=== PATIENT | male | born 1965 | race Caucasian/White ===

== ENCOUNTER → 2017-02-12 | Outpatient (CLI) | payer OTHER ==
[~2017-02-12] MED LIST: ATOR20TA58 PO; GADOBUTROL 7.5 MMOL/7.5 ML VIAL IV ONE; GLIM1TAB2 PO; LIRA0.6P2 SQ; LOSA25TA4 PO; METF500T4 PO
--- NOTE | 2017-02-12 12:57 | KCIC ---
PROCEDURE MRI of the left brachial plexus without and with contrast 02/12/2017 HISTORY Left arm pain and limited range of motion for 7-8 months. TECHNIQUE Unenhanced T1 weighted coronal images of the lower neck/upper chest were obtained. Fat saturated T2 weighted sagittal, axial and coronal and fat saturated T1 weighted sagittal and axial images in the region of left brachial plexus were obtained. After the intravenous administration of 11 cc of Gadavist, enhanced fat saturated T1 coronal images of the lower neck/upper chest were obtained. Additionally fat saturated T2 weighted axial and sagittal images in the region left brachial plexus were obtained. FINDINGS The visualized portions of the roots, trunks, divisions, cords, and branches of the left brachial plexus are within normal limits. No abnormal soft tissue mass or area of abnormal contrast enhancement is seen. The visualized portions of the right brachial plexus are within normal limits. Mild to moderate S-shaped curvature of the thoracic spine is seen. There is a small to moderate-sized left shoulder joint effusion. Degenerative changes are seen involving the both AC joint and glenohumeral joints. IMPRESSION No abnormality of the left brachial plexus is seen. Electronically signed by: Cristian Kelley MD (Feb 12, 2017 12:55:25)
--- NOTE | 2017-02-12 14:55 | KCIC ---
CHEST, TWO VIEWS, 02/12/2017: History: Smoker, weight loss The heart size and pulmonary vascularity are normal. No pulmonary infiltrates are seen. There is no evidence of pleural fluid. Moderate spurring is present in the spine. IMPRESSION: No acute cardiopulmonary abnormality is detected. Electronically signed by: Mason Saldivar MD (Feb 12, 2017 14:53:39)
== END | disposition home or self-care (01) ==
LOC: KCIC MRI 09:55
PROVIDERS: ATTEND Psychiatry & Neurology Neurology with Special Qualifications in Child Neurology
DX: G54.0 Brachial plexus disorders (principal); F17.200 Nicotine dependence, unspecified, uncomplicated; R63.4 Abnormal weight loss
CPT/HCPCS: 71020; 73220; 82565; A9585

== ENCOUNTER → 2017-05-19 | Outpatient (CLI) | payer OTHER ==
[~2017-05-19] MED LIST changes: -GADOBUTROL 7.5 MMOL/7.5 ML VIAL IV ONE
--- NOTE | 2017-05-19 16:12 | EKG ---
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
[2017-05-19 16:39] LABS: CALCIUM 9.1 mg/dL (8.5-10.1); CREATININE 0.8 mg/dL (0.7-1.3); GFR 101.9; POTASSIUM 4.2 mmol/L (3.5-5.1)
== END | disposition home or self-care (01) ==
LOC: EKG 15:48
PROVIDERS: ATTEND Anesthesiology
DX: Z01.812 Encounter for preprocedural laboratory examination (principal); R94.31 Abnormal electrocardiogram [ECG] [EKG]
CPT/HCPCS: 36415; 80048; 93005

== ENCOUNTER → 2017-07-01 | Outpatient (CLI) | payer OTHER ==
--- NOTE | 2017-07-01 12:50 | KCIC ---
MR LUMBAR SPINE HISTORY: Low back pain with left leg radiculopathy. Technique: Sagittal T2, sagittal STIR, and sagittal T1-weighted images were obtained. Additional axial T1 and T2 weighted imaging was also performed. FINDINGS: There is grade 2 spondylolisthesis of L5 on S1 with L5 pars defects bilaterally. There is a broad-based disc protrusion and disc height loss as well. This results in severe bilateral foraminal stenosis. Correlate for L5 radiculopathy symptoms. The remaining disc spaces are well-maintained. There is no compression fracture. Overall bone marrow signal is within normal limits apart from some edema at the superior endplate of L5. Visualized intra-abdominal contents are within normal limits. IMPRESSION: Grade 2 spondylolisthesis of L5 on S1 with severe bilateral foraminal stenosis. Electronically signed by: Carl Johnson MD (07/01/2017 12:47 PM) [place] [id number]
== END | disposition home or self-care (01) ==
LOC: KCIC MRI 11:58
PROVIDERS: ATTEND Family Medicine
DX: M54.16 Radiculopathy, lumbar region (principal); M48.06 Spinal stenosis, lumbar region; M43.16 Spondylolisthesis, lumbar region
CPT/HCPCS: 72148

== ENCOUNTER → 2017-08-11 | Outpatient (CLI) | payer OTHER ==
[~2017-08-11] MED LIST changes: +ATOR40TA59 PO; +CITA40TA5 PO; +GABA-586 PO; +GLIP10TA13 PO; +IOHEXOL 180 MG/ML 10 ML VIAL. ONE; +LOSA100T6 PO; +MELO15TA23 PO; +methylPREDNISolone ACETATE 40 MG/ML VIAL. ONE; +methylPREDNISolone ACETATE 80 MG/ML VIAL. ONE
--- NOTE | 2017-08-11 13:56 | PAIN ---
DATE OF SERVICE: 08/11/2017 INITIAL CONSULTATION FOR PAIN CLINIC CHIEF COMPLAINT: Low back and left lower extremity pain. HISTORY OF PRESENT ILLNESS: This is a 52-year-old male who presents with history of pain in low back, left lower extremity, mostly radiating to the posterior gluteus, posterior thigh, posterior calf, into the foot and toes; sharp, stabbing, cramping, aching, radiating. Worse during the day with activity, standing and walking; better with sitting or lying down. The patient reports not the result of any specific injury or action he is aware of, but he has it for many years. Is doing fairly well, as he had some treatment for it about 8 years ago, but the pain returned over the past over 4 to 5 months. The patient reports no new injury or accidents that is noted. Did have a new MRI scan of lumbar spine though, showing a grade 2 spondylolisthesis at L5 and S1 with severe bilateral foraminal stenosis at the L5 level, with a broad-based disk protrusion and disk height loss as well. The patient reports worse with standing, walking, changing positions; better with lying down. Awakens him from sleep 2-3 times at night, but not every night. It does not affect his bowel and bladder control, but does affect his ability to walk. He states his left leg fatigues significantly when ambulating. The patient reports he has tried oxycodone which does help, but he has not had any for about a week. He has had some chiropractic treatment years ago. Also had some epidural injections about 8 years ago, which did well, also by his report. The patient reports his disability rating from 0 to 10, 10 being the worst. It is 7 with family and home responsibilities, recreation, social activity; 6 with occupation; 10 with sexual behavior; 5 with self care; and 5 with life support activities. PAST MEDICAL HISTORY: Significant for type 2 diabetes, cigarette smoking, arthritis, dizziness. PREVIOUS SURGERY: Include left shoulder manipulation under anesthetic and LASIK procedure in 2016. CURRENT MEDICATIONS: Include citalopram, gabapentin, losartan, glipizide, metformin, atorvastatin and Meloxicam. ALLERGIES: THE PATIENT IS ALLERGIC TO PENICILLIN. FAMILY HISTORY: Significant for heart disease and diabetes. SOCIAL HISTORY: The patient drinks a few alcoholic drinks a week on average. Smokes less than a pack a day and has for over 10 years. The patient is . Lives on his own locally in [place], [place], and is currently employed. REVIEW OF SYSTEMS: The patient's review of systems is positive for those items mentioned in history of present illness. All systems reviewed and otherwise negative. It is complete, full and well-documented on the patient's chart. PHYSICAL EXAMINATION: VITAL SIGNS: Today the patient's blood pressure is 136/78, pulse 77, respirations 18, temperature 98.2 degrees Fahrenheit, height 6 feet 5 inches, weight is 243 pounds. GENERAL: The patient is awake, alert, oriented, appropriate, has very pleasant demeanor. HEENT: Shows normocephalic, atraumatic. Extraocular movements are intact and symmetrical. Oral cavity shows mucous membranes moist and pink. Dentition is intact. NECK: Shows anterior throat supple without palpable lymphadenopathy noted. Swallow reflex is symmetrical. CHEST: Shows normal on inspection. Breath sounds are clear to auscultation bilaterally. HEART: Shows S1 and S2 clear. ABDOMEN: Soft, nontender, nondistended. No palpable organomegaly. There is no rebound or guarding demonstrated. BACK: Shows spine grossly in the midline. Normal appearing thoracic kyphosis and lumbar lordotic curvature. Lumbar paraspinous musculature shows symmetrical. No previous bruises, lesions, rashes or scars are noted. The musculature with palpation shows some [id number]-[id number] tenderness in the low lumbar distribution diffusely bilaterally, without radiation, without asymmetry. The patient shows good rotation and motion of the lumbar spine, both laterally as well as extension and flexion, without significant pain reported. No tenderness over the sacrum or sacroiliac regions of the spinous processes. EXTREMITIES: Lower extremities show deep tendon reflexes 2+ in the patellar, 1+ tendo calcaneus tendons. Motor exam is strong with 5/5 dorsiflexion, extension, quadriceps and hamstring flexion, and is symmetrical as well. Peripheral pulses are 2+ posterior tibial and dorsalis pedis pulses. No peripheral edema is noted. No clubbing, no cyanosis. Lower extremities are warm and dry to touch, equal in color and appearance. Straight leg raising noted to be positive on the left at about 40 degrees. Right side is negative. Gaenslen and Sarkis maneuvers are negative bilaterally as well. The patient is able to stand, stand on the toes without difficulty or loss of balance, ambulating with a normal appearing gait, but does not appear to favor the right or left lower extremity significantly with ambulation. Not using any assistive devices to ambulate as well. IMPRESSION: This is a 52-year-old male with: 1. Long history of low back, left lower extremity pain, worse over the past few months. 2. MRI scan of lumbar spine as noted. 3. Type 2 diabetes. 4. Cigarette smoking. PLAN: Options were discussed with the patient, including conservative medical management, physical therapy, interventional technique. He likes to proceed with interventional technique, as he has done well with these in the past by his report. We discussed a lumbar epidural steroid injection using description as well as anatomical models to describe the procedure. Risks were then discussed including, but not limited to bleeding, infection, possibility of epidural hematoma and subsequent neurologic compromise, dural puncture, headaches, spinal cord and/or nerve damage, side effects of steroid medication and poor results regarding pain control. The patient understands and wishes to proceed. The patient will return to clinic in approximately 2 weeks for followup. She was counseled as to return appointment, activity level and side effects to be aware of. DIAGNOSIS: Lumbar radiculopathy with lumbar spondylolisthesis. PROCEDURE: Lumbar epidural steroid injection in translaminar approach at the L5-S1 level using C-arm fluoroscopic guidance, under sterile prep and drape using local anesthetic. MEDICATIONS INJECTED: A total of 120 mg of Depo-Medrol plus 10 mL of preservative-free normal saline, 2 mL Isovue for contrast. CONDITION AT DISCHARGE: Stable. The patient tolerated the procedure well. Had no complications. MARAL FELDER MD DR: CASH/carlos JOB#: [id number] / [id number] ZOHAIB Zhou DO
== END | disposition home or self-care (01) ==
LOC: PNCL 10:19
PROVIDERS: ATTEND Anesthesiology
DX: M43.16 Spondylolisthesis, lumbar region (principal); M54.16 Radiculopathy, lumbar region; F17.200 Nicotine dependence, unspecified, uncomplicated; E11.9 Type 2 diabetes mellitus without complications; M19.91 Primary osteoarthritis, unspecified site; Z83.3 Family history of diabetes mellitus; Z72.89 Other problems related to lifestyle; Z88.0 Allergy status to penicillin
CPT/HCPCS: 62323; J1030; J1040

== ENCOUNTER → 2017-08-25 | Outpatient (CLI) | payer OTHER ==
[~2017-08-25] MED LIST changes: -IOHEXOL 180 MG/ML 10 ML VIAL. ONE; -methylPREDNISolone ACETATE 40 MG/ML VIAL. ONE; -methylPREDNISolone ACETATE 80 MG/ML VIAL. ONE
--- NOTE | 2017-08-25 12:10 | PAIN ---
DATE OF SERVICE: 08/25/2017 DIAGNOSES: Lumbar radiculopathy with lumbar spondylolisthesis. HISTORY OF PRESENT ILLNESS: The patient is a 52-year-old male who returns for followup status post lumbar epidural steroid injection x 1. The patient reports about 90% improvement after the injection, still in pain in the left lower extremity and low back, but only very minimal. The patient reports it is a 2 on a scale of 10 at its absolute worst. The patient reports he has been increasing activity with greater ease and comfort, has been exercising and actually played 18 holes of golf 2 days ago without significant pain reported. The patient reports the pain is there, but it is only an intermittent entity, sharp, tight, only noticeable when he is on his feet for more than about 1 hour. The patient reports otherwise doing well, sleeping well at night. No new motor or sensory deficits. No new bowel or bladder incontinence or other complaints. The patient is very pleased with his progress thus far. PHYSICAL EXAMINATION: VITAL SIGNS: The patient's blood pressure 121/76, pulse 77, respirations 16, temperature is 97.9 degrees Fahrenheit. Height is 6 feet 5 inches, weight is 248 pounds. GENERAL: The patient is awake, alert, oriented, appropriate, very pleasant demeanor. HEENT: Head shows normocephalic, atraumatic. Extraocular movements intact, symmetrical. Oral cavity, mucous membranes are moist and pink. Dentition is intact. NECK: Shows anterior throat supple without palpable lymphadenopathy noted. Swallow reflex is symmetrical. CHEST: Shows normal on inspection. Breath sounds clear to auscultation bilaterally. HEART: Shows S1 and S2 clear. No murmurs auscultated. ABDOMEN: Soft, nontender, nondistended. BACK: Shows spine grossly midline. Lumbar lordotic curvature is maintained. Lumbar paraspinous muscle shows symmetrical on inspection with palpation, shows only very mild tenderness with deep palpation and only diffusely in the low lumbar paraspinous musculature without radiation. Good rotational motion both laterally as well as extension and flexion of the lumbar spine without difficulty. EXTREMITIES: Lower extremities show deep tendon reflexes 2+ in the patella, 1+ tendo-calcaneus tendons are symmetrical. Motor exam is strong with 5/5 dorsiflexion, extension. Quadriceps and hamstring flexion are equal as well. Options were discussed with the patient. The patient's old chart was reviewed and his current medication regimen updated. Current review of systems updated today as well and we will hold on any further injections as he is doing much better and would like to wait on any further interventions. We will have him increase his activity as tolerated, maintain his stretching and strengthening exercises at home as well as walking daily, and will follow up on an as needed basis at this time. MARAL FELDER MD DR: CASH/carlos JOB#: [id number] / [id number]
== END | disposition home or self-care (01) ==
LOC: PNCL 09:32
PROVIDERS: ATTEND Anesthesiology
DX: M54.16 Radiculopathy, lumbar region (principal); M43.16 Spondylolisthesis, lumbar region; M79.605 Pain in left leg
CPT/HCPCS: 99212

== ENCOUNTER → 2019-12-22 | Outpatient (CLI) | payer OTHER ==
[~2019-12-22] MED LIST changes: -GABA-586 PO; +GABA300C18 PO; -GLIM1TAB2 PO; +GLIM1TAB7 PO; +LOSA100T14 PO; -LOSA100T6 PO; -LOSA25TA4 PO; +LOSA25TA54 PO; +METF500T16 PO; -METF500T4 PO
[2019-12-22 13:09] LABS: BASO # 0.1 x10^3/uL (0.0-0.2); BASO % 1 % (0-3); EOS # 0.2 x10^3/uL (0.0-0.7); EOS % 2 % (0-3); HEMOGLOBIN 14.8 g/dL (13.0-17.5); LYMPH # 1.9 x10^3/uL (1.0-4.8); LYMPH % 23 % (24-48); MEAN CORPUSCULAR HEMOGLOBIN 29 pg (25-35); MEAN CORPUSCULAR HGB CONC 34 g/dL (31-37); MEAN CORPUSCULAR VOLUME 87 fL (79-100); MONO # 0.6 x10^3/uL (0.0-1.1); MONO % 7 % (0-9); NEUT # 5.3 x10^3/uL (1.8-7.7); NEUT % 66 % (31-73); PLATELET COUNT 180 x10^3/uL (140-400); RED BLOOD COUNT 5.08 x10^6/uL (4.30-5.70)
[2019-12-22 13:24] LABS: ALBUMIN 3.6 g/dL (3.4-5.0); CALCIUM 8.7 mg/dL (8.5-10.1); CREATININE 0.8 mg/dL (0.7-1.3); GFR 100.7; POTASSIUM 5.1 mmol/L (3.5-5.1); TOTAL BILIRUBIN 0.5 mg/dL (0.2-1.0); TOTAL PROTEIN 7.1 g/dL (6.4-8.2)
[2019-12-22 13:35] LABS: C-REACTIVE PROTEIN 3.9 mg/L (0-3.3)
== END | disposition home or self-care (01) ==
LOC: LAB 12:41
PROVIDERS: ATTEND Podiatrist Foot & Ankle Surgery
DX: E11.621 Type 2 diabetes mellitus with foot ulcer (principal)
CPT/HCPCS: 36415; 80053; 85025; 85651; 86140

== ENCOUNTER → 2020-01-02 | Outpatient (CLI) | payer OTHER ==
[~2020-01-02] MED LIST changes: +GADOTERATE 7.5 MMOL/15ML VIAL. IVP ONE
--- NOTE | 2020-01-02 10:48 | KCIC ---
Bilateral lower extremity arterial Doppler dated 01/02/2020. COMPARISON: None. CLINICAL INDICATION: Foot wound for 2 months. Hypertension and diabetes and tobacco use. FINDINGS: Grayscale, color-flow and spectral waveform analysis performed to include the arterial tree of both lower extremity. There is diffuse luminal irregularity consistent with atherosclerotic plaquing. Mild velocity elevation of the right common femoral artery, estimated at 256 cm/S. Triphasic flow within the common femoral artery and proximal/mid right superficial femoral artery. There is focal plaque at the distal superficial femoral artery on the right with monophasic flow and velocity measurements and 26 cm/S. There is parvus tardus low velocity flow involving the popliteal artery and arteries of right calf. On the left, there is triphasic flow within the common femoral artery and profundus femoris. Monophasic flow of the superficial femoral artery proximally and distally with mild velocity elevation ranging from 126 cm/S2 137 cm/S. There is triphasic flow of the popliteal artery and posterior tibial artery with monophasic flow of the peroneal artery and anterior tibial artery of left calf. IMPRESSION: 1. Diffuse atherosclerotic plaquing. Monophasic parvus tardus flow from the right distal superficial femoral artery to the arteries of the right calf, suggesting a high-grade stenosis. 2. There is also monophasic flow within the left superficial femoral artery, left anterior tibial artery and left peroneal artery suggesting moderate to high-grade narrowing. Electronically signed by: Tim Viramontes MD (01/02/2020 10:45 AM) [facility]-KCIC2
--- NOTE | 2020-01-02 10:57 | KCIC ---
LOWER EXT NON JOINT WO/W RT dated 01/02/2020 9:30 AM Indication: Plantar foot wound evaluate for osteomyelitis nonhealing for 2 months. Comparison: No comparison is available. Technique: Routine multiplanar multisequence imaging performed. Fat-saturated postcontrast T1-weighted sequences acquired after the intravenous administration of 22 cc Dotarem Findings: Study is somewhat limited due to incomplete fat saturation on the T2-weighted images. There is a focal area of skin ulceration at the plantar aspect of the lateral forefoot near the level of the fifth MTP joint. Edema extends to the level of the flexor tendon without associated cortical destruction or significant bone marrow edema. There is minimal increased T2 signal within the head of the fifth metatarsal and base of fifth proximal phalanx which could be related to reactive edema. There is no significant T1 signal loss or bone destruction. No fluid collection to suggest abscess. There is diffuse edema throughout the dorsal subcutaneous tissues and plantar foot musculature. No marrow edema or bone destruction. No periostitis. Alignment anatomic. Visualized bony and soft tissue structures are otherwise unremarkable. IMPRESSION: 1. Soft tissue edema and skin ulcer at the plantar aspect of the fifth MTP joint with no convincing evidence of underlying osteomyelitis. There is minimal increased T2 signal within the marrow of the fifth metatarsal head and base of proximal phalanx that is likely related to reactive edema or artifact from incomplete fat saturation. Early osteomyelitis would be considered less likely. If symptoms persist, follow-up imaging may be warranted. 2. Diffuse edema throughout the subcutaneous tissues and plantar foot musculature, nonspecific. This could be related to generalized cellulitis/myositis. Diabetic neurovascular edema is another consideration. Electronically signed by: Tim Viramontes MD (01/02/2020 10:54 AM) [facility]-KCIC2
== END | disposition home or self-care (01) ==
LOC: KCIC US 07:58
PROVIDERS: ATTEND Podiatrist Foot & Ankle Surgery
DX: I70.8 Atherosclerosis of other arteries (principal); E11.51 Type 2 diabetes mellitus with diabetic peripheral angiopathy without gangrene; I10 Essential (primary) hypertension; R60.0 Localized edema; Z72.0 Tobacco use
CPT/HCPCS: 73720; 93925; A9575

== ENCOUNTER 2020-01-16 11:25 | Inpatient (IN) | payer OTHER ==
[~2020-01-16] VITALS: Ht 195.6 cm; Wt 104.5 kg
[2020-01-16] VITALS (11 sets, daily range): BP systolic 138–163; BP diastolic 66–79
[~2020-01-16 11:25] MED LIST changes: -GADOTERATE 7.5 MMOL/15ML VIAL. IVP ONE
[2020-01-16 12:06] LABS: CALCIUM 9.5 mg/dL (8.5-10.1); CREATININE 0.8 mg/dL (0.7-1.3); GFR 100.7; POTASSIUM 4.2 mmol/L (3.5-5.1)
[2020-01-16 12:08] LABS: PROTHROMBIN TIME PATIENT 12.7 SEC (11.7-14.0)
[2020-01-16 12:12] LABS: HEMATOCRIT 46.5 % (39.0-53.0); HEMOGLOBIN 15.6 g/dL (13.0-17.5); RED BLOOD COUNT 5.31 x10^6/uL (4.30-5.70); RED CELL DISTRIBUTION WIDTH 13.7 % (11.5-14.5); WHITE BLOOD COUNT 9.3 x10^3/uL (4.0-11.0)
[2020-01-16] MEDS ORDERED: MIDAZOLAM HCL/PF 2 MG/2 ML VIAL. ONE ×2 (12:38→13:21)
[2020-01-16] MEDS ORDERED: fentaNYL PF VIAL 100 MCG/2 ML VIAL ONE ×2 (12:38→13:42)
[2020-01-16] MEDS ORDERED: LIDOCAINE 1% Multi-Dose 20 ML VIAL. ONE (12:39)
[2020-01-16] MEDS ORDERED: IODIXANOL 320 MG/ML 100 ML VIAL. ONE (12:39)
[2020-01-16] MEDS ORDERED: IODIXANOL 320 MG/ML 100 ML VIAL. IART ONE (12:45)
[2020-01-16] MEDS ORDERED: fentaNYL PF VIAL 100 MCG/2 ML VIAL IV ONE (12:45)
[2020-01-16] MEDS ORDERED: LIDOCAINE 1% Multi-Dose 20 ML VIAL. INJ ONE (12:45)
[2020-01-16] MEDS ORDERED: MIDAZOLAM HCL/PF 2 MG/2 ML VIAL. IV ONE (12:45)
[2020-01-16] MEDS ORDERED: VERAPAMIL 5 MG/2 ML VIAL. ONE (12:48)
[2020-01-16] MEDS ORDERED: HEPARIN for IV BOLUS 10,000 UNIT/10 ML VIAL. ONE (12:48)
[2020-01-16] MEDS ORDERED: NITROGLYCERIN 200 MCG/2 ML SYRINGE FOR CATH/VASC LAB. ONE (12:48)
[2020-01-16] MEDS ORDERED: HEPARIN for IV BOLUS 10,000 UNIT/10 ML VIAL. IV ONE (13:30)
[2020-01-16] MEDS ORDERED: NITROGLYCERIN 200 MCG/2 ML SYRINGE FOR CATH/VASC LAB. IART ONE (14:30)
[2020-01-16] MEDS ORDERED: hydrALAZINE 20 MG/ML VIAL. ONE (14:32)
[2020-01-16] MEDS ORDERED: hydrALAZINE 20 MG/ML VIAL. IVP ONE (15:00)
[2020-01-16] MEDS ORDERED: IV NORMAL SALINE 1000ML BAG 1,000 ML IV ONE (16:45)
[2020-01-16] MEDS ORDERED: ACETAMINOPHEN 325 MG TABLET. PO PRN (16:45)
--- NOTE | 2020-01-16 18:26 | PDOC ---
Provider Note Provider Note Full note to follow. Patient underwent aortogram with attempted antegrade PVI of the RSFA AUTOMOTIVE ARTIST due to non-healing plantar wound requiring full cast. Unsuccessful recanalization via antegrade approach. Discussed case with vascular surgery regarding possible pedal approach versus bypass. Vascular surgery will evaluate patient for possible bypass in a.m. At case completion patient had dopplerable PT flow and angiographically had three vessel run-off. Will keep L groin sheath intact in the event it is needed for any emergent intervention overnight. If stable overnight, sheath removal in a.m. and determine further plans. Thanks. NICOLE EDEN MD Jan 16, 2020 18:25
--- NOTE | 2020-01-16 18:49 | CARD ---
MR#: [id number] Date of Study: 01/16/2020 Ordering Physician: NICOLE ORTIZ, Referring Physician: NICOLE ORTIZ, Tech: Tata Najera RT (R) APPROVED REPORT Patient StatusIN-PATIENT Cupola Tapper Helper: Tata Najera RT (R) Procedure(s) performed: FLOURO TIME 29.8 MINUTES DOSE 49.10 Gycm2 CONTRAST 146 CC'S VISIPAQUE MODERATE SEDATION 103 MINUTES Abdominal aortogram with RLE run-off. HISTORY : The patient is a 54 year-old male with a history of . INDICATION FOR PROCEDURE The indication(s) include : Rest pain: Right lower extremity, Positive angiogram for stenosis: Superf icial femoral. PROCEDURE NARRATIVE Clinical indication: 54-year-old man who was referred by the podiatry service for evaluation of abnormal right lower extre mity Doppler ultrasound in the setting of a nonhealing right fifth plantar surface wound. He has been treated with conservative management as he has previously not been inclined for interventional treat ment. Ultimately he was seen by the cardiology service and referred for aortography with runoff for f urther treatment and evaluation. Procedure details: After informed consent was obtained the patient was prepped and draped in usual sterile fashion. The left groin was infiltrated with 2% lidocaine local anesthesia. A 5 [place] sheath was placed without d ifficulty. A 5 [place] Omni Flush catheter was advanced to the abdominal aorta and aortography was per formed. Next, the Omni Flush catheter was used to cross over to the right external iliac artery with a J-tipped guidewire and this was placed in the distal external iliac artery. Right lower extremity r unoff angiogram was obtained. Findings: Abdominal aorta: No significant disease Right renal artery likely has a 50% stenosis Left renal artery is not well-visualized Right and left common iliac arteries are grossly unremarkable Right external iliac artery is notable for mild to moderate disease of a proximally 40-50% Right common femoral artery is without significant disease Right profunda is without any significant disease Right superficial femoral artery has mild to moderate proximal and mid disease of approximately 40-50 %. There is a focal 100% obstruction at the level of the abductor canal prior to the P1 segment of th e popliteal artery. Right popliteal artery is widely patent The right tibioperoneal trunk is widely patent The right anterior tibial, posterior tibial and peroneal arteries are patent but was diminished flow to the foot. Interventional technique: Heparin was used for anticoagulation. The 5 [place] sheath was exchanged to a 6 [place] destination she ath. Next, with the aid of a Navicross catheter a 0.[address]/LT wires were used to try to cross the occlusion. Although the occlusion was traversed reentry into the true lumen distally was unsucce ssful despite attempts with the above-stated wires, Glidewire and a V 18 wire. There was a small to m oderate likely hematoma in the medial and adventitial aspect of the distal SFA and popliteal segment which upon repeat angiography revealed approximately a 50% stenosis of the distal SFA and P1 segment of the popliteal artery. Intravenous nitroglycerin was administered and anticoagulation was discontin ued. Ultimately, there was persistent three-vessel runoff with a dopplerable signal in the left poste rior tibial artery. In light of unsuccessful attempts via antegrade approach the case was terminated. The left groin mendez th was sutured to the skin and the patient was transferred to the room in stable condition. Conclusion 1. [place] category 5 right lower extremity plantar wound 2. 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 Unsuccessful antegrade recanalization of the right SFA Recommendations 1. Case discussed with vascular surgery and podiatry (Dr. Plaza). Given that the patient is a goo d candidate for surgery the vascular surgery service (Dr. Cherry or Aubrie) will evaluate him for pos sibility of femoropopliteal bypass. If he is felt to be a poor candidate then we will plan for retrog rade treatment via a pedal approach in the next 24-48 hours. Patient and family (sisters) were also n otified of the plan. 2. Left groin sheath to remain in place in the event there is any acute occlusive disease of the righ t SFA/pop. On-call interventional radiology also notified. 3. Bilateral LE vein mapping and carotid doppler evaluation ordered. Signed by : Nicole Ortiz, Electronically Approved : 01/16/2020 18:48:50
[2020-01-16] MEDS ORDERED: DEXTROSE 50% 25 GM / 50ML DISP.SYRIN. IV PRN (19:15)
[2020-01-16] MEDS: ATORVASTATIN CALCIUM 40 MG TABLET. PO SCH (21:08)
[2020-01-16] MEDS: NICOTINE 14MG PATCH. TD PRN (21:14)
[2020-01-16] MEDS: INSULIN LISPRO 300 UNITS/3 ML VIAL. SQ SCH (21:19)
[2020-01-16] MEDS: CYCLOBENZAPRINE 10 MG TABLET. PO PRN (22:44)
[2020-01-17] VITALS (8 sets, daily range): BP systolic 102–178; BP diastolic 42–79
[2020-01-17] MEDS: hydrALAZINE 20 MG/ML VIAL. IVP PRN ×2 (02:05→07:18)
[2020-01-17] MEDS: fentaNYL PF VIAL 100 MCG/2 ML VIAL IVP PRN ×2 (03:38→05:46)
--- NOTE | 2020-01-17 06:40 | RAD ---
Bilateral vein mapping study dated 01/17/2020. No comparison available. Clinical data indication: Preop for CABG procedure. FINDINGS: Grayscale, color-flow and spectral waveform analysis was performed. The right greater saphenous vein measures 5.1 mm proximally, 4.3 mm at its mid aspect and 3.7 mm distally and is patent. The right small saphenous vein measures 3.6 mm approximate, 2.7 mm at its mid aspect and 2.4mm distally and is patent. The left greater saphenous vein measures 4.6 mm proximally, 4. 63.9 mm at its mid aspect and 4.3 mm distally and is patent. The left small saphenous vein is not visualized. IMPRESSION: Vein mapping study as described Electronically signed by: Tim Viramontes MD (01/17/2020 6:37 AM) [id number]
--- NOTE | 2020-01-17 06:43 | RAD ---
Carotid Doppler dated 01/17/2020. Comparison none. Clinical Indication: Preop for CABG procedure.. Findings: Grayscale, color flow and spectral waveform analysis was performed. Minimal plaque at both carotid bifurcations. No focal stenosis. The waveforms are within normal limits. Flow within the bilateral vertebral arteries is antegrade. Velocity measurements are as follows (centimeters per second ) Peak systolic velocity right left ICA 109 139 CCA 123 114 ECA 260 154 ICA/CCA ratio 0.88 1.21 Impression: No evidence of hemodynamically significant carotid stenosis. Stenosis calculations for carotid ultrasound studies are derived from validated velocity criteria which are known to correlate with the NASCET methodology. Electronically signed by: Tim Viramontes MD (01/17/2020 6:40 AM) [id number]
[2020-01-17] MEDS: CYCLOBENZAPRINE 10 MG TABLET. PO PRN (07:18)
--- NOTE | 2020-01-17 09:53 | PDOC2 ---
CONSULT Date of Consult Date of Consult DATE: 01/17/20 TIME: 09:33 Reason for Consult Reason for Consult: PVD, right plantar foot ulcer Referring Physician Referring Physician: Dr. Ortiz Identification/Chief Complaint Chief Complaint Right foot pain, non-healing ulcer Source Source: Chart review, Patient History of Present Illness Reason for Visit: This is a 54-year-old male who is referred to us by cardiology services for evaluation following angiogram which reveal long segment superfical femoral artery disease, patient has a nonhealing right fifth metatarsal plantar ulcer. Patient has been followed by podiatry for the last few weeks with contact casting along with local wound care and antibiotics. The patient had an abdnormal arterial doppler, thus angiogram performed. The patient complains of pain and tenderness to right foot. He denies any lower extremity claudication. He has multiple varicose veins in right lower extremity. Preoperative carotid ultrasound was performed that showed mild to moderate disease bilaterally. In addition patient had bilateral lower extremity vein mapping and was noted to have adequate greater saphenous vein in his right leg should bypass be w arranted. Patient denies any fever, chills or weakness. She denies any nausea or vomiting, he does report a mild diarrhea during his course of antibiotics. Past Medical History Cardiovascular: HTN, Hyperlipidemia Endocrine: Diabetes Family History Family History non-contributory to current problem Social History No Lives: with Family Current Medications Current Medications Current Medications Midazolam HCl (Versed) 2 mg STK-MED ONCE .ROUTE ; Start 01/16/20 at 12:38; Stop 01/16/20 at 12:38; Status DC Fentanyl Citrate (Fentanyl 2ml Vial) 100 mcg STK-MED ONCE .ROUTE ; Start 01/16/20 at 12:38; Stop 01/16/20 at 12:38; Status DC Iodixanol (Visipaque 320) 100 ml STK-MED ONCE .ROUTE ; Start 01/16/20 at 12:39; Stop 01/16/20 at 12:39; Status DC Lidocaine HCl (Lidocaine 1% 20ml Vial) 20 ml STK-MED ONCE .ROUTE ; Start 01/16/20 at 12:39; Stop 01/16/20 at 12:39; Status DC Heparin Sodium/ Sodium Chloride 1,000 ml @ As Directed STK-MED ONCE .ROUTE ; Start 01/16/20 at 12:39; Stop 01/16/20 at 12:39; Status DC Heparin Sodium/ Sodium Chloride 1,000 ml @ As Directed STK-MED ONCE .ROUTE ; Start 01/16/20 at 12:40; Stop 01/16/20 at 12:40; Status DC Heparin Sodium/ Sodium Chloride (HEPARIN for ARTERIAL LINE FLUSH) 1,000 unit 1X ONCE IART Last administered on 01/16/20at 12:45; Start 01/16/20 at 12:45; Stop 01/16/20 at 12:52; Status DC Heparin Sodium/ Sodium Chloride (HEPARIN for ARTERIAL LINE FLUSH) 1,000 unit 1X ONCE IART Last administered on 01/16/20at 12:45; Start 01/16/20 at 12:45; Stop 01/16/20 at 12:52; Status DC Midazolam HCl (Versed) 2 mg 1X ONCE IV Last administered on 01/16/20at 13:17; Start 01/16/20 at 12:45; Stop 01/16/20 at 12:52; Status DC Fentanyl Citrate (Fentanyl 2ml Vial) 100 mcg 1X ONCE IV Last administered on 01/16/20at 13:17; Start 01/16/20 at 12:45; Stop 01/16/20 at 12:52; Status DC Iodixanol (Visipaque 320) 100 ml 1X ONCE IART Last administered on 01/16/20at 12:45; Start 01/16/20 at 12:45; Stop 01/16/20 at 12:52; Status DC Lidocaine HCl (Lidocaine 1% 20ml Vial) 20 ml 1X ONCE INJ Last administered on 01/16/20at 13:20; Start 01/16/20 at 12:45; Stop 01/16/20 at 12:52; Status DC Verapamil HCl (Verapamil) 5 mg STK-MED ONCE .ROUTE ; Start 01/16/20 at 12:48; Stop 01/16/20 at 12:48; Status DC Heparin Sodium (Porcine) (Heparin Sodium) 10,000 unit STK-MED ONCE .ROUTE ; Start 01/16/20 at 12:48; Stop 01/16/20 at 12:48; Status DC Nitroglycerin (Nitroglycerin) 200 mcg STK-MED ONCE .ROUTE ; Start 01/16/20 at 12:48; Stop 01/16/20 at 12:48; Status DC Midazolam HCl (Versed) 2 mg STK-MED ONCE .ROUTE ; Start 01/16/20 at 13:21; Stop 01/16/20 at 13:21; Status DC Heparin Sodium (Porcine) (Heparin Sodium) 4,000 unit 1X ONCE IV Last administered on 01/16/20at 13:30; Start 01/16/20 at 13:30; Stop 01/16/20 at 13 :32; Status DC Fentanyl Citrate (Fentanyl 2ml Vial) 100 mcg STK-MED ONCE .ROUTE ; Start 01/16/20 at 13:42; Stop 01/16/20 at 13:42; Status DC Nitroglycerin (Nitroglycerin) 200 mcg 1X ONCE IART Last administered on 01/16/20at 14:30; Start 01/16/20 at 14:30; Stop 01/16/20 at 14:31; Status DC Hydralazine HCl (Apresoline Inj) 20 mg STK-MED ONCE .ROUTE ; Start 01/16/20 at 14:32; Stop 01/16/20 at 14:33; Status DC Hydralazine HCl (Apresoline Inj) 20 mg 1X ONCE IVP Last administered on 01/16/20at 14:56; Start 01/16/20 at 15:00; Stop 01/16/20 at 15:01; Status DC Heparin Sodium/ Sodium Chloride 500 ml @ As Directed STK-MED ONCE .ROUTE ; Start 01/16/20 at 14:51; Stop 01/16/20 at 14:51; Status DC Atorvastatin Calcium (Lipitor) 40 mg QHS PO Last administered on 01/16/20at 21:08; Start 01/16/20 at 21:00 Acetaminophen (Tylenol) 650 mg PRN Q6HRS PRN PO PAIN; Start 01/16/20 at 16:45 Hydralazine HCl (Apresoline Inj) 10 mg PRN Q4HRS PRN IVP SBP>180 or DBP>110 Last administered on 01/17/20at 07:18; Start 01/16/20 at 16:45 Sodium Chloride 1,000 ml @ 75 mls/hr 1X ONCE IV Last administered on 01/16/20at 16:59; Start 01/16/20 at 16:45; Stop 01/17/20 at 06:04; Status DC Fentanyl Citrate (Fentanyl 2ml Vial) 50 mcg PRN Q2HR PRN IVP PAIN Last administered on 01/17/20at 05:46; Start 01/16/20 at 18:30 Cyclobenzaprine HCl (Flexeril) 10 mg PRN TID PRN PO MUSCLE SPASMS Last administered on 01/17/20at 07:18; Start 01/16/20 at 18:30 Insulin Human Lispro (HumaLOG) 0-7 UNITS TIDACHC SQ Last administered on 01/16/20at 21:19; Start 01/16/20 at 21:00 Dextrose (Dextrose 50%-Water Syringe) 12.5 gm PRN Q15MIN PRN IV SEE COMMENTS; Start 01/16/20 at 19:15 Nicotine (Nicoderm Cq 14mg) 1 patch PRN DAILY PRN TD SMOKING CESSATION Last administered on 01/16/20at 21:14; Start 01/16/20 at 19:30 Active Scripts Active Reported Atorvastatin Calcium 40 Mg Tablet 1 Tab PO QHS Losartan Potassium 100 Mg Tablet 100 Mg PO DAILY Glipizide 10 Mg Tablet 10 Mg PO DAILY Metformin Hcl 500 Mg Tablet 500 Mg PO BIDWMEALS Allergies Allergies: Coded Allergies: Penicillins (Unverified Allergy, Severe, Anaphylaxis, 01/16/20) ROS Review of System Constitutional: Denies fever or chills Eyes: Denies any visual disturbances HENT: Denies nasal congestion or sore throat Respiratory: Denies cough or shortness of breath Cardiovascular: Denies any palpitations or chest pain GI: Denies abdominal pain, nausea, vomiting, + diarrhea during abx, none currently : Denies dysuria or hematuria Musculoskeletal: As per HPI Integument: As per HPI Neurologic: No gross deficits Endocrine: Diabetes Physical Exam Physical Exam Gen.: Alert and oriented 3. Cardiac: Heart rate regular. Normal carotid pulses. Lungs: CTA, nonlabored respirations. Abdomen: Soft, nontender, nondistended, no palpable masses. Extremities: 2+ bilateral femoral pulses, arterial access sheath in place left groin with no swelling or hematoma. Monophasic Doppler signal bilateral dorsalis pedis and posterior tibial pulses. 2+ bilateral radial pulses. Skin: Right fifth metatarsal plantar ulcer, clean, no surrounding erythema or swelling. Foot is warm. Right thigh and calf varicose veins, no venous stasis skin changes. Neurological: Motor and sensation intact Vitals VITALS Vital Signs Date Time Temp Pulse Resp B/P (MAP) Pulse Ox O2 Delivery O2 Flow Rate FiO2 01/17/20 08:00 Room Air 01/17/20 07:18 81 195/74 01/17/20 06:52 98.0 18 94 98.0 01/16/20 22:42 1.0 Labs Labs Laboratory Tests Test 01/16/20 11:45 01/16/20 14:28 01/16/20 16:24 01/16/20 21:07 White Blood Count 9.3 x10^3/uL (4.0-11.0) Red Blood Count 5.31 x10^6/uL (4.30-5.70) Hemoglobin 15.6 g/dL (13.0-17.5) Hematocrit 46.5 % (39.0-53.0) Mean Corpuscular Volume 88 fL (79-100) Mean Corpuscular Hemoglobin 30 pg (25-35) Mean Corpuscular Hemoglobin Concent 34 g/dL (31-37) Red Cell Distribution Width 13.7 % (11.5-14.5) Platelet Count 198 x10^3/uL (140-400) Prothrombin Time 12.7 SEC (11.7-14.0) Prothromb Time International Ratio 1.0 (0.8-1.1) Sodium Level 139 mmol/L (136-145) Potassium Level 4.2 mmol/L (3.5-5.1) Chloride Level 101 mmol/L (98-107) Carbon Dioxide Level 30 mmol/L (21-32) Anion Gap 8 (6-14) Blood Urea Nitrogen 16 mg/dL (8-26) Creatinine 0.8 mg/dL (0.7-1.3) Estimated GFR (Cockcroft-Gault) 100.7 Glucose Level 176 mg/dL (70-99) Calcium Level 9.5 mg/dL (8.5-10.1) Activated Clotting Time 199 sec (92-181) Glucose (Fingerstick) 146 mg/dL (70-99) 246 mg/dL (70-99) Test 01/17/20 07:31 Glucose (Fingerstick) 259 mg/dL (70-99) Laboratory Tests Test 01/16/20 11:45 01/16/20 14:28 01/16/20 16:24 01/16/20 21:07 White Blood Count 9.3 x10^3/uL (4.0-11.0) Red Blood Count 5.31 x10^6/uL (4.30-5.70) Hemoglobin 15.6 g/dL (13.0-17.5) Hematocrit 46.5 % (39.0-53.0) Mean Corpuscular Volume 88 fL (79-100) Mean Corpuscular Hemoglobin 30 pg (25-35) Mean Corpuscular Hemoglobin Concent 34 g/dL (31-37) Red Cell Distribution Width 13.7 % (11.5-14.5) Platelet Count 198 x10^3/uL (140-400) Prothrombin Time 12.7 SEC (11.7-14.0) Prothromb Time International Ratio 1.0 (0.8-1.1) Sodium Level 139 mmol/L (136-145) Potassium Level 4.2 mmol/L (3.5-5.1) Chloride Level 101 mmol/L (98-107) Carbon Dioxide Level 30 mmol/L (21-32) Anion Gap 8 (6-14) Blood Urea Nitrogen 16 mg/dL (8-26) Creatinine 0.8 mg/dL (0.7-1.3) Estimated GFR (Cockcroft-Gault) 100.7 Glucose Level 176 mg/dL (70-99) Calcium Level 9.5 mg/dL (8.5-10.1) Activated Clotting Time 199 sec (92-181) Glucose (Fingerstick) 146 mg/dL (70-99) 246 mg/dL (70-99) Test 01/17/20 07:31 Glucose (Fingerstick) 259 mg/dL (70-99) Images Images Carotid stenosis ICA/CCA ratio 0.88 1.21 Impression: No evidence of hemodynamically significant carotid stenosis. Vein mapping: Grayscale, color-flow and spectral waveform analysis was performed. The right greater saphenous vein measures 5.1 mm proximally, 4.3 mm at its mid aspect and 3.7 mm distally and is patent. The right small saphenous vein measures 3.6 mm approximate, 2.7 mm at its mid aspect and 2.4mm distally and is patent. The left greater saphenous vein measures 4.6 mm proximally, 4. 63.9 mm at its mid aspect and 4.3 mm distally and is patent. The left small saphenous vein is not visualized. Angiogram: Abdominal aorta: No significant disease Right renal artery likely has a 50% stenosis Left renal artery is not well-visualized Right and left common iliac arteries are grossly unremarkable Right external iliac artery is notable for mild to moderate disease of a proximally 40-50% Right common femoral artery is without significant disease Right profunda is without any significant disease Right superficial femoral artery has mild to moderate proximal and mid disease of approximately 40-50%. There is a focal 100% obstruction at the level of the abductor canal prior to the P1 segment of the popliteal artery. Right popliteal artery is widely patent The right tibioperoneal trunk is widely patent The right anterior tibial, posterior tibial and peroneal arteries are patent but was diminished flow to the foot. Assessment/Plan Assessment/Plan 54-year-old male with right lower extremity atherosclerosis with plantar surface fifth metatarsal ulcer. Patient has long segment superficial femoral artery stenosis and occlusion at the abductor canal. The patient has tentatively been scheduled for 01/19/2020 for a right femoral- popliteal bypass. Patient appears to have adequate greater saphenous vein for the bypass. Carotid-no hemodynamically signigicant stenosis, repeat US in one year. Recommend Infectious Disease Consult Recommend WCN consult Daily Aspirin Discussed history and examination with Dr. Cherry, Dr. Beckett will we'll review the angiogram and make additional recommendations regarding surgical versus percutaneous intervention later today. MAN NESBITT APRN Jan 17, 2020 09:53
[2020-01-17] MEDS ORDERED: ASPIRIN 325 MG TABLET PO SCH (10:00)
--- NOTE | 2020-01-17 10:12 | PDOC ---
Infectious Disease Note Vital Signs: Vital Signs Vital Signs Date Time Temp Pulse Resp B/P (MAP) Pulse Ox O2 Delivery O2 Flow Rate FiO2 01/17/20 08:00 Room Air 01/17/20 07:18 81 195/74 01/17/20 06:52 98.0 18 94 98.0 01/16/20 22:42 1.0 Medications: Inpatient Meds: Current Medications Medications (Trade) Dose Ordered Sig/Taisha Start Time Stop Time Status Last Admin Dose Admin Acetaminophen (Tylenol) 650 mg PRN Q6HRS PRN 01/16/20 16:45 Amlodipine Besylate (Norvasc) 10 mg DAILY 01/17/20 11:00 Aspirin (Jihan Aspirin) 81 mg DAILYWBKFT 01/17/20 10:00 Atorvastatin Calcium (Lipitor) 40 mg QHS 01/16/20 21:00 01/16/20 21:08 40 MG Cefazolin Sodium/ Dextrose 50 ml @ 100 mls/hr 1X PREOP PRN 01/19/20 06:00 01/19/20 18:00 UNV Ceftriaxone Sodium (Rocephin) 1.8 gm 1X ONCE 01/17/20 12:00 01/17/20 12:01 Cancel Cyclobenzaprine HCl (Flexeril) 10 mg PRN TID PRN 01/16/20 18:30 01/17/20 07:18 10 MG Dextrose (Dextrose 50%-Water Syringe) 12.5 gm PRN Q15MIN PRN 01/16/20 19:15 Diphenhydramine HCl (Benadryl) 25 mg PRN Q6HRS PRN 01/17/20 10:15 Fentanyl Citrate (Fentanyl 2ml Vial) 50 mcg PRN Q2HR PRN 01/16/20 18:30 01/17/20 05:46 50 MCG Heparin Sodium (Porcine) (Heparin Sodium) 4,000 unit 1X ONCE 01/16/20 13:30 01/16/20 13:32 DC 01/16/20 13:30 8,000 UNIT Heparin Sodium/ Sodium Chloride 500 ml @ As Directed STK-MED ONCE 01/16/20 14:51 01/16/20 14:51 DC Heparin Sodium/ Sodium Chloride (HEPARIN for ARTERIAL LINE FLUSH) 1,000 unit 1X ONCE 01/16/20 12:45 2/25/20 12:52 DC 01/16/20 12:45 1,000 UNIT Hydralazine HCl (Apresoline Inj) 10 mg PRN Q4HRS PRN 01/16/20 16:45 01/17/20 07:18 10 MG Insulin Human Lispro (HumaLOG) 0-7 UNITS TIDACHC 01/16/20 21:00 01/16/20 21:19 2 UNITS Iodixanol (Visipaque 320) 100 ml 1X ONCE 01/16/20 12:45 01/16/20 12:52 DC 01/16/20 12:45 145 ML Lidocaine HCl (Lidocaine 1% 20ml Vial) 20 ml 1X ONCE 01/16/20 12:45 01/16/20 12:52 DC 01/16/20 13:20 15 ML Linezolid (Zyvox) 600 mg BID 01/17/20 11:00 Meropenem 100 mg/ Sodium Chloride 50 ml @ 100 mls/hr 1X ONCE 01/17/20 11:00 01/17/20 11:29 Meropenem 400 mg/ Sodium Chloride 50 ml @ 100 mls/hr 1X ONCE 01/17/20 11:00 01/17/20 11:29 Midazolam HCl (Versed) 2 mg STK-MED ONCE 01/16/20 13:21 01/16/20 13:21 DC Nicotine (Nicoderm Cq 14mg) 1 patch PRN DAILY PRN 01/16/20 19:30 01/16/20 21:14 1 PATCH Nitroglycerin (Nitroglycerin) 200 mcg 1X ONCE 01/16/20 14:30 01/16/20 14:31 DC 01/16/20 14:30 600 MCG Sodium Chloride 1,000 ml @ 75 mls/hr 1X ONCE 01/16/20 16:45 01/17/20 06:04 DC 01/16/20 16:59 75 MLS/HR Vancomycin HCl 250 ml @ 250 mls/hr 1X PREOP PRN 01/19/20 06:00 01/20/20 06:00 Verapamil HCl (Verapamil) 5 mg STK-MED ONCE 01/16/20 12:48 01/16/20 12:48 DC Labs: Lab Laboratory Tests Test 01/16/20 11:45 01/16/20 14:28 01/16/20 16:24 01/16/20 21:07 White Blood Count 9.3 x10^3/uL (4.0-11.0) Red Blood Count 5.31 x10^6/uL (4.30-5.70) Hemoglobin 15.6 g/dL (13.0-17.5) Hematocrit 46.5 % (39.0-53.0) Mean Corpuscular Volume 88 fL (79-100) Mean Corpuscular Hemoglobin 30 pg (25-35) Mean Corpuscular Hemoglobin Concent 34 g/dL (31-37) Red Cell Distribution Width 13.7 % (11.5-14.5) Platelet Count 198 x10^3/uL (140-400) Prothrombin Time 12.7 SEC (11.7-14.0) Prothromb Time International Ratio 1.0 (0.8-1.1) Sodium Level 139 mmol/L (136-145) Potassium Level 4.2 mmol/L (3.5-5.1) Chloride Level 101 mmol/L (98-107) Carbon Dioxide Level 30 mmol/L (21-32) Anion Gap 8 (6-14) Blood Urea Nitrogen 16 mg/dL (8-26) Creatinine 0.8 mg/dL (0.7-1.3) Estimated GFR (Cockcroft-Gault) 100.7 Glucose Level 176 mg/dL (70-99) Calcium Level 9.5 mg/dL (8.5-10.1) Activated Clotting Time 199 sec (92-181) Glucose (Fingerstick) 146 mg/dL (70-99) 246 mg/dL (70-99) Test 01/17/20 07:31 Glucose (Fingerstick) 259 mg/dL (70-99) Objective: Assessment: Pt seen and examined ID consult dictated Plan: Plan of Care zyvox merrem low dose transition to full dose if he tolerates local wound care d.w sister d/w rn and pharmacy thank you SVEN HUGHES MD Jan 17, 2020 10:12
[2020-01-17] MEDS ORDERED: diphenhydrAMINE 50 MG/ML VIAL IV PRN (10:15)
[2020-01-17] MEDS: amLODIPine BESYLATE 10 MG TABLET PO SCH (10:29)
[2020-01-17] MEDS: LINEZOLID 600 MG TABLET PO SCH ×2 (10:29→21:30)
[2020-01-17] MEDS: INSULIN LISPRO 300 UNITS/3 ML VIAL. SQ SCH ×4 (10:44→21:00)
[2020-01-17] MEDS: ASPIRIN ENTERIC COATED 81 MG TABLET.DR. PO SCH (10:48)
[2020-01-17] MEDS ORDERED: NORMAL SALINE IV ONE ×2 (11:00)
[2020-01-17] MEDS ORDERED: cefTRIAXone IV Push 1 GM VIAL. IVP ONE (11:00)
[2020-01-17] MEDS ORDERED: MEROPENEM IV ONE ×2 (11:00)
--- NOTE | 2020-01-17 11:46 | PDOC ---
FRANSISCO SHEIKH [employer]ESPERSON [employer]IES 01/17/20 1146: CARDIO Progress Notes Date and Time Date of Service 01/17/20 Time of Evaluation 1140 Subjective Subjective: No Chest Pain, No shortness of breath, No Palpitations, Other (c/o RLE pain ) Vitals Vitals Vital Signs Date Time Temp Pulse Resp B/P (MAP) Pulse Ox O2 Delivery O2 Flow Rate FiO2 01/17/20 11:09 98.1 91 18 156/72 (100) 97 Room Air 98.1 01/16/20 22:42 1.0 Weight Weight [ ] Input and Output Intake and Output Intake and Output 01/17/20 07:00 Intake Total 760 ml Output Total 2000 ml Balance -1240 ml Intake Oral 760 ml Output Urine Total 2000 ml Laboratory Labs Laboratory Tests Test 01/16/20 11:45 01/16/20 14:28 01/16/20 16:24 01/16/20 21:07 White Blood Count 9.3 x10^3/uL (4.0-11.0) Red Blood Count 5.31 x10^6/uL (4.30-5.70) Hemoglobin 15.6 g/dL (13.0-17.5) Hematocrit 46.5 % (39.0-53.0) Mean Corpuscular Volume 88 fL (79-100) Mean Corpuscular Hemoglobin 30 pg (25-35) Mean Corpuscular Hemoglobin Concent 34 g/dL (31-37) Red Cell Distribution Width 13.7 % (11.5-14.5) Platelet Count 198 x10^3/uL (140-400) Prothrombin Time 12.7 SEC (11.7-14.0) Prothromb Time International Ratio 1.0 (0.8-1.1) Sodium Level 139 mmol/L (136-145) Potassium Level 4.2 mmol/L (3.5-5.1) Chloride Level 101 mmol/L (98-107) Carbon Dioxide Level 30 mmol/L (21-32) Anion Gap 8 (6-14) Blood Urea Nitrogen 16 mg/dL (8-26) Creatinine 0.8 mg/dL (0.7-1.3) Estimated GFR (Cockcroft-Gault) 100.7 Glucose Level 176 mg/dL (70-99) Calcium Level 9.5 mg/dL (8.5-10.1) Activated Clotting Time 199 sec (92-181) Glucose (Fingerstick) 146 mg/dL (70-99) 246 mg/dL (70-99) Test 01/17/20 07:31 01/17/20 11:29 Glucose (Fingerstick) 259 mg/dL (70-99) 256 mg/dL (70-99) Physical Exam HEENT: Neck Supple W Full Motion Chest: Symmetric LUNGS: Clear to Auscultation Heart: S1S2, RRR Abdomen: Soft N/T Extremities: No Edema, Other (RLE warm. sensation intact. RLE wound ) Neurology: alert, oriented, follow commands Assessment Assessment 1. PAD with non-healing right foot ulcer; aortogram with 100% POWER TONG OPERATOR of the distal SFA. recanalization unsuccessful. Vascular surgery consulted; tentative femoral- popliteal bypass 01/19/20 2. Hypertension; labile 3. Hyperlipidemia 4. Diabetes,II Recommendations Continue ASA, statin therapy Lipids SSI Percocet for pain Follow vascular surgery recs NICOLE EDEN MD 01/17/20 1716: CARDIO Progress Notes Plan Plan Patient seen and examined. Agree with above nurse practitioner note. Vascular surgery recommendations appreciated Podiatry consult has been placed. Supportive care. Plan discussed with the patient and his next of kin (sister) FRANSISCO SHEIKH APRN Jan 17, 2020 11:46 NICOLE EDEN MD Jan 17, 2020 17:16
[2020-01-17] MEDS ORDERED: cefTRIAXone IV Push 2 GM VIAL. IVP ONE (12:00)
--- NOTE | 2020-01-17 16:32 | CONS ---
DATE OF CONSULTATION: 01/17/2020 REFERRING PHYSICIAN: Stefania Larkin APRN. REASON FOR CONSULTATION: Antibiotic management for right nonhealing ulcer. HISTORY OF PRESENT ILLNESS: A 54-year-old male with history of diabetes with peripheral neuropathy, peripheral vascular disease, chronic nonhealing right plantar wound for a couple of months, treated with outpatient antibiotics, was admitted by Cardiology service, following angiogram, which revealed a long segment superficial femoral artery disease. The patient had been following with Podiatry for the last month with contact casting along with local wound care. The patient had abnormal arterial Doppler, thus angiogram was performed. The patient denies any fevers, chills, nausea, vomiting, diarrhea, abdominal pain. The patient could not recall what antibiotic he was taking. He had an MRI done on 01/02/2020 as outpatient, which showed soft tissue edema and skin ulcer at the plantar aspect of the fifth metatarsal joint with no convincing evidence of underlying osteomyelitis. There is mild increased T2 signal within the marrow of the left metatarsal head and base of the proximal phalanx. There is likely to be reactive edema or artifact from incomplete fat saturation or osteomyelitis could be considered less likely. If symptoms persist, followup imaging may be warranted diffuse edema throughout the subcutaneous tissue and plantar foot musculature, nonspecific. This could be related to generalized cellulitis/myositis. Diabetic neurovascular edema is another consideration. The patient underwent arteriogram yesterday, head sheet taken out earlier today. He has some low back discomfort as he has been lying in bed for the last 16 hours since the last procedure. The patient is awaiting further evaluation by vascular this Wednesday. PAST MEDICAL HISTORY: Diabetes with neuropathy, hypertension, hyperlipidemia, peripheral vascular disease. SOCIAL HISTORY: Positive for smoking, no ETOH. Lives with family. 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 FAMILY HISTORY: As per HPI. CURRENT MEDICATIONS: Midazolam, fentanyl, heparin, nitroglycerin, hydralazine, atorvastatin, cyclobenzaprine, insulin. ALLERGIES: PENICILLIN WITH ANAPHYLAXIS. REVIEW OF SYSTEMS: Negative except for above in HPI. PHYSICAL EXAMINATION: VITAL SIGNS: Temperature 98, pulse 81, respiratory rate 18, blood pressure 195/74, oxygen saturation 94% on room air. GENERAL: Alert and oriented x 3 male, in no acute distress, lying comfortably in bed, pleasant, cooperative. HEENT: Normocephalic, atraumatic, anicteric. No thrush. NECK: Supple, no JVD. LUNGS: Clear bilaterally. No wheezing. HEART: S1, S2. ABDOMEN: Soft, nontender, nondistended, no rebound, no guarding. EXTREMITIES: No edema, no cyanosis. The right fifth plantar ulcer clean, no surrounding erythema, no swelling. There is a vertical slit on the right foot. No deep wound, no drainage, no redness. NEUROLOGIC: Alert and oriented x 3, grossly nonfocal. PSYCHIATRIC: Cooperative, appropriate mood and affect. LABORATORY DATA: WBC 9.3, hemoglobin 15.6, hematocrit 46.5, platelets 198. ESR 15 on 12/22/2019. Sodium 139, potassium 4.2, chloride 101, bicarbonate 30, BUN 16, creatinine 0.8, glucose 176, calcium 95. LFTs within normal limits. C-reactive protein 3.9. IMAGIN. MRI on 01/02/2020 as above. 2. Abdominal aortogram, right renal artery, likely with a 50% stenosis, proximal right external iliac 40-50% stenosis, right superficial femoral 40-50% stenosis, there is focal 100% obstruction at the level of the abductor canal, diminish floor on the right anterior tibial, posterior tibial and peroneal arteries. 3. Lower extremity ultrasound, vein mapping study noted. Carotid study shows no evidence of carotid stenosis. IMPRESSION: 1. Nonhealing right plantar fifth metatarsal ulcer. ESR normal, CRP 3.4. MRI did not show osteomyelitis. Mild edema in the fifth metatarsal area, ulcer does not appear infected. No evidence of cellulitis or abscess in the surrounding area. 2. Peripheral arterial disease. 3. Diabetes mellitus with neuropathy. 4. Hyperlipidemia. 5. Hypertension. 6. History of ALLERGIES TO PENICILLIN WITH QUESTIONABLE ANAPHYLAXIS. The patient has not taken any Augmentin or cephalexin. 7. Left frozen shoulder, status post arthroscopic surgery. 8. Lumbar radiculopathy, status post epidural injection. RECOMMENDATIONS: 1. Start empiric Zyvox, pending vascular procedure. 2. We will give a trial with low dose Merrem. If tolerated, we will start regular dose of meropenem. Discussed with pharmacy. Do not anticipate the patient being on antibiotics for a prolonged period of time. Monitor closely 3. Continue local wound care. 4. Continue supportive care. D/W Nursing staff D/W sister at bedside Thank you for consulting Infectious Disease to participate in this patient's care. If you have any questions, do not hesitate to contact me. SVEN HUGHES MD DR: RASHID/carlos JOB#: [id number] / [id number] ANDA
[2020-01-17] MEDS: LISINOPRIL 10 MG TABLET PO SCH (17:11)
[2020-01-17] MEDS: ATORVASTATIN CALCIUM 40 MG TABLET. PO SCH (21:30)
[2020-01-17] MEDS: MEROPENEM 500 MG in IV NORMAL SALINE 50ML 50 ML IV SCH (21:31)
[2020-01-18] VITALS (8 sets, daily range): BP systolic 80–127; BP diastolic 42–74
[2020-01-18] MEDS: MEROPENEM 500 MG in IV NORMAL SALINE 50ML 50 ML IV SCH ×3 (05:07→21:37)
[2020-01-18 06:18] LABS: CHOLESTEROL/HDL RATIO 3.4
--- NOTE | 2020-01-18 08:32 | PDOC ---
Infectious Disease Note Subjective: Subjective pt says doing ok still feels tired tolerated merrem well no f/c/n/v/d/abdo pain or rash Vital Signs: Vital Signs Vital Signs Date Time Temp Pulse Resp B/P (MAP) Pulse Ox O2 Delivery O2 Flow Rate FiO2 01/18/20 07:28 98.2 69 18 99/52 (68) 97 Room Air 98.2 Physical Exam: PHYSICAL EXAM GENERAL: Alert and oriented x 3 male, in no acute distress, lying comfortably in bed, pleasant, cooperative. HEENT: Normocephalic, atraumatic, anicteric. No thrush. NECK: Supple, no JVD. LUNGS: Clear bilaterally. No wheezing. HEART: S1, S2. ABDOMEN: Soft, nontender, nondistended, no rebound, no guarding. EXTREMITIES: No edema, no cyanosis. The right fifth plantar ulcer clean, no surrounding erythema, no swelling. There is a vertical slit on the right foot. No deep wound, no drainage, no redness. NEUROLOGIC: Alert and oriented x 3, grossly nonfocal. PSYCHIATRIC: Cooperative, appropriate mood and affect. Medications: Inpatient Meds: Current Medications Medications (Trade) Dose Ordered Sig/Taisha Start Time Stop Time Status Last Admin Dose Admin Acetaminophen (Tylenol) 650 mg PRN Q6HRS PRN 01/16/20 16:45 Amlodipine Besylate (Norvasc) 10 mg DAILY 01/17/20 11:00 01/17/20 10:29 Aspirin (Jihan Aspirin) 81 mg DAILYWBKFT 01/17/20 10:00 01/17/20 10:43 DC Aspirin (Ecotrin) 81 mg DAILYWBKFT 01/17/20 10:42 01/17/20 10:48 Atorvastatin Calcium (Lipitor) 40 mg QHS 01/16/20 21:00 01/17/20 21:30 Cefazolin Sodium/ Dextrose 50 ml @ 100 mls/hr 1X PREOP PRN 01/19/20 06:00 01/19/20 18:00 UNV Ceftriaxone Sodium (Rocephin) 1.8 gm 1X ONCE 01/17/20 12:00 01/17/20 12:01 Cancel Cyclobenzaprine HCl (Flexeril) 10 mg PRN TID PRN 01/16/20 18:30 01/17/20 07:18 Dextrose (Dextrose 50%-Water Syringe) 12.5 gm PRN Q15MIN PRN 01/16/20 19:15 Diphenhydramine HCl (Benadryl) 25 mg PRN Q6HRS PRN 01/17/20 10:15 Fentanyl Citrate (Fentanyl 2ml Vial) 50 mcg PRN Q2HR PRN 01/16/20 18:30 01/17/20 05:46 Heparin Sodium (Porcine) (Heparin Sodium) 4,000 unit 1X ONCE 01/16/20 13:30 01/16/20 13:32 DC 01/16/20 13:30 Heparin Sodium/ Sodium Chloride 500 ml @ As Directed STK-MED ONCE 01/16/20 14:51 01/16/20 14:51 DC Heparin Sodium/ Sodium Chloride (HEPARIN for ARTERIAL LINE FLUSH) 1,000 unit 1X ONCE 01/16/20 12:45 01/16/20 12:52 DC 01/16/20 12:45 Hydralazine HCl (Apresoline Inj) 10 mg PRN Q4HRS PRN 01/16/20 16:45 01/17/20 07:18 Insulin Human Lispro (HumaLOG) 0-7 UNITS TIDACHC 01/16/20 21:00 01/17/20 17:13 Iodixanol (Visipaque 320) 100 ml 1X ONCE 01/16/20 12:45 01/16/20 12:52 DC 01/16/20 12:45 Lidocaine HCl (Lidocaine 1% 20ml Vial) 20 ml 1X ONCE 01/16/20 12:45 01/16/20 12:52 DC 01/16/20 13:20 Linezolid (Zyvox) 600 mg BID 01/17/20 11:00 01/17/20 21:30 Lisinopril (Prinivil) 10 mg DAILY 01/17/20 16:30 01/17/20 17:11 Meropenem 100 mg/ Sodium Chloride 50 ml @ 100 mls/hr 1X ONCE 01/17/20 11:00 01/17/20 11:29 DC 01/17/20 10:30 Meropenem 400 mg/ Sodium Chloride 50 ml @ 100 mls/hr 1X ONCE 01/17/20 11:00 01/17/20 11:29 DC 01/17/20 11:08 Meropenem 500 mg/ Sodium Chloride 50 ml @ 100 mls/hr Q8HRS 01/17/20 21:00 01/18/20 05:07 Midazolam HCl (Versed) 2 mg STK-MED ONCE 01/16/20 13:21 01/16/20 13:21 DC Nicotine (Nicoderm Cq 14mg) 1 patch PRN DAILY PRN 01/16/20 19:30 01/16/20 21:14 Nitroglycerin (Nitroglycerin) 200 mcg 1X ONCE 01/16/20 14:30 01/16/20 14:31 DC 01/16/20 14:30 Oxycodone/ Acetaminophen (Percocet 5/325) 1 tab PRN Q6HRS PRN 01/17/20 12:45 Sodium Chloride 1,000 ml @ 75 mls/hr 1X ONCE 01/16/20 16:45 01/17/20 06:04 DC 01/16/20 16:59 Vancomycin HCl 250 ml @ 250 mls/hr 1X PREOP PRN 01/19/20 06:00 01/20/20 06:00 Verapamil HCl (Verapamil) 5 mg STK-MED ONCE 01/16/20 12:48 01/16/20 12:48 DC Labs: Lab Laboratory Tests Test 01/17/20 11:29 01/17/20 16:45 01/17/20 20:56 01/18/20 04:36 Glucose (Fingerstick) 256 mg/dL (70-99) 176 mg/dL (70-99) 180 mg/dL (70-99) Triglycerides Level 63 mg/dL (0-150) Cholesterol Level 110 mg/dL (0-200) LDL Cholesterol, Calculated 65 mg/dL (0-100) VLDL Cholesterol, Calculated 13 mg/dL (0-40) Non-HDL Cholesterol Calculated 78 mg/dL (0-129) HDL Cholesterol 32 mg/dL (40-60) Cholesterol/HDL Ratio 3.4 Test 01/18/20 08:00 Glucose (Fingerstick) 192 mg/dL (70-99) Objective: Assessment: 1. Nonhealing right plantar fifth metatarsal ulcer. ESR normal, CRP 3.4. MRI did not show osteomyelitis. Mild edema in the fifth metatarsal area, ulcer does not appear infected. No evidence of cellulitis or abscess in the surrounding area.Pt has been treated with antibiotic samples from podiatry office prior to admission, he does not recall the name 2. Peripheral arterial disease. 3. Diabetes mellitus with neuropathy. 4. Hyperlipidemia. 5. Hypertension. 6. History of ALLERGIES TO PENICILLIN WITH QUESTIONABLE ANAPHYLAXIS. The patient has not taken any Augmentin or cephalexin. 7. Left frozen shoulder, status post arthroscopic surgery. 8. Lumbar radiculopathy, status post epidural injection. Plan: Plan of Care chyna romo will deescalate soon local wound care awaiting vasc procedure tomorrow am d/w sister SVEN HUGHES MD Jan 18, 2020 08:32
[2020-01-18] MEDS: LISINOPRIL 10 MG TABLET PO SCH (09:00)
[2020-01-18] MEDS: amLODIPine BESYLATE 10 MG TABLET PO SCH (09:00)
[2020-01-18] MEDS: ASPIRIN ENTERIC COATED 81 MG TABLET.DR. PO SCH (09:25)
[2020-01-18] MEDS: oxyCODONE/APAP 5/325 1 TAB TABLET PO PRN ×2 (09:25→21:44)
[2020-01-18] MEDS ORDERED: IV NORMAL SALINE 500ML BAG 500 ML IV ONE (09:30)
--- NOTE | 2020-01-18 09:31 | PDOC ---
Provider Note Provider Note Vascular surgery S: This is a 54-year-old male who is referred to us by cardiology services for evaluation following angiogram which reveal long segment superfical femoral artery disease, patient has a nonhealing right fifth metatarsal plantar ulcer. Patient has been followed by podiatry for the last few weeks with contact casting along with local wound care and antibiotics. The patient had an abdnormal arterial doppler, thus angiogram performed. The patient complains of pain and tenderness to right foot. He denies any lower extremity claudication. He has multiple varicose veins in right lower extremity. Preoperative carotid ultrasound was performed that showed mild to moderate disease bilaterally. In addition patient had bilateral lower extremity vein mapping and was noted to have adequate greater saphenous vein in his right leg should bypass be warranted. Patient denies any fever, chills or weakness. She denies any nausea or vomiting, he does report a mild diarrhea during his course of antibiotics. Today pt has no complaints, but has some questions regarding surgery. He reports he is down to smoking 0.5 ppd from 1.5 months ago. But ready to quit. O: VSS, mild hypotension, afebrile Gen.: Awake, alert, in no apparent distress Cardiac: Heart rhythm rate regular. Rate 69 Lungs: nonlabored respirations. Abdomen: Soft, nontender, nondistended, no palpable masses. Extremities: 2+ bilateral femoral pulses, left groin with no swelling or hematoma. 2+ bilateral radial pulses. Skin: Right fifth metatarsal plantar ulcer, dry and clean, no surrounding erythema or swelling. Foot is warm. Right thigh and calf varicose veins, no venous stasis skin changes. Neurological: Motor and sensation intact, no gross deficits A/P: PAD with right foot ulcer DM Plan for right fem-pop bypass and foot debridement tomorrow with Dr. Cherry. NPO after midnight. I discussed details of procedure, risks/benefits, potential outcomes, expected post op course at length. We discussed good BS control and offloading to optimize wound healing. We also discussed tobacco cessation (3min) for which he is willing and working on quitting. All his questions were answered to satisfaction and he agreed to proceed. MAHSA ALMANZAR Jan 18, 2020 09:31
[2020-01-18] MEDS: LINEZOLID 600 MG TABLET PO SCH ×2 (09:42→21:35)
[2020-01-18] MEDS: INSULIN LISPRO 300 UNITS/3 ML VIAL. SQ SCH ×4 (09:50→21:00)
--- NOTE | 2020-01-18 13:08 | PDOC2 ---
CONSULT Date of Consult Date of Consult DATE: 01/18/20 TIME: 12:57 Reason for Consult Reason for Consult: right foot wound Referring Physician Referring Physician: Diana Identification/Chief Complaint Chief Complaint right foot ulceration Source Source: Patient History of Present Illness Reason for Visit: 54 year old male with DM, peripheral neuropathy, DM foot ulceration, peripheral arterial disease admitted after angiogram with Diana Marinelli. Patient was first seen in my office 12/22/19 and treated with wound debridement and RX Baxdela po x 14 days. 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 He denies nausea, vomitting, fever, chills, shortness of breath or chest pain. He is awaiting fem-pop bypass scheduled tomorrow. Past Medical History Cardiovascular: HTN, Hyperlipidemia Endocrine: Diabetes Family History Family History: Other (non contributory) Social History 1 pack per day Lives: Alone Current Medications Current Medications Current Medications Midazolam HCl (Versed) 2 mg STK-MED ONCE .ROUTE ; Start 01/16/20 at 12:38; Stop 01/16/20 at 12:38; Status DC Fentanyl Citrate (Fentanyl 2ml Vial) 100 mcg STK-MED ONCE .ROUTE ; Start 01/16/20 at 12:38; Stop 01/16/20 at 12:38; Status DC Iodixanol (Visipaque 320) 100 ml STK-MED ONCE .ROUTE ; Start 01/16/20 at 12:39; Stop 01/16/20 at 12:39; Status DC Lidocaine HCl (Lidocaine 1% 20ml Vial) 20 ml STK-MED ONCE .ROUTE ; Start 01/16/20 at 12:39; Stop 01/16/20 at 12:39; Status DC Heparin Sodium/ Sodium Chloride 1,000 ml @ As Directed STK-MED ONCE .ROUTE ; Start 01/16/20 at 12:39; Stop 01/16/20 at 12:39; Status DC Heparin Sodium/ Sodium Chloride 1,000 ml @ As Directed STK-MED ONCE .ROUTE ; Start 01/16/20 at 12:40; Stop 01/16/20 at 12:40; Status DC Heparin Sodium/ Sodium Chloride (HEPARIN for ARTERIAL LINE FLUSH) 1,000 unit 1X ONCE IART Last administered on 01/16/20at 12:45; Start 01/16/20 at 12:45; Stop 01/16/20 at 12:52; Status DC Heparin Sodium/ Sodium Chloride (HEPARIN for ARTERIAL LINE FLUSH) 1,000 unit 1X ONCE IART Last administered on 01/16/20at 12:45; Start 01/16/20 at 12:45; Stop 01/16/20 at 12:52; Status DC Midazolam HCl (Versed) 2 mg 1X ONCE IV Last administered on 01/16/20at 13:17; Start 01/16/20 at 12:45; Stop 01/16/20 at 12:52; Status DC Fentanyl Citrate (Fentanyl 2ml Vial) 100 mcg 1X ONCE IV Last administered on 01/16/20 13:17; Start 01/16/20 at 12:45; Stop 01/16/20 at 12:52; Status DC Iodixanol (Visipaque 320) 100 ml 1X ONCE IART Last administered on 01/16/20at 12:45; Start 01/16/20 at 12:45; Stop 01/16/20 at 12:52; Status DC Lidocaine HCl (Lidocaine 1% 20ml Vial) 20 ml 1X ONCE INJ Last administered on 01/16/20 13:20; Start 01/16/20 at 12:45; Stop 01/16/20 at 12:52; Status DC Verapamil HCl (Verapamil) 5 mg STK-MED ONCE .ROUTE ; Start 01/16/20 at 12:48; Stop 01/16/20 at 12:48; Status DC Heparin Sodium (Porcine) (Heparin Sodium) 10,000 unit STK-MED ONCE .ROUTE ; Start 01/16/20 at 12:48; Stop 01/16/20 at 12:48; Status DC Nitroglycerin (Nitroglycerin) 200 mcg STK-MED ONCE .ROUTE ; Start 01/16/20 at 12:48; Stop 01/16/20 at 12:48; Status DC Midazolam HCl (Versed) 2 mg STK-MED ONCE .ROUTE ; Start 01/16/20 at 13:21; Stop 01/16/20 at 13:21; Status DC Heparin Sodium (Porcine) (Heparin Sodium) 4,000 unit 1X ONCE IV Last administered on 01/16/20at 13:30; Start 01/16/20 at 13:30; Stop 01/16/20 at 13 :32; Status DC Fentanyl Citrate (Fentanyl 2ml Vial) 100 mcg STK-MED ONCE .ROUTE ; Start 01/16/20 at 13:42; Stop 01/16/20 at 13:42; Status DC Nitroglycerin (Nitroglycerin) 200 mcg 1X ONCE IART Last administered on 01/16/20at 14:30; Start 01/16/20 at 14:30; Stop 01/16/20 at 14:31; Status DC Hydralazine HCl (Apresoline Inj) 20 mg STK-MED ONCE .ROUTE ; Start 01/16/20 at 14:32; Stop 01/16/20 at 14:33; Status DC Hydralazine HCl (Apresoline Inj) 20 mg 1X ONCE IVP Last administered on 01/16/20at 14:56; Start 01/16/20 at 15:00; Stop 01/16/20 at 15:01; Status DC Heparin Sodium/ Sodium Chloride 500 ml @ As Directed STK-MED ONCE .ROUTE ; Start 01/16/20 at 14:51; Stop 01/16/20 at 14:51; Status DC Atorvastatin Calcium (Lipitor) 40 mg QHS PO Last administered on 01/17/20at 21:30; Start 01/16/20 at 21:00 Acetaminophen (Tylenol) 650 mg PRN Q6HRS PRN PO MILD PAIN 1-3; Start 01/16/20 at 16:45 Hydralazine HCl (Apresoline Inj) 10 mg PRN Q4HRS PRN IVP SBP>180 or DBP>110 Last administered on 01/17/20at 07:18; Start 01/16/20 at 16:45 Sodium Chloride 1,000 ml @ 75 mls/hr 1X ONCE IV Last administered on 01/16/20at 16:59; Start 01/16/20 at 16:45; Stop 01/17/20 at 06:04; Status DC Fentanyl Citrate (Fentanyl 2ml Vial) 50 mcg PRN Q2HR PRN IVP PAIN Last administered on 01/17/20at 05:46; Start 01/16/20 at 18:30 Cyclobenzaprine HCl (Flexeril) 10 mg PRN TID PRN PO MUSCLE SPASMS Last administered on 01/17/20at 07:18; Start 01/16/20 at 18:30 Insulin Human Lispro (HumaLOG) 0-7 UNITS TIDACHC SQ Last administered on 01/18/20at 09:50; Start 01/16/20 at 21:00 Dextrose (Dextrose 50%-Water Syringe) 12.5 gm PRN Q15MIN PRN IV SEE COMMENTS; Start 01/16/20 at 19:15 Nicotine (Nicoderm Cq 14mg) 1 patch PRN DAILY PRN TD SMOKING CESSATION Last administered on 01/16/20at 21:14; Start 01/16/20 at 19:30 Aspirin (Jihan Aspirin) 81 mg DAILYWBKFT PO ; Start 01/17/20 at 10:00; Stop 01/17/20 at 10:43; Status DC Cefazolin Sodium/ Dextrose 50 ml @ 100 mls/hr 1X PREOP PRN IV PRIOR TO PROCEDURE; Start 01/19/20 at 06:00; Stop 01/19/20 at 18:00; Status UNV Vancomycin HCl 250 ml @ 250 mls/hr 1X PREOP PRN IV PRIOR TO PROCEDURE; Start 01/19/20 at 06:00; Stop 01/20/20 at 06:00 Linezolid (Zyvox) 600 mg BID PO Last administered on 01/18/20at 09:42; Start 01/17/20 at 11:00 Ceftriaxone Sodium (Rocephin) 0.2 gm 1X ONCE IVP ; Start 01/17/20 at 11:00; Stop 01/17/20 at 11:01; Status Cancel Ceftriaxone Sodium (Rocephin) 1.8 gm 1X ONCE IVP ; Start 01/17/20 at 12:00; Stop 01/17/20 at 12:01; Status Cancel Diphenhydramine HCl (Benadryl) 25 mg PRN Q6HRS PRN IV ITCHING/ ALLERGIC REACTION; Start 01/17/20 at 10:15 Amlodipine Besylate (Norvasc) 10 mg DAILY PO Last administered on 01/17/20at 10:29; Start 01/17/20 at 11:00 Meropenem 100 mg/ Sodium Chloride 50 ml @ 100 mls/hr 1X ONCE IV Last administered on 01/17/20at 10:30; Start 01/17/20 at 11:00; Stop 01/17/20 at 11:29; Status DC Meropenem 400 mg/ Sodium Chloride 50 ml @ 100 mls/hr 1X ONCE IV Last administered on 01/17/20at 11:08; Start 01/17/20 at 11:00; Stop 01/17/20 at 11:29; Status DC Aspirin (Ecotrin) 81 mg DAILYWBKFT PO Last administered on 01/18/20at 09:25; Start 01/17/20 at 10:42 Meropenem 500 mg/ Sodium Chloride 50 ml @ 100 mls/hr Q8HRS IV Last administered on 01/18/20at 05:07; Start 01/17/20 at 21:00 Oxycodone/ Acetaminophen (Percocet 5/325) 1 tab PRN Q6HRS PRN PO MODERATE - SEVERE PAIN Last administered on 01/18/20at 09:25; Start 01/17/20 at 12:45 Lisinopril (Prinivil) 10 mg DAILY PO Last administered on 01/17/20at 17:11; Start 01/17/20 at 16:30 Sodium Chloride 500 ml @ 500 mls/hr 1X ONCE IV Last administered on 01/18/20at 09:24; Start 01/18/20 at 09:30; Stop 01/18/20 at 10:29; Status DC Active Scripts Active Reported Atorvastatin Calcium 40 Mg Tablet 1 Tab PO QHS Losartan Potassium 100 Mg Tablet 100 Mg PO DAILY Glipizide 10 Mg Tablet 10 Mg PO DAILY Metformin Hcl 500 Mg Tablet 500 Mg PO BIDWMEALS Allergies Allergies: Coded Allergies: Penicillins (Unverified Allergy, Severe, Anaphylaxis, 01/16/20) ROS General: No: Chills, Night Sweats, Fatigue, Malaise, Appetite, Other PSYCHOLOGICAL ROS: No: Anxiety, Behavioral Disorder, Concentration difficultie, Decreased libido, Depression, Disorientation, Hallucinations, Hostility, Irritablity, Memory difficulties, Mood Swings, Obsessive thoughts, Physical abuse, Sexual abuse, Sleep disturbances, Suicidal ideation, Other HEENT: No: Heacaches, Visual Changes, Hearing change, Nasal congestion, Nasal discharge, Oral lesions, Sinus pain, Sore Throat, Epistaxis, Sneezing, Snoring, Tinnitus, Vertigo, Vocal changes, Other ALLERGY AND IMMUNOLOGY: No: Hives, Insect Bite Sensitivity, Itchy/Watery Eyes, Nasal Congestion, Post Nasal Drip, Seasonal Allergies, Other Hematological and Lymphatic: No: Bleeding Problems, Blood Clots, Blood Transfusions, Brusing, Night Sweats, Pallor, Swollen Lymph Nodes, Other ENDOCRINE: No: Breast Changes, Galactorrhea, Hair Pattern Changes, Hot Flashes, Malaise/lethargy, Mood Swings, Palpitations, Polydipsia/polyuria, Skin Changes, Temperature Intolerance, Unexpected Weight Changes, Other Breast: No New/Changing Breast Lumps, No Nipple changes, No Nipple discharge, No Other Respiratory: No: Cough, Hemoptysis, Orthopnea, Pleuritic Pain, Shortness of breath, SOB with excertion, Sputum Changes, Stridor, Tachypnea, Wheezing, Other Cardiovascular: No Chest Pain, No Palpitations, No Orthopnea, No Paroxysmal Noc. Dyspnea, No Edema, No Lt Headedness, No Other Genitourinary: No Dysuria, No Frequency, No Incontinence, No Hematuria, No Retention, No Discharge, No Urgency, No Pain, No Flank Pain, No Other, No , No , No , No , No , No , No Musculoskeletal: No Gait Disturbance, No Joint Pain, No Joint Stiffness, No Joint Swelling, No Muscle Pain, No Muscular Weakness, No Pain In:, No Swelling In:, No Other Neurological: No Behavorial Changes, No Bowel/Bladder ControlChng, No Confusion, No Dizziness, No Gait Disturbance, No Headaches, No Impaired Coord/balance, No Memory Loss, No Numbness/Tingling, No Seizures, No Speech Problems, No Tremors, No Visual Changes, No Weakness, No Other Skin: Yes Other (dm foot ulcer right foot) Physical Exam Physical Exam Lower extremity: note full thickness ulceration plantar 5th metatarsal head right foot with fibrogranular base. no cellulitis. no pustular drainage. no calor. skin is warm, xerotic, atrophic. hair present to foot. DP and PT faintly palpable. No edema. Sensation diminished to light touch and to sharp dull. Muscle strength is 5/5. note forefoot supinatus with positive pain on palpation to 5th metatarsal head right foot. General: Alert, Oriented X3, No acute distress Vitals VITALS Vital Signs Date Time Temp Pulse Resp B/P (MAP) Pulse Ox O2 Delivery O2 Flow Rate FiO2 01/18/20 11:22 97.4 60 18 101/52 (68) 98 Room Air 97.4 Labs Labs Laboratory Tests Test 01/16/20 14:28 01/16/20 16:24 01/16/20 21:07 01/17/20 07:31 Activated Clotting Time 199 sec (92-181) Glucose (Fingerstick) 146 mg/dL (70-99) 246 mg/dL (70-99) 259 mg/dL (70-99) Test 01/17/20 11:29 01/17/20 16:45 01/17/20 20:56 01/18/20 04:36 Glucose (Fingerstick) 256 mg/dL (70-99) 176 mg/dL (70-99) 180 mg/dL (70-99) Triglycerides Level 63 mg/dL (0-150) Cholesterol Level 110 mg/dL (0-200) LDL Cholesterol, Calculated 65 mg/dL (0-100) VLDL Cholesterol, Calculated 13 mg/dL (0-40) Non-HDL Cholesterol Calculated 78 mg/dL (0-129) HDL Cholesterol 32 mg/dL (40-60) Cholesterol/HDL Ratio 3.4 Test 01/18/20 08:00 01/18/20 11:44 Glucose (Fingerstick) 192 mg/dL (70-99) 230 mg/dL (70-99) Laboratory Tests Test 01/17/20 16:45 01/17/20 20:56 01/18/20 04:36 01/18/20 08:00 Glucose (Fingerstick) 176 mg/dL (70-99) 180 mg/dL (70-99) 192 mg/dL (70-99) Triglycerides Level 63 mg/dL (0-150) Cholesterol Level 110 mg/dL (0-200) LDL Cholesterol, Calculated 65 mg/dL (0-100) VLDL Cholesterol, Calculated 13 mg/dL (0-40) Non-HDL Cholesterol Calculated 78 mg/dL (0-129) HDL Cholesterol 32 mg/dL (40-60) Cholesterol/HDL Ratio 3.4 Test 01/18/20 11:44 Glucose (Fingerstick) 230 mg/dL (70-99) Assessment/Plan Assessment/Plan 54 year old male with DM, DM foot ulceration, peripheral neuropathy, peripheral arterial disease, forefoot supinatus -Total contact cast removed during angiogram. will reconsider in the future pending healing of fem-pop bypass incisions. He is to resume his offloading surgical shoe in the interim and be bathroom priveleges only -Resume daily local wound care with RX Santyl, adaptic gauze, foam with boarder bandage -Discussed possible 5th metatarsal head resection with closure of wound as current wound biomechanically created due to his forefoot supinatus. Discussed prevention of future reulcerations. Will continue conservative wound care treatment at this time and reconsider if no healing noted after fem-pop bypass -Ordered CRP, ESR at this time. Note Infectious disease recommendations. -Will continue to follow inpatient and plan for follow up in 1 week upon discharge in the office. FAUSTO VILLAGOMEZ DPM Jan 18, 2020 13:08
--- NOTE | 2020-01-18 14:34 | PDOC ---
FRANSISCO SHEIKH WATER RESOURCES ENGINEER 01/18/20 1434: CARDIO Progress Notes Date and Time Date of Service 01/18/20 Time of Evaluation 1420 Subjective Subjective: No Chest Pain, No shortness of breath, No Palpitations Vitals Vitals Vital Signs Date Time Temp Pulse Resp B/P (MAP) Pulse Ox O2 Delivery O2 Flow Rate FiO2 01/18/20 11:22 97.4 60 18 101/52 (68) 98 Room Air 97.4 Weight Weight [ ] Input and Output Intake and Output Intake and Output 01/18/20 07:00 Intake Total 1260 ml Output Total 2800 ml Balance -1540 ml Intake Oral 1160 ml IV Total 100 ml Output Urine Total 2800 ml Laboratory Labs Laboratory Tests Test 01/17/20 16:45 01/17/20 20:56 01/18/20 04:36 01/18/20 08:00 Glucose (Fingerstick) 176 mg/dL (70-99) 180 mg/dL (70-99) 192 mg/dL (70-99) Triglycerides Level 63 mg/dL (0-150) Cholesterol Level 110 mg/dL (0-200) LDL Cholesterol, Calculated 65 mg/dL (0-100) VLDL Cholesterol, Calculated 13 mg/dL (0-40) Non-HDL Cholesterol Calculated 78 mg/dL (0-129) HDL Cholesterol 32 mg/dL (40-60) Cholesterol/HDL Ratio 3.4 Test 01/18/20 11:44 01/18/20 13:20 Glucose (Fingerstick) 230 mg/dL (70-99) C-Reactive Protein, Quantitative 23.3 mg/L (0-3.3) Physical Exam HEENT: Neck Supple W Full Motion Chest: Symmetric LUNGS: Clear to Auscultation Heart: S1S2, RRR Abdomen: Soft N/T Extremities: No Edema, Other (RLE warm. sensation intact. Right foot wound ) Neurology: alert, oriented, follow commands Assessment Assessment 1. 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 recanalization unsuccessful. Vascular surgery consulted; femoral-popliteal bypass and wounds debridement tomorrow. 2. Hypertension; with present hypotension; s/p IVF bolus 3. Hyperlipidemia 4. Diabetes,II 5. Tobaccoism; discussed/encouraged cessation Recommendations Continue ASA, statin therapy Hold antiHTN therapy as warranted with hypotension Discussed importance of blood sugar monitoring/control for post-operative healing NPO p MN Will f/u post-bypass NICOLE EDEN MD 01/18/20 1721: CARDIO Progress Notes Plan Plan Patient seen and examined. Agree with above nurse practitioner note. Await surgical plans for tomorrow. FRANSISCO SHEIKH APRN Jan 18, 2020 14:34 NICOLE EDEN MD Jan 18, 2020 17:21
[2020-01-18 15:18] LABS: CALCIUM 8.1 mg/dL (8.5-10.1); CREATININE 1.3 mg/dL (0.7-1.3); GFR 57.5; MAGNESIUM 1.9 mg/dL (1.8-2.4); POTASSIUM 4.3 mmol/L (3.5-5.1)
[2020-01-18] MEDS: ATORVASTATIN CALCIUM 40 MG TABLET. PO SCH (21:35)
[2020-01-19] VITALS (14 sets, daily range): BP systolic 115–174; BP diastolic 53–82
[2020-01-19] MEDS: MEROPENEM 500 MG in IV NORMAL SALINE 50ML 50 ML IV SCH ×3 (05:06→21:29)
[2020-01-19 05:57] LABS: CALCIUM 8.2 mg/dL (8.5-10.1); CREATININE 0.9 mg/dL (0.7-1.3); GFR 87.9; POTASSIUM 4.2 mmol/L (3.5-5.1)
[2020-01-19] MEDS ORDERED: HEPARIN SODIUM 5,000 UNIT in IV NORMAL SALINE 500ML BAG 500 ML IRR ONE (06:00)
[2020-01-19] MEDS ORDERED: VANCOMYCIN 1GM IVPB FOR OMNI 250 ML IV PRN (06:00)
[2020-01-19 06:05] LABS: HEMATOCRIT 37.1 % (39.0-53.0); HEMOGLOBIN 12.7 g/dL (13.0-17.5); RED BLOOD COUNT 4.29 x10^6/uL (4.30-5.70); RED CELL DISTRIBUTION WIDTH 13.4 % (11.5-14.5); WHITE BLOOD COUNT 7.9 x10^3/uL (4.0-11.0)
[2020-01-19] MEDS ORDERED: fentaNYL PF VIAL 100 MCG/2 ML VIAL IV PRN ×2 (07:00)
[2020-01-19] MEDS ORDERED: PROCHLORPERAZINE 10 MG/2 ML VIAL. IV PRN ×2 (07:00→12:45)
[2020-01-19] MEDS ORDERED: ONDANSETRON PF 4 MG/2 ML VIAL. IV PRN (07:00)
[2020-01-19] MEDS ORDERED: IV RINGERS,LACTATED 1000ML 1,000 ML IV SCH (07:00)
[2020-01-19] MEDS: INSULIN LISPRO 300 UNITS/3 ML VIAL. SQ SCH ×4 (07:30→21:00)
--- NOTE | 2020-01-19 07:51 | PDOC ---
Infectious Disease Note Subjective: Subjective pt says doing ok awaiting surgery today no f/c/n/v/d/abdo pain or rash has pain in the rt leg Vital Signs: Vital Signs Vital Signs Date Time Temp Pulse Resp B/P (MAP) Pulse Ox O2 Delivery O2 Flow Rate FiO2 01/19/20 03:38 98.2 70 20 115/63 (80) 98 Room Air 98.2 Physical Exam: PHYSICAL EXAM GENERAL: Alert and oriented x 3 male, in no acute distress, lying comfortably in bed, pleasant, cooperative. HEENT: Normocephalic, atraumatic, anicteric. No thrush. NECK: Supple, no JVD. LUNGS: Clear bilaterally. No wheezing. HEART: S1, S2. ABDOMEN: Soft, nontender, nondistended, no rebound, no guarding. EXTREMITIES: No edema, no cyanosis. The right fifth plantar ulcer clean, no surrounding erythema, no swelling. There is a vertical slit on the right foot. No deep wound, no drainage, no redness. NEUROLOGIC: Alert and oriented x 3, grossly nonfocal. PSYCHIATRIC: Cooperative, appropriate mood and affect. Medications: Inpatient Meds: Current Medications Medications (Trade) Dose Ordered Sig/Taisha Start Time Stop Time Status Last Admin Dose Admin Acetaminophen (Tylenol) 650 mg PRN Q6HRS PRN 01/16/20 16:45 Amlodipine Besylate (Norvasc) 10 mg DAILY 01/17/20 11:00 01/17/20 10:29 10 MG Aspirin (Jihan Aspirin) 81 mg DAILYWBKFT 01/17/20 10:00 01/17/20 10:43 DC Aspirin (Ecotrin) 81 mg DAILYWBKFT 01/17/20 10:42 01/18/20 09:25 81 MG Atorvastatin Calcium (Lipitor) 40 mg QHS 01/16/20 21:00 01/18/20 21:35 40 MG Cefazolin Sodium 1 gm/Sodium Chloride 500 ml @ 500 mls/hr 1X ONCE 01/19/20 06:00 01/19/20 06:59 DC Cefazolin Sodium/ Dextrose 50 ml @ 100 mls/hr 1X PREOP PRN 01/19/20 06:00 01/19/20 18:00 UNV Ceftriaxone Sodium (Rocephin) 1.8 gm 1X ONCE 01/17/20 12:00 01/17/20 12:01 Cancel Cyclobenzaprine HCl (Flexeril) 10 mg PRN TID PRN 01/16/20 18:30 01/17/20 07:18 10 MG Dextrose (Dextrose 50%-Water Syringe) 12.5 gm PRN Q15MIN PRN 01/16/20 19:15 Diphenhydramine HCl (Benadryl) 25 mg PRN Q6HRS PRN 01/17/20 10:15 Fentanyl Citrate (Fentanyl 2ml Vial) 50 mcg PRN Q5MIN PRN 01/19/20 07:00 01/20/20 06:59 Heparin Sodium (Porcine) (Heparin Sodium) 4,000 unit 1X ONCE 01/16/20 13:30 01/16/20 13:32 DC 01/16/20 13:30 8,000 UNIT Heparin Sodium (Porcine) 5000 unit/Sodium Chloride 505 ml @ 505 mls/hr 1X ONCE 01/19/20 06:00 01/19/20 06:59 DC Heparin Sodium/ Sodium Chloride 500 ml @ As Directed STK-MED ONCE 01/16/20 14:51 01/16/20 14:51 DC Heparin Sodium/ Sodium Chloride (HEPARIN for ARTERIAL LINE FLUSH) 1,000 unit 1X ONCE 01/16/20 12:45 01/16/20 12:52 DC 01/16/20 12:45 1,000 UNIT Hydralazine HCl (Apresoline Inj) 10 mg PRN Q4HRS PRN 01/16/20 16:45 01/17/20 07:18 10 MG Hydromorphone HCl (Dilaudid) 0.5 mg PRN Q10MIN PRN 01/19/20 07:00 01/20/20 06:59 Insulin Human Lispro (HumaLOG) 0-7 UNITS TIDACHC 01/16/20 21:00 01/18/20 18:04 3 UNITS Iodixanol (Visipaque 320) 100 ml 1X ONCE 01/16/20 12:45 01/16/20 12:52 DC 01/16/20 12:45 145 ML Lidocaine HCl (Lidocaine 1% 20ml Vial) 20 ml 1X ONCE 01/16/20 12:45 01/16/20 12:52 DC 01/16/20 13:20 15 ML Linezolid (Zyvox) 600 mg BID 01/17/20 11:00 01/18/20 21:35 600 MG Lisinopril (Prinivil) 10 mg DAILY 01/17/20 16:30 01/17/20 17:11 10 MG Meropenem 100 mg/ Sodium Chloride 50 ml @ 100 mls/hr 1X ONCE 01/17/20 11:00 01/17/20 11:29 DC 01/17/20 10:30 100 MLS/HR Meropenem 400 mg/ Sodium Chloride 50 ml @ 100 mls/hr 1X ONCE 01/17/20 11:00 01/17/20 11:29 DC 01/17/20 11:08 100 MLS/HR Meropenem 500 mg/ Sodium Chloride 50 ml @ 100 mls/hr Q8HRS 01/17/20 21:00 01/19/20 05:06 100 MLS/HR Midazolam HCl (Versed) 2 mg STK-MED ONCE 01/16/20 13:21 01/16/20 13:21 DC Morphine Sulfate (Morphine Sulfate) 1 mg PRN Q10MIN PRN 01/19/20 07:00 01/20/20 06:59 Nicotine (Nicoderm Cq 14mg) 1 patch PRN DAILY PRN 01/16/20 19:30 01/16/20 21:14 1 PATCH Nitroglycerin (Nitroglycerin) 200 mcg 1X ONCE 01/16/20 14:30 01/16/20 14:31 DC 01/16/20 14:30 600 MCG Ondansetron HCl (Zofran) 4 mg PRN Q6HRS PRN 01/19/20 07:00 01/20/20 06:59 Oxycodone/ Acetaminophen (Percocet 5/325) 1 tab PRN Q6HRS PRN 01/17/20 12:45 01/18/20 21:44 1 TAB Prochlorperazine Edisylate (Compazine) 5 mg PACU PRN PRN 01/19/20 07:00 01/20/20 06:59 Ringer's Solution 1,000 ml @ 30 mls/hr Q24H 01/19/20 07:00 01/19/20 18:59 Sodium Chloride 500 ml @ 500 mls/hr 1X ONCE 01/18/20 09:30 01/18/20 10:29 DC 01/18/20 09:24 500 MLS/HR Vancomycin HCl 250 ml @ 250 mls/hr 1X PREOP PRN 01/19/20 06:00 01/20/20 06:00 Verapamil HCl (Verapamil) 5 mg STK-MED ONCE 01/16/20 12:48 01/16/20 12:48 DC Labs: Lab Laboratory Tests Test 01/18/20 08:00 01/18/20 11:44 01/18/20 13:20 01/18/20 16:44 Glucose (Fingerstick) 192 mg/dL (70-99) 230 mg/dL (70-99) 180 mg/dL (70-99) Erythrocyte Sedimentation Rate 17 (0-15) Sodium Level 134 mmol/L (136-145) Potassium Level 4.3 mmol/L (3.5-5.1) Chloride Level 99 mmol/L (98-107) Carbon Dioxide Level 25 mmol/L (21-32) Anion Gap 10 (6-14) Blood Urea Nitrogen 23 mg/dL (8-26) Creatinine 1.3 mg/dL (0.7-1.3) Estimated GFR (Cockcroft-Gault) 57.5 Glucose Level 233 mg/dL (70-99) Calcium Level 8.1 mg/dL (8.5-10.1) Magnesium Level 1.9 mg/dL (1.8-2.4) C-Reactive Protein, Quantitative 23.3 mg/L (0-3.3) Test 01/18/20 21:34 01/19/20 05:00 01/19/20 07:35 Glucose (Fingerstick) 139 mg/dL (70-99) 179 mg/dL (70-99) White Blood Count 7.9 x10^3/uL (4.0-11.0) Red Blood Count 4.29 x10^6/uL (4.30-5.70) Hemoglobin 12.7 g/dL (13.0-17.5) Hematocrit 37.1 % (39.0-53.0) Mean Corpuscular Volume 87 fL (79-100) Mean Corpuscular Hemoglobin 30 pg (25-35) Mean Corpuscular Hemoglobin Concent 34 g/dL (31-37) Red Cell Distribution Width 13.4 % (11.5-14.5) Platelet Count 147 x10^3/uL (140-400) Sodium Level 137 mmol/L (136-145) Potassium Level 4.2 mmol/L (3.5-5.1) Chloride Level 103 mmol/L (98-107) Carbon Dioxide Level 26 mmol/L (21-32) Anion Gap 8 (6-14) Blood Urea Nitrogen 23 mg/dL (8-26) Creatinine 0.9 mg/dL (0.7-1.3) Estimated GFR (Cockcroft-Gault) 87.9 Glucose Level 178 mg/dL (70-99) Calcium Level 8.2 mg/dL (8.5-10.1) Objective: Assessment: 1. Nonhealing right plantar fifth metatarsal ulcer. ESR normal, CRP 3.4. MRI did not show osteomyelitis. Mild edema in the fifth metatarsal area, ulcer does not appear infected. No evidence of cellulitis or abscess in the surrounding area.Pt has been treated with antibiotic samples from podiatry office prior to admission, he does not recall the name 2. Peripheral arterial disease. 3. Diabetes mellitus with neuropathy. 4. Hyperlipidemia. 5. Hypertension. 6. History of ALLERGIES TO PENICILLIN WITH QUESTIONABLE ANAPHYLAXIS. The patient has not taken any Augmentin or cephalexin. 7. Left frozen shoulder, status post arthroscopic surgery. 8. Lumbar radiculopathy, status post epidural injection. Plan: Plan of Care clarissa clemente will deescalate soon local wound care awaiting vasc procedure with I and D today d/w sister SVEN HUGHES MD Jan 19, 2020 07:51
[2020-01-19] MEDS ORDERED: PAPAVERINE 60 MG/2 ML VIAL FOR OR ONLY. ONE (08:01)
[2020-01-19] MEDS ORDERED: IOHEXOL 300 MG/ML 50 ML VIAL. ONE (08:01)
[2020-01-19] MEDS ORDERED: GELATIN SPONGE SIZE 100. ONE (08:01)
[2020-01-19] MEDS ORDERED: THROMBIN TOPICAL 5,000 UNIT VIAL. ONE (08:01)
[2020-01-19] MEDS ORDERED: SURGICEL FIBRILLAR 1X2 EACH. ONE (08:01)
[2020-01-19] MEDS: ASPIRIN ENTERIC COATED 81 MG TABLET.DR. PO SCH (08:06)
[2020-01-19] MEDS: LINEZOLID 600 MG TABLET PO SCH ×2 (08:08→21:28)
[2020-01-19] MEDS ORDERED: SEVOFLURANE > 120 MINUTES. IH ONE (09:36)
[2020-01-19] MEDS ORDERED: HEPARIN for IV BOLUS 10,000 UNIT/10 ML VIAL. ONE (09:37)
[2020-01-19] MEDS ORDERED: ROCURONIUM 50 MG/5 ML VIAL. ONE ×2 (09:37→10:40)
[2020-01-19] MEDS ORDERED: NEOSTIGMINE METHYLSULFATE 5 MG/5 ML SYRINGE. ONE (09:37)
[2020-01-19] MEDS ORDERED: MIDAZOLAM HCL/PF 2 MG/2 ML VIAL. ONE (09:37)
[2020-01-19] MEDS ORDERED: GLYCOPYRROLATE 1 MG/5 ML VIAL. ONE (09:37)
[2020-01-19] MEDS ORDERED: fentaNYL PF VIAL 100 MCG/2 ML VIAL ONE ×2 (09:37→12:14)
[2020-01-19] MEDS ORDERED: ONDANSETRON PF 4 MG/2 ML VIAL. ONE (09:38)
[2020-01-19] MEDS ORDERED: DEXAMETHASONE SOD PHOS 4 MG/ML VIAL ONE (09:38)
[2020-01-19] MEDS: INSULIN LISPRO 100 UNIT/ML 3ML VIAL for OP,RR ONLY. SQ PRN ×2 (09:46→13:18)
[2020-01-19] MEDS: IV NORMAL SALINE 1000ML BAG 1,000 ML IV SCH ×3 (12:43→22:43)
[2020-01-19] MEDS ORDERED: LABETALOL 20 MG/4 ML DISP.SYRIN. IVP PRN (12:45)
[2020-01-19] MEDS ORDERED: hydrALAZINE 20 MG/ML VIAL. IVP PRN (12:45)
[2020-01-19] MEDS ORDERED: MORPHINE SULFATE 2 MG/ML VIAL. IV PRN (12:45)
[2020-01-19] MEDS ORDERED: ONDANSETRON PF 4 MG/2 ML VIAL. IVP PRN (12:45)
[2020-01-19] MEDS ORDERED: oxyCODONE IR 5 MG TABLET PO PRN (12:45)
[2020-01-19] MEDS ORDERED: NALOXONE 0.4 MG/ML VIAL. IV PRN (12:45)
[2020-01-19] MEDS ORDERED: 0.9 % SODIUM CHLORIDE 10 ML DISP.SYRIN. IV PRN (12:45)
--- NOTE | 2020-01-19 12:52 | PDOC ---
BRIEF OPERATIVE NOTE Date: Jan 19, 2020 Pre-Op Diagnosis PAD with non-healing right plantar ulcer Post-Op Diagnosis same Procedure Performed Right femoral to popliteal bypass with greater saphenous vein Right plantar ulcer excisional debridement of skin and subcutaneous tissue Surgeon Dr. Cherry Vibrating Screen Operator Man Nesbitt,TIESHA Anesthesia Type: General Blood Loss 150cc Specimens Obtained none Findings Doppler PT pulse post procedure, excellent bleeding with wound debridement Complications none Operative Note see dictated note MAN NESBITT B2B SALES EXECUTIVE Jan 19, 2020 12:52
[2020-01-19] MEDS ORDERED: MORPHINE SULFATE 2 MG/ML VIAL. ONE (13:09)
[2020-01-19] MEDS ORDERED: hydrALAZINE 20 MG/ML VIAL. ONE (13:09)
[2020-01-19] MEDS: MORPHINE SULFATE 2 MG/ML VIAL. IV PRN ×2 (13:12→13:21)
[2020-01-19] MEDS: HYDROmorphone 2 MG/ML VIAL IV PRN ×4 (13:31→14:02)
--- NOTE | 2020-01-19 14:29 | OP ---
DATE OF SURGERY: 01/19/2020 SURGEON: Chantale Cherry MD. SMALL KICK PRESS OPERATOR: Stefania Larkin, nurse practitioner. PREOPERATIVE DIAGNOSES: Right lower extremity severe peripheral arterial disease with nonhealing right lateral foot wound. POSTOPERATIVE DIAGNOSES: Right lower extremity severe peripheral arterial disease with nonhealing right lateral foot wound. OPERATION PERFORMED: 1. Right proximal superficial femoral artery to below knee popliteal artery bypass using right leg great saphenous vein, the vein was used in the nonreversed fashion. 2. Right great saphenous vein harvest with lysis of the valves, the vein was used in the nonreversed fashion. 3. Right lateral foot wound sharp excisional debridement removing necrotic skin and subcutaneous tissue, measurements after debridement were approximately 1.5 cm in length x 1.5 cm in width x superficial in depth. BLOOD LOSS: 150 mL. ANESTHESIA USED: General anesthesia. INDICATIONS: The patient is a 54-year-old male who has been found to have severe peripheral arterial disease of the right leg with a nonhealing right lateral foot wound. The wound has a small amount of necrotic tissue within the wound bed. He underwent an angiogram with Dr. Ortiz with Cardiology, which showed the right common femoral artery, profunda artery and proximal superficial femoral artery were widely patent; however, he occluded the superficial femoral artery at the mid thigh with reconstitution at the popliteal artery at the knee. The below knee popliteal on tibial runoff was patent without significant disease. Vein mapping shows sufficient right leg great saphenous vein for bypass conduit. I recommended a right proximal to mid superficial femoral artery to below knee popliteal artery bypass with great saphenous vein and debridement of his right foot wound. Informed consent was obtained including the risks of bleeding, infection, bypass graft failure, need for revision in the future and possible need for further foot debridements or toe amputation in the future. DETAILS OF THE OPERATION: The patient was brought to the operating room and placed on table in supine position. He received general anesthesia monitored throughout the case by the anesthesiologist. We used the ultrasound marked great saphenous vein prior to starting the case. The great saphenous vein from the groin down to the distal thigh was of very good size and easily compressible. At the knee level, it became very small in diameter. We prepped and draped the right groin, right leg circumferentially by normal sterile fashion. We began by making a longitudinal incision in the right medial thigh over the area of the marked great saphenous vein. We dissected down through subcutaneous tissue to the great saphenous vein. It was of good size. We dissected out from the proximal thigh location at the saphenofemoral junction region all the way down to the distal thigh. At the distal thigh location, the great saphenous vein branch became very small. All side branches were ligated with silk sutures, clips and divided to fully mobilize the great saphenous vein. In the proximal to mid medial thigh, we dissected deeper down to the vessels. The superficial femoral artery and the vein were identified. The superficial femoral artery at this location had a strong palpable pulse within it and it was soft more distally and this wound was very calcified. The proximal superficial femoral artery and the wound were encircled with vessel loops. We then made a longitudinal incision in the right medial calf. I dissected down through subcutaneous tissue and through the fascia and entered the popliteal space. There was some blood and hematoma within the calf, likely bleeding from his recent catheterization and attempt at angioplasty. The blood was irrigated. We dissected down to the popliteal vessels. The popliteal artery was dissected out proximally and distally and it was soft and noncalcified and non-damaged. We placed vessel loops around it at this location. We then heparinized with 8000 units of heparin. We clamped the proximal great saphenous vein just distal to the saphenofemoral junction and divided it. We oversew the stump with two layers of 5-0 Prolene suture. We tied off the distal great saphenous vein in the lower thigh with 2-0 silk suture, clipped and divided it. We irrigated the great saphenous vein with heparinized saline, it dilated nicely throughout the vein; however, the distal segment was much smaller and seemed fibrotic. We cut the valves with the valvulotome throughout the length of the vein, so we could use it in the nonreversed fashion. The proximal great saphenous vein was used for the superficial femoral artery anastomosis. We made a longitudinal arteriotomy in the superficial femoral artery after clamping it. There was small amount of plaque within the artery, which I removed with an endarterectomy of the superficial femoral artery. There was pulsatile inflow through this artery. We performed an end-to-side anastomosis with the end of the spatulated great saphenous vein and the open superficial femoral artery with running 6-0 Prolene suture. After finishing this anastomosis, we removed the clamps. There was pulsatile blood flow through the end of the graft and we clamped it. We used the Tegan tunneler, we tunneled through the deep tissues from the popliteal space up to the superficial femoral artery. We tunneled just above the artery. We pulled the vein through the tunnel down to the popliteal space. We were able to have good length and we were able to remove the fibrotic distal segment of the vein, so we just had a nice sized vein throughout the entire length. We clamped the proximal and distal popliteal artery. I made a longitudinal arteriotomy. The vessel was widely patent. There was good backbleeding. I did run a #3 Anastasia catheter distally in the vessel to ensure there was no thrombus distally, which there was not. We spatulated the great saphenous vein and then performed an end-to-side anastomosis with running 6-0 Prolene suture. Prior to finishing this, we backbled the vessels and there was pulsatile inflow through the vein conduit. We finished the anastomosis and we restored blood flow. There was strong dopplerable flow in the distal popliteal artery and at the foot, which was graft dependent. I irrigated all wounds with antibiotic irrigation. We ensured good hemostasis with electrocautery and clips. Fibrillar was left around each anastomosis. We then closed all incision layers with two layers of 2-0 Vicryl suture in the subcutaneous tissue level and tamra on the skin level. A long Prevena VAC dressing was placed on the leg to cover all of the incisions and placed to suction. The right foot lateral wound was lateral to the fifth metatarsal region. I excised necrotic skin and subcutaneous tissue. There was very good bleeding throughout this wound bed, which was controlled with electrocautery. There was no exposure of bone. Aquacel dressing was left in the wound and wrapped with a Kerlix wrap. He tolerated the surgery well with no immediate complications. Stefania Larkin was scrubbed throughout the entire length of the case for dissection and exposure of the vessels, vein harvest, bypass operation and closure. CHANTALE CHERRY MD DR: MENG/carlos JOB#: [id number] / [id number]
[2020-01-19] MEDS: amLODIPine BESYLATE 10 MG TABLET PO SCH (14:46)
[2020-01-19] MEDS: LISINOPRIL 10 MG TABLET PO SCH (14:46)
[2020-01-19] MEDS: oxyCODONE/APAP 5/325 1 TAB TABLET PO PRN ×2 (14:47→19:45)
--- NOTE | 2020-01-19 15:44 | PDOC ---
ROLANDO ASTUDILLO LABOR RELATIONS TEACHER 01/19/20 1544: CARDIO Progress Notes Date and Time Date of Service 01/19/2020 Time of Evaluation 1530 Subjective Subjective: No Chest Pain, No shortness of breath, No Palpitations Vitals Vitals Vital Signs Date Time Temp Pulse Resp B/P (MAP) Pulse Ox O2 Delivery O2 Flow Rate FiO2 01/19/20 14:47 Room Air 01/19/20 14:46 80 174/82 01/19/20 14:02 18 97 01/19/20 14:00 98.6 98.6 01/19/20 13:21 10.0 Weight Weight [ ] Input and Output Intake and Output Intake and Output 01/19/20 06:59 Intake Total 2180 ml Output Total 1650 ml Balance 530 ml Intake Oral 2080 ml IV Total 100 ml Output Urine Total 1650 ml # Voids 2 Laboratory Labs Laboratory Tests Test 01/18/20 16:44 01/18/20 21:34 01/19/20 05:00 01/19/20 07:35 Glucose (Fingerstick) 180 mg/dL (70-99) 139 mg/dL (70-99) 179 mg/dL (70-99) White Blood Count 7.9 x10^3/uL (4.0-11.0) Red Blood Count 4.29 x10^6/uL (4.30-5.70) Hemoglobin 12.7 g/dL (13.0-17.5) Hematocrit 37.1 % (39.0-53.0) Mean Corpuscular Volume 87 fL (79-100) Mean Corpuscular Hemoglobin 30 pg (25-35) Mean Corpuscular Hemoglobin Concent 34 g/dL (31-37) Red Cell Distribution Width 13.4 % (11.5-14.5) Platelet Count 147 x10^3/uL (140-400) Sodium Level 137 mmol/L (136-145) Potassium Level 4.2 mmol/L (3.5-5.1) Chloride Level 103 mmol/L (98-107) Carbon Dioxide Level 26 mmol/L (21-32) Anion Gap 8 (6-14) Blood Urea Nitrogen 23 mg/dL (8-26) Creatinine 0.9 mg/dL (0.7-1.3) Estimated GFR (Cockcroft-Gault) 87.9 Glucose Level 178 mg/dL (70-99) Calcium Level 8.2 mg/dL (8.5-10.1) Test 01/19/20 09:45 01/19/20 11:20 01/19/20 13:09 Glucose (Fingerstick) 196 mg/dL (70-99) 174 mg/dL (70-99) 194 mg/dL (70-99) Physical Exam HEENT: Neck Supple W Full Motion Chest: Symmetric LUNGS: Clear to Auscultation Heart: S1S2, RRR (SR) Abdomen: Soft N/T Extremities: No Edema, Other (S/P RLE bypass, wound vac in place) Neurology: alert, oriented, follow commands Assessment Assessment 1. PAD with non-healing right foot ulcer: S/P RLE fempop bypass with wound excisional debridement to right lateral foot wound. tolerated procedure well per vascular 2. Hypertension: labile 3. Hyperlipidemia 4. Diabetes,II 5. Tobaccoism Recommendations 1. Continue post op vascular treatment 2. Tolerating po resume PO BP meds. 3. Secondary prevention measures. 4. Smoking cessation 5. Aggressive IS NICOLE EDEN MD 01/19/20 1842: CARDIO Progress Notes Plan Plan Pt. seen and examined. Agree with above COVER MACHINE OPERATOR note. Doing well post op Continue asa, atorvastatin, lisinopril and amlodipine. Supportive care. Will DC when ok per vascular. Thanks ROLANDO ASTUDILLO APRN Jan 19, 2020 15:44 NICOLE EDEN MD Jan 19, 2020 18:42
--- NOTE | 2020-01-19 17:05 | PDOC ---
GENERAL General: Patient seen and evaluated bedside status post fem-pop bypass and wound debridement right foot. He denies pain, nausea, vomitting, fever, chills, shor tness of breath or chest pain VITAL SIGNS Vital Signs/I&O: Vital Signs Date Time Temp Pulse Resp B/P (MAP) Pulse Ox O2 Delivery O2 Flow Rate FiO2 01/19/20 14:47 Room Air 01/19/20 14:46 80 174/82 01/19/20 14:02 18 97 01/19/20 14:00 98.6 98.6 01/19/20 13:21 10.0 I & O 01/18/20 01/18/20 01/19/20 15:00 23:00 07:00 Intake Total 720 ml 1410 ml 50 ml Output Total 1650 ml Balance 720 ml -240 ml 50 ml ALLERGIES Allergies: Allergies Coded Allergies Type Severity Reaction Last Updated Verified Penicillins Allergy Severe Anaphylaxis 01/16/20 No MEDS Medications: Current Medications Medications (Trade) Dose Ordered Sig/Taisha Route PRN Reason Start Time Stop Time Status Last Admin Dose Admin Vancomycin HCl 250 ml @ 250 mls/hr 1X PREOP PRN IV PRIOR TO PROCEDURE 01/19/20 06:00 01/20/20 06:00 01/19/20 10:00 Morphine Sulfate (Morphine Sulfate) 1 mg PRN Q10MIN PRN IV SEVERE PAIN 7-10 01/19/20 07:00 01/20/20 06:59 01/19/20 13:21 Hydromorphone HCl (Dilaudid) 0.5 mg PRN Q10MIN PRN IV SEV PAIN, Second choice 01/19/20 07:00 01/20/20 06:59 01/19/20 14:02 Heparin Sodium (Porcine) 5000 unit/Sodium Chloride 505 ml @ 505 mls/hr 1X ONCE IRR 01/19/20 06:00 01/19/20 06:59 DC 01/19/20 10:44 Cefazolin Sodium 1 gm/Sodium Chloride 500 ml @ 500 mls/hr 1X ONCE IRR 01/19/20 06:00 01/19/20 06:59 DC 01/19/20 10:42 Cellulose (Surgicel Fibrillar 1x2) 1 each STK-MED ONCE .ROUTE 01/19/20 08:01 01/19/20 08:01 DC 01/19/20 12:10 Insulin Human Lispro (HumaLOG VIAL for OP,RR ONLY) 0-10 units PRN Q1HR PRN SQ PER PROTOCOL 01/19/20 09:45 01/20/20 09:44 01/19/20 13:18 Oxycodone/ Acetaminophen (Percocet 5/325) 2 tab PRN Q4HRS PRN PO SEVERE PAIN 01/19/20 12:45 01/19/20 14:47 Labetalol HCl (Normodyne Iv Push) 10 mg PRN Q2HR PRN IVP HYPERTENSION, 2ND CHOICE IV 01/19/20 12:45 01/19/20 14:03 LAB Lab: Laboratory Tests Test 01/18/20 21:34 01/19/20 05:00 01/19/20 07:35 01/19/20 09:45 Glucose (Fingerstick) 139 mg/dL 179 mg/dL 196 mg/dL White Blood Count 7.9 x10^3/uL Red Blood Count 4.29 x10^6/uL Hemoglobin 12.7 g/dL Hematocrit 37.1 % Mean Corpuscular Volume 87 fL Mean Corpuscular Hemoglobin 30 pg Mean Corpuscular Hemoglobin Concent 34 g/dL Red Cell Distribution Width 13.4 % Platelet Count 147 x10^3/uL Sodium Level 137 mmol/L Potassium Level 4.2 mmol/L Chloride Level 103 mmol/L Carbon Dioxide Level 26 mmol/L Anion Gap 8 Blood Urea Nitrogen 23 mg/dL Creatinine 0.9 mg/dL Estimated GFR (Cockcroft-Gault) 87.9 Glucose Level 178 mg/dL Calcium Level 8.2 mg/dL Test 01/19/20 11:20 01/19/20 13:09 01/19/20 16:42 Glucose (Fingerstick) 174 mg/dL 194 mg/dL 264 mg/dL Current Medications Medications (Trade) Dose Ordered Sig/Taisha Route PRN Reason Start Time Stop Time Status Last Admin Dose Admin Midazolam HCl (Versed) 2 mg STK-MED ONCE .ROUTE 01/16/20 12:38 01/16/20 12:38 DC Fentanyl Citrate (Fentanyl 2ml Vial) 100 mcg STK-MED ONCE .ROUTE 01/16/20 12:38 01/16/20 12:38 DC Iodixanol (Visipaque 320) 100 ml STK-MED ONCE .ROUTE 01/16/20 12:39 01/16/20 12:39 DC Lidocaine HCl (Lidocaine 1% 20ml Vial) 20 ml STK-MED ONCE .ROUTE 01/16/20 12:39 01/16/20 12:39 DC Heparin Sodium/ Sodium Chloride 1,000 ml @ As Directed STK-MED ONCE .ROUTE 01/16/20 12:39 01/16/20 12:39 DC Heparin Sodium/ Sodium Chloride 1,000 ml @ As Directed STK-MED ONCE .ROUTE 01/16/20 12:40 01/16/20 12:40 DC Heparin Sodium/ Sodium Chloride (HEPARIN for ARTERIAL LINE FLUSH) 1,000 unit 1X ONCE IART 01/16/20 12:45 01/16/20 12:52 DC 01/16/20 12:45 Heparin Sodium/ Sodium Chloride (HEPARIN for ARTERIAL LINE FLUSH) 1,000 unit 1X ONCE IART 01/16/20 12:45 01/16/20 12:52 DC 01/16/20 12:45 Midazolam HCl (Versed) 2 mg 1X ONCE IV 01/16/20 12:45 01/16/20 12:52 DC 01/16/20 13:17 Fentanyl Citrate (Fentanyl 2ml Vial) 100 mcg 1X ONCE IV 01/16/20 12:45 01/16/20 12:52 DC 01/16/20 13:17 Iodixanol (Visipaque 320) 100 ml 1X ONCE IART 01/16/20 12:45 01/16/20 12:52 DC 01/16/20 12:45 Lidocaine HCl (Lidocaine 1% 20ml Vial) 20 ml 1X ONCE INJ 01/16/20 12:45 01/16/20 12:52 DC 01/16/20 13:20 Verapamil HCl (Verapamil) 5 mg STK-MED ONCE .ROUTE 01/16/20 12:48 01/16/20 12:48 DC Heparin Sodium (Porcine) (Heparin Sodium) 10,000 unit STK-MED ONCE .ROUTE 01/16/20 12:48 01/16/20 12:48 DC Nitroglycerin (Nitroglycerin) 200 mcg STK-MED ONCE .ROUTE 01/16/20 12:48 01/16/20 12:48 DC Midazolam HCl (Versed) 2 mg STK-MED ONCE .ROUTE 01/16/20 13:21 01/16/20 13:21 DC Heparin Sodium (Porcine) (Heparin Sodium) 4,000 unit 1X ONCE IV 01/16/20 13:30 01/16/20 13:32 DC 01/16/20 13:30 Fentanyl Citrate (Fentanyl 2ml Vial) 100 mcg STK-MED ONCE .ROUTE 01/16/20 13:42 01/16/20 13:42 DC Nitroglycerin (Nitroglycerin) 200 mcg 1X ONCE IART 01/16/20 14:30 01/16/20 14:31 DC 01/16/20 14:30 Hydralazine HCl (Apresoline Inj) 20 mg STK-MED ONCE .ROUTE 01/16/20 14:32 01/16/20 14:33 DC Hydralazine HCl (Apresoline Inj) 20 mg 1X ONCE IVP 01/16/20 15:00 01/16/20 15:01 DC 01/16/20 14:56 Heparin Sodium/ Sodium Chloride 500 ml @ As Directed STK-MED ONCE .ROUTE 01/16/20 14:51 01/16/20 14:51 DC Atorvastatin Calcium (Lipitor) 40 mg QHS PO 01/16/20 21:00 01/18/20 21:35 Acetaminophen (Tylenol) 650 mg PRN Q6HRS PRN PO MILD PAIN 1-3 01/16/20 16:45 Hydralazine HCl (Apresoline Inj) 10 mg PRN Q4HRS PRN IVP SBP>180 or DBP>110 01/16/20 16:45 01/19/20 13:12 DC 01/17/20 07:18 Sodium Chloride 1,000 ml @ 75 mls/hr 1X ONCE IV 01/16/20 16:45 01/17/20 06:04 DC 01/16/20 16:59 Fentanyl Citrate (Fentanyl 2ml Vial) 50 mcg PRN Q2HR PRN IVP SEVERE PAIN 01/16/20 18:30 01/17/20 05:46 Cyclobenzaprine HCl (Flexeril) 10 mg PRN TID PRN PO MUSCLE SPASMS 01/16/20 18:30 01/17/20 07:18 Insulin Human Lispro (HumaLOG) 0-7 UNITS TIDACHC SQ 01/16/20 21:00 01/18/20 18:04 Dextrose (Dextrose 50%-Water Syringe) 12.5 gm PRN Q15MIN PRN IV SEE COMMENTS 01/16/20 19:15 Nicotine (Nicoderm Cq 14mg) 1 patch PRN DAILY PRN TD SMOKING CESSATION 01/16/20 19:30 01/16/20 21:14 Aspirin (Jihan Aspirin) 81 mg DAILYWBKFT PO 01/17/20 10:00 01/17/20 10:43 DC Cefazolin Sodium/ Dextrose 50 ml @ 100 mls/hr 1X PREOP PRN IV PRIOR TO PROCEDURE 01/19/20 06:00 01/19/20 18:00 UNV Vancomycin HCl 250 ml @ 250 mls/hr 1X PREOP PRN IV PRIOR TO PROCEDURE 01/19/20 06:00 01/20/20 06:00 01/19/20 10:00 Linezolid (Zyvox) 600 mg BID PO 01/17/20 11:00 01/19/20 08:08 Ceftriaxone Sodium (Rocephin) 0.2 gm 1X ONCE IVP 01/17/20 11:00 01/17/20 11:01 Cancel Ceftriaxone Sodium (Rocephin) 1.8 gm 1X ONCE IVP 01/17/20 12:00 01/17/20 12:01 Cancel Diphenhydramine HCl (Benadryl) 25 mg PRN Q6HRS PRN IV ITCHING/ ALLERGIC REACTION 01/17/20 10:15 Amlodipine Besylate (Norvasc) 10 mg DAILY PO 01/17/20 11:00 01/19/20 14:46 Meropenem 100 mg/ Sodium Chloride 50 ml @ 100 mls/hr 1X ONCE IV 01/17/20 11:00 01/17/20 11:29 DC 01/17/20 10:30 Meropenem 400 mg/ Sodium Chloride 50 ml @ 100 mls/hr 1X ONCE IV 01/17/20 11:00 01/17/20 11:29 DC 01/17/20 11:08 Aspirin (Ecotrin) 81 mg DAILYWBKFT PO 01/17/20 10:42 01/19/20 13:05 DC 01/19/20 08:06 Meropenem 500 mg/ Sodium Chloride 50 ml @ 100 mls/hr Q8HRS IV 01/17/20 21:00 01/19/20 14:57 Oxycodone/ Acetaminophen (Percocet 5/325) 1 tab PRN Q6HRS PRN PO MODERATE - SEVERE PAIN 01/17/20 12:45 01/19/20 13:13 DC 01/18/20 21:44 Lisinopril (Prinivil) 10 mg DAILY PO 01/17/20 16:30 01/19/20 14:46 Sodium Chloride 500 ml @ 500 mls/hr 1X ONCE IV 01/18/20 09:30 01/18/20 10:29 DC 01/18/20 09:24 Ondansetron HCl (Zofran) 4 mg PRN Q6HRS PRN IV NAUSEA/VOMITING 01/19/20 07:00 01/20/20 06:59 Fentanyl Citrate (Fentanyl 2ml Vial) 25 mcg PRN Q5MIN PRN IV MILD PAIN 1-3 01/19/20 07:00 01/20/20 06:59 Fentanyl Citrate (Fentanyl 2ml Vial) 50 mcg PRN Q5MIN PRN IV MODERATE TO SEVERE PAIN 01/19/20 07:00 01/20/20 06:59 Morphine Sulfate (Morphine Sulfate) 1 mg PRN Q10MIN PRN IV SEVERE PAIN 7-10 01/19/20 07:00 01/20/20 06:59 01/19/20 13:21 Ringer's Solution 1,000 ml @ 30 mls/hr Q24H IV 01/19/20 07:00 01/19/20 18:59 Hydromorphone HCl (Dilaudid) 0.5 mg PRN Q10MIN PRN IV SEV PAIN, Second choice 01/19/20 07:00 01/20/20 06:59 01/19/20 14:02 Prochlorperazine Edisylate (Compazine) 5 mg PACU PRN PRN IV NAUSEA, MRX1 01/19/20 07:00 01/20/20 06:59 Heparin Sodium (Porcine) 5000 unit/Sodium Chloride 505 ml @ 505 mls/hr 1X ONCE IRR 01/19/20 06:00 01/19/20 06:59 DC 01/19/20 10:44 Cefazolin Sodium 1 gm/Sodium Chloride 500 ml @ 500 mls/hr 1X ONCE IRR 01/19/20 06:00 01/19/20 06:59 DC 01/19/20 10:42 Gelatin (Gelfoam Size 100) 1 each STK-MED ONCE .ROUTE 01/19/20 08:01 01/19/20 08:01 DC Iohexol (Omnipaque 300 Mg/ml) 50 ml STK-MED ONCE .ROUTE 01/19/20 08:01 01/19/20 08:01 DC Cellulose (Surgicel Fibrillar 1x2) 1 each STK-MED ONCE .ROUTE 01/19/20 08:01 01/19/20 08:01 DC 01/19/20 12:10 Thrombin (Thrombin Topical) 5,000 unit STK-MED ONCE .ROUTE 01/19/20 08:01 01/19/20 08:01 DC Papaverine HCl 60 mg STK-MED ONCE .ROUTE 01/19/20 08:01 01/19/20 08:02 DC Sevoflurane (Ultane) 90 ml STK-MED ONCE IH 01/19/20 09:36 01/19/20 09:37 DC Rocuronium [place] (Zemuron) 50 mg STK-MED ONCE .ROUTE 01/19/20 09:37 01/19/20 09:37 DC Fentanyl Citrate (Fentanyl 2ml Vial) 100 mcg STK-MED ONCE .ROUTE 01/19/20 09:37 01/19/20 09:37 DC Neostigmine [place] (Neostigmine Methylsulfate) 5 mg STK-MED ONCE .ROUTE 01/19/20 09:37 01/19/20 09:37 DC Midazolam HCl (Versed) 2 mg STK-MED ONCE .ROUTE 01/19/20 09:37 01/19/20 09:38 DC Glycopyrrolate (Robinul) 1 mg STK-MED ONCE .ROUTE 01/19/20 09:37 01/19/20 09:38 DC Heparin Sodium (Porcine) (Heparin Sodium) 10,000 unit STK-MED ONCE .ROUTE 01/19/20 09:37 01/19/20 09:38 DC Dexamethasone Sodium Phosphate (Decadron) 4 mg STK-MED ONCE .ROUTE 01/19/20 09:38 01/19/20 09:38 DC Ondansetron HCl (Zofran) 4 mg STK-MED ONCE .ROUTE 01/19/20 09:38 01/19/20 09:38 DC Insulin Human Lispro (HumaLOG VIAL for OP,RR ONLY) 0-10 units PRN Q1HR PRN SQ PER PROTOCOL 01/19/20 09:45 01/20/20 09:44 01/19/20 13:18 Rocuronium [place] (Zemuron) 50 mg STK-MED ONCE .ROUTE 01/19/20 10:40 01/19/20 10:41 DC Fentanyl Citrate (Fentanyl 2ml Vial) 100 mcg STK-MED ONCE .ROUTE 01/19/20 12:14 01/19/20 12:15 DC Oxycodone HCl (Roxicodone) 5 mg PRN Q3HRS PRN PO BREAKTHROUGH PAIN 01/19/20 12:45 Info (Non-Icu Electrolyte Protocol) 1 ea DAILY MC 01/20/20 09:00 Sodium Chloride (Normal Saline Flush) 3 ml QSHIFT PRN IV AFTER MEDS AND BLOOD DRAWS 01/19/20 12:45 Sodium Chloride 1,000 ml @ 100 mls/hr Q10H IV 01/19/20 12:43 Oxycodone/ Acetaminophen (Percocet 5/325) 1 tab PRN Q4HRS PRN PO MODERATE PAIN 01/19/20 12:45 Oxycodone/ Acetaminophen (Percocet 5/325) 2 tab PRN Q4HRS PRN PO SEVERE PAIN 01/19/20 12:45 01/19/20 14:47 Morphine Sulfate (Morphine Sulfate) 2 mg PRN Q1HR PRN IV MODERATE PAIN 01/19/20 12:45 Naloxone HCl (Narcan) 0.4 mg PRN Q2MIN PRN IV SEE INSTRUCTIONS 01/19/20 12:45 Sodium Chloride 1,000 ml @ 25 mls/hr Q24H IV 01/19/20 12:43 Ondansetron HCl (Zofran) 4 mg PRN Q6HRS PRN IVP NAUESA, 1ST CHOICE 01/19/20 12:45 Prochlorperazine Edisylate (Compazine) 5 mg PRN Q6HRS PRN IV N/V, 2nd Choice, MR X1 01/19/20 12:45 Hydralazine HCl (Apresoline Inj) 10 mg PRN Q4HRS PRN IVP ELEVATED BP, SEE COMMENTS 01/19/20 12:45 Labetalol HCl (Normodyne Iv Push) 10 mg PRN Q2HR PRN IVP HYPERTENSION, 2ND CHOICE IV 01/19/20 12:45 01/19/20 14:03 Aspirin (Ecotrin) 325 mg DAILYWBKFT PO 01/20/20 08:00 Morphine Sulfate (Morphine Sulfate) 2 mg STK-MED ONCE .ROUTE 01/19/20 13:09 01/19/20 13:11 DC Hydralazine HCl (Apresoline Inj) 20 mg STK-MED ONCE .ROUTE 01/19/20 13:09 01/19/20 13:11 DC Lactobacillus Rhamnosus (Culturelle) 1 cap BID PO 01/19/20 21:00 Laboratory Tests Test 01/18/20 21:34 01/19/20 05:00 01/19/20 07:35 01/19/20 09:45 Glucose (Fingerstick) 139 mg/dL 179 mg/dL 196 mg/dL White Blood Count 7.9 x10^3/uL Red Blood Count 4.29 x10^6/uL Hemoglobin 12.7 g/dL Hematocrit 37.1 % Mean Corpuscular Volume 87 fL Mean Corpuscular Hemoglobin 30 pg Mean Corpuscular Hemoglobin Concent 34 g/dL Red Cell Distribution Width 13.4 % Platelet Count 147 x10^3/uL Sodium Level 137 mmol/L Potassium Level 4.2 mmol/L Chloride Level 103 mmol/L Carbon Dioxide Level 26 mmol/L Anion Gap 8 Blood Urea Nitrogen 23 mg/dL Creatinine 0.9 mg/dL Estimated GFR (Cockcroft-Gault) 87.9 Glucose Level 178 mg/dL Calcium Level 8.2 mg/dL Test 01/19/20 11:20 01/19/20 13:09 01/19/20 16:42 Glucose (Fingerstick) 174 mg/dL 194 mg/dL 264 mg/dL Current Medications Medications (Trade) Dose Ordered Sig/Taisha Route PRN Reason Start Time Stop Time Status Last Admin Dose Admin Midazolam HCl (Versed) 2 mg STK-MED ONCE .ROUTE 01/16/20 12:38 01/16/20 12:38 DC Fentanyl Citrate (Fentanyl 2ml Vial) 100 mcg STK-MED ONCE .ROUTE 01/16/20 12:38 01/16/20 12:38 DC Iodixanol (Visipaque 320) 100 ml STK-MED ONCE .ROUTE 01/16/20 12:39 01/16/20 12:39 DC Lidocaine HCl (Lidocaine 1% 20ml Vial) 20 ml STK-MED ONCE .ROUTE 01/16/20 12:39 01/16/20 12:39 DC Heparin Sodium/ Sodium Chloride 1,000 ml @ As Directed STK-MED ONCE .ROUTE 01/16/20 12:39 01/16/20 12:39 DC Heparin Sodium/ Sodium Chloride 1,000 ml @ As Directed STK-MED ONCE .ROUTE 01/16/20 12:40 01/16/20 12:40 DC Heparin Sodium/ Sodium Chloride (HEPARIN for ARTERIAL LINE FLUSH) 1,000 unit 1X ONCE IART 01/16/20 12:45 01/16/20 12:52 DC 01/16/20 12:45 Heparin Sodium/ Sodium Chloride (HEPARIN for ARTERIAL LINE FLUSH) 1,000 unit 1X ONCE IART 01/16/20 12:45 01/16/20 12:52 DC 01/16/20 12:45 Midazolam HCl (Versed) 2 mg 1X ONCE IV 01/16/20 12:45 01/16/20 12:52 DC 01/16/20 13:17 Fentanyl Citrate (Fentanyl 2ml Vial) 100 mcg 1X ONCE IV 01/16/20 12:45 01/16/20 12:52 DC 01/16/20 13:17 Iodixanol (Visipaque 320) 100 ml 1X ONCE IART 01/16/20 12:45 01/16/20 12:52 DC 01/16/20 12:45 Lidocaine HCl (Lidocaine 1% 20ml Vial) 20 ml 1X ONCE INJ 01/16/20 12:45 01/16/20 12:52 DC 01/16/20 13:20 Verapamil HCl (Verapamil) 5 mg STK-MED ONCE .ROUTE 01/16/20 12:48 01/16/20 12:48 DC Heparin Sodium (Porcine) (Heparin Sodium) 10,000 unit STK-MED ONCE .ROUTE 01/16/20 12:48 01/16/20 12:48 DC Nitroglycerin (Nitroglycerin) 200 mcg STK-MED ONCE .ROUTE 01/16/20 12:48 01/16/20 12:48 DC Midazolam HCl (Versed) 2 mg STK-MED ONCE .ROUTE 01/16/20 13:21 01/16/20 13:21 DC Heparin Sodium (Porcine) (Heparin Sodium) 4,000 unit 1X ONCE IV 01/16/20 13:30 01/16/20 13:32 DC 01/16/20 13:30 Fentanyl Citrate (Fentanyl 2ml Vial) 100 mcg STK-MED ONCE .ROUTE 01/16/20 13:42 01/16/20 13:42 DC Nitroglycerin (Nitroglycerin) 200 mcg 1X ONCE IART 01/16/20 14:30 01/16/20 14:31 DC 01/16/20 14:30 Hydralazine HCl (Apresoline Inj) 20 mg STK-MED ONCE .ROUTE 01/16/20 14:32 01/16/20 14:33 DC Hydralazine HCl (Apresoline Inj) 20 mg 1X ONCE IVP 01/16/20 15:00 01/16/20 15:01 DC 01/16/20 14:56 Heparin Sodium/ Sodium Chloride 500 ml @ As Directed STK-MED ONCE .ROUTE 01/16/20 14:51 01/16/20 14:51 DC Atorvastatin Calcium (Lipitor) 40 mg QHS PO 01/16/20 21:00 01/18/20 21:35 Acetaminophen (Tylenol) 650 mg PRN Q6HRS PRN PO MILD PAIN 1-3 01/16/20 16:45 Hydralazine HCl (Apresoline Inj) 10 mg PRN Q4HRS PRN IVP SBP>180 or DBP>110 01/16/20 16:45 01/19/20 13:12 DC 01/17/20 07:18 Sodium Chloride 1,000 ml @ 75 mls/hr 1X ONCE IV 01/16/20 16:45 01/17/20 06:04 DC 01/16/20 16:59 Fentanyl Citrate (Fentanyl 2ml Vial) 50 mcg PRN Q2HR PRN IVP SEVERE PAIN 01/16/20 18:30 01/17/20 05:46 Cyclobenzaprine HCl (Flexeril) 10 mg PRN TID PRN PO MUSCLE SPASMS 01/16/20 18:30 01/17/20 07:18 Insulin Human Lispro (HumaLOG) 0-7 UNITS TIDACHC SQ 01/16/20 21:00 01/18/20 18:04 Dextrose (Dextrose 50%-Water Syringe) 12.5 gm PRN Q15MIN PRN IV SEE COMMENTS 01/16/20 19:15 Nicotine (Nicoderm Cq 14mg) 1 patch PRN DAILY PRN TD SMOKING CESSATION 01/16/20 19:30 01/16/20 21:14 Aspirin (Jihan Aspirin) 81 mg DAILYWBKFT PO 01/17/20 10:00 01/17/20 10:43 DC Cefazolin Sodium/ Dextrose 50 ml @ 100 mls/hr 1X PREOP PRN IV PRIOR TO PROCEDURE 01/19/20 06:00 01/19/20 18:00 UNV Vancomycin HCl 250 ml @ 250 mls/hr 1X PREOP PRN IV PRIOR TO PROCEDURE 01/19/20 06:00 01/20/20 06:00 01/19/20 10:00 Linezolid (Zyvox) 600 mg BID PO 01/17/20 11:00 01/19/20 08:08 Ceftriaxone Sodium (Rocephin) 0.2 gm 1X ONCE IVP 01/17/20 11:00 01/17/20 11:01 Cancel Ceftriaxone Sodium (Rocephin) 1.8 gm 1X ONCE IVP 01/17/20 12:00 01/17/20 12:01 Cancel Diphenhydramine HCl (Benadryl) 25 mg PRN Q6HRS PRN IV ITCHING/ ALLERGIC REACTION 01/17/20 10:15 Amlodipine Besylate (Norvasc) 10 mg DAILY PO 01/17/20 11:00 01/19/20 14:46 Meropenem 100 mg/ Sodium Chloride 50 ml @ 100 mls/hr 1X ONCE IV 01/17/20 11:00 01/17/20 11:29 DC 01/17/20 10:30 Meropenem 400 mg/ Sodium Chloride 50 ml @ 100 mls/hr 1X ONCE IV 01/17/20 11:00 01/17/20 11:29 DC 01/17/20 11:08 Aspirin (Ecotrin) 81 mg DAILYWBKFT PO 01/17/20 10:42 01/19/20 13:05 DC 01/19/20 08:06 Meropenem 500 mg/ Sodium Chloride 50 ml @ 100 mls/hr Q8HRS IV 01/17/20 21:00 01/19/20 14:57 Oxycodone/ Acetaminophen (Percocet 5/325) 1 tab PRN Q6HRS PRN PO MODERATE - SEVERE PAIN 01/17/20 12:45 01/19/20 13:13 DC 01/18/20 21:44 Lisinopril (Prinivil) 10 mg DAILY PO 01/17/20 16:30 01/19/20 14:46 Sodium Chloride 500 ml @ 500 mls/hr 1X ONCE IV 01/18/20 09:30 01/18/20 10:29 DC 01/18/20 09:24 Ondansetron HCl (Zofran) 4 mg PRN Q6HRS PRN IV NAUSEA/VOMITING 01/19/20 07:00 01/20/20 06:59 Fentanyl Citrate (Fentanyl 2ml Vial) 25 mcg PRN Q5MIN PRN IV MILD PAIN 1-3 01/19/20 07:00 01/20/20 06:59 Fentanyl Citrate (Fentanyl 2ml Vial) 50 mcg PRN Q5MIN PRN IV MODERATE TO SEVERE PAIN 01/19/20 07:00 01/20/20 06:59 Morphine Sulfate (Morphine Sulfate) 1 mg PRN Q10MIN PRN IV SEVERE PAIN 7-10 01/19/20 07:00 01/20/20 06:59 01/19/20 13:21 Ringer's Solution 1,000 ml @ 30 mls/hr Q24H IV 01/19/20 07:00 01/19/20 18:59 Hydromorphone HCl (Dilaudid) 0.5 mg PRN Q10MIN PRN IV SEV PAIN, Second choice 01/19/20 07:00 01/20/20 06:59 01/19/20 14:02 Prochlorperazine Edisylate (Compazine) 5 mg PACU PRN PRN IV NAUSEA, MRX1 01/19/20 07:00 01/20/20 06:59 Heparin Sodium (Porcine) 5000 unit/Sodium Chloride 505 ml @ 505 mls/hr 1X ONCE IRR 01/19/20 06:00 01/19/20 06:59 DC 01/19/20 10:44 Cefazolin Sodium 1 gm/Sodium Chloride 500 ml @ 500 mls/hr 1X ONCE IRR 01/19/20 06:00 01/19/20 06:59 DC 01/19/20 10:42 Gelatin (Gelfoam Size 100) 1 each STK-MED ONCE .ROUTE 2/28/20 08:01 01/19/20 08:01 DC Iohexol (Omnipaque 300 Mg/ml) 50 ml STK-MED ONCE .ROUTE 01/19/20 08:01 01/19/20 08:01 DC Cellulose (Surgicel Fibrillar 1x2) 1 each STK-MED ONCE .ROUTE 01/19/20 08:01 01/19/20 08:01 DC 01/19/20 12:10 Thrombin (Thrombin Topical) 5,000 unit STK-MED ONCE .ROUTE 01/19/20 08:01 01/19/20 08:01 DC Papaverine HCl 60 mg STK-MED ONCE .ROUTE 01/19/20 08:01 01/19/20 08:02 DC Sevoflurane (Ultane) 90 ml STK-MED ONCE IH 01/19/20 09:36 01/19/20 09:37 DC Rocuronium [place] (Zemuron) 50 mg STK-MED ONCE .ROUTE 01/19/20 09:37 01/19/20 09:37 DC Fentanyl Citrate (Fentanyl 2ml Vial) 100 mcg STK-MED ONCE .ROUTE 01/19/20 09:37 01/19/20 09:37 DC Neostigmine [place] (Neostigmine Methylsulfate) 5 mg STK-MED ONCE .ROUTE 01/19/20 09:37 01/19/20 09:37 DC Midazolam HCl (Versed) 2 mg STK-MED ONCE .ROUTE 01/19/20 09:37 01/19/20 09:38 DC Glycopyrrolate (Robinul) 1 mg STK-MED ONCE .ROUTE 01/19/20 09:37 01/19/20 09:38 DC Heparin Sodium (Porcine) (Heparin Sodium) 10,000 unit STK-MED ONCE .ROUTE 01/19/20 09:37 01/19/20 09:38 DC Dexamethasone Sodium Phosphate (Decadron) 4 mg STK-MED ONCE .ROUTE 01/19/20 09:38 01/19/20 09:38 DC Ondansetron HCl (Zofran) 4 mg STK-MED ONCE .ROUTE 01/19/20 09:38 01/19/20 09:38 DC Insulin Human Lispro (HumaLOG VIAL for OP,RR ONLY) 0-10 units PRN Q1HR PRN SQ PER PROTOCOL 01/19/20 09:45 01/20/20 09:44 01/19/20 13:18 Rocuronium [place] (Zemuron) 50 mg STK-MED ONCE .ROUTE 01/19/20 10:40 01/19/20 10:41 DC Fentanyl Citrate (Fentanyl 2ml Vial) 100 mcg STK-MED ONCE .ROUTE 01/19/20 12:14 01/19/20 12:15 DC Oxycodone HCl (Roxicodone) 5 mg PRN Q3HRS PRN PO BREAKTHROUGH PAIN 01/19/20 12:45 Info (Non-Icu Electrolyte Protocol) 1 ea DAILY MC 01/20/20 09:00 Sodium Chloride (Normal Saline Flush) 3 ml QSHIFT PRN IV AFTER MEDS AND BLOOD DRAWS 01/19/20 12:45 Sodium Chloride 1,000 ml @ 100 mls/hr Q10H IV 01/19/20 12:43 Oxycodone/ Acetaminophen (Percocet 5/325) 1 tab PRN Q4HRS PRN PO MODERATE PAIN 01/19/20 12:45 Oxycodone/ Acetaminophen (Percocet 5/325) 2 tab PRN Q4HRS PRN PO SEVERE PAIN 01/19/20 12:45 01/19/20 14:47 Morphine Sulfate (Morphine Sulfate) 2 mg PRN Q1HR PRN IV MODERATE PAIN 01/19/20 12:45 Naloxone HCl (Narcan) 0.4 mg PRN Q2MIN PRN IV SEE INSTRUCTIONS 01/19/20 12:45 Sodium Chloride 1,000 ml @ 25 mls/hr Q24H IV 01/19/20 12:43 Ondansetron HCl (Zofran) 4 mg PRN Q6HRS PRN IVP NAUESA, 1ST CHOICE 01/19/20 12:45 Prochlorperazine Edisylate (Compazine) 5 mg PRN Q6HRS PRN IV N/V, 2nd Choice, MR X1 01/19/20 12:45 Hydralazine HCl (Apresoline Inj) 10 mg PRN Q4HRS PRN IVP ELEVATED BP, SEE COMMENTS 01/19/20 12:45 Labetalol HCl (Normodyne Iv Push) 10 mg PRN Q2HR PRN IVP HYPERTENSION, 2ND CHOICE IV 01/19/20 12:45 01/19/20 14:03 Aspirin (Ecotrin) 325 mg DAILYWBKFT PO 01/20/20 08:00 Morphine Sulfate (Morphine Sulfate) 2 mg STK-MED ONCE .ROUTE 01/19/20 13:09 01/19/20 13:11 DC Hydralazine HCl (Apresoline Inj) 20 mg STK-MED ONCE .ROUTE 01/19/20 13:09 01/19/20 13:11 DC Lactobacillus Rhamnosus (Culturelle) 1 cap BID PO 01/19/20 21:00 Laboratory Tests Test 01/18/20 21:34 01/19/20 05:00 01/19/20 07:35 01/19/20 09:45 Glucose (Fingerstick) 139 mg/dL (70-99) H 179 mg/dL (70-99) H 196 mg/dL (70-99) H White Blood Count 7.9 x10^3/uL (4.0-11.0) Red Blood Count 4.29 x10^6/uL (4.30-5.70) L Hemoglobin 12.7 g/dL (13.0-17.5) L Hematocrit 37.1 % (39.0-53.0) L Mean Corpuscular Volume 87 fL (79-100) Mean Corpuscular Hemoglobin 30 pg (25-35) Mean Corpuscular Hemoglobin Concent 34 g/dL (31-37) Red Cell Distribution Width 13.4 % (11.5-14.5) Platelet Count 147 x10^3/uL (140-400) Sodium Level 137 mmol/L (136-145) Potassium Level 4.2 mmol/L (3.5-5.1) Chloride Level 103 mmol/L (98-107) Carbon Dioxide Level 26 mmol/L (21-32) Anion Gap 8 (6-14) Blood Urea Nitrogen 23 mg/dL (8-26) Creatinine 0.9 mg/dL (0.7-1.3) Estimated GFR (Cockcroft-Gault) 87.9 Glucose Level 178 mg/dL (70-99) H Calcium Level 8.2 mg/dL (8.5-10.1) L Test 01/19/20 11:20 01/19/20 13:09 01/19/20 16:42 Glucose (Fingerstick) 174 mg/dL (70-99) H 194 mg/dL (70-99) H 264 mg/dL (70-99) H Laboratory Tests 01/19/20 05:00 Laboratory Tests 01/19/20 05:00 ASSESSMENT & PLAN A&P Physical exam: note kerlex bandage to right foot with no strikethrough. compartments soft. palpable DP and PT right foot. no discontinuity of skin to left foot sensation diminished to sharp dull and light touch. forefoot varus/supinatus bilateral foot. CRP:23.3 Assessment/Plan: 54 year old male with DM, peripheral neuropathy, DM foot ulceration roach grade 2, PVD status post fem-pop bypass today -Begin endoform moistened with saline and with hydrofera blue ready once every other day to wound right foot. -Agree with forefoot offload shoegear. -Note debridement intraoperatively per vascular surgery states no bone exposed, no bone biopsy taken. await intraoperative wound culture if taken -Reviewed previous wound culture from 12/20/19. ID on consult, appreciate recs -Concern for underlying osteomyelitis as CRP is 23.3. Previous MRI negative for osteomyelitis. -Ordered xray 3 views right foot. Will consider repeat MRI pending results -Discussed resection of 5th metatarsal head with wound closure due to tissue loss plantar 5th metatarsal head and to prevent recurrence versus DM shoe with accomodative foot orthotics. Will follow as outpatient -Recommend home health upon discharge for wound care 3x/week -Follow up in the office 1 week upon discharge. FAUSTO VILLAGOMEZ DPM Jan 19, 2020 17:05
[2020-01-19] MEDS: NICOTINE 14MG PATCH. TD PRN (20:04)
[2020-01-19] MEDS: ATORVASTATIN CALCIUM 40 MG TABLET. PO SCH (21:28)
[2020-01-19] MEDS: LACTOBACILLUS RHAMNOSUS GG 1 CAPSULE. PO SCH (21:28)
[2020-01-19] MEDS: fentaNYL PF VIAL 100 MCG/2 ML VIAL IVP PRN (21:36)
[2020-01-20] MEDS: oxyCODONE/APAP 5/325 1 TAB TABLET PO PRN ×5 (00:27→21:25)
[2020-01-20] MEDS: IV NORMAL SALINE 1000ML BAG 1,000 ML IV SCH ×3 (03:09→18:43)
[2020-01-20 03:17] VITALS: BP 115/58
[2020-01-20] MEDS: MEROPENEM 500 MG in IV NORMAL SALINE 50ML 50 ML IV SCH ×3 (04:59→21:26)
[2020-01-20 05:32] LABS: HEMATOCRIT 35.5 % (39.0-53.0); HEMOGLOBIN 12.2 g/dL (13.0-17.5); RED BLOOD COUNT 4.1 x10^6/uL (4.30-5.70); RED CELL DISTRIBUTION WIDTH 13.3 % (11.5-14.5); WHITE BLOOD COUNT 10.8 x10^3/uL (4.0-11.0)
[2020-01-20 07:00] VITALS: BP 141/56
[2020-01-20] MEDS: INSULIN LISPRO 300 UNITS/3 ML VIAL. SQ SCH ×4 (07:30→21:36)
[2020-01-20] MEDS: ASPIRIN ENTERIC COATED 325 MG TABLET.DR. PO SCH (08:26)
[2020-01-20] MEDS: LINEZOLID 600 MG TABLET PO SCH ×2 (08:26→21:25)
[2020-01-20] MEDS: LACTOBACILLUS RHAMNOSUS GG 1 CAPSULE. PO SCH ×2 (08:26→21:25)
[2020-01-20] MEDS: CYCLOBENZAPRINE 10 MG TABLET. PO PRN (08:29)
[2020-01-20] MEDS: LISINOPRIL 10 MG TABLET PO SCH (08:31)
[2020-01-20] MEDS: amLODIPine BESYLATE 10 MG TABLET PO SCH (08:31)
[2020-01-20] MEDS: ELECTROLYTE (NON-ICU) PROTOCOL MC SCH (09:00)
--- NOTE | 2020-01-20 10:33 | PDOC ---
Infectious Disease Note Subjective Subjective s/p surgery Comfortable, denies pain Dry mouth No fevers/chills last 24 hours Denies N/V ROS ROS per HPI Vital Sign Vital Signs Vital Signs Date Time Temp Pulse Resp B/P (MAP) Pulse Ox O2 Delivery O2 Flow Rate FiO2 01/20/20 08:35 Room Air 01/20/20 08:31 76 146/56 01/20/20 07:00 97.6 20 92 97.6 01/19/20 13:21 10.0 Physical Exam PHYSICAL EXAM GENERAL: Propped up in bed, alert and eating LUNGS: Clear HEART: S1, S2. ABDOMEN: Soft, nontender EXTREMITIES: No edema, no cyanosis. Right foot bandaged NEUROLOGIC: Alert and oriented x 3, grossly nonfocal. PIVs ok Labs Lab Laboratory Tests Test 01/19/20 11:20 01/19/20 13:09 01/19/20 16:42 01/19/20 20:56 Glucose (Fingerstick) 174 mg/dL (70-99) 194 mg/dL (70-99) 264 mg/dL (70-99) 186 mg/dL (70-99) Test 01/20/20 04:45 01/20/20 08:33 White Blood Count 10.8 x10^3/uL (4.0-11.0) Red Blood Count 4.10 x10^6/uL (4.30-5.70) Hemoglobin 12.2 g/dL (13.0-17.5) Hematocrit 35.5 % (39.0-53.0) Mean Corpuscular Volume 87 fL (79-100) Mean Corpuscular Hemoglobin 30 pg (25-35) Mean Corpuscular Hemoglobin Concent 34 g/dL (31-37) Red Cell Distribution Width 13.3 % (11.5-14.5) Platelet Count 147 x10^3/uL (140-400) Glucose (Fingerstick) 137 mg/dL (70-99) Objective Assessment Nonhealing right plantar fifth metatarsal ulcer - s/p debridement removing necrotic skin and subcutaneous tissue, 01/19 - ESR normal, CRP 3.4. - MRI did not show osteomyelitis. -Pt has been treated with baxdela antibiotic samples from podiatry office prior to admission, Peripheral arterial disease s/p RLE bypass, 01/19 Diabetes mellitus with neuropathy. Hyperlipidemia. Hypertension. History of ALLERGIES TO PENICILLIN WITH QUESTIONABLE ANAPHYLAXIS. The patient has not taken any Augmentin or cephalexin. Left frozen shoulder, status post arthroscopic surgery. Lumbar radiculopathy, status post epidural injection. Plan Plan of Care Zniki and clarissa, will deescalate soon local wound care Attending Co-Sign Attending Co-Sign The patient was seen and interviewed as well as examined at the bedside. The chart was reviewed. The case was discussed. Agree with the plan of care. JOB SENIOR APRN Jan 20, 2020 10:32 SVEN HUGHES MD Jan 20, 2020 11:52
--- NOTE | 2020-01-20 10:43 | RAD ---
Right foot x-rays 3 views HISTORY: Fifth metatarsal head ulcer of right foot. FINDINGS: The soft tissues are unremarkable. No fracture or dislocation. About the AP and oblique x-rays there is focal bony demineralization of the fifth metatarsal head which is differential from all of the other metatarsals or adjacent phalanges of the toes, this raises the possibility of true bony demineralization which could indicate early radiographic changes of osteomyelitis given the history of an overlying fifth metatarsal head ulceration of the foot. There is also a rounded soft tissue density lateral to fifth MTP joint on the AP and oblique views which could indicate joint effusion versus a fluid collection or soft tissue mass. IMPRESSION: Bony demineralization of the head of the fifth metatarsal could indicate early radiographic changes of osteoarthritis. No fracture or bone destruction evident. Focal round soft tissue density could indicate a fluid collection or mass lateral of the fifth MTP joint. These findings could be further assessed with MR imaging. Electronically signed by: Silvio Thurman MD (01/20/2020 10:40 AM) [id number]
[2020-01-20 11:00] VITALS: BP 112/58
--- NOTE | 2020-01-20 11:17 | PDOC ---
Provider Note Provider Note AF VSS awake and alert right leg prevena vac dressing in place on incisions with minimal drainage, no hematomas, mild swelling of the leg, strong doppler right DP/PT pulse, lateral foot wound with dressing A/P POD#1 right femoral to popliteal bypass with GSV and foot wound debridement - daily aspirin - d/c bazzi and IV fluids - may ambulate with heel touch, order forefoot off loading shoe - PT/OT - regular diet - antibiotics per ID, wound clean with no exposed bone so likely oral at discharge DION CORNELL MD Jan 20, 2020 11:17
[2020-01-20 12:47] LABS: BASO # 0.1 x10^3/uL (0.0-0.2); BASO % 1 % (0-3); EOS # 0.1 x10^3/uL (0.0-0.7); EOS % 1 % (0-3); HEMATOCRIT 35.6 % (39.0-53.0); HEMOGLOBIN 12.3 g/dL (13.0-17.5); LYMPH # 1.8 x10^3/uL (1.0-4.8); LYMPH % 17 % (24-48); MEAN CORPUSCULAR HEMOGLOBIN 30 pg (25-35); MEAN CORPUSCULAR HGB CONC 35 g/dL (31-37); MEAN CORPUSCULAR VOLUME 86 fL (79-100); MONO # 0.8 x10^3/uL (0.0-1.1); MONO % 7 % (0-9); NEUT # 8.2 x10^3/uL (1.8-7.7); NEUT % 75 % (31-73); PLATELET COUNT 153 x10^3/uL (140-400); RED BLOOD COUNT 4.14 x10^6/uL (4.30-5.70); RED CELL DISTRIBUTION WIDTH 13.2 % (11.5-14.5)
[2020-01-20 13:11] LABS: CALCIUM 7.9 mg/dL (8.5-10.1); CREATININE 0.9 mg/dL (0.7-1.3); GFR 87.9; MAGNESIUM 1.9 mg/dL (1.8-2.4)
[2020-01-20 15:00] VITALS: BP 148/62
--- NOTE | 2020-01-20 16:33 | PDOC ---
PROGRESS NOTES Subjective Subjective Patient denied any chest pain or shortness of breath Objective Objective Vital Signs Date Time Temp Pulse Resp B/P (MAP) Pulse Ox O2 Delivery O2 Flow Rate FiO2 01/20/20 15:00 99.1 78 20 148/62 (90) 99 Room Air 99.1 01/19/20 13:21 10.0 Intake and Output 01/20/20 07:00 Intake Total 3980 ml Output Total 4800 ml Balance -820 ml Intake Oral 1930 ml IV Total 2050 ml Output Urine Total 4650 ml Estimated Blood Loss 150 ml Physical Exam Abdomen: Soft Heart: Regular rate Extremities: Other (right foot bandaged) General: Alert, Oriented X3, No acute distress HEENT: Atraumatic Lungs: Clear to auscultation Neck: Supple, No JVD Psych/Mental Status: Mood NL Assessment Assessment 1. PAD with non-healing right foot ulcer: S/P RLE fempop bypass with wound excisional debridement to right lateral foot wound. Continue postop care per vascular surgery team 2. Hypertension: Better controlled 3. Hyperlipidemia: Continue statins 4. Diabetes,II : Continue current medical regimen 5. Tobaccoism: Advised smoking cessation Comment Review of Relevant I have reviewed the following items viet (where applicable) has been applied. Labs Laboratory Tests Test 01/19/20 16:42 01/19/20 20:56 01/20/20 04:45 01/20/20 08:33 Glucose (Fingerstick) 264 mg/dL (70-99) 186 mg/dL (70-99) 137 mg/dL (70-99) White Blood Count 10.8 x10^3/uL (4.0-11.0) Red Blood Count 4.10 x10^6/uL (4.30-5.70) Hemoglobin 12.2 g/dL (13.0-17.5) Hematocrit 35.5 % (39.0-53.0) Mean Corpuscular Volume 87 fL (79-100) Mean Corpuscular Hemoglobin 30 pg (25-35) Mean Corpuscular Hemoglobin Concent 34 g/dL (31-37) Red Cell Distribution Width 13.3 % (11.5-14.5) Platelet Count 147 x10^3/uL (140-400) Test 01/20/20 12:38 01/20/20 12:40 Glucose (Fingerstick) 200 mg/dL (70-99) White Blood Count 11.0 x10^3/uL (4.0-11.0) Red Blood Count 4.14 x10^6/uL (4.30-5.70) Hemoglobin 12.3 g/dL (13.0-17.5) Hematocrit 35.6 % (39.0-53.0) Mean Corpuscular Volume 86 fL (79-100) Mean Corpuscular Hemoglobin 30 pg (25-35) Mean Corpuscular Hemoglobin Concent 35 g/dL (31-37) Red Cell Distribution Width 13.2 % (11.5-14.5) Platelet Count 153 x10^3/uL (140-400) Neutrophils (%) (Auto) 75 % (31-73) Lymphocytes (%) (Auto) 17 % (24-48) Monocytes (%) (Auto) 7 % (0-9) Eosinophils (%) (Auto) 1 % (0-3) Basophils (%) (Auto) 1 % (0-3) Neutrophils # (Auto) 8.2 x10^3/uL (1.8-7.7) Lymphocytes # (Auto) 1.8 x10^3/uL (1.0-4.8) Monocytes # (Auto) 0.8 x10^3/uL (0.0-1.1) Eosinophils # (Auto) 0.1 x10^3/uL (0.0-0.7) Basophils # (Auto) 0.1 x10^3/uL (0.0-0.2) Sodium Level 133 mmol/L (136-145) Potassium Level 4.0 mmol/L (3.5-5.1) Chloride Level 101 mmol/L (98-107) Carbon Dioxide Level 26 mmol/L (21-32) Anion Gap 6 (6-14) Blood Urea Nitrogen 13 mg/dL (8-26) Creatinine 0.9 mg/dL (0.7-1.3) Estimated GFR (Cockcroft-Gault) 87.9 Glucose Level 197 mg/dL (70-99) Calcium Level 7.9 mg/dL (8.5-10.1) Phosphorus Level 3.0 mg/dL (2.6-4.7) Magnesium Level 1.9 mg/dL (1.8-2.4) Medications Current Medications Aspirin (Ecotrin) 325 mg [id number] PO Last administered on 01/20/20at 08:26; Start 01/20/20 at 08:00 Info (Non-Icu Electrolyte Protocol) 1 ea DAILY MC ; Start 01/20/20 at 09:00 Lactobacillus Rhamnosus (Culturelle) 1 cap BID PO Last administered on 01/20/20at 08:26; Start 01/19/20 at 21:00 Vitals/I & O Vital Sign - Last 24 Hours 01/19/20 01/19/20 01/19/20 01/19/20 16:51 17:06 18:06 19:45 Pulse 82 86 88 Resp 20 B/P (MAP) 156/69 (98) 148/53 (84) 137/64 (88) O2 Delivery Room Air Room Air 01/19/20 01/19/20 01/19/20 01/19/20 19:45 19:45 20:45 21:36 Temp 98.1 98.1 Pulse 74 Resp 18 20 20 B/P (MAP) 149/68 (95) Pulse Ox 97 O2 Delivery Room Air Room Air Room Air Room Air 01/19/20 01/19/20 01/20/20 01/20/20 22:06 23:05 00:27 01:27 Temp 97.9 97.9 Pulse 79 Resp 20 18 20 18 B/P (MAP) 120/62 (81) Pulse Ox 97 O2 Delivery Room Air Room Air Room Air Room Air 01/20/20 01/20/20 01/20/20 01/20/20 03:17 04:59 05:59 07:00 Temp 98.5 97.6 98.5 97.6 Pulse 72 78 Resp 18 20 20 20 B/P (MAP) 115/58 (77) 141/56 (84) Pulse Ox 95 92 O2 Delivery Room Air Room Air Room Air Room Air 01/20/20 01/20/20 01/20/20 01/20/20 08:00 08:31 08:31 08:35 Pulse 76 76 B/P (MAP) 146/56 146/56 O2 Delivery Room Air Room Air 01/20/20 01/20/20 01/20/20 09:35 11:00 15:00 Temp 97.9 99.1 97.9 99.1 Pulse 75 78 Resp 20 20 B/P (MAP) 112/58 (76) 148/62 (90) Pulse Ox 92 98 99 O2 Delivery Room Air Room Air Room Air Intake and Output 01/19/20 01/19/20 01/20/20 15:00 23:00 07:00 Intake Total 2440 ml 240 ml 1300 ml Output Total 250 ml 1500 ml 3050 ml Balance 2190 ml -1260 ml -1750 ml MAKSIM ONEILL MD Jan 20, 2020 16:33
[2020-01-20 19:34] VITALS: BP 137/62
[2020-01-20] MEDS: ATORVASTATIN CALCIUM 40 MG TABLET. PO SCH (21:25)
[2020-01-20 22:53] VITALS: BP 122/61
[2020-01-21 03:35] VITALS: BP 133/65
[2020-01-21] MEDS: IV NORMAL SALINE 1000ML BAG 1,000 ML IV SCH ×3 (04:43→14:43)
[2020-01-21] MEDS: MEROPENEM 500 MG in IV NORMAL SALINE 50ML 50 ML IV SCH (05:27)
[2020-01-21 05:47] LABS: CREATININE 0.8 mg/dL (0.7-1.3); GFR 100.7; POTASSIUM 4.1 mmol/L (3.5-5.1)
[2020-01-21 05:50] LABS: HEMATOCRIT 34.8 % (39.0-53.0); HEMOGLOBIN 12.1 g/dL (13.0-17.5); RED BLOOD COUNT 4.04 x10^6/uL (4.30-5.70); RED CELL DISTRIBUTION WIDTH 13.1 % (11.5-14.5); WHITE BLOOD COUNT 10.7 x10^3/uL (4.0-11.0)
[2020-01-21 07:00] VITALS: BP 138/66
[2020-01-21] MEDS: ELECTROLYTE (NON-ICU) PROTOCOL MC SCH (07:22)
[2020-01-21] MEDS: LINEZOLID 600 MG TABLET PO SCH ×2 (08:53→20:59)
[2020-01-21] MEDS: oxyCODONE/APAP 5/325 1 TAB TABLET PO PRN ×3 (08:54→20:59)
[2020-01-21] MEDS: LISINOPRIL 10 MG TABLET PO SCH (08:54)
[2020-01-21] MEDS: ASPIRIN ENTERIC COATED 325 MG TABLET.DR. PO SCH (08:54)
[2020-01-21] MEDS: LACTOBACILLUS RHAMNOSUS GG 1 CAPSULE. PO SCH ×2 (08:54→20:59)
[2020-01-21] MEDS: amLODIPine BESYLATE 10 MG TABLET PO SCH (08:54)
--- NOTE | 2020-01-21 09:06 | PDOC ---
Infectious Disease Note Subjective Subjective c/o some right foot pain No BM since surgery + gas Denies N/V/cramps/F/C/SOA ROS ROS per HPI Vital Sign Vital Signs Vital Signs Date Time Temp Pulse Resp B/P (MAP) Pulse Ox O2 Delivery O2 Flow Rate FiO2 01/21/20 08:54 85 01/21/20 07:00 98.6 20 138/66 (90) 97 Room Air 98.6 Physical Exam PHYSICAL EXAM GENERAL: Propped up in bed, alert in NAD HENT: Oral cavity pink, dentures in place LUNGS: Clear HEART: S1, S2. ABDOMEN: Soft, nontender, BS present EXTREMITIES: Trace edema RLE, Prevena vac in place; right lateral foot wound - clean, no bone exposure NEUROLOGIC: Alert and oriented x 3, grossly nonfocal. PIVs ok Labs Lab Laboratory Tests Test 01/20/20 12:38 01/20/20 12:40 01/20/20 17:33 01/20/20 21:28 Glucose (Fingerstick) 200 mg/dL (70-99) 175 mg/dL (70-99) 210 mg/dL (70-99) White Blood Count 11.0 x10^3/uL (4.0-11.0) Red Blood Count 4.14 x10^6/uL (4.30-5.70) Hemoglobin 12.3 g/dL (13.0-17.5) Hematocrit 35.6 % (39.0-53.0) Mean Corpuscular Volume 86 fL (79-100) Mean Corpuscular Hemoglobin 30 pg (25-35) Mean Corpuscular Hemoglobin Concent 35 g/dL (31-37) Red Cell Distribution Width 13.2 % (11.5-14.5) Platelet Count 153 x10^3/uL (140-400) Neutrophils (%) (Auto) 75 % (31-73) Lymphocytes (%) (Auto) 17 % (24-48) Monocytes (%) (Auto) 7 % (0-9) Eosinophils (%) (Auto) 1 % (0-3) Basophils (%) (Auto) 1 % (0-3) Neutrophils # (Auto) 8.2 x10^3/uL (1.8-7.7) Lymphocytes # (Auto) 1.8 x10^3/uL (1.0-4.8) Monocytes # (Auto) 0.8 x10^3/uL (0.0-1.1) Eosinophils # (Auto) 0.1 x10^3/uL (0.0-0.7) Basophils # (Auto) 0.1 x10^3/uL (0.0-0.2) Sodium Level 133 mmol/L (136-145) Potassium Level 4.0 mmol/L (3.5-5.1) Chloride Level 101 mmol/L (98-107) Carbon Dioxide Level 26 mmol/L (21-32) Anion Gap 6 (6-14) Blood Urea Nitrogen 13 mg/dL (8-26) Creatinine 0.9 mg/dL (0.7-1.3) Estimated GFR (Cockcroft-Gault) 87.9 Glucose Level 197 mg/dL (70-99) Calcium Level 7.9 mg/dL (8.5-10.1) Phosphorus Level 3.0 mg/dL (2.6-4.7) Magnesium Level 1.9 mg/dL (1.8-2.4) Test 01/21/20 05:00 01/21/20 07:10 White Blood Count 10.7 x10^3/uL (4.0-11.0) Red Blood Count 4.04 x10^6/uL (4.30-5.70) Hemoglobin 12.1 g/dL (13.0-17.5) Hematocrit 34.8 % (39.0-53.0) Mean Corpuscular Volume 86 fL (79-100) Mean Corpuscular Hemoglobin 30 pg (25-35) Mean Corpuscular Hemoglobin Concent 35 g/dL (31-37) Red Cell Distribution Width 13.1 % (11.5-14.5) Platelet Count 149 x10^3/uL (140-400) Sodium Level 134 mmol/L (136-145) Potassium Level 4.1 mmol/L (3.5-5.1) Chloride Level 101 mmol/L (98-107) Carbon Dioxide Level 24 mmol/L (21-32) Anion Gap 9 (6-14) Blood Urea Nitrogen 17 mg/dL (8-26) Creatinine 0.8 mg/dL (0.7-1.3) Estimated GFR (Cockcroft-Gault) 100.7 Glucose Level 157 mg/dL (70-99) Calcium Level 8.0 mg/dL (8.5-10.1) Glucose (Fingerstick) 179 mg/dL (70-99) Objective Assessment Nonhealing right plantar fifth metatarsal ulcer, does not appear infected. s/p debridement removing necrotic skin and subcutaneous tissue, 01/19 - ESR normal, CRP 3.4. - MRI did not show osteomyelitis. -Pt has been treated with antibiotic samples from podiatry office prior to admission, he does not recall the name Peripheral arterial disease s/p RLE bypass, 01/19 Diabetes mellitus with neuropathy. Hyperlipidemia. Hypertension. History of ALLERGIES TO PENICILLIN WITH QUESTIONABLE ANAPHYLAXIS. The patient has not taken any Augmentin or cephalexin. Left frozen shoulder, status post arthroscopic surgery. Lumbar radiculopathy, status post epidural injection. Plan Plan of Care Zyvox and merrem, will deescalate soon Probiotics Local wound care as directed Bowel regimen per primary D/w nursing Attending Co-Sign Attending Co-Sign The patient was seen and interviewed as well as examined at the bedside. The chart was reviewed. The case was discussed. Agree with the plan of care. Vascular input noted. DC Merrem transition to po when ready for dc home JOB SENIOR APRN Jan 21, 2020 09:06 SVEN HUGHES MD Jan 21, 2020 12:16
[2020-01-21] MEDS: DOCUSATE SODIUM 100 MG CAPSULE. PO SCH (09:08)
[2020-01-21] MEDS: INSULIN LISPRO 300 UNITS/3 ML VIAL. SQ SCH ×4 (09:12→21:04)
--- NOTE | 2020-01-21 09:26 | PDOC ---
PROGRESS NOTES Subjective Subjective Denied any chest pain or shortness of breath Objective Objective Vital Signs Date Time Temp Pulse Resp B/P (MAP) Pulse Ox O2 Delivery O2 Flow Rate FiO2 01/21/20 08:54 85 01/21/20 07:00 98.6 20 138/66 (90) 97 Room Air 98.6 Intake and Output 01/21/20 07:00 Intake Total 200 ml Output Total 3360 ml Balance -3160 ml Intake Oral 200 ml Output Urine Total 3360 ml Physical Exam Abdomen: Soft Heart: Regular rate Extremities: Other (right foot bandaged) General: Alert, Oriented X3, No acute distress HEENT: Atraumatic Lungs: Clear to auscultation Neck: Supple, No JVD Psych/Mental Status: Mood NL Assessment Assessment 1. PAD with non-healing right foot ulcer: S/P RLE fempop bypass with wound excisional debridement to right lateral foot wound. Continue postop care per vascular surgery team 2. Hypertension: Better controlled 3. Hyperlipidemia: Continue statins 4. Diabetes,II : Continue current medical regimen 5. Tobaccoism: Advised smoking cessation Discharge when okay from vascular surgery standpoint Comment Review of Relevant I have reviewed the following items viet (where applicable) has been applied. Labs Laboratory Tests Test 01/20/20 12:38 01/20/20 12:40 01/20/20 17:33 01/20/20 21:28 Glucose (Fingerstick) 200 mg/dL (70-99) 175 mg/dL (70-99) 210 mg/dL (70-99) White Blood Count 11.0 x10^3/uL (4.0-11.0) Red Blood Count 4.14 x10^6/uL (4.30-5.70) Hemoglobin 12.3 g/dL (13.0-17.5) Hematocrit 35.6 % (39.0-53.0) Mean Corpuscular Volume 86 fL (79-100) Mean Corpuscular Hemoglobin 30 pg (25-35) Mean Corpuscular Hemoglobin Concent 35 g/dL (31-37) Red Cell Distribution Width 13.2 % (11.5-14.5) Platelet Count 153 x10^3/uL (140-400) Neutrophils (%) (Auto) 75 % (31-73) Lymphocytes (%) (Auto) 17 % (24-48) Monocytes (%) (Auto) 7 % (0-9) Eosinophils (%) (Auto) 1 % (0-3) Basophils (%) (Auto) 1 % (0-3) Neutrophils # (Auto) 8.2 x10^3/uL (1.8-7.7) Lymphocytes # (Auto) 1.8 x10^3/uL (1.0-4.8) Monocytes # (Auto) 0.8 x10^3/uL (0.0-1.1) Eosinophils # (Auto) 0.1 x10^3/uL (0.0-0.7) Basophils # (Auto) 0.1 x10^3/uL (0.0-0.2) Sodium Level 133 mmol/L (136-145) Potassium Level 4.0 mmol/L (3.5-5.1) Chloride Level 101 mmol/L (98-107) Carbon Dioxide Level 26 mmol/L (21-32) Anion Gap 6 (6-14) Blood Urea Nitrogen 13 mg/dL (8-26) Creatinine 0.9 mg/dL (0.7-1.3) Estimated GFR (Cockcroft-Gault) 87.9 Glucose Level 197 mg/dL (70-99) Calcium Level 7.9 mg/dL (8.5-10.1) Phosphorus Level 3.0 mg/dL (2.6-4.7) Magnesium Level 1.9 mg/dL (1.8-2.4) Test 01/21/20 05:00 01/21/20 07:10 White Blood Count 10.7 x10^3/uL (4.0-11.0) Red Blood Count 4.04 x10^6/uL (4.30-5.70) Hemoglobin 12.1 g/dL (13.0-17.5) Hematocrit 34.8 % (39.0-53.0) Mean Corpuscular Volume 86 fL (79-100) Mean Corpuscular Hemoglobin 30 pg (25-35) Mean Corpuscular Hemoglobin Concent 35 g/dL (31-37) Red Cell Distribution Width 13.1 % (11.5-14.5) Platelet Count 149 x10^3/uL (140-400) Sodium Level 134 mmol/L (136-145) Potassium Level 4.1 mmol/L (3.5-5.1) Chloride Level 101 mmol/L (98-107) Carbon Dioxide Level 24 mmol/L (21-32) Anion Gap 9 (6-14) Blood Urea Nitrogen 17 mg/dL (8-26) Creatinine 0.8 mg/dL (0.7-1.3) Estimated GFR (Cockcroft-Gault) 100.7 Glucose Level 157 mg/dL (70-99) Calcium Level 8.0 mg/dL (8.5-10.1) Glucose (Fingerstick) 179 mg/dL (70-99) Medications Current Medications Docusate Sodium (Colace) 100 mg DAILY PO Last administered on 01/21/20at 09:08; Start 01/21/20 at 09:00 Vitals/I & O Vital Sign - Last 24 Hours 01/20/20 01/20/20 01/20/20 01/20/20 09:35 11:00 15:00 17:36 Temp 97.9 99.1 97.9 99.1 Pulse 75 78 Resp 20 B/P (MAP) 112/58 (76) 148/62 (90) Pulse Ox 92 98 99 99 O2 Delivery Room Air Room Air Room Air Room Air 01/20/20 01/20/20 01/20/20 01/20/20 18:36 19:34 20:03 21:25 Temp 99.3 99.3 Pulse 86 Resp 20 B/P (MAP) 137/62 (87) Pulse Ox 99 96 O2 Delivery Room Air Room Air Room Air Room Air 01/20/20 01/21/20 01/21/20 01/21/20 22:53 03:35 07:00 08:54 Temp 98.4 99.5 98.6 98.4 99.5 98.6 Pulse 74 79 72 85 Resp 20 20 20 B/P (MAP) 122/61 (81) 133/65 (87) 138/66 (90) Pulse Ox 96 95 97 O2 Delivery Room Air Room Air Room Air 01/21/20 08:54 Pulse 85 Intake and Output 01/20/20 01/20/20 01/21/20 15:00 23:00 07:00 Intake Total 200 ml Output Total 1830 ml 1530 ml Balance -1830 ml -1330 ml MAKSIM ONEILL MD Jan 21, 2020 09:26
--- NOTE | 2020-01-21 10:12 | PDOC ---
SURGICAL PROGRESS NOTE Subjective Patient was seen and examined this morning and is doing well. His pain is under good control. Vital Signs Vital Signs Date Time Temp Pulse Resp B/P (MAP) Pulse Ox O2 Delivery O2 Flow Rate FiO2 01/21/20 08:54 85 01/21/20 07:00 98.6 20 138/66 (90) 97 Room Air 98.6 I&O Intake and Output 01/21/20 07:00 Intake Total 200 ml Output Total 3360 ml Balance -3160 ml Intake Oral 200 ml Output Urine Total 3360 ml General: Alert, Oriented X3, Cooperative Heart: Regular rate, Normal S1, Normal S2 Extremities: Other (excellent perfusion to the right lower extremity, surgical incisions are clean and intact) Skin: Other (right lower extremity lateral fifth metatarsal wound is healthy with appropriate granulation tissue) Labs Laboratory Tests Test 01/19/20 11:20 01/19/20 13:09 01/19/20 16:42 01/19/20 20:56 Glucose (Fingerstick) 174 mg/dL (70-99) 194 mg/dL (70-99) 264 mg/dL (70-99) 186 mg/dL (70-99) Test 01/20/20 04:45 01/20/20 08:33 01/20/20 12:38 01/20/20 12:40 White Blood Count 10.8 x10^3/uL (4.0-11.0) 11.0 x10^3/uL (4.0-11.0) Red Blood Count 4.10 x10^6/uL (4.30-5.70) 4.14 x10^6/uL (4.30-5.70) Hemoglobin 12.2 g/dL (13.0-17.5) 12.3 g/dL (13.0-17.5) Hematocrit 35.5 % (39.0-53.0) 35.6 % (39.0-53.0) Mean Corpuscular Volume 87 fL (79-100) 86 fL (79-100) Mean Corpuscular Hemoglobin 30 pg (25-35) 30 pg (25-35) Mean Corpuscular Hemoglobin Concent 34 g/dL (31-37) 35 g/dL (31-37) Red Cell Distribution Width 13.3 % (11.5-14.5) 13.2 % (11.5-14.5) Platelet Count 147 x10^3/uL (140-400) 153 x10^3/uL (140-400) Glucose (Fingerstick) 137 mg/dL (70-99) 200 mg/dL (70-99) Neutrophils (%) (Auto) 75 % (31-73) Lymphocytes (%) (Auto) 17 % (24-48) Monocytes (%) (Auto) 7 % (0-9) Eosinophils (%) (Auto) 1 % (0-3) Basophils (%) (Auto) 1 % (0-3) Neutrophils # (Auto) 8.2 x10^3/uL (1.8-7.7) Lymphocytes # (Auto) 1.8 x10^3/uL (1.0-4.8) Monocytes # (Auto) 0.8 x10^3/uL (0.0-1.1) Eosinophils # (Auto) 0.1 x10^3/uL (0.0-0.7) Basophils # (Auto) 0.1 x10^3/uL (0.0-0.2) Sodium Level 133 mmol/L (136-145) Potassium Level 4.0 mmol/L (3.5-5.1) Chloride Level 101 mmol/L (98-107) Carbon Dioxide Level 26 mmol/L (21-32) Anion Gap 6 (6-14) Blood Urea Nitrogen 13 mg/dL (8-26) Creatinine 0.9 mg/dL (0.7-1.3) Estimated GFR (Cockcroft-Gault) 87.9 Glucose Level 197 mg/dL (70-99) Calcium Level 7.9 mg/dL (8.5-10.1) Phosphorus Level 3.0 mg/dL (2.6-4.7) Magnesium Level 1.9 mg/dL (1.8-2.4) Test 01/20/20 17:33 01/20/20 21:28 01/21/20 05:00 01/21/20 07:10 Glucose (Fingerstick) 175 mg/dL (70-99) 210 mg/dL (70-99) 179 mg/dL (70-99) White Blood Count 10.7 x10^3/uL (4.0-11.0) Red Blood Count 4.04 x10^6/uL (4.30-5.70) Hemoglobin 12.1 g/dL (13.0-17.5) Hematocrit 34.8 % (39.0-53.0) Mean Corpuscular Volume 86 fL (79-100) Mean Corpuscular Hemoglobin 30 pg (25-35) Mean Corpuscular Hemoglobin Concent 35 g/dL (31-37) Red Cell Distribution Width 13.1 % (11.5-14.5) Platelet Count 149 x10^3/uL (140-400) Sodium Level 134 mmol/L (136-145) Potassium Level 4.1 mmol/L (3.5-5.1) Chloride Level 101 mmol/L (98-107) Carbon Dioxide Level 24 mmol/L (21-32) Anion Gap 9 (6-14) Blood Urea Nitrogen 17 mg/dL (8-26) Creatinine 0.8 mg/dL (0.7-1.3) Estimated GFR (Cockcroft-Gault) 100.7 Glucose Level 157 mg/dL (70-99) Calcium Level 8.0 mg/dL (8.5-10.1) Laboratory Tests Test 01/20/20 12:38 01/20/20 12:40 01/20/20 17:33 01/20/20 21:28 Glucose (Fingerstick) 200 mg/dL (70-99) 175 mg/dL (70-99) 210 mg/dL (70-99) White Blood Count 11.0 x10^3/uL (4.0-11.0) Red Blood Count 4.14 x10^6/uL (4.30-5.70) Hemoglobin 12.3 g/dL (13.0-17.5) Hematocrit 35.6 % (39.0-53.0) Mean Corpuscular Volume 86 fL (79-100) Mean Corpuscular Hemoglobin 30 pg (25-35) Mean Corpuscular Hemoglobin Concent 35 g/dL (31-37) Red Cell Distribution Width 13.2 % (11.5-14.5) Platelet Count 153 x10^3/uL (140-400) Neutrophils (%) (Auto) 75 % (31-73) Lymphocytes (%) (Auto) 17 % (24-48) Monocytes (%) (Auto) 7 % (0-9) Eosinophils (%) (Auto) 1 % (0-3) Basophils (%) (Auto) 1 % (0-3) Neutrophils # (Auto) 8.2 x10^3/uL (1.8-7.7) Lymphocytes # (Auto) 1.8 x10^3/uL (1.0-4.8) Monocytes # (Auto) 0.8 x10^3/uL (0.0-1.1) Eosinophils # (Auto) 0.1 x10^3/uL (0.0-0.7) Basophils # (Auto) 0.1 x10^3/uL (0.0-0.2) Sodium Level 133 mmol/L (136-145) Potassium Level 4.0 mmol/L (3.5-5.1) Chloride Level 101 mmol/L (98-107) Carbon Dioxide Level 26 mmol/L (21-32) Anion Gap 6 (6-14) Blood Urea Nitrogen 13 mg/dL (8-26) Creatinine 0.9 mg/dL (0.7-1.3) Estimated GFR (Cockcroft-Gault) 87.9 Glucose Level 197 mg/dL (70-99) Calcium Level 7.9 mg/dL (8.5-10.1) Phosphorus Level 3.0 mg/dL (2.6-4.7) Magnesium Level 1.9 mg/dL (1.8-2.4) Test 01/21/20 05:00 01/21/20 07:10 White Blood Count 10.7 x10^3/uL (4.0-11.0) Red Blood Count 4.04 x10^6/uL (4.30-5.70) Hemoglobin 12.1 g/dL (13.0-17.5) Hematocrit 34.8 % (39.0-53.0) Mean Corpuscular Volume 86 fL (79-100) Mean Corpuscular Hemoglobin 30 pg (25-35) Mean Corpuscular Hemoglobin Concent 35 g/dL (31-37) Red Cell Distribution Width 13.1 % (11.5-14.5) Platelet Count 149 x10^3/uL (140-400) Sodium Level 134 mmol/L (136-145) Potassium Level 4.1 mmol/L (3.5-5.1) Chloride Level 101 mmol/L (98-107) Carbon Dioxide Level 24 mmol/L (21-32) Anion Gap 9 (6-14) Blood Urea Nitrogen 17 mg/dL (8-26) Creatinine 0.8 mg/dL (0.7-1.3) Estimated GFR (Cockcroft-Gault) 100.7 Glucose Level 157 mg/dL (70-99) Calcium Level 8.0 mg/dL (8.5-10.1) Glucose (Fingerstick) 179 mg/dL (70-99) Assessment/Plan Right femoral to below-knee popliteal artery bypass--patient is doing well following right lower extremity bypass. His right lower extremity wound is also clean and healthy. He will increase his angulation today with forefoot offloading shoe. His antibiotics can likely be transitioned to oral antibiotics given that he has revascularized wound and it is clean and healthy. Disposition planning for the next 24-48 hours. SHAYLA CARSON DO Jan 21, 2020 10:12
[2020-01-21 11:22] VITALS: BP 141/65
[2020-01-21 15:00] VITALS: BP 128/59
[2020-01-21 19:00] VITALS: BP 128/48
[2020-01-21] MEDS: ATORVASTATIN CALCIUM 40 MG TABLET. PO SCH (20:59)
[2020-01-21 23:00] VITALS: BP 113/53
[2020-01-22] MEDS: IV NORMAL SALINE 1000ML BAG 1,000 ML IV SCH ×3 (00:43→12:43)
[2020-01-22 03:00] VITALS: BP 121/57
[2020-01-22 07:00] VITALS: BP 119/61
[2020-01-22] MEDS: ELECTROLYTE (NON-ICU) PROTOCOL MC SCH (09:00)
[2020-01-22] MEDS: LACTOBACILLUS RHAMNOSUS GG 1 CAPSULE. PO SCH (09:39)
[2020-01-22] MEDS: DOCUSATE SODIUM 100 MG CAPSULE. PO SCH (09:39)
[2020-01-22] MEDS: ASPIRIN ENTERIC COATED 325 MG TABLET.DR. PO SCH (09:39)
[2020-01-22] MEDS: LINEZOLID 600 MG TABLET PO SCH (09:39)
[2020-01-22] MEDS: LISINOPRIL 10 MG TABLET PO SCH (09:40)
[2020-01-22] MEDS: amLODIPine BESYLATE 10 MG TABLET PO SCH (09:40)
--- NOTE | 2020-01-22 09:51 | PDOC ---
Infectious Disease Note Subjective Subjective c/o some right foot pain but min No BM since surgery + gas Denies N/V/cramps/F/C/SOA ROS ROS o/w neg Vital Sign Vital Signs Vital Signs Date Time Temp Pulse Resp B/P (MAP) Pulse Ox O2 Delivery O2 Flow Rate FiO2 01/22/20 09:40 76 119/61 01/22/20 07:00 98.4 20 98 Room Air 98.4 Physical Exam PHYSICAL EXAM GENERAL: Propped up in bed, alert in NAD HENT: Oral cavity pink, dentures in place LUNGS: Clear HEART: S1, S2. ABDOMEN: Soft, nontender, BS present EXTREMITIES: Trace edema RLE, Prevena vac in place; right lateral foot wound - clean, no bone exposure NEUROLOGIC: Alert and oriented x 3, grossly nonfocal SKIN: - no rash. PIVs ok Labs Lab Laboratory Tests Test 01/21/20 11:46 01/21/20 16:55 01/21/20 19:07 01/22/20 08:41 Glucose (Fingerstick) 171 mg/dL (70-99) 123 mg/dL (70-99) 219 mg/dL (70-99) 175 mg/dL (70-99) Objective Assessment Nonhealing right plantar fifth metatarsal ulcer, does not appear infected. s/p debridement removing necrotic skin and subcutaneous tissue, 01/19 - ESR normal, CRP 3.4. - MRI did not show osteomyelitis. -Pt has been treated with antibiotic samples from podiatry office prior to admission, he does not recall the name Peripheral arterial disease s/p RLE bypass, 01/19 Diabetes mellitus with neuropathy. Hyperlipidemia. Hypertension. History of ALLERGIES TO PENICILLIN WITH QUESTIONABLE ANAPHYLAXIS. The patient has not taken any Augmentin or cephalexin. Left frozen shoulder, status post arthroscopic surgery. Lumbar radiculopathy, status post epidural injection. Plan Plan of Care Zyvox cont through 01/24 merrem - d/c 'd 01/20 Wound care per vascular Probiotics F/u Vascular surgery as things look clean ID to sign off D/w nursing ALYSSA RICHARDSON MD Jan 22, 2020 09:51
[2020-01-22] MEDS: INSULIN LISPRO 300 UNITS/3 ML VIAL. SQ SCH ×3 (10:09→16:30)
[2020-01-22 11:00] VITALS: BP 118/62
[2020-01-22] MEDS ORDERED: LACT1CAP19 PO (13:05)
[2020-01-22] MEDS ORDERED: ACET325T9 PO (13:05)
[2020-01-22] MEDS ORDERED: AMLO10TA8 PO (13:05)
[2020-01-22] MEDS ORDERED: LINE600T12 PO (13:05)
[2020-01-22] MEDS ORDERED: OXYC1TAB15 PO (13:05)
[2020-01-22] MEDS ORDERED: LISI10TA2 PO (13:05)
[2020-01-22] MEDS ORDERED: ASPI325T11 PO (13:05)
--- NOTE | 2020-01-22 13:21 | SNU/HH DC ---
DISCHARGE WITH HOME HEALTH DISCHARGE INFORMATION: Discharge Date: Jan 22, 2020 Final Diagnosis: PAD Condition on Discharge: Stable HOME HEALTH: Face to Face: I certify this patient is under my care and that I, or a nurse practitioner or physician's marketing operations assistant working with me, had a face to face encounter that meets the physician face to face encounter requirements with this patient on []. Medical Complications: DM, HTN, Other (PAD) RN For Eval/Treatment: Yes (wound care) Physical Therapy For: Evalulation/Treatment Occupational Therapy For: Evaluation/Treatment Pt Meets Homebound Status: Unsteady balance w/ amb, (recent RLE surgery, forefoot offloading boot ) POST DISCHARGE ORDERS: Activity Instructions for Disc: Activity as tolerated Weight Bearing Status after Di: Full weight bearing Bathing Instructions: Shower-keep dressing dry, No Tub Bath until see DIET AFTER DISCHARGE: ADA Wound/Incision Care: Keep wound/cast CDI Other wound/incision instructi: Prevena wound vac to right leg d/t right fem pop. Wound care appt 01/26/20 TREATMENT/EQUIPMENT ORDERS: Adaptive Equipment Issued: Brace/splint (forefoot offloading shoe) CERTIFICATION STATEMENT: Certification Statement: Certification Statement: Based on the above finding, I certify that this patient is confined to the home and needs intermittent half-way care, physical therapy and/or speech therapy, or continues to need occupational therapy.~ This patient is under my care, and I have initiated the establishment of the plan of care.~ This patient will be followed by myself or a community physician who will periodically review the plan of care. Home Meds Active Scripts Oxycodone/Apap 5-325 (PERCOCET 5-325 MG TABLET ) 1 Each Tablet, 1 TAB PO PRN Q4HRS PRN for MODERATE PAIN for 30 Days, #30 TAB Prov:FRANSISCO SHEIKH POULTRY KILLER 01/22/20 Reported Medications Atorvastatin Calcium (ATORVASTATIN CALCIUM) 40 Mg Tablet, 1 TAB PO QHS, #90 TAB 3 Refills 08/11/17 Losartan Potassium (LOSARTAN POTASSIUM) 100 Mg Tablet, 100 MG PO DAILY for HTN, TAB 08/11/17 Glipizide (GLIPIZIDE) 10 Mg Tablet, 10 MG PO DAILY for DM 2, TAB 08/11/17 Metformin Hcl (METFORMIN HCL) 500 Mg Tablet, 500 MG PO BIDWMEALS for ANTI- DIABETIC, TAB 0 Refills 02/12/17 Discontinued Reported Medications Meloxicam (MELOXICAM) 15 Mg Tablet, 1 TAB PO DAILY, #30 TAB 2 Refills 08/11/17 Gabapentin (GABAPENTIN ) 300 Mg Capsule, 300 MG PO TID for nerve pain, CAP 08/11/17 Citalopram Hydrobromide (CITALOPRAM HBR) 40 Mg Tablet, 1 TAB PO DAILY, #90 TAB 1 Refill 08/11/17 FRANSISCO SHEIKH APRN Jan 22, 2020 13:20
[2020-01-22] MEDS: oxyCODONE/APAP 5/325 1 TAB TABLET PO PRN (13:51)
--- NOTE | 2020-01-22 14:47 | PDOC ---
Provider Note Provider Note AF VSS awake and alert right leg prevena vac dressing in place on incisions with minimal drainage, no hematomas, mild swelling of the leg, strong doppler right DP/PT pulse, lateral foot wound clean A/P POD#3 right femoral to popliteal bypass with GSV and foot wound debridement - daily aspirin - may ambulate with heel touch, order forefoot off loading shoe - PT/OT - regular diet - discharge home today DION CORNELL MD Jan 22, 2020 14:47
--- NOTE | 2020-01-22 17:50 | PDOC3 ---
Discharge Summary Visit Information Date of Admission: Jan 16, 2020 Date of Discharge: Jan 22, 2020 Admitting Diagnosis Comment: 1. PAD with non-healing right foot ulcer 2. Hypertension 3. Hyperlipidemia 4. Diabetes,II 5. Tobaccoism Final Diagnosis 1. PAD with non-healing right foot ulcer 2. Hypertension 3. Hyperlipidemia 4. Diabetes,II 5. Tobaccoism Brief Hospital Course Allergies Allergies Coded Allergies Type Severity Reaction Last Updated Verified Penicillins Allergy Severe Anaphylaxis 01/16/20 No Vital Signs Vital Signs Date Time Temp Pulse Resp B/P (MAP) Pulse Ox O2 Delivery O2 Flow Rate FiO2 01/22/20 16:00 Room Air 01/22/20 15:00 01/22/20 13:51 99 01/22/20 11:00 98.1 81 20 98.1 Lab Results Laboratory Tests Test 01/20/20 21:28 01/21/20 05:00 01/21/20 07:10 01/21/20 11:46 Glucose (Fingerstick) 210 mg/dL (70-99) 179 mg/dL (70-99) 171 mg/dL (70-99) White Blood Count 10.7 x10^3/uL (4.0-11.0) Red Blood Count 4.04 x10^6/uL (4.30-5.70) Hemoglobin 12.1 g/dL (13.0-17.5) Hematocrit 34.8 % (39.0-53.0) Mean Corpuscular Volume 86 fL (79-100) Mean Corpuscular Hemoglobin 30 pg (25-35) Mean Corpuscular Hemoglobin Concent 35 g/dL (31-37) Red Cell Distribution Width 13.1 % (11.5-14.5) Platelet Count 149 x10^3/uL (140-400) Sodium Level 134 mmol/L (136-145) Potassium Level 4.1 mmol/L (3.5-5.1) Chloride Level 101 mmol/L (98-107) Carbon Dioxide Level 24 mmol/L (21-32) Anion Gap 9 (6-14) Blood Urea Nitrogen 17 mg/dL (8-26) Creatinine 0.8 mg/dL (0.7-1.3) Estimated GFR (Cockcroft-Gault) 100.7 Glucose Level 157 mg/dL (70-99) Calcium Level 8.0 mg/dL (8.5-10.1) Test 01/21/20 16:55 01/21/20 19:07 01/22/20 08:41 01/22/20 11:54 Glucose (Fingerstick) 123 mg/dL (70-99) 219 mg/dL (70-99) 175 mg/dL (70-99) 204 mg/dL (70-99) Laboratory Tests Test 01/21/20 19:07 01/22/20 08:41 01/22/20 11:54 Glucose (Fingerstick) 219 mg/dL (70-99) 175 mg/dL (70-99) 204 mg/dL (70-99) Brief Hospital Course Mr. Sage is a 54 old male, with a history of non-healing RLE wound who presented to our office for evaluation of peripheral arterial disease. Arterial Doppler revealed significant distal right SFA stenosis. He reported claudication symptoms and has had difficulty with wound healing. He underwent aortogram with runoff which revealed 100% chronic total occlusion of the distal SFA. Recanalization of the right SFA was unsuccessful despite multiple attempts via antegrade approach. Patient underwent Right proximal superficial femoral artery to below knee popliteal artery bypass using right leg great saphenous vein, resulting in excellent perfusion to the right lower extremity. Also underwent right lateral foot wound sharp excisional debridement, removing necrotic skin and subcutaneous tissue. Measurements after debridement were approximately 1.5cm in length x 1.5 cm in width x superficial in depth. Tolerated procedure well and was monitored post-op eratively. Right leg prevena vac dressing was placed on incisions. Minimal drainage, no hematomas. Mild swelling of the right leg with strong Doppler right DP/PT pulse. Lateral foot wound clean. Patient to use forefoot offloading shoed and may ambulate with heel touch. Is scheduled to see Wound Clinic this Wednesday. Assessment Assessment Late entry. 01/22/2020 Patient seen and examined. Agree with above nurse practitioner note. Discharge Information Condition at Discharge: Improved Follow Up: Weeks (4) Disposition/Orders: D/C to Home w/ HH Scheduled Amlodipine Besylate (Amlodipine Besylate) 10 Mg Tablet, 10 MG PO DAILY for blood pressure MDD 30 for 30 Days, #30 Ref 2 Prescribed by: FRANSISCO SHEIKH APRN on 01/22/20 1305 Aspirin (Aspirin Ec) 325 Mg Tablet., 325 MG PO DAILYWBKFT for PAD for 30 Days, #30 Ref 2 Prescribed by: FRANSISCO SHEIKH APRN on 01/22/20 1305 Atorvastatin Calcium (Atorvastatin Calcium) 40 Mg Tablet, 1 TAB PO QHS, #90 Ref 3 (Reported) Entered as Reported by: BERT RODRIGUEZ on 08/11/17 1106 Last Taken: Unknown Dose on 01/15/20 Last Action: Continued on 01/16/20 1644 by ROLANDO ASTUDILLO Glipizide (Glipizide) 10 Mg Tablet, 10 MG PO DAILY for DM 2, (Reported) Entered as Reported by: BERT RODRIGUEZ on 08/11/17 1105 Last Taken: Unknown Dose on 01/15/20 Last Action: Last Taken Edited on 01/16/20 1625 by AMOS WHITMAN Lactobacillus Rhamnosus Gg (Culturelle) 1 Each Cap.sprink, 1 CAP PO BID for antibiotic use for 30 Days, #60 Prescribed by: FRANSISCO SHEIKH APRN on 01/22/20 1305 Linezolid (Zyvox) 600 Mg Tablet, 600 MG PO BID for infection for 4 Days, #8 Prescribed by: FRANSISCO SHEIKH APRN on 01/22/20 1305 Lisinopril (Lisinopril) 10 Mg Tablet, 10 MG PO DAILY for blood pressure for 30 Days, #30 Ref 2 Prescribed by: FRANSISCO SHEIKH APRN on 01/22/20 1305 Metformin Hcl (Metformin Hcl) 500 Mg Tablet, 500 MG PO BIDWMEALS for ANTI- DIABETIC, Ref 0 (Reported) Entered as Reported by: Brenda Chinchilla on 02/12/17 1046 Last Taken: Unknown Dose on 01/15/20 Last Action: HELD on 01/16/20 1644 by ROLANDO ASTUDILLO Scheduled PRN Acetaminophen (Tylenol) 325 Mg Tablet, 650 MG PO PRN Q6HRS PRN for MILD PAIN 1-3 for 30 Days, #60 Ref 1 Prescribed by: FRANSISCO SHEIKH APRN on 01/22/20 1305 Oxycodone/Apap 5-325 (Percocet 5-325 Mg Tablet ) 1 Each Tablet, 1 TAB PO PRN Q4HRS PRN for MODERATE PAIN for 30 Days, #30 Prescribed by: FRANSISCO SHEIKH APRN on 01/22/20 1305 Discontinued Medications Losartan Potassium (Losartan Potassium) 100 Mg Tablet, 100 MG PO DAILY for HTN, (Reported) Entered as Reported by: BERT RODRIGUEZ on 08/11/17 1105 Last Taken: Unknown Dose on 01/15/20 Last Action: Last Taken Edited on 01/16/20 1625 by FRANSISCO JACQUES APRN Jan 22, 2020 17:50 NICOLE EDEN MD Jan 24, 2020 11:49
== END 2020-01-22 17:00 | disposition home health service (06) | DRG 253 ==
LOC: CCL 11:25 → 2 SOUTH 15:38 → OBSVTOIN 15:38
PROVIDERS: ADMIT Internal Medicine Cardiovascular Disease; ATTEND Internal Medicine Cardiovascular Disease
PROC: 06BP0ZZ Excision of Right Saphenous Vein, Open Approach (ICD-10-PCS; 2020-01-19)
PROC: 0JBQ0ZZ Excision of Right Foot Subcutaneous Tissue and Fascia, Open Approach (ICD-10-PCS; principal; 2020-01-19 10:30)
PROC: 041K0ZL Bypass Right Femoral Artery to Popliteal Artery, Open Approach (ICD-10-PCS; 2020-01-19 10:30)
DX: E11.52 Type 2 diabetes mellitus with diabetic peripheral angiopathy with gangrene (principal); I70.92 Chronic total occlusion of artery of the extremities; E11.42 Type 2 diabetes mellitus with diabetic polyneuropathy; E11.621 Type 2 diabetes mellitus with foot ulcer; E78.5 Hyperlipidemia, unspecified; F17.200 Nicotine dependence, unspecified, uncomplicated; I10 Essential (primary) hypertension; I70.201 Unspecified atherosclerosis of native arteries of extremities, right leg; I83.91 Asymptomatic varicose veins of right lower extremity; L97.519 Non-pressure chronic ulcer of other part of right foot with unspecified severity; M54.16 Radiculopathy, lumbar region; M75.02 Adhesive capsulitis of left shoulder; Z88.0 Allergy status to penicillin; Z91.19 Patient's noncompliance with other medical treatment and regimen; Z95.828 Presence of other vascular implants and grafts
CPT/HCPCS: 36247; 36415; 73630; 75625; 75710; 80048; 80061; 82962; 83735; 84100; 85025; 85027; 85347; 85610; 85651; 86140; 86850; 86900; 86901; 93880; 93970; 99152; 99153; A7015; C1713; C1757; C1769; C1892; C1894; J0360; J1100; J1170; J1644; J1815; J2185; J2250; J2270; J2405; J2440; J2710; J3010; J3370; J3490; J7030; J7040; J7120; Q9967; 97110; 97116; G0378

== ENCOUNTER → 2020-03-27 | Outpatient (CLI) | payer OTHER ==
[~2020-03-27] MED LIST changes: +ACET325T9 PO; +AMLO10TA8 PO; +ASPI325T11 PO; +DAPT350V IV; +ERTA1VIA16 IJ; +LACT1CAP19 PO; +LINE600T12 PO; +LISI10TA2 PO; +OXYC1TAB15 PO
== END | disposition home or self-care (01) ==
LOC: LAB 10:55
PROVIDERS: ATTEND Internal Medicine Pulmonary Disease
DX: R50.9 Fever, unspecified (principal); R53.81 Other malaise; Z20.828 Contact with and (suspected) exposure to other viral communicable diseases
CPT/HCPCS: 36415; 87635

== ENCOUNTER 2020-03-29 10:23 | Inpatient (IN) | payer OTHER ==
[2020-03-29] VITALS (9 sets, daily range): BP systolic 125–174; BP diastolic 64–84
[~2020-03-29] VITALS: Ht 195.6 cm; Wt 104.3 kg
[~2020-03-29 10:23] MED LIST changes: -DAPT350V IV; -ERTA1VIA16 IJ
--- NOTE | 2020-03-29 10:46 | PDOC1 ---
History and Physical Date of Admission Date of Admission DATE: 03/29/20 TIME: 10:46 Identification/Chief Complaint Chief Complaint Chief Complaint right foot ulceration now with cellulitis, seen in wound care clinic today , direct admission Past Medical History Cardiovascular: HTN, Hyperlipidemia Heme/Onc: No pertinent hx Psych: No pertinent hx Rheumatologic: No pertinent hx ENT: No pertinent hx Endocrine: Diabetes Dermatology: Cellulitis Family History Family History Past Medical History Cardiovascular: HTN, Hyperlipidemia Endocrine: Diabetes Family History Family History: DIABETES Social History 1 pack per day Lives: Alone Family History: Hypertension, Other Social History Smoke: 1 pack per day ALCOHOL: occassional Drugs: None Current Medications Current Medications Active Scripts Active Culturelle (Lactobacillus Rhamnosus Gg) 1 Each Cap.sprink 1 Cap PO BID 30 Days Tylenol (Acetaminophen) 325 Mg Tablet 650 Mg PO PRN Q6HRS PRN 30 Days Percocet 5-325 Mg Tablet (Oxycodone/Acetaminophen) 1 Each Tablet 1 Tab PO PRN Q4HRS PRN 30 Days Aspirin Ec (Aspirin) 325 Mg Tablet.dr 325 Mg PO DAILYWBKFT 30 Days Lisinopril 10 Mg Tablet 10 Mg PO DAILY 30 Days Amlodipine Besylate 10 Mg Tablet 10 Mg PO DAILY MDD 30 30 Days Zyvox (Linezolid) 600 Mg Tablet 600 Mg PO BID 4 Days Reported Atorvastatin Calcium 40 Mg Tablet 1 Tab PO QHS Glipizide 10 Mg Tablet 10 Mg PO DAILY Metformin Hcl 500 Mg Tablet 500 Mg PO BIDWMEALS Allergies Allergies: Coded Allergies: Penicillins (Unverified Allergy, Severe, Anaphylaxis, 01/16/20) ROS Review of System ROS General: No: Chills, Night Sweats, Fatigue, Malaise, Appetite, Other PSYCHOLOGICAL ROS: No: Anxiety, Behavioral Disorder, Concentration difficultie, Decreased libido, Depression, Disorientation, Hallucinations, Hostility, Irritablity, Memory difficulties, Mood Swings, Obsessive thoughts, Physical abuse, Sexual abuse, Sleep disturbances, Suicidal ideation, Other HEENT: No: Heacaches, Visual Changes, Hearing change, Nasal congestion, Nasal discharge, Oral lesions, Sinus pain, Sore Throat, Epistaxis, Sneezing, Snoring, Tinnitus, Vertigo, Vocal changes, Other ALLERGY AND IMMUNOLOGY: No: Hives, Insect Bite Sensitivity, Itchy/Watery Eyes, Nasal Congestion, Post Nasal Drip, Seasonal Allergies, Other Hematological and Lymphatic: No: Bleeding Problems, Blood Clots, Blood Transfusions, Brusing, Night Sweats, Pallor, Swollen Lymph Nodes, Other ENDOCRINE: No: Breast Changes, Galactorrhea, Hair Pattern Changes, Hot Flashes, Malaise/lethargy, Mood Swings, Palpitations, Polydipsia/polyuria, Skin Changes, Temperature Intolerance, Unexpected Weight Changes, Other Breast: No New/Changing Breast Lumps, No Nipple changes, No Nipple discharge, No Other Respiratory: No: Cough, Hemoptysis, Orthopnea, Pleuritic Pain, Shortness of breath, SOB with excertion, Sputum Changes, Stridor, Tachypnea, Wheezing, Other Cardiovascular: No Chest Pain, No Palpitations, No Orthopnea, No Paroxysmal Noc. Dyspnea, No Edema, No Lt Headedness, No Other Genitourinary: No Dysuria, No Frequency, No Incontinence, No Hematuria, No Retention, No Discharge, No Urgency, No Pain, No Flank Pain, No Other, No , No , No , No , No , No , No Musculoskeletal: No Gait Disturbance, No Joint Pain, No Joint Stiffness, No Joint Swelling, No Muscle Pain, No Muscular Weakness, No Pain In:, No Swelling In:, No Other Neurological: No Behavorial Changes, No Bowel/Bladder ControlChng, No Confusion , No Dizziness, No Gait Disturbance, No Headaches, No Impaired Coord/balance, No Memory Loss, No Numbness/Tingling, No Seizures, No Speech Problems, No Tremors, No Visual Changes, No Weakness, No Other Skin: Yes Other (dm foot ulcer right foot) 14 pt ros otherwise neg PSYCHOLOGICAL ROS: No: Anxiety, Behavioral Disorder, Concentration difficultie, Decreased libido, Depression, Disorientation, Hallucinations, Hostility, Irritablity, Memory difficulties, Mood Swings, Obsessive thoughts, Physical abuse, Sexual abuse, Sleep disturbances, Suicidal ideation, Other Eyes: No Blurry vision, No Decreased vision, No Double vision, No Dry eyes, No Excessive tearing, No Eye Pain, No Itchy Eyes, No Loss of vision, No Photophobia, No Scotomata, No Uses contacts, No Uses glasses, No Other Hematological and Lymphatic: No: Bleeding Problems, Blood Clots, Blood Transfusions, Brusing, Night Sweats, Pallor, Swollen Lymph Nodes, Other Cardiovascular: No Chest Pain, No Palpitations, No Orthopnea, No Paroxysmal Noc. Dyspnea, No Edema, No Lt Headedness, No Other Gastrointestinal: No Nausea, No Vomiting, No Abdominal Pain, No Diarrhea, No Constipation, No Melena, No Hematochezia, No Other Musculoskeletal: Yes Gait Disturbance, Yes Joint Stiffness Neurological: Yes Gait Disturbance Physical Exam General: Alert, Oriented X3, Cooperative, No acute distress HEENT: Atraumatic, PERRLA, EOMI, Mucous membr. moist/pink Lungs: Clear to auscultation, Normal air movement Heart: RRR, no thrills, no gallops, no murmurs Cardiovascular: S1 Abdomen: Normal bowel sounds, Soft Rectal Exam: not examined PELVIC: Examination not indicated Extremities: No cyanosis Neuro: Normal speech, Cranial nerves 3-12 NL Psych/Mental Status: Mental status NL, Mood NL Images Images DATE OF SURGERY: 01/19/2020 SURGEON: Chantale Cherry MD. SUPERVISOR COATING: Stefania Larkin, nurse practitioner. PREOPERATIVE DIAGNOSES: Right lower extremity severe peripheral arterial disease with nonhealing right lateral foot wound. POSTOPERATIVE DIAGNOSES: Right lower extremity severe peripheral arterial disease with nonhealing right lateral foot wound. OPERATION PERFORMED: 1. Right proximal superficial femoral artery to below knee popliteal artery bypass using right leg great saphenous vein, the vein was used in the nonreversed fashion. 2. Right great saphenous vein harvest with lysis of the valves, the vein was used in the nonreversed fashion. 3. Right lateral foot wound sharp excisional debridement removing necrotic skin and subcutaneous tissue, measurements after debridement were approximately 1.5 cm in length x 1.5 cm in width x superficial in depth. BLOOD LOSS: 150 mL. ANESTHESIA USED: General anesthesia. MR#: [id number] Date of Study: 01/16/2020 Ordering Physician: NICOLE ORTIZ, Referring Physician: NICOLE ORTIZ, Tech: Tata Najera RT (R) APPROVED REPORT Patient StatusIN-PATIENT Barn Manager: Tata Najera RT (R) Procedure(s) performed: FLOURO TIME 29.8 MINUTES DOSE 49.10 Gycm2 CONTRAST 146 CC'S VISIPAQUE MODERATE SEDATION 103 MINUTES Abdominal aortogram with RLE run-off. HISTORY : The patient is a 54 year-old male with a history of . INDICATION FOR PROCEDURE The indication(s) include : Rest pain: Right lower extremity, Positive angiogram for stenosis: Superficial femoral. PROCEDURE NARRATIVE Clinical indication: 54-year-old man who was referred by the podiatry service for evaluation of abnormal right lower extremity Doppler ultrasound in the setting of a nonhealing right fifth plantar surface wound. He has been treated with conservative management as he has previously not been inclined for interventional treatment. Ultimately he was seen by the cardiology service and referred for aortography with runoff for further treatment and evaluation. Procedure details: After informed consent was obtained the patient was prepped and draped in usual sterile fashion. The left groin was infiltrated with 2% lidocaine local anesthesia. A 5 Singaporean sheath was placed without difficulty. A 5 Singaporean Omni Flush catheter was advanced to the abdominal aorta and aortography was performed. Next, the Omni Flush catheter was used to cross over to the right external iliac artery with a J-tipped guidewire and this was placed in the distal external iliac artery. Right lower extremity runoff angiogram was obtained. Findings: Abdominal aorta: No significant disease Right renal artery likely has a 50% stenosis Left renal artery is not well-visualized Right and left common iliac arteries are grossly unremarkable Right external iliac artery is notable for mild to moderate disease of a proximally 40-50% Right common femoral artery is without significant disease Right profunda is without any significant disease Right superficial femoral artery has mild to moderate proximal and mid disease of approximately 40-50%. There is a focal 100% obstruction at the level of the abductor canal prior to the P1 segment of the popliteal artery. Right popliteal artery is widely patent The right tibioperoneal trunk is widely patent The right anterior tibial, posterior tibial and peroneal arteries are patent but was diminished flow to the foot. Interventional technique: Heparin was used for anticoagulation. The 5 Singaporean sheath was exchanged to a 6 Singaporean destination sheath. Next, with the aid of a Navicross catheter a 0.[address]/LT wires were used to try to cross the occlusion. Although the occlusion was traversed reentry into the true lumen distally was unsuccessful despite attempts with the above-stated wires, Glidewire and a V 18 wire. There was a small to moderate likely hematoma in the medial and adventitial aspect of the distal SFA and popliteal segment which upon repeat angiography revealed approximately a 50% stenosis of the distal SFA and P1 segment of the popliteal artery. Intravenous nitroglycerin was administered and anticoagulation was discontinued. Ultimately, there was persistent three-vessel runoff with a dopplerable signal in the left posterior tibial artery. In light of unsuccessful attempts via antegrade approach the case was terminated. The left groin sheath was sutured to the skin and the patient was transferred to the room in stable condition. Conclusion 1. [place] category 5 right lower extremity plantar wound 2. 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 Unsuccessful antegrade recanalization of the right SFA Recommendations 1. Case discussed with vascular surgery and podiatry (Dr. Plaza). Given that the patient is a good candidate for surgery the vascular surgery service (Dr. Derick pltat or Aubrie) will evaluate him for possibility of femoropopliteal bypass. If he is felt to be a poor candidate then we will plan for retrograde treatment via a pedal approach in the next 24-48 hours. Patient and family (sisters) were also notified of the plan. 2. Left groin sheath to remain in place in the event there is any acute occlusive disease of the right SFA/pop. On-call interventional radiology also notified. 3. Bilateral LE vein mapping and carotid doppler evaluation ordered. Signed by : Nicole Ortiz, Electronically Approved : 01/16/2020 18:48:50 DICTATED and SIGNED BY: NICOLE ORTIZ MD DATE: 01/16/20 1506 Right foot x-rays 3 views HISTORY: Fifth metatarsal head ulcer of right foot. FINDINGS: The soft tissues are unremarkable. No fracture or dislocation. About the AP and oblique x-rays there is focal bony demineralization of the fifth metatarsal head which is differential from all of the other metatarsals or adjacent phalanges of the toes, this raises the possibility of true bony demineralization which could indicate early radiographic changes of osteomyelitis given the history of an overlying fifth metatarsal head ulceration of the foot. There is also a rounded soft tissue density lateral to fifth MTP joint on the AP and oblique views which could indicate joint effusion versus a fluid collection or soft tissue mass. IMPRESSION: Bony demineralization of the head of the fifth metatarsal could indicate early radiographic changes of osteoarthritis. No fracture or bone destruction evident. Focal round soft tissue density could indicate a fluid collection or mass lateral of the fifth MTP joint. These findings could be further assessed with MR imaging. Electronically signed by: Basilio Thurman MD (01/20/2020 10:40 AM) [id number] DICTATED and SIGNED BY: BASILIO THURMAN MD DATE: 01/20/20 1040 VTE Prophylaxis Ordered VTE Prophylaxis Devices: No VTE Pharmacological Prophylaxi: Yes Assessment/Plan Assessment/Plan IMPRESSION Right lower extremity severe peripheral arterial disease with nonhealing right lateral foot wound.now with cellulitis Hypertension Hyperlipidemia Diabetes,II Tobacco abuse disorder PLAN Admit consult ID Consult vascular surgery blood cult cbc, comp, procalcitonin dvt prophylaxis iv vanc x 1 1 gm pending ID CONSULT d/w wound clinic DR MARY ANNE FALK,IFTIKHAR Weathers MD March 29, 2020 10:46
[2020-03-29] MEDS ORDERED: ACETAMINOPHEN 325 MG TABLET. PO PRN (11:00)
[2020-03-29] MEDS ORDERED: VANCOMYCIN 1 GM in IV DEXTROSE 5% 250 ML IV ONE (11:00)
[2020-03-29] MEDS ORDERED: 0.9 % SODIUM CHLORIDE 10 ML DISP.SYRIN. IV PRN (11:00)
[2020-03-29] MEDS: ENOXAPARIN 40 MG/0.4 ML SYRINGE. SQ SCH (11:00)
[2020-03-29] MEDS ORDERED: ONDANSETRON PF 4 MG/2 ML VIAL. IV PRN ×2 (11:00→14:00)
[2020-03-29] MEDS ORDERED: guaiFENesin ORAL 200 MG/10 ML LIQUID. PO PRN (11:00)
[2020-03-29] MEDS ORDERED: cloNIDine HCL 0.1 MG TABLET PO PRN (11:00)
[2020-03-29] MEDS ORDERED: DOCUSATE SODIUM 100 MG CAPSULE. PO PRN (11:00)
[2020-03-29] MEDS ORDERED: ALBUTEROL SULFATE 2.5 MG/3 ML NEBU. NEB PRN (11:15)
--- NOTE | 2020-03-29 11:30 | NUR ---
Wound Care Wound Type/Assessment: right foot DFU. Foot and lwer leg are red, warm to touch and swollen. Wound has expanded and is now slough covered. Pt reported he had a fever on Wednesday. Treatment Recommendations/Plan: Culture obtained, Covered wound with silver contact layer, ABD and kerlix. Admitted to [facility] for IV antibiotics and surgical debridement Education provided: Educated Pt on POC Offloading surface/device: darco shoe Recommended Referrals/Tests: Discharge Recommendations for dressings:
[2020-03-29] MEDS ORDERED: IPRATRPIUM/ALBUTEROL 0.5/2.5MG 3 ML NEBU. NEB SCH (12:00)
[2020-03-29 12:37] LABS: BASO # 0.1 x10^3/uL (0.0-0.2); BASO % 1 % (0-3); EOS # 0.2 x10^3/uL (0.0-0.7); EOS % 1 % (0-3); HEMOGLOBIN 12.7 g/dL (13.0-17.5); LYMPH # 1.4 x10^3/uL (1.0-4.8); LYMPH % 10 % (24-48); MEAN CORPUSCULAR HEMOGLOBIN 29 pg (25-35); MEAN CORPUSCULAR HGB CONC 34 g/dL (31-37); MEAN CORPUSCULAR VOLUME 87 fL (79-100); MONO # 1.1 x10^3/uL (0.0-1.1); MONO % 8 % (0-9); NEUT # 11.5 x10^3/uL (1.8-7.7); NEUT % 81 % (31-73); PLATELET COUNT 301 x10^3/uL (140-400); RED BLOOD COUNT 4.37 x10^6/uL (4.30-5.70); RED CELL DISTRIBUTION WIDTH 13.8 % (11.5-14.5); WHITE BLOOD COUNT 14.3 x10^3/uL (4.0-11.0)
[2020-03-29 12:52] LABS: ALBUMIN 3.3 g/dL (3.4-5.0); ALBUMIN/GLOBULIN RATIO 0.7 (1.0-1.7); CALCIUM 8.9 mg/dL (8.5-10.1); CREATININE 0.9 mg/dL (0.7-1.3); GFR 87.9; POTASSIUM 3.9 mmol/L (3.5-5.1); TOTAL BILIRUBIN 0.6 mg/dL (0.2-1.0); TOTAL PROTEIN 8.2 g/dL (6.4-8.2)
[2020-03-29] MEDS ORDERED: VANCOMYCIN 2 GM in IV NORMAL SALINE 500ML BAG 500 ML IV ONE (13:00)
[2020-03-29] MEDS: IV NORMAL SALINE 1000ML BAG 1,000 ML IV SCH (13:21)
[2020-03-29] MEDS: NICOTINE 14MG PATCH. TD SCH (13:22)
[2020-03-29] MEDS ORDERED: IV RINGERS,LACTATED 1000ML 1,000 ML IV SCH (13:46)
--- NOTE | 2020-03-29 13:56 | PDOC2 ---
CONSULT Date of Consult Date of Consult DATE: 03/29/20 TIME: 13:30 Reason for Consult Reason for Consult: Right diabetic foot ulcer with cellulitis Peripheral arterial disease with remote history of right leg bypass Referring Physician Referring Physician: Dr. Fonseca Identification/Chief Complaint Chief Complaint Right foot ulcer with drainage Source Source: Chart review History of Present Illness Reason for Visit: This is a pleasant 54-year-old male with history of diabetes and peripheral arterial disease who presents to the hospital from the wound care center for right foot ulceration with cellulitis and drainage. Patient has remote history of right superficial femoral artery to below-knee popliteal bypass on January 19, 2020 and right lateral fifth metatarsal plantar wound debridement. Patient was last seen in our office on February 08, 2020. At that time bypass was noted to be patent, wound bed was clean and healing nicely. Patient was instructed to continue follow-up in the wound care center. Patient was seen a week ago today in the wound care center. At that time the wound on lateral fifth metatarsal plantar surface was healing and still remained clean. A dressing was placed and the patient returned to the wound care center today was noted to have erythema and swelling extending from forefoot to calf along with an extension of the ulceration from the plantar to the dorsum of the foot now with purulent drainage. Patient reports some intermittent pain in his foot. He denies any lower extremity claudication. Patient reports that he had a fever and chills 4 days ago states he has not had fever or chills since. Patient notes the erythema and swelling started about the same time as the fever. Patient denies any nausea vomiting or diarrhea. Past Medical History Cardiovascular: HTN, Hyperlipidemia Heme/Onc: No pertinent hx Psych: No pertinent hx Rheumatologic: No pertinent hx ENT: No pertinent hx Endocrine: Diabetes Dermatology: Cellulitis Past Surgical History Past Surgical History: Other (Right SFA to below-knee popliteal bypass with lateral foot wound debridement) Family History Family History: Hypertension, Other Social History 1 pack per day ALCOHOL: occassional Drugs: None Lives: Alone Current Medications Current Medications Current Medications Sodium Chloride (Normal Saline Flush) 3 ml QSHIFT PRN IV AFTER MEDS AND BLOOD DRAWS; Start 03/29/20 at 11:00 Sodium Chloride 1,000 ml @ 75 mls/hr [id number] IV Last administered on 03/29/20at 13:21; Start 03/29/20 at 10:53 Ondansetron HCl (Zofran) 4 mg PRN Q4HRS PRN IV NAUSEA/VOMITING; Start 03/29/20 at 11:00 Acetaminophen (Tylenol) 650 mg PRN Q4HRS PRN PO TEMP OVER 100.4F OR MILD PAIN; Start 03/29/20 at 11:00 Clonidine HCl (Catapres) 0.1 mg PRN Q6HRS PRN PO SBP>160 OR DBP>90; Start 03/29/20 at 11:00 Docusate Sodium (Colace) 100 mg PRN BID PRN PO CONSTIPATION; Start 03/29/20 at 11:00 Albuterol/ Ipratropium (Duoneb) 3 ml Q4HRS NEB ; Start 03/29/20 at 12:00; Stop 03/29/20 at 11:17; Status DC Guaifenesin (Robitussin) 200 mg PRN Q4HRS PRN PO COUGH; Start 03/29/20 at 11:00 Enoxaparin Sodium (Lovenox 40mg Syringe) 40 mg Q24H SQ ; Start 03/29/20 at 11:00 Vancomycin HCl 1 gm/Dextrose 250 ml @ 250 mls/hr 1X ONCE IV ; Start 03/29/20 at 11:00; Stop 03/29/20 at 11:59; Status UNV Vancomycin HCl (Vanco Per Pharmacy) 1 each PRN DAILY PRN MC SEE COMMENTS; Start 03/29/20 at 11:00 Albuterol Sulfate (Ventolin Neb Soln) 3 mg PRN Q4HRS PRN NEB WHEEZING; Start 03/29/20 at 11:15 Vancomycin HCl 2 gm/Sodium Chloride 500 ml @ 250 mls/hr 1X ONCE IV Last administered on 03/29/20at 13:22; Start 03/29/20 at 13:00; Stop 03/29/20 at 14:59 Nicotine (Nicoderm Cq 14mg) 1 patch DAILY TD Last administered on 03/29/20at 13:22; Start 03/29/20 at 14:00 Meropenem 500 mg/ Sodium Chloride 50 ml @ 100 mls/hr Q8HRS IV ; Start 03/29/20 at 14:00 Active Scripts Active Culturelle (Lactobacillus Rhamnosus Gg) 1 Each Cap.sprink 1 Cap PO BID 30 Days Tylenol (Acetaminophen) 325 Mg Tablet 650 Mg PO PRN Q6HRS PRN 30 Days Percocet 5-325 Mg Tablet (Oxycodone/Acetaminophen) 1 Each Tablet 1 Tab PO PRN Q4HRS PRN 30 Days Aspirin Ec (Aspirin) 325 Mg Tablet.dr 325 Mg PO DAILYWBKFT 30 Days Lisinopril 10 Mg Tablet 10 Mg PO DAILY 30 Days Amlodipine Besylate 10 Mg Tablet 10 Mg PO DAILY MDD 30 30 Days Zyvox (Linezolid) 600 Mg Tablet 600 Mg PO BID 4 Days Reported Atorvastatin Calcium 40 Mg Tablet 1 Tab PO QHS Glipizide 10 Mg Tablet 10 Mg PO DAILY Metformin Hcl 500 Mg Tablet 500 Mg PO BIDWMEALS Allergies Allergies: Coded Allergies: Penicillins (Unverified Allergy, Severe, Anaphylaxis, 01/16/20) ROS Review of System Constitutional: As per HPI Eyes: Denies any visual disturbances HENT: Denies nasal congestion or sore throat Respiratory: Denies shortness of breath Cardiovascular: Denies any palpitations or chest pain GI: Denies abdominal pain, nausea, vomiting, bloody stools or diarrhea : Denies dysuria or hematuria Musculoskeletal: As per HPI Integument: As per HPI Neurologic: No gross deficits Endocrine: Diabetes Physical Exam Physical Exam Gen.: Awake, Alert and oriented X3. No acute distress. Cardiac: Heart rate regular. Normal carotid pulses. Lungs: CTA, Nonlabored respirations. Abdomen: Soft, nontender, nondistended, no palpable masses. Extremities: Palpable bilateral femoral pulses, palpable right leg graft pulse, palpable left DP, unable to appreciate right distal pulses. Skin: .Right plantar foot ulcer that now extends onto dorsum of foot with maceration and slough, purulent drainage noted at [facility]. Severe swelling and erythema. Neurological: Motor and sensation intact Vitals VITALS Vital Signs Date Time Temp Pulse Resp B/P (MAP) Pulse Ox O2 Delivery O2 Flow Rate FiO2 03/29/20 11:20 98.6 74 18 174/84 (114) 97 Room Air 98.6 Labs Labs Laboratory Tests Test 03/29/20 11:45 White Blood Count 14.3 x10^3/uL (4.0-11.0) Red Blood Count 4.37 x10^6/uL (4.30-5.70) Hemoglobin 12.7 g/dL (13.0-17.5) Hematocrit 38.0 % (39.0-53.0) Mean Corpuscular Volume 87 fL (79-100) Mean Corpuscular Hemoglobin 29 pg (25-35) Mean Corpuscular Hemoglobin Concent 34 g/dL (31-37) Red Cell Distribution Width 13.8 % (11.5-14.5) Platelet Count 301 x10^3/uL (140-400) Neutrophils (%) (Auto) 81 % (31-73) Lymphocytes (%) (Auto) 10 % (24-48) Monocytes (%) (Auto) 8 % (0-9) Eosinophils (%) (Auto) 1 % (0-3) Basophils (%) (Auto) 1 % (0-3) Neutrophils # (Auto) 11.5 x10^3/uL (1.8-7.7) Lymphocytes # (Auto) 1.4 x10^3/uL (1.0-4.8) Monocytes # (Auto) 1.1 x10^3/uL (0.0-1.1) Eosinophils # (Auto) 0.2 x10^3/uL (0.0-0.7) Basophils # (Auto) 0.1 x10^3/uL (0.0-0.2) Sodium Level 134 mmol/L (136-145) Potassium Level 3.9 mmol/L (3.5-5.1) Chloride Level 97 mmol/L (98-107) Carbon Dioxide Level 28 mmol/L (21-32) Anion Gap 9 (6-14) Blood Urea Nitrogen 11 mg/dL (8-26) Creatinine 0.9 mg/dL (0.7-1.3) Estimated GFR (Cockcroft-Gault) 87.9 BUN/Creatinine Ratio 12 (6-20) Glucose Level 227 mg/dL (70-99) Calcium Level 8.9 mg/dL (8.5-10.1) Total Bilirubin 0.6 mg/dL (0.2-1.0) Aspartate Amino Transf (AST/SGOT) 21 U/L (15-37) Alanine Aminotransferase (ALT/SGPT) 67 U/L (16-63) Alkaline Phosphatase 113 U/L (46-116) Total Protein 8.2 g/dL (6.4-8.2) Albumin 3.3 g/dL (3.4-5.0) Albumin/Globulin Ratio 0.7 (1.0-1.7) Laboratory Tests Test 03/29/20 11:45 White Blood Count 14.3 x10^3/uL (4.0-11.0) Red Blood Count 4.37 x10^6/uL (4.30-5.70) Hemoglobin 12.7 g/dL (13.0-17.5) Hematocrit 38.0 % (39.0-53.0) Mean Corpuscular Volume 87 fL (79-100) Mean Corpuscular Hemoglobin 29 pg (25-35) Mean Corpuscular Hemoglobin Concent 34 g/dL (31-37) Red Cell Distribution Width 13.8 % (11.5-14.5) Platelet Count 301 x10^3/uL (140-400) Neutrophils (%) (Auto) 81 % (31-73) Lymphocytes (%) (Auto) 10 % (24-48) Monocytes (%) (Auto) 8 % (0-9) Eosinophils (%) (Auto) 1 % (0-3) Basophils (%) (Auto) 1 % (0-3) Neutrophils # (Auto) 11.5 x10^3/uL (1.8-7.7) Lymphocytes # (Auto) 1.4 x10^3/uL (1.0-4.8) Monocytes # (Auto) 1.1 x10^3/uL (0.0-1.1) Eosinophils # (Auto) 0.2 x10^3/uL (0.0-0.7) Basophils # (Auto) 0.1 x10^3/uL (0.0-0.2) Sodium Level 134 mmol/L (136-145) Potassium Level 3.9 mmol/L (3.5-5.1) Chloride Level 97 mmol/L (98-107) Carbon Dioxide Level 28 mmol/L (21-32) Anion Gap 9 (6-14) Blood Urea Nitrogen 11 mg/dL (8-26) Creatinine 0.9 mg/dL (0.7-1.3) Estimated GFR (Cockcroft-Gault) 87.9 BUN/Creatinine Ratio 12 (6-20) Glucose Level 227 mg/dL (70-99) Calcium Level 8.9 mg/dL (8.5-10.1) Total Bilirubin 0.6 mg/dL (0.2-1.0) Aspartate Amino Transf (AST/SGOT) 21 U/L (15-37) Alanine Aminotransferase (ALT/SGPT) 67 U/L (16-63) Alkaline Phosphatase 113 U/L (46-116) Total Protein 8.2 g/dL (6.4-8.2) Albumin 3.3 g/dL (3.4-5.0) Albumin/Globulin Ratio 0.7 (1.0-1.7) Assessment/Plan Assessment/Plan 54-year old with atherosclerosis of the right lower extremity with diabetic foot wound and cellulitis. Patient has had right lower extremity revascularization in December 2019, patient has patent bypass by physical exam. Patient has right foot ulceration with purulent drainage and severe cellulitis. Discussed history and examination with Dr. Montes's, recommend urgent surgical debridement, wash out and possible fifth toe amputation. Antibiotics have been initiated, recommend infectious disease consultation for management. We will follow-up with arterial Doppler for evaluation of bypass graft following surgery. Discussed plan of care with the patient along with the possibility of fifth toe amputation, he is agreeable to proceed with the hope we will be able to salvage his toe. In addition discussed with the patient the need for agressive diabetes management and smoking cessation. Will make additional recommendations as needed post surgical debridement. MAN NESBITT APRN March 29, 2020 13:56
[2020-03-29] MEDS: VANCOMYCIN PER PHARMACY MC PRN (13:59)
[2020-03-29] MEDS ORDERED: PROCHLORPERAZINE 10 MG/2 ML VIAL. IV PRN (14:00)
[2020-03-29] MEDS ORDERED: LIDOCAINE 1% PF 2 ML VIAL. ID PRN (14:00)
[2020-03-29] MEDS ORDERED: HYDROmorphone 2 MG/ML VIAL IV PRN (14:00)
[2020-03-29] MEDS ORDERED: MORPHINE SULFATE 2 MG/ML VIAL. IV PRN ×2 (14:00→14:45)
[2020-03-29] MEDS ORDERED: fentaNYL PF VIAL 100 MCG/2 ML VIAL IV PRN ×2 (14:00)
--- NOTE | 2020-03-29 14:05 | NUR ---
Pharmacy Vancomycin Dosing Note S:Consulted to monitor and dose vancomycin started 03/29/20. O:LEXA KENDRICK is a 54 year old M with Cellulitis . Height: 6 feet, 5 inches Weight: 106.6 kg [place] Body Weight: 89.10 Adjusted Body Weight: 96.10 Dosing Weight: Actual Other Antibiotics: merrem LABS: Last BUN: 11 Last Creatinine: 0.9 Creatinine Clearance: 127 mL/min Last WBC: 14.3 Last Procalcitonin: Tmax (past 24 hours): Microbiology: I/O: Drug Levels: Last level: on at Last dose given at Vancomycin Dosing: Loading Dose: 2000 mg x1 Dosing Weight: Actual Target Trough: 10-20 A: Based on: HT, WT AND RENAL FUNCTION P: 1. Begin Vancomycin 1500 mg IV q8h 2. Follow up Trough level on 03/30/20 at 1230 3. Pharmacy will continue to monitor, follow and adjust therapy as needed. KESHIA ESCAMILLA, [facility], 03/29/20 [id number]
[2020-03-29 14:09] LABS: BILIRUBIN,URINE NEGATIVE (NEG); CLARITY,URINE CLEAR; COLOR,URINE YELLOW; NITRITE,URINE NEGATIVE (NEG); PH,URINE 5.5 (<5.0-8.0); PROTEIN,URINE NEGATIVE (NEG-TRACE); UROBILINOGEN,URINE 0.2 mg/dL (0.2 mg/dL)
[2020-03-29] MEDS ORDERED: INSULIN LISPRO 100 UNIT/ML 3ML VIAL for OP,RR ONLY. SQ PRN (14:15)
[2020-03-29] MEDS ORDERED: PROPOFOL 10 MG/ML (20ML) VIAL. IV ONE (14:18)
[2020-03-29] MEDS ORDERED: LIDOCAINE 2% PF 5 ML VIAL. ONE (14:18)
[2020-03-29] MEDS ORDERED: PROPOFOL 50 ML IV ONE (14:18)
[2020-03-29] MEDS ORDERED: fentaNYL PF VIAL 100 MCG/2 ML VIAL ONE (14:19)
[2020-03-29] MEDS ORDERED: MIDAZOLAM HCL/PF 2 MG/2 ML VIAL. ONE (14:19)
[2020-03-29 14:20] LABS: RBC,URINE OCC /HPF (0-2)
[2020-03-29 14:21] LABS: BACTERIA,URINE 0 /HPF (0-FEW); HYALINE CASTS, URINE OCCASIONAL /HPF; SQUAMOUS EPITHELIAL CELL,UR FEW /LPF
[2020-03-29] MEDS ORDERED: BACITRACIN 50,000 UNIT in IV NORMAL SALINE 500ML BAG 500 ML IRR ONE (14:30)
[2020-03-29] MEDS ORDERED: oxyCODONE/APAP 5/325 1 TAB TABLET PO PRN (14:30)
[2020-03-29] MEDS ORDERED: ONDANSETRON PF 4 MG/2 ML VIAL. IVP PRN (14:30)
[2020-03-29] MEDS ORDERED: LIDOCAINE 1% PF 30 ML VIAL. ONE (14:39)
--- NOTE | 2020-03-29 14:43 | RAD ---
Three-view right foot study Clinical indications: Diabetic foot ulcer. FINDINGS: No acute fracture or dislocation is seen. There is rarefaction of the bone of the distal fourth and fifth metatarsal heads. No cortical erosion or lytic process is seen. This may be due to more focal prominent osteopenia related to hyperemia. Small plantar spur of the calcaneus is seen. No soft tissue air is seen. Dorsal soft tissue edema is seen. IMPRESSION: No acute osseous abnormality. Electronically signed by: Harpreet Paredes MD (03/29/2020 2:40 PM) [id number]
[2020-03-29] MEDS ORDERED: BACITRACIN 50,000 UNIT in IV NORMAL SALINE 1000ML BAG 1,000 ML IRR ONE (15:00)
--- NOTE | 2020-03-29 15:19 | PDOC ---
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 Next MAC anesthesia was established. Following this the right lower extremity was prepped and draped in sterile fashion. Next a timeout procedure was performed. It was confirmed that the patient did receive appropriate perioperative antibiotics and the correct operative site was marked and draped. Following this the patient's ulcer on the lateral aspect of his foot along the fifth metatarsal was incised releasing purulent material. I could see that the infection was involving most of the joint space and likely bone. 1/5 toe ray amputation incision was subsequently extended and the toe was disarticulated from the metatarsal head. Next sharp dissection was performed circumferentially around the metatarsal bone. A bone cutter was next used to divide the metatarsal bone in its midshaft. Fine this rondure forceps were used to removed nonviable bone and soft tissue. Next the wound was copiously irrigated with antibiotic impregnated solution. I was able to milk purulent material out of the superficial skin and this was sent for culture. Given the purulent infection, I did not feel that this wound could be closed safely. After all nonviable tissue had been removed, the wound again was irrigated with antibiotic impregnated solution. Next a Betadine soaked sponge was placed in the wound bed. Sterile dressings were subsequently placed. Patient tolerated procedure well and was transferred to the postanesthesia care unit in stable condition. SHAYLA CARSON DO March 29, 2020 15:19
--- NOTE | 2020-03-29 18:54 | RAD ---
Right lower extremity arterial duplex study 03/29/2020 CLINICAL HISTORY: Right foot ulcer. Recent right lower extremity arterial bypass graft placement. TECHNIQUE: Using a combination real-time ultrasound imaging and color-flow and pulse Doppler imaging techniques, duplex evaluation of the major arterial structures of the right lower extremity was performed. Multiple images were obtained. FINDINGS: Mild to moderate atheromatous/atherosclerotic plaque formation is seen scattered throughout the major arterial structures of the right lower extremity. The right common femoral and proximal right superficial femoral arteries are biphasic. The remaining visualized arterial structures are monophasic. The right superficial femoral artery is occluded in its mid/distal portion. A graft is seen extending from the proximal right superficial femoral artery to the right popliteal artery. The graft is patent with a monophasic arterial waveform. It has a peak systolic velocity of 131 cm/s, proximally and 60 cm/s distally. The right posterior tibial, peroneal and anterior tibial arteries within the right calf are patent. The right dorsalis pedis artery is unable to be visualized due to overlying bandages. No hemodynamically significant stenosis is seen by ultrasound. IMPRESSION: Mild to moderate atheromatous/atherosclerotic plaque formation is seen involving the major arterial structures of the right lower extremity. A patent bypass graft is seen extending from the right superficial femoral artery to the right popliteal artery. The mid/distal right superficial femoral artery is occluded. No additional area of occlusion is seen. No hemodynamically significant stenosis is seen by ultrasound. Electronically signed by: Cristian Kelley MD (03/29/2020 6:51 PM) [id number]
[2020-03-29] MEDS: oxyCODONE/APAP 5/325 1 TAB TABLET PO PRN (20:39)
[2020-03-29] MEDS: VANCOMYCIN 1.5 GM in IV NORMAL SALINE 500ML BAG 500 ML IV SCH (21:21)
[2020-03-29] MEDS: MEROPENEM 500 MG in IV NORMAL SALINE 50ML 50 ML IV SCH (23:41)
[2020-03-30] MEDS: IV NORMAL SALINE 1000ML BAG 1,000 ML IV SCH ×2 (00:13→13:33)
[2020-03-30 03:29] VITALS: BP 144/65
[2020-03-30] MEDS: VANCOMYCIN 1.5 GM in IV NORMAL SALINE 500ML BAG 500 ML IV SCH ×3 (05:22→19:47)
[2020-03-30 05:49] LABS: BASO % 0 % (0-3); EOS % 0 % (0-3); HEMATOCRIT 34.2 % (39.0-53.0); HEMOGLOBIN 11.5 g/dL (13.0-17.5); LYMPH # 0.9 x10^3/uL (1.0-4.8); LYMPH % 7 % (24-48); MEAN CORPUSCULAR HEMOGLOBIN 29 pg (25-35); MEAN CORPUSCULAR HGB CONC 34 g/dL (31-37); MEAN CORPUSCULAR VOLUME 87 fL (79-100); MONO # 0.7 x10^3/uL (0.0-1.1); MONO % 5 % (0-9); NEUT # 11.8 x10^3/uL (1.8-7.7); NEUT % 87 % (31-73); PLATELET COUNT 275 x10^3/uL (140-400); RED BLOOD COUNT 3.92 x10^6/uL (4.30-5.70); RED CELL DISTRIBUTION WIDTH 13.4 % (11.5-14.5); WHITE BLOOD COUNT 13.5 x10^3/uL (4.0-11.0)
[2020-03-30 06:03] LABS: CALCIUM 8.6 mg/dL (8.5-10.1); CREATININE 0.7 mg/dL (0.7-1.3); GFR 117.5; POTASSIUM 4.4 mmol/L (3.5-5.1)
[2020-03-30 07:15] VITALS: BP 139/68
[2020-03-30 08:01] LABS: % BANDS 9 % (0-9); % LYMPHS 5 % (24-48); % MONOS 2 % (0-10); % SEGS 84 % (35-66); PLT ESTIMATE ADEQUATE (ADEQUATE)
[2020-03-30] MEDS: MEROPENEM 500 MG in IV NORMAL SALINE 50ML 50 ML IV SCH ×3 (08:54→21:29)
[2020-03-30] MEDS: NICOTINE 14MG PATCH. TD SCH (08:55)
[2020-03-30] MEDS ORDERED: INSULIN GLARGINE SYRINGE. SQ ONE (09:30)
[2020-03-30] MEDS ORDERED: ACETAMINOPHEN 325 MG TABLET. PO PRN (09:30)
[2020-03-30] MEDS: glipiZIDE ER 2.5 MG TAB.ER.24 PO SCH (10:00)
--- NOTE | 2020-03-30 10:07 | PDOC ---
SURGICAL PROGRESS NOTE Subjective Patient was seen and examined at the bedside this morning and is doing well. His pain is under good control. Vital Signs Vital Signs Date Time Temp Pulse Resp B/P (MAP) Pulse Ox O2 Delivery O2 Flow Rate FiO2 03/30/20 08:54 94 Room Air 03/30/20 07:15 97.8 61 20 139/68 (91) 97.8 I&O Intake and Output 03/30/20 07:00 Intake Total 2260 ml Output Total 3810 ml Balance -1550 ml Intake Oral 1660 ml IV Total 600 ml Output Urine Total 3800 ml Estimated Blood Loss 10 ml # Voids 3 General: Alert, Oriented X3, Cooperative, No acute distress Heart: Regular rate, Normal S1, Normal S2 Abdomen: Soft, No tenderness Extremities: Other (Dressing is clean, dry, and intact.) Labs Laboratory Tests Test 03/29/20 11:45 03/29/20 13:40 03/29/20 13:58 03/29/20 15:48 White Blood Count 14.3 x10^3/uL (4.0-11.0) Red Blood Count 4.37 x10^6/uL (4.30-5.70) Hemoglobin 12.7 g/dL (13.0-17.5) Hematocrit 38.0 % (39.0-53.0) Mean Corpuscular Volume 87 fL (79-100) Mean Corpuscular Hemoglobin 29 pg (25-35) Mean Corpuscular Hemoglobin Concent 34 g/dL (31-37) Red Cell Distribution Width 13.8 % (11.5-14.5) Platelet Count 301 x10^3/uL (140-400) Neutrophils (%) (Auto) 81 % (31-73) Lymphocytes (%) (Auto) 10 % (24-48) Monocytes (%) (Auto) 8 % (0-9) Eosinophils (%) (Auto) 1 % (0-3) Basophils (%) (Auto) 1 % (0-3) Neutrophils # (Auto) 11.5 x10^3/uL (1.8-7.7) Lymphocytes # (Auto) 1.4 x10^3/uL (1.0-4.8) Monocytes # (Auto) 1.1 x10^3/uL (0.0-1.1) Eosinophils # (Auto) 0.2 x10^3/uL (0.0-0.7) Basophils # (Auto) 0.1 x10^3/uL (0.0-0.2) Sodium Level 134 mmol/L (136-145) Potassium Level 3.9 mmol/L (3.5-5.1) Chloride Level 97 mmol/L (98-107) Carbon Dioxide Level 28 mmol/L (21-32) Anion Gap 9 (6-14) Blood Urea Nitrogen 11 mg/dL (8-26) Creatinine 0.9 mg/dL (0.7-1.3) Estimated GFR (Cockcroft-Gault) 87.9 BUN/Creatinine Ratio 12 (6-20) Glucose Level 227 mg/dL (70-99) Calcium Level 8.9 mg/dL (8.5-10.1) Total Bilirubin 0.6 mg/dL (0.2-1.0) Aspartate Amino Transf (AST/SGOT) 21 U/L (15-37) Alanine Aminotransferase (ALT/SGPT) 67 U/L (16-63) Alkaline Phosphatase 113 U/L (46-116) Total Protein 8.2 g/dL (6.4-8.2) Albumin 3.3 g/dL (3.4-5.0) Albumin/Globulin Ratio 0.7 (1.0-1.7) Procalcitonin 0.12 ng/mL (0.00-0.10) Urine Collection Type Unknown Urine Color Yellow Urine Clarity Clear Urine pH 5.5 (<5.0-8.0) Urine Specific [place] >=1.030 (1.000-1.030) Urine Protein Negative mg/dL (NEG-TRACE) Urine Glucose (UA) >=1000 mg/dL (NEG) Urine Ketones (Stick) Negative mg/dL (NEG) Urine Blood Negative (NEG) Urine Nitrite Negative (NEG) Urine Bilirubin Negative (NEG) Urine Urobilinogen Dipstick 0.2 mg/dL (0.2 mg/dL) Urine Leukocyte Esterase Negative (NEG) Urine RBC Occ /HPF (0-2) Urine WBC 1-4 /HPF (0-4) Urine Squamous Epithelial Cells Few /LPF Urine Bacteria 0 /HPF (0-FEW) Urine Hyaline Casts Occasional /HPF Glucose (Fingerstick) 186 mg/dL (70-99) 147 mg/dL (70-99) Test 03/29/20 16:58 03/30/20 05:12 03/30/20 07:42 Glucose (Fingerstick) 135 mg/dL (70-99) 246 mg/dL (70-99) White Blood Count 13.5 x10^3/uL (4.0-11.0) Red Blood Count 3.92 x10^6/uL (4.30-5.70) Hemoglobin 11.5 g/dL (13.0-17.5) Hematocrit 34.2 % (39.0-53.0) Mean Corpuscular Volume 87 fL (79-100) Mean Corpuscular Hemoglobin 29 pg (25-35) Mean Corpuscular Hemoglobin Concent 34 g/dL (31-37) Red Cell Distribution Width 13.4 % (11.5-14.5) Platelet Count 275 x10^3/uL (140-400) Neutrophils (%) (Auto) 87 % (31-73) Lymphocytes (%) (Auto) 7 % (24-48) Monocytes (%) (Auto) 5 % (0-9) Eosinophils (%) (Auto) 0 % (0-3) Basophils (%) (Auto) 0 % (0-3) Neutrophils # (Auto) 11.8 x10^3/uL (1.8-7.7) Lymphocytes # (Auto) 0.9 x10^3/uL (1.0-4.8) Monocytes # (Auto) 0.7 x10^3/uL (0.0-1.1) Eosinophils # (Auto) 0.0 x10^3/uL (0.0-0.7) Basophils # (Auto) 0.0 x10^3/uL (0.0-0.2) Segmented Neutrophils % 84 % (35-66) Band Neutrophils % 9 % (0-9) Lymphocytes % 5 % (24-48) Monocytes % 2 % (0-10) Platelet Estimate Adequate (ADEQUATE) Sodium Level 135 mmol/L (136-145) Potassium Level 4.4 mmol/L (3.5-5.1) Chloride Level 99 mmol/L (98-107) Carbon Dioxide Level 25 mmol/L (21-32) Anion Gap 11 (6-14) Blood Urea Nitrogen 14 mg/dL (8-26) Creatinine 0.7 mg/dL (0.7-1.3) Estimated GFR (Cockcroft-Gault) 117.5 Glucose Level 270 mg/dL (70-99) Calcium Level 8.6 mg/dL (8.5-10.1) Laboratory Tests Test 03/29/20 11:45 03/29/20 13:40 03/29/20 13:58 03/29/20 15:48 White Blood Count 14.3 x10^3/uL (4.0-11.0) Red Blood Count 4.37 x10^6/uL (4.30-5.70) Hemoglobin 12.7 g/dL (13.0-17.5) Hematocrit 38.0 % (39.0-53.0) Mean Corpuscular Volume 87 fL (79-100) Mean Corpuscular Hemoglobin 29 pg (25-35) Mean Corpuscular Hemoglobin Concent 34 g/dL (31-37) Red Cell Distribution Width 13.8 % (11.5-14.5) Platelet Count 301 x10^3/uL (140-400) Neutrophils (%) (Auto) 81 % (31-73) Lymphocytes (%) (Auto) 10 % (24-48) Monocytes (%) (Auto) 8 % (0-9) Eosinophils (%) (Auto) 1 % (0-3) Basophils (%) (Auto) 1 % (0-3) Neutrophils # (Auto) 11.5 x10^3/uL (1.8-7.7) Lymphocytes # (Auto) 1.4 x10^3/uL (1.0-4.8) Monocytes # (Auto) 1.1 x10^3/uL (0.0-1.1) Eosinophils # (Auto) 0.2 x10^3/uL (0.0-0.7) Basophils # (Auto) 0.1 x10^3/uL (0.0-0.2) Sodium Level 134 mmol/L (136-145) Potassium Level 3.9 mmol/L (3.5-5.1) Chloride Level 97 mmol/L (98-107) Carbon Dioxide Level 28 mmol/L (21-32) Anion Gap 9 (6-14) Blood Urea Nitrogen 11 mg/dL (8-26) Creatinine 0.9 mg/dL (0.7-1.3) Estimated GFR (Cockcroft-Gault) 87.9 BUN/Creatinine Ratio 12 (6-20) Glucose Level 227 mg/dL (70-99) Calcium Level 8.9 mg/dL (8.5-10.1) Total Bilirubin 0.6 mg/dL (0.2-1.0) Aspartate Amino Transf (AST/SGOT) 21 U/L (15-37) Alanine Aminotransferase (ALT/SGPT) 67 U/L (16-63) Alkaline Phosphatase 113 U/L (46-116) Total Protein 8.2 g/dL (6.4-8.2) Albumin 3.3 g/dL (3.4-5.0) Albumin/Globulin Ratio 0.7 (1.0-1.7) Procalcitonin 0.12 ng/mL (0.00-0.10) Urine Collection Type Unknown Urine Color Yellow Urine Clarity Clear Urine pH 5.5 (<5.0-8.0) Urine Specific [place] >=1.030 (1.000-1.030) Urine Protein Negative mg/dL (NEG-TRACE) Urine Glucose (UA) >=1000 mg/dL (NEG) Urine Ketones (Stick) Negative mg/dL (NEG) Urine Blood Negative (NEG) Urine Nitrite Negative (NEG) Urine Bilirubin Negative (NEG) Urine Urobilinogen Dipstick 0.2 mg/dL (0.2 mg/dL) Urine Leukocyte Esterase Negative (NEG) Urine RBC Occ /HPF (0-2) Urine WBC 1-4 /HPF (0-4) Urine Squamous Epithelial Cells Few /LPF Urine Bacteria 0 /HPF (0-FEW) Urine Hyaline Casts Occasional /HPF Glucose (Fingerstick) 186 mg/dL (70-99) 147 mg/dL (70-99) Test 03/29/20 16:58 03/30/20 05:12 03/30/20 07:42 Glucose (Fingerstick) 135 mg/dL (70-99) 246 mg/dL (70-99) White Blood Count 13.5 x10^3/uL (4.0-11.0) Red Blood Count 3.92 x10^6/uL (4.30-5.70) Hemoglobin 11.5 g/dL (13.0-17.5) Hematocrit 34.2 % (39.0-53.0) Mean Corpuscular Volume 87 fL (79-100) Mean Corpuscular Hemoglobin 29 pg (25-35) Mean Corpuscular Hemoglobin Concent 34 g/dL (31-37) Red Cell Distribution Width 13.4 % (11.5-14.5) Platelet Count 275 x10^3/uL (140-400) Neutrophils (%) (Auto) 87 % (31-73) Lymphocytes (%) (Auto) 7 % (24-48) Monocytes (%) (Auto) 5 % (0-9) Eosinophils (%) (Auto) 0 % (0-3) Basophils (%) (Auto) 0 % (0-3) Neutrophils # (Auto) 11.8 x10^3/uL (1.8-7.7) Lymphocytes # (Auto) 0.9 x10^3/uL (1.0-4.8) Monocytes # (Auto) 0.7 x10^3/uL (0.0-1.1) Eosinophils # (Auto) 0.0 x10^3/uL (0.0-0.7) Basophils # (Auto) 0.0 x10^3/uL (0.0-0.2) Segmented Neutrophils % 84 % (35-66) Band Neutrophils % 9 % (0-9) Lymphocytes % 5 % (24-48) Monocytes % 2 % (0-10) Platelet Estimate Adequate (ADEQUATE) Sodium Level 135 mmol/L (136-145) Potassium Level 4.4 mmol/L (3.5-5.1) Chloride Level 99 mmol/L (98-107) Carbon Dioxide Level 25 mmol/L (21-32) Anion Gap 11 (6-14) Blood Urea Nitrogen 14 mg/dL (8-26) Creatinine 0.7 mg/dL (0.7-1.3) Estimated GFR (Cockcroft-Gault) 117.5 Glucose Level 270 mg/dL (70-99) Calcium Level 8.6 mg/dL (8.5-10.1) Assessment/Plan Status post right fifth metatarsal amputation--patient had a purulent infection involving the fifth metatarsal requiring amputation. Due to the purulent infection, the wound was not closed. The patient will need a wound VAC placed and will need arrangements for a home wound VAC. Patient already has an appropriate offloading shoe and therefore does not require another. Patient can weight-bear on the foot as needed. We had a long conversation about his overall care including his diabetes and smoking cessation. All questions were answered to his satisfaction this morning. I will plan on taking the postoperative dressing down tomorrow if he does not receive a wound VAC today. Shayla Burns DO, SHAYLA LAUREN DO March 30, 2020 10:07
--- NOTE | 2020-03-30 10:41 | PDOC ---
PROGRESS NOTES Chief Complaint Chief Complaint Right lower extremity severe peripheral arterial disease with nonhealing right lateral foot wound.now with cellulitis Hypertension Hyperlipidemia Diabetes,II with cellulitis and osteomyelitis, Tobacco abuse disorder peripheral vascular disease, discussedwith Dr. Burns History of Present Illness History of Present Illness s/p 5th toe amputation feels well this AM blood sugar high, will add lantus and sliding scale, will adjust cont merrem Vitals Vitals Vital Signs Date Time Temp Pulse Resp B/P (MAP) Pulse Ox O2 Delivery O2 Flow Rate FiO2 03/30/20 08:54 94 Room Air 03/30/20 07:15 97.8 61 20 139/68 (91) 97.8 Physical Exam General: Alert, Oriented X3, Cooperative, No acute distress Heart: Regular rate, Normal S1, Normal S2 Lungs: Clear Abdomen: Soft, No tenderness Extremities: No cyanosis, Other (Dressing is clean, dry, and intact.) Skin: No rashes Labs LABS Laboratory Tests Test 03/29/20 11:45 03/29/20 13:40 03/29/20 13:58 03/29/20 15:48 White Blood Count 14.3 x10^3/uL (4.0-11.0) Red Blood Count 4.37 x10^6/uL (4.30-5.70) Hemoglobin 12.7 g/dL (13.0-17.5) Hematocrit 38.0 % (39.0-53.0) Mean Corpuscular Volume 87 fL (79-100) Mean Corpuscular Hemoglobin 29 pg (25-35) Mean Corpuscular Hemoglobin Concent 34 g/dL (31-37) Red Cell Distribution Width 13.8 % (11.5-14.5) Platelet Count 301 x10^3/uL (140-400) Neutrophils (%) (Auto) 81 % (31-73) Lymphocytes (%) (Auto) 10 % (24-48) Monocytes (%) (Auto) 8 % (0-9) Eosinophils (%) (Auto) 1 % (0-3) Basophils (%) (Auto) 1 % (0-3) Neutrophils # (Auto) 11.5 x10^3/uL (1.8-7.7) Lymphocytes # (Auto) 1.4 x10^3/uL (1.0-4.8) Monocytes # (Auto) 1.1 x10^3/uL (0.0-1.1) Eosinophils # (Auto) 0.2 x10^3/uL (0.0-0.7) Basophils # (Auto) 0.1 x10^3/uL (0.0-0.2) Sodium Level 134 mmol/L (136-145) Potassium Level 3.9 mmol/L (3.5-5.1) Chloride Level 97 mmol/L (98-107) Carbon Dioxide Level 28 mmol/L (21-32) Anion Gap 9 (6-14) Blood Urea Nitrogen 11 mg/dL (8-26) Creatinine 0.9 mg/dL (0.7-1.3) Estimated GFR (Cockcroft-Gault) 87.9 BUN/Creatinine Ratio 12 (6-20) Glucose Level 227 mg/dL (70-99) Calcium Level 8.9 mg/dL (8.5-10.1) Total Bilirubin 0.6 mg/dL (0.2-1.0) Aspartate Amino Transf (AST/SGOT) 21 U/L (15-37) Alanine Aminotransferase (ALT/SGPT) 67 U/L (16-63) Alkaline Phosphatase 113 U/L (46-116) Total Protein 8.2 g/dL (6.4-8.2) Albumin 3.3 g/dL (3.4-5.0) Albumin/Globulin Ratio 0.7 (1.0-1.7) Procalcitonin 0.12 ng/mL (0.00-0.10) Urine Collection Type Unknown Urine Color Yellow Urine Clarity Clear Urine pH 5.5 (<5.0-8.0) Urine Specific Conrad >=1.030 (1.000-1.030) Urine Protein Negative mg/dL (NEG-TRACE) Urine Glucose (UA) >=1000 mg/dL (NEG) Urine Ketones (Stick) Negative mg/dL (NEG) Urine Blood Negative (NEG) Urine Nitrite Negative (NEG) Urine Bilirubin Negative (NEG) Urine Urobilinogen Dipstick 0.2 mg/dL (0.2 mg/dL) Urine Leukocyte Esterase Negative (NEG) Urine RBC Occ /HPF (0-2) Urine WBC 1-4 /HPF (0-4) Urine Squamous Epithelial Cells Few /LPF Urine Bacteria 0 /HPF (0-FEW) Urine Hyaline Casts Occasional /HPF Glucose (Fingerstick) 186 mg/dL (70-99) 147 mg/dL (70-99) Test 03/29/20 16:58 03/30/20 05:12 03/30/20 07:42 Glucose (Fingerstick) 135 mg/dL (70-99) 246 mg/dL (70-99) White Blood Count 13.5 x10^3/uL (4.0-11.0) Red Blood Count 3.92 x10^6/uL (4.30-5.70) Hemoglobin 11.5 g/dL (13.0-17.5) Hematocrit 34.2 % (39.0-53.0) Mean Corpuscular Volume 87 fL (79-100) Mean Corpuscular Hemoglobin 29 pg (25-35) Mean Corpuscular Hemoglobin Concent 34 g/dL (31-37) Red Cell Distribution Width 13.4 % (11.5-14.5) Platelet Count 275 x10^3/uL (140-400) Neutrophils (%) (Auto) 87 % (31-73) Lymphocytes (%) (Auto) 7 % (24-48) Monocytes (%) (Auto) 5 % (0-9) Eosinophils (%) (Auto) 0 % (0-3) Basophils (%) (Auto) 0 % (0-3) Neutrophils # (Auto) 11.8 x10^3/uL (1.8-7.7) Lymphocytes # (Auto) 0.9 x10^3/uL (1.0-4.8) Monocytes # (Auto) 0.7 x10^3/uL (0.0-1.1) Eosinophils # (Auto) 0.0 x10^3/uL (0.0-0.7) Basophils # (Auto) 0.0 x10^3/uL (0.0-0.2) Segmented Neutrophils % 84 % (35-66) Band Neutrophils % 9 % (0-9) Lymphocytes % 5 % (24-48) Monocytes % 2 % (0-10) Platelet Estimate Adequate (ADEQUATE) Sodium Level 135 mmol/L (136-145) Potassium Level 4.4 mmol/L (3.5-5.1) Chloride Level 99 mmol/L (98-107) Carbon Dioxide Level 25 mmol/L (21-32) Anion Gap 11 (6-14) Blood Urea Nitrogen 14 mg/dL (8-26) Creatinine 0.7 mg/dL (0.7-1.3) Estimated GFR (Cockcroft-Gault) 117.5 Glucose Level 270 mg/dL (70-99) Calcium Level 8.6 mg/dL (8.5-10.1) Review of Systems Review of Systems no devyn.d. feels improved, Comment Review of Relevant I have reviewed the following items viet (where applicable) has been applied. Labs Laboratory Tests Test 03/29/20 11:45 03/29/20 13:40 03/29/20 13:58 03/29/20 15:48 White Blood Count 14.3 x10^3/uL (4.0-11.0) Red Blood Count 4.37 x10^6/uL (4.30-5.70) Hemoglobin 12.7 g/dL (13.0-17.5) Hematocrit 38.0 % (39.0-53.0) Mean Corpuscular Volume 87 fL (79-100) Mean Corpuscular Hemoglobin 29 pg (25-35) Mean Corpuscular Hemoglobin Concent 34 g/dL (31-37) Red Cell Distribution Width 13.8 % (11.5-14.5) Platelet Count 301 x10^3/uL (140-400) Neutrophils (%) (Auto) 81 % (31-73) Lymphocytes (%) (Auto) 10 % (24-48) Monocytes (%) (Auto) 8 % (0-9) Eosinophils (%) (Auto) 1 % (0-3) Basophils (%) (Auto) 1 % (0-3) Neutrophils # (Auto) 11.5 x10^3/uL (1.8-7.7) Lymphocytes # (Auto) 1.4 x10^3/uL (1.0-4.8) Monocytes # (Auto) 1.1 x10^3/uL (0.0-1.1) Eosinophils # (Auto) 0.2 x10^3/uL (0.0-0.7) Basophils # (Auto) 0.1 x10^3/uL (0.0-0.2) Sodium Level 134 mmol/L (136-145) Potassium Level 3.9 mmol/L (3.5-5.1) Chloride Level 97 mmol/L (98-107) Carbon Dioxide Level 28 mmol/L (21-32) Anion Gap 9 (6-14) Blood Urea Nitrogen 11 mg/dL (8-26) Creatinine 0.9 mg/dL (0.7-1.3) Estimated GFR (Cockcroft-Gault) 87.9 BUN/Creatinine Ratio 12 (6-20) Glucose Level 227 mg/dL (70-99) Calcium Level 8.9 mg/dL (8.5-10.1) Total Bilirubin 0.6 mg/dL (0.2-1.0) Aspartate Amino Transf (AST/SGOT) 21 U/L (15-37) Alanine Aminotransferase (ALT/SGPT) 67 U/L (16-63) Alkaline Phosphatase 113 U/L (46-116) Total Protein 8.2 g/dL (6.4-8.2) Albumin 3.3 g/dL (3.4-5.0) Albumin/Globulin Ratio 0.7 (1.0-1.7) Procalcitonin 0.12 ng/mL (0.00-0.10) Urine Collection Type Unknown Urine Color Yellow Urine Clarity Clear Urine pH 5.5 (<5.0-8.0) Urine Specific Conrad >=1.030 (1.000-1.030) Urine Protein Negative mg/dL (NEG-TRACE) Urine Glucose (UA) >=1000 mg/dL (NEG) Urine Ketones (Stick) Negative mg/dL (NEG) Urine Blood Negative (NEG) Urine Nitrite Negative (NEG) Urine Bilirubin Negative (NEG) Urine Urobilinogen Dipstick 0.2 mg/dL (0.2 mg/dL) Urine Leukocyte Esterase Negative (NEG) Urine RBC Occ /HPF (0-2) Urine WBC 1-4 /HPF (0-4) Urine Squamous Epithelial Cells Few /LPF Urine Bacteria 0 /HPF (0-FEW) Urine Hyaline Casts Occasional /HPF Glucose (Fingerstick) 186 mg/dL (70-99) 147 mg/dL (70-99) Test 03/29/20 16:58 03/30/20 05:12 03/30/20 07:42 Glucose (Fingerstick) 135 mg/dL (70-99) 246 mg/dL (70-99) White Blood Count 13.5 x10^3/uL (4.0-11.0) Red Blood Count 3.92 x10^6/uL (4.30-5.70) Hemoglobin 11.5 g/dL (13.0-17.5) Hematocrit 34.2 % (39.0-53.0) Mean Corpuscular Volume 87 fL (79-100) Mean Corpuscular Hemoglobin 29 pg (25-35) Mean Corpuscular Hemoglobin Concent 34 g/dL (31-37) Red Cell Distribution Width 13.4 % (11.5-14.5) Platelet Count 275 x10^3/uL (140-400) Neutrophils (%) (Auto) 87 % (31-73) Lymphocytes (%) (Auto) 7 % (24-48) Monocytes (%) (Auto) 5 % (0-9) Eosinophils (%) (Auto) 0 % (0-3) Basophils (%) (Auto) 0 % (0-3) Neutrophils # (Auto) 11.8 x10^3/uL (1.8-7.7) Lymphocytes # (Auto) 0.9 x10^3/uL (1.0-4.8) Monocytes # (Auto) 0.7 x10^3/uL (0.0-1.1) Eosinophils # (Auto) 0.0 x10^3/uL (0.0-0.7) Basophils # (Auto) 0.0 x10^3/uL (0.0-0.2) Segmented Neutrophils % 84 % (35-66) Band Neutrophils % 9 % (0-9) Lymphocytes % 5 % (24-48) Monocytes % 2 % (0-10) Platelet Estimate Adequate (ADEQUATE) Sodium Level 135 mmol/L (136-145) Potassium Level 4.4 mmol/L (3.5-5.1) Chloride Level 99 mmol/L (98-107) Carbon Dioxide Level 25 mmol/L (21-32) Anion Gap 11 (6-14) Blood Urea Nitrogen 14 mg/dL (8-26) Creatinine 0.7 mg/dL (0.7-1.3) Estimated GFR (Cockcroft-Gault) 117.5 Glucose Level 270 mg/dL (70-99) Calcium Level 8.6 mg/dL (8.5-10.1) Laboratory Tests Test 03/29/20 11:45 03/29/20 13:40 03/29/20 13:58 03/29/20 15:48 White Blood Count 14.3 x10^3/uL (4.0-11.0) Red Blood Count 4.37 x10^6/uL (4.30-5.70) Hemoglobin 12.7 g/dL (13.0-17.5) Hematocrit 38.0 % (39.0-53.0) Mean Corpuscular Volume 87 fL (79-100) Mean Corpuscular Hemoglobin 29 pg (25-35) Mean Corpuscular Hemoglobin Concent 34 g/dL (31-37) Red Cell Distribution Width 13.8 % (11.5-14.5) Platelet Count 301 x10^3/uL (140-400) Neutrophils (%) (Auto) 81 % (31-73) Lymphocytes (%) (Auto) 10 % (24-48) Monocytes (%) (Auto) 8 % (0-9) Eosinophils (%) (Auto) 1 % (0-3) Basophils (%) (Auto) 1 % (0-3) Neutrophils # (Auto) 11.5 x10^3/uL (1.8-7.7) Lymphocytes # (Auto) 1.4 x10^3/uL (1.0-4.8) Monocytes # (Auto) 1.1 x10^3/uL (0.0-1.1) Eosinophils # (Auto) 0.2 x10^3/uL (0.0-0.7) Basophils # (Auto) 0.1 x10^3/uL (0.0-0.2) Sodium Level 134 mmol/L (136-145) Potassium Level 3.9 mmol/L (3.5-5.1) Chloride Level 97 mmol/L (98-107) Carbon Dioxide Level 28 mmol/L (21-32) Anion Gap 9 (6-14) Blood Urea Nitrogen 11 mg/dL (8-26) Creatinine 0.9 mg/dL (0.7-1.3) Estimated GFR (Cockcroft-Gault) 87.9 BUN/Creatinine Ratio 12 (6-20) Glucose Level 227 mg/dL (70-99) Calcium Level 8.9 mg/dL (8.5-10.1) Total Bilirubin 0.6 mg/dL (0.2-1.0) Aspartate Amino Transf (AST/SGOT) 21 U/L (15-37) Alanine Aminotransferase (ALT/SGPT) 67 U/L (16-63) Alkaline Phosphatase 113 U/L (46-116) Total Protein 8.2 g/dL (6.4-8.2) Albumin 3.3 g/dL (3.4-5.0) Albumin/Globulin Ratio 0.7 (1.0-1.7) Procalcitonin 0.12 ng/mL (0.00-0.10) Urine Collection Type Unknown Urine Color Yellow Urine Clarity Clear Urine pH 5.5 (<5.0-8.0) Urine Specific Conrad >=1.030 (1.000-1.030) Urine Protein Negative mg/dL (NEG-TRACE) Urine Glucose (UA) >=1000 mg/dL (NEG) Urine Ketones (Stick) Negative mg/dL (NEG) Urine Blood Negative (NEG) Urine Nitrite Negative (NEG) Urine Bilirubin Negative (NEG) Urine Urobilinogen Dipstick 0.2 mg/dL (0.2 mg/dL) Urine Leukocyte Esterase Negative (NEG) Urine RBC Occ /HPF (0-2) Urine WBC 1-4 /HPF (0-4) Urine Squamous Epithelial Cells Few /LPF Urine Bacteria 0 /HPF (0-FEW) Urine Hyaline Casts Occasional /HPF Glucose (Fingerstick) 186 mg/dL (70-99) 147 mg/dL (70-99) Test 03/29/20 16:58 03/30/20 05:12 03/30/20 07:42 Glucose (Fingerstick) 135 mg/dL (70-99) 246 mg/dL (70-99) White Blood Count 13.5 x10^3/uL (4.0-11.0) Red Blood Count 3.92 x10^6/uL (4.30-5.70) Hemoglobin 11.5 g/dL (13.0-17.5) Hematocrit 34.2 % (39.0-53.0) Mean Corpuscular Volume 87 fL (79-100) Mean Corpuscular Hemoglobin 29 pg (25-35) Mean Corpuscular Hemoglobin Concent 34 g/dL (31-37) Red Cell Distribution Width 13.4 % (11.5-14.5) Platelet Count 275 x10^3/uL (140-400) Neutrophils (%) (Auto) 87 % (31-73) Lymphocytes (%) (Auto) 7 % (24-48) Monocytes (%) (Auto) 5 % (0-9) Eosinophils (%) (Auto) 0 % (0-3) Basophils (%) (Auto) 0 % (0-3) Neutrophils # (Auto) 11.8 x10^3/uL (1.8-7.7) Lymphocytes # (Auto) 0.9 x10^3/uL (1.0-4.8) Monocytes # (Auto) 0.7 x10^3/uL (0.0-1.1) Eosinophils # (Auto) 0.0 x10^3/uL (0.0-0.7) Basophils # (Auto) 0.0 x10^3/uL (0.0-0.2) Segmented Neutrophils % 84 % (35-66) Band Neutrophils % 9 % (0-9) Lymphocytes % 5 % (24-48) Monocytes % 2 % (0-10) Platelet Estimate Adequate (ADEQUATE) Sodium Level 135 mmol/L (136-145) Potassium Level 4.4 mmol/L (3.5-5.1) Chloride Level 99 mmol/L (98-107) Carbon Dioxide Level 25 mmol/L (21-32) Anion Gap 11 (6-14) Blood Urea Nitrogen 14 mg/dL (8-26) Creatinine 0.7 mg/dL (0.7-1.3) Estimated GFR (Cockcroft-Gault) 117.5 Glucose Level 270 mg/dL (70-99) Calcium Level 8.6 mg/dL (8.5-10.1) Medications Current Medications Sodium Chloride (Normal Saline Flush) 3 ml QSHIFT PRN IV AFTER MEDS AND BLOOD DRAWS; Start 03/29/20 at 11:00 Sodium Chloride 1,000 ml @ 75 mls/hr [id number] IV Last administered on 03/29/20at 13:21; Start 03/29/20 at 10:53 Ondansetron HCl (Zofran) 4 mg PRN Q4HRS PRN IV NAUSEA/VOMITING; Start 03/29/20 at 11:00 Acetaminophen (Tylenol) 650 mg PRN Q4HRS PRN PO TEMP OVER 100.4F OR MILD PAIN; Start 03/29/20 at 11:00 Clonidine HCl (Catapres) 0.1 mg PRN Q6HRS PRN PO SBP>160 OR DBP>90; Start 03/29/20 at 11:00 Docusate Sodium (Colace) 100 mg PRN BID PRN PO CONSTIPATION; Start 03/29/20 at 11:00 Albuterol/ Ipratropium (Duoneb) 3 ml Q4HRS NEB ; Start 03/29/20 at 12:00; Stop 03/29/20 at 11:17; Status DC Guaifenesin (Robitussin) 200 mg PRN Q4HRS PRN PO COUGH; Start 03/29/20 at 11:00 Enoxaparin Sodium (Lovenox 40mg Syringe) 40 mg Q24H SQ ; Start 03/29/20 at 11:00 Vancomycin HCl 1 gm/Dextrose 250 ml @ 250 mls/hr 1X ONCE IV ; Start 03/29/20 at 11:00; Stop 03/29/20 at 11:59; Status UNV Vancomycin HCl (Vanco Per Pharmacy) 1 each PRN DAILY PRN MC SEE COMMENTS Last administered on 03/29/20at 13:59; Start 03/29/20 at 11:00 Albuterol Sulfate (Ventolin Neb Soln) 3 mg PRN Q4HRS PRN NEB WHEEZING; Start 03/29/20 at 11:15 Vancomycin HCl 2 gm/Sodium Chloride 500 ml @ 250 mls/hr 1X ONCE IV Last administered on 03/29/20at 13:22; Start 03/29/20 at 13:00; Stop 03/29/20 at 14:59; Status DC Nicotine (Nicoderm Cq 14mg) 1 patch DAILY TD Last administered on 03/30/20at 08 :55; Start 03/29/20 at 14:00 Meropenem 500 mg/ Sodium Chloride 50 ml @ 100 mls/hr Q8HRS IV Last administered on 03/30/20at 08:54; Start 03/29/20 at 14:00 Ondansetron HCl (Zofran) 4 mg PRN Q6HRS PRN IV NAUSEA/VOMITING; Start 03/29/20 at 14:00; Stop 03/29/20 at 23:00; Status DC Fentanyl Citrate (Fentanyl 2ml Vial) 25 mcg PRN Q5MIN PRN IV MILD PAIN 1-3; Start 03/29/20 at 14:00; Stop 03/29/20 at 23:00; Status DC Fentanyl Citrate (Fentanyl 2ml Vial) 50 mcg PRN Q5MIN PRN IV MODERATE TO SEVERE PAIN; Start 03/29/20 at 14:00; Stop 03/29/20 at 23:00; Status DC Morphine Sulfate (Morphine Sulfate) 1 mg PRN Q10MIN PRN IV SEVERE PAIN 7-10; Start 03/29/20 at 14:00; Stop 03/29/20 at 23:00; Status DC Ringer's Solution 1,000 ml @ 30 mls/hr Q24H IV Last administered on 03/29/20at 13:46; Start 03/29/20 at 13:46; Stop 03/30/20 at 01:45; Status DC Lidocaine HCl (Xylocaine-Mpf 1% 2ml Vial) 2 ml PRN 1X PRN ID PRIOR TO IV START; Start 03/29/20 at 14:00; Stop 03/29/20 at 23:00; Status DC Hydromorphone HCl (Dilaudid) 0.5 mg PRN Q10MIN PRN IV SEV PAIN, Second choice; Start 03/29/20 at 14:00; Stop 03/29/20 at 23:00; Status DC Prochlorperazine Edisylate (Compazine) 5 mg PACU PRN PRN IV NAUSEA, MRX1; Start 03/29/20 at 14:00; Stop 03/29/20 at 23:00; Status DC Vancomycin HCl 1.5 gm/Sodium Chloride 500 ml @ 250 mls/hr Q8H IV Last administered on 03/30/20at 05:22; Start 03/29/20 at 21:00 Vancomycin HCl (Vancomycin Trough Level) 1 each 1X ONCE MC ; Start 03/30/20 at 12:30; Stop 03/30/20 at 12:31 Insulin Human Lispro (HumaLOG VIAL for OP,RR ONLY) 0-10 units PRN Q1HR PRN SQ PER PROTOCOL Last administered on 03/29/20at 14:07; Start 03/29/20 at 14:15; Stop 03/30/20 at 14:14 Propofol (Diprivan) 200 mg STK-MED ONCE IV ; Start 03/29/20 at 14:18; Stop 03/29/20 at 14:19; Status DC Lidocaine HCl (Lidocaine Pf 2% Vial) 5 ml STK-MED ONCE .ROUTE ; Start 03/29/20 at 14:18; Stop 03/29/20 at 14:19; Status DC Propofol 50 ml @ As Directed STK-MED ONCE IV ; Start 03/29/20 at 14:18; Stop 03/29/20 at 14:19; Status DC Fentanyl Citrate (Fentanyl 2ml Vial) 100 mcg STK-MED ONCE .ROUTE ; Start 03/29/20 at 14:19; Stop 03/29/20 at 14:19; Status DC Midazolam HCl (Versed) 2 mg STK-MED ONCE .ROUTE ; Start 03/29/20 at 14:19; Stop 03/29/20 at 14:19; Status DC Bacitracin 16558 unit/Sodium Chloride 500 ml @ 500 mls/hr 1X ONCE IRR Last administered on 03/29/20at 14:50; Start 03/29/20 at 14:30; Stop 03/29/20 at 14:44; Status DC Oxycodone/ Acetaminophen (Percocet 5/325) 1 tab PRN Q4HRS PRN PO MODERATE PAIN Last administered on 03/30/20at 08:54; Start 03/29/20 at 14:30 Oxycodone/ Acetaminophen (Percocet 5/325) 2 tab PRN Q4HRS PRN PO SEVERE PAIN Last administered on 03/29/20at 20:39; Start 03/29/20 at 14:30 Ondansetron HCl (Zofran) 4 mg PRN Q8HRS PRN IVP NAUSEA/VOMITING; Start 03/29/20 at 14:30 Morphine Sulfate (Morphine Sulfate) 2 mg PRN Q2HR PRN IV MODERATE TO SEVERE PAIN; Start 03/29/20 at 14:45 Lidocaine HCl (Xylocaine 1% Pf 30ml Vial) 30 ml STK-MED ONCE .ROUTE Last administered on 03/29/20at 14:50; Start 03/29/20 at 14:39; Stop 03/29/20 at 14:40; Status DC Bacitracin 30240 unit/Sodium Chloride 1,000 ml @ 1,000 mls/hr 1X ONCE IRR ; Start 03/29/20 at 15:00; Stop 03/29/20 at 15:59; Status DC Acetaminophen (Tylenol) 650 mg PRN Q6HRS PRN PO MILD PAIN 1-3; Start 03/30/20 at 09:30 Amlodipine Besylate (Norvasc) 10 mg DAILY PO ; Start 03/31/20 at 09:00 Aspirin (Ecotrin) 325 mg DAILYWBKFT PO ; Start 03/31/20 at 08:00 Atorvastatin Calcium (Lipitor) 40 mg QHS PO ; Start 03/30/20 at 21:00 Lactobacillus Rhamnosus (Culturelle) 1 cap BID PO ; Start 03/30/20 at 21:00 Metformin HCl (Glucophage) 500 mg BIDWMEALS PO ; Start 03/30/20 at 17:00 Glipizide (Glucotrol Er) 10 mg DAILY08 PO ; Start 03/30/20 at 10:00 Insulin Glargine (Lantus Syringe) 10 unit 1X ONCE SQ ; Start 03/30/20 at 09:30; Stop 03/30/20 at 09:31; Status DC Active Scripts Active Culturelle (Lactobacillus Rhamnosus Gg) 1 Each Cap.sprink 1 Cap PO BID 30 Days Tylenol (Acetaminophen) 325 Mg Tablet 650 Mg PO PRN Q6HRS PRN 30 Days Percocet 5-325 Mg Tablet (Oxycodone/Acetaminophen) 1 Each Tablet 1 Tab PO PRN Q4HRS PRN 30 Days Aspirin Ec (Aspirin) 325 Mg Tablet.dr 325 Mg PO DAILYWBKFT 30 Days Lisinopril 10 Mg Tablet 10 Mg PO DAILY 30 Days Amlodipine Besylate 10 Mg Tablet 10 Mg PO DAILY MDD 30 30 Days Zyvox (Linezolid) 600 Mg Tablet 600 Mg PO BID 4 Days Reported Atorvastatin Calcium 40 Mg Tablet 1 Tab PO QHS Glipizide 10 Mg Tablet 10 Mg PO DAILY Metformin Hcl 500 Mg Tablet 500 Mg PO BIDWMEALS Vitals/I & O Vital Sign - Last 24 Hours 03/29/20 03/29/20 03/29/20 03/29/20 11:00 11:20 14:15 15:18 Temp 98.6 98.6 98.7 98.6 98.6 98.7 Pulse 74 77 68 Resp 18 15 16 B/P (MAP) 174/84 (114) 173/81 142/68 Pulse Ox 97 97 98 O2 Delivery Room Air Room Air Room Air Room Air 03/29/20 03/29/20 03/29/20 03/29/20 15:35 15:50 16:05 16:20 Temp 98.7 98.7 98.7 97.6 98.7 98.7 98.7 97.6 Pulse 66 68 66 71 Resp 16 16 16 16 B/P (MAP) 137/71 155/69 155/69 163/69 (100) Pulse Ox 96 98 96 98 O2 Delivery Room Air Room Air Room Air Room Air 03/29/20 03/29/20 03/29/20 03/29/20 16:35 16:50 17:05 17:20 Temp 97.6 97.6 98.2 98.2 97.6 97.6 98.2 98.2 Pulse 97 69 70 81 Resp 18 16 18 18 B/P (MAP) 141/64 (89) 152/69 (96) 148/71 (96) 152/79 (103) Pulse Ox 97 95 98 98 O2 Delivery Room Air Room Air Room Air Room Air 03/29/20 03/29/20 03/29/20 03/29/20 17:50 19:55 20:00 20:39 Temp 97.8 98.2 97.8 98.2 Pulse 98 75 Resp 20 18 20 B/P (MAP) 142/69 (93) 125/67 (86) Pulse Ox 98 96 O2 Delivery Room Air Room Air Room Air Room Air 03/29/20 03/29/20 03/30/20 03/30/20 21:39 23:12 03:29 07:15 Temp 97.6 97.7 97.8 97.6 97.7 97.8 Pulse 65 67 61 Resp 20 18 20 20 B/P (MAP) 144/70 (94) 144/65 (91) 139/68 (91) Pulse Ox 97 99 94 O2 Delivery Room Air Room Air Room Air Room Air 03/30/20 08:54 Pulse Ox 94 O2 Delivery Room Air Intake and Output 03/29/20 03/29/20 03/30/20 15:00 23:00 07:00 Intake Total 0 ml 1050 ml 1210 ml Output Total 1710 ml 2100 ml Balance 0 ml -660 ml -890 ml RONALDO CARLOS MD March 30, 2020 10:40
[2020-03-30] MEDS ORDERED: DEXTROSE 50% 25 GM / 50ML DISP.SYRIN. IV PRN (10:45)
[2020-03-30 11:15] VITALS: BP 142/72
[2020-03-30] MEDS: VANCOMYCIN PER PHARMACY MC PRN ×2 (12:40→13:24)
[2020-03-30] MEDS: ENOXAPARIN 40 MG/0.4 ML SYRINGE. SQ SCH (12:54)
[2020-03-30] MEDS: INSULIN LISPRO 300 UNITS/3 ML VIAL. SQ SCH ×2 (13:04→16:50)
[2020-03-30 13:06] LABS: VANC TR 12.1 mcg/mL (10.0-20.0)
--- NOTE | 2020-03-30 13:25 | NUR ---
Pharmacy Vancomycin Dosing Note S: Consulted to monitor and dose vancomycin started 03/29/20. O: LEXA KENDRICK is a 54 year old M with Cellulitis Other Antibiotics: merrem LABS: Last BUN: 14 Last Creatinine: 0.7 Creatinine Clearance: >100 mL/min Last WBC: 13.5 Last Procalcitonin: Tmax (past 24 hours): 98.2 Microbiology: BLOOD: NGTD I/O: 2260/3810 Drug Levels: Last Trough level: 12.1 on 03/30/20 at 1220 Last dose given 03/30/20 at 0522 Vancomycin Dosing: Dosing Weight: Actual Target Trough: 10-20 A: Based on: trough P: 1. Continue Vancomycin 1500 mg IV q8h 2. Follow up Trough level to be ordered as needed 3. Pharmacy will continue to monitor, follow and adjust therapy as needed. Aminata Beatty RPH, 03/30/20 [id number]
[2020-03-30 15:04] VITALS: BP 147/54
--- NOTE | 2020-03-30 16:23 | PDOC ---
Infectious Disease Note Vital Sign Vital Signs Vital Signs Date Time Temp Pulse Resp B/P (MAP) Pulse Ox O2 Delivery O2 Flow Rate FiO2 03/30/20 15:04 97.6 72 18 147/54 (85) 96 Room Air 97.6 Labs Lab Laboratory Tests Test 03/29/20 16:58 03/30/20 05:12 03/30/20 07:42 03/30/20 11:41 Glucose (Fingerstick) 135 mg/dL (70-99) 246 mg/dL (70-99) 335 mg/dL (70-99) White Blood Count 13.5 x10^3/uL (4.0-11.0) Red Blood Count 3.92 x10^6/uL (4.30-5.70) Hemoglobin 11.5 g/dL (13.0-17.5) Hematocrit 34.2 % (39.0-53.0) Mean Corpuscular Volume 87 fL (79-100) Mean Corpuscular Hemoglobin 29 pg (25-35) Mean Corpuscular Hemoglobin Concent 34 g/dL (31-37) Red Cell Distribution Width 13.4 % (11.5-14.5) Platelet Count 275 x10^3/uL (140-400) Neutrophils (%) (Auto) 87 % (31-73) Lymphocytes (%) (Auto) 7 % (24-48) Monocytes (%) (Auto) 5 % (0-9) Eosinophils (%) (Auto) 0 % (0-3) Basophils (%) (Auto) 0 % (0-3) Neutrophils # (Auto) 11.8 x10^3/uL (1.8-7.7) Lymphocytes # (Auto) 0.9 x10^3/uL (1.0-4.8) Monocytes # (Auto) 0.7 x10^3/uL (0.0-1.1) Eosinophils # (Auto) 0.0 x10^3/uL (0.0-0.7) Basophils # (Auto) 0.0 x10^3/uL (0.0-0.2) Segmented Neutrophils % 84 % (35-66) Band Neutrophils % 9 % (0-9) Lymphocytes % 5 % (24-48) Monocytes % 2 % (0-10) Platelet Estimate Adequate (ADEQUATE) Sodium Level 135 mmol/L (136-145) Potassium Level 4.4 mmol/L (3.5-5.1) Chloride Level 99 mmol/L (98-107) Carbon Dioxide Level 25 mmol/L (21-32) Anion Gap 11 (6-14) Blood Urea Nitrogen 14 mg/dL (8-26) Creatinine 0.7 mg/dL (0.7-1.3) Estimated GFR (Cockcroft-Gault) 117.5 Glucose Level 270 mg/dL (70-99) Calcium Level 8.6 mg/dL (8.5-10.1) Test 03/30/20 12:20 Vancomycin Level Trough 12.1 mcg/mL (10.0-20.0) Vancomycin Last Dose Date 03/30/20 Vancomycin Last Dose Time 0500 Micro Microbiology 03/29/20 Blood Culture - Preliminary, Resulted NO GROWTH AFTER 1 DAY Objective Assessment Diabetic ulcer with osteomyelitis right fifth toe s/p amputation, open on 03/29. intra-op cultures pending cellulitis of right foot Leukocytosis PCN allergy w/ anaphylaxis. PAD s/p revasculization in Dec 2019 Diabetes w/ peripheral neuropathy Hypertension Tobaccoism Plan Plan of Care Vancomycin per pharmacy protocal and Meropenem Monitor renal function closely Follow-up cultures Local wound care as directed Smoking cessation D/w nursing Thank you [id number] Patient seen and examined. Chart reviewed in detail. Case discussed with [employer]PRESENT[employer]IVE. Agree with above plan JOB SENIOR APRN March 30, 2020 16:23 JIE MYERS MD March 30, 2020 21:01
[2020-03-30] MEDS: metFORMIN 500 MG TABLET PO SCH (16:45)
--- NOTE | 2020-03-30 18:34 | CONS ---
DATE OF CONSULTATION: 03/30/2020 REFERRING PHYSICIAN: Alfredo Martinez MD REASON FOR CONSULTATION: Diabetic foot. HISTORY OF PRESENT ILLNESS: This patient is a 54-year-old male who has a past medical history of diabetes, peripheral vascular disease along with a nonhealing right 5th toe ulcer that has been present for about 5 months. He had been treated with antibiotics with little improvement. An MRI in December did not show any convincing evidence of osteomyelitis. He underwent a right femoropopliteal bypass and debridement of necrotic skin and subcutaneous tissue. He is treated with Zyvox and meropenem. No wound cultures were taken at that time. Since then, the patient says the wound has been healing nicely. He is followed by the wound care center once a week. Yesterday, when his soft cast was taken off, he was found to have severe cellulitis with worsening ulceration and drainage. He was taken to the OR and underwent amputation, right toe open, performed by Dr. Burns. Intraoperative cultures were sent. He is now on vancomycin and meropenem. The patient says he is doing alright. He is not having any pain for which he attributes to loss of sensation in both his feet. He recalls having a fever of 100.6, cold like symptoms and fatigue few days ago. He was tested for COVID, which returned negative. He has not had any further symptoms since. He is a current smoker, but is now determined to quit and is wearing a patch. He normally wears an orthotic shoe on the right. PAST MEDICAL HISTORY: Diabetes with peripheral neuropathy, peripheral arterial disease, hypertension, tobaccoism, hyperlipidemia, depression. PAST SURGICAL HISTORY: Right 5th toe open amputation on 03/29/2020, right fem-pop bypass, and foot debridement in 12/2019. SOCIAL HISTORY: The patient lives at home. 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 He is a current smoker, trying to quit. FAMILY HISTORY: Hypertension. ALLERGIES: PENICILLIN WITH ANAPHYLAXIS. MEDICATIONS: Reviewed on the MAR and includes vancomycin, meropenem, probiotics. REVIEW OF SYSTEMS: Per HPI, otherwise all other review of systems are negative. PHYSICAL EXAMINATION: VITAL SIGNS: Temperature 97.6, blood pressure 147/54, heart rate 72, respiratory rate 18, pulse oximetry 96% on room air. BMI 27. GENERAL: The patient is propped up in bed, alert, appears comfortable. HEENT: Pupils equally round, reactive. Normal conjunctivae. Oropharynx pink and moist. No lesions seen. NECK: Supple. LUNGS: Clear to auscultation. HEART: S1, S2 regular. ABDOMEN: Soft, nontender with bowel sounds present. EXTREMITIES: Right lower extremity edema. Postop dressing dry and intact. Mild erythema and warmth up to mid mayberry area. Other extremities unremarkable. SKIN: Warm to touch. No signs of rash. NEUROLOGIC: Alert and answering questions appropriately. LABORATORY DATA: Today's WBC 13.5 from 14.3 on admission, hemoglobin 11.5, platelets 275,000. Sodium 135, potassium 4.4, creatinine 0.7, BUN 14, glucose 270. Procalcitonin 0.12, albumin 3.3, total bilirubin 0.6, AST 21, ALT 67. Vancomycin trough 12.1. Urinalysis from the 03/29/2020, unremarkable for infection. Arterial ultrasound abnormal. Foot x-ray on 03/29/2020 showed no acute fracture or dislocation. Blood cultures from 03/29/2020, negative to date. ASSESSMENT: 1. Diabetic ulcer with osteomyelitis, right 5th toe, status post amputation open on 03/29/2020. 2. Cellulitis of right foot. 3. Leukocytosis. 4. PENICILLIN ALLERGY WITH ANAPHYLAXIS. 5. Peripheral arterial disease, status post revascularization in 12/2019. 6. Diabetes with peripheral neuropathy. 7. Hypertension. 8. Tobaccoism. PLAN: 1. Continue the vancomycin per pharmacy protocol and meropenem. 2. Monitor renal function closely. 3. Follow up on culture results. 4. Local wound care as directed. 5. We will continue to follow along. 6. Discussed with nursing. Thank you, Dr. Martinez, for asking us to participate in this patient's care. Should you have further questions or concerns, please call. JIE MYERS MD DR: MARY JO/carlos JOB#: [id number] / [id number]
[2020-03-30 19:00] VITALS: BP 146/65
[2020-03-30] MEDS: oxyCODONE/APAP 5/325 1 TAB TABLET PO PRN (19:46)
[2020-03-30] MEDS: LACTOBACILLUS RHAMNOSUS GG 1 CAPSULE. PO SCH (21:29)
[2020-03-30] MEDS: ATORVASTATIN CALCIUM 40 MG TABLET. PO SCH (21:29)
[2020-03-30 23:00] VITALS: BP 146/69
[2020-03-31 03:00] VITALS: BP 126/75
[2020-03-31 04:50] LABS: BASO % 0 % (0-3); EOS # 0.2 x10^3/uL (0.0-0.7); EOS % 2 % (0-3); HEMATOCRIT 34.3 % (39.0-53.0); HEMOGLOBIN 11.8 g/dL (13.0-17.5); LYMPH # 1.2 x10^3/uL (1.0-4.8); LYMPH % 12 % (24-48); MEAN CORPUSCULAR HEMOGLOBIN 30 pg (25-35); MEAN CORPUSCULAR HGB CONC 34 g/dL (31-37); MEAN CORPUSCULAR VOLUME 86 fL (79-100); MONO # 0.5 x10^3/uL (0.0-1.1); MONO % 5 % (0-9); NEUT # 8.1 x10^3/uL (1.8-7.7); NEUT % 82 % (31-73); PLATELET COUNT 273 x10^3/uL (140-400); RED BLOOD COUNT 3.97 x10^6/uL (4.30-5.70); RED CELL DISTRIBUTION WIDTH 13.5 % (11.5-14.5)
[2020-03-31 05:04] LABS: CALCIUM 8.3 mg/dL (8.5-10.1); CREATININE 0.8 mg/dL (0.7-1.3); GFR 100.7; POTASSIUM 4.2 mmol/L (3.5-5.1)
[2020-03-31] MEDS: IV NORMAL SALINE 1000ML BAG 1,000 ML IV SCH ×2 (05:22→15:02)
[2020-03-31] MEDS: VANCOMYCIN 1.5 GM in IV NORMAL SALINE 500ML BAG 500 ML IV SCH ×3 (05:24→21:02)
[2020-03-31] MEDS: oxyCODONE/APAP 5/325 1 TAB TABLET PO PRN ×2 (05:26→15:01)
[2020-03-31 07:15] VITALS: BP 130/105
[2020-03-31] MEDS: MEROPENEM 500 MG in IV NORMAL SALINE 50ML 50 ML IV SCH ×3 (08:32→22:54)
[2020-03-31] MEDS: metFORMIN 500 MG TABLET PO SCH ×2 (08:32→17:14)
[2020-03-31] MEDS: ASPIRIN ENTERIC COATED 325 MG TABLET.DR. PO SCH (08:33)
[2020-03-31] MEDS: amLODIPine BESYLATE 10 MG TABLET PO SCH (08:33)
[2020-03-31] MEDS: LACTOBACILLUS RHAMNOSUS GG 1 CAPSULE. PO SCH ×2 (08:33→21:02)
[2020-03-31] MEDS: glipiZIDE ER 2.5 MG TAB.ER.24 PO SCH (08:34)
[2020-03-31] MEDS: NICOTINE 14MG PATCH. TD SCH (08:34)
[2020-03-31] MEDS: INSULIN LISPRO 300 UNITS/3 ML VIAL. SQ SCH ×3 (08:55→17:00)
--- NOTE | 2020-03-31 10:12 | PDOC ---
Infectious Disease Note Subjective Subjective Feeling alright Foot dressing changed earlier Denies F/C/SOA/pain ROS ROS per HPI Vital Sign Vital Signs Vital Signs Date Time Temp Pulse Resp B/P (MAP) Pulse Ox O2 Delivery O2 Flow Rate FiO2 03/31/20 08:33 72 130/105 03/31/20 07:15 97.8 18 96 Room Air 97.8 Physical Exam PHYSICAL EXAM GENERAL: Propped up in bed, alert, appears comfortable. HEENT: Pupils equally round, reactive. Normal conjunctivae. Oropharynx pink and moist. No lesions seen. NECK: Supple. LUNGS: Clear to auscultation. HEART: S1, S2 regular. ABDOMEN: Soft, nontender with bowel sounds present. EXTREMITIES: Right lower extremity edema. Dressing dry Less erythema and warmth up to mid mayberry area. Other extremities unremarkable. SKIN: Warm to touch. No signs of rash. NEUROLOGIC: Alert and answering questions appropriately. PIV Labs Lab Laboratory Tests Test 03/30/20 11:41 03/30/20 12:20 03/30/20 16:33 03/30/20 20:25 Glucose (Fingerstick) 335 mg/dL (70-99) 159 mg/dL (70-99) 158 mg/dL (70-99) Vancomycin Level Trough 12.1 mcg/mL (10.0-20.0) Vancomycin Last Dose Date 03/30/20 Vancomycin Last Dose Time 0500 Test 03/31/20 04:30 03/31/20 07:41 White Blood Count 10.0 x10^3/uL (4.0-11.0) Red Blood Count 3.97 x10^6/uL (4.30-5.70) Hemoglobin 11.8 g/dL (13.0-17.5) Hematocrit 34.3 % (39.0-53.0) Mean Corpuscular Volume 86 fL (79-100) Mean Corpuscular Hemoglobin 30 pg (25-35) Mean Corpuscular Hemoglobin Concent 34 g/dL (31-37) Red Cell Distribution Width 13.5 % (11.5-14.5) Platelet Count 273 x10^3/uL (140-400) Neutrophils (%) (Auto) 82 % (31-73) Lymphocytes (%) (Auto) 12 % (24-48) Monocytes (%) (Auto) 5 % (0-9) Eosinophils (%) (Auto) 2 % (0-3) Basophils (%) (Auto) 0 % (0-3) Neutrophils # (Auto) 8.1 x10^3/uL (1.8-7.7) Lymphocytes # (Auto) 1.2 x10^3/uL (1.0-4.8) Monocytes # (Auto) 0.5 x10^3/uL (0.0-1.1) Eosinophils # (Auto) 0.2 x10^3/uL (0.0-0.7) Basophils # (Auto) 0.0 x10^3/uL (0.0-0.2) Sodium Level 137 mmol/L (136-145) Potassium Level 4.2 mmol/L (3.5-5.1) Chloride Level 102 mmol/L (98-107) Carbon Dioxide Level 27 mmol/L (21-32) Anion Gap 8 (6-14) Blood Urea Nitrogen 11 mg/dL (8-26) Creatinine 0.8 mg/dL (0.7-1.3) Estimated GFR (Cockcroft-Gault) 100.7 Glucose Level 186 mg/dL (70-99) Calcium Level 8.3 mg/dL (8.5-10.1) Glucose (Fingerstick) 186 mg/dL (70-99) Micro Microbiology 03/29/20 Blood Culture - Preliminary, Resulted NO GROWTH AFTER 1 DAY Objective Assessment Diabetic ulcer with osteomyelitis right fifth toe s/p amputation, open on 03/29. intra-op cultures still pending Cellulitis of right foot Leukocytosis - improved PCN allergy w/ anaphylaxis. PAD s/p revasculization in Dec 2019 Diabetes w/ peripheral neuropathy Hypertension Tobaccoism Plan Plan of Care Vancomycin per pharmacy protocal and Meropenem Monitor renal function closely Follow-up cultures Local wound care as directed Smoking cessation Consult social media project manager for long-term IV abx Will need PICC Patient seen and examined. Chart reviewed in detail. Case discussed with ASSISTANT FEDERAL PUBLIC DEFENDER.Agree with above plan JOB SENIOR APRN March 31, 2020 10:12 JIE MYERS MD March 31, 2020 16:56
--- NOTE | 2020-03-31 10:16 | PDOC ---
SURGICAL PROGRESS NOTE Subjective Patient was seen and examined at the bedside and is doing well. Vital Signs Vital Signs Date Time Temp Pulse Resp B/P (MAP) Pulse Ox O2 Delivery O2 Flow Rate FiO2 03/31/20 08:33 72 130/105 03/31/20 07:15 97.8 18 96 Room Air 97.8 I&O Intake and Output 03/31/20 06:59 Intake Total 1080 ml Output Total 4000 ml Balance -2920 ml Intake Oral 1080 ml Output Urine Total 4000 ml General: Alert, Oriented X3, Cooperative Skin: Other (Wound bed appears healthy and the cellulitis on the dorsum of his foot has resolved. There is healthy bleeding and granulation tissue.) Labs Laboratory Tests Test 03/29/20 11:45 03/29/20 13:40 03/29/20 13:58 03/29/20 15:48 White Blood Count 14.3 x10^3/uL (4.0-11.0) Red Blood Count 4.37 x10^6/uL (4.30-5.70) Hemoglobin 12.7 g/dL (13.0-17.5) Hematocrit 38.0 % (39.0-53.0) Mean Corpuscular Volume 87 fL (79-100) Mean Corpuscular Hemoglobin 29 pg (25-35) Mean Corpuscular Hemoglobin Concent 34 g/dL (31-37) Red Cell Distribution Width 13.8 % (11.5-14.5) Platelet Count 301 x10^3/uL (140-400) Neutrophils (%) (Auto) 81 % (31-73) Lymphocytes (%) (Auto) 10 % (24-48) Monocytes (%) (Auto) 8 % (0-9) Eosinophils (%) (Auto) 1 % (0-3) Basophils (%) (Auto) 1 % (0-3) Neutrophils # (Auto) 11.5 x10^3/uL (1.8-7.7) Lymphocytes # (Auto) 1.4 x10^3/uL (1.0-4.8) Monocytes # (Auto) 1.1 x10^3/uL (0.0-1.1) Eosinophils # (Auto) 0.2 x10^3/uL (0.0-0.7) Basophils # (Auto) 0.1 x10^3/uL (0.0-0.2) Sodium Level 134 mmol/L (136-145) Potassium Level 3.9 mmol/L (3.5-5.1) Chloride Level 97 mmol/L (98-107) Carbon Dioxide Level 28 mmol/L (21-32) Anion Gap 9 (6-14) Blood Urea Nitrogen 11 mg/dL (8-26) Creatinine 0.9 mg/dL (0.7-1.3) Estimated GFR (Cockcroft-Gault) 87.9 BUN/Creatinine Ratio 12 (6-20) Glucose Level 227 mg/dL (70-99) Calcium Level 8.9 mg/dL (8.5-10.1) Total Bilirubin 0.6 mg/dL (0.2-1.0) Aspartate Amino Transf (AST/SGOT) 21 U/L (15-37) Alanine Aminotransferase (ALT/SGPT) 67 U/L (16-63) Alkaline Phosphatase 113 U/L (46-116) Total Protein 8.2 g/dL (6.4-8.2) Albumin 3.3 g/dL (3.4-5.0) Albumin/Globulin Ratio 0.7 (1.0-1.7) Procalcitonin 0.12 ng/mL (0.00-0.10) Urine Collection Type Unknown Urine Color Yellow Urine Clarity Clear Urine pH 5.5 (<5.0-8.0) Urine Specific Riva >=1.030 (1.000-1.030) Urine Protein Negative mg/dL (NEG-TRACE) Urine Glucose (UA) >=1000 mg/dL (NEG) Urine Ketones (Stick) Negative mg/dL (NEG) Urine Blood Negative (NEG) Urine Nitrite Negative (NEG) Urine Bilirubin Negative (NEG) Urine Urobilinogen Dipstick 0.2 mg/dL (0.2 mg/dL) Urine Leukocyte Esterase Negative (NEG) Urine RBC Occ /HPF (0-2) Urine WBC 1-4 /HPF (0-4) Urine Squamous Epithelial Cells Few /LPF Urine Bacteria 0 /HPF (0-FEW) Urine Hyaline Casts Occasional /HPF Glucose (Fingerstick) 186 mg/dL (70-99) 147 mg/dL (70-99) Test 03/29/20 16:58 03/30/20 05:12 03/30/20 07:42 03/30/20 11:41 Glucose (Fingerstick) 135 mg/dL (70-99) 246 mg/dL (70-99) 335 mg/dL (70-99) White Blood Count 13.5 x10^3/uL (4.0-11.0) Red Blood Count 3.92 x10^6/uL (4.30-5.70) Hemoglobin 11.5 g/dL (13.0-17.5) Hematocrit 34.2 % (39.0-53.0) Mean Corpuscular Volume 87 fL (79-100) Mean Corpuscular Hemoglobin 29 pg (25-35) Mean Corpuscular Hemoglobin Concent 34 g/dL (31-37) Red Cell Distribution Width 13.4 % (11.5-14.5) Platelet Count 275 x10^3/uL (140-400) Neutrophils (%) (Auto) 87 % (31-73) Lymphocytes (%) (Auto) 7 % (24-48) Monocytes (%) (Auto) 5 % (0-9) Eosinophils (%) (Auto) 0 % (0-3) Basophils (%) (Auto) 0 % (0-3) Neutrophils # (Auto) 11.8 x10^3/uL (1.8-7.7) Lymphocytes # (Auto) 0.9 x10^3/uL (1.0-4.8) Monocytes # (Auto) 0.7 x10^3/uL (0.0-1.1) Eosinophils # (Auto) 0.0 x10^3/uL (0.0-0.7) Basophils # (Auto) 0.0 x10^3/uL (0.0-0.2) Segmented Neutrophils % 84 % (35-66) Band Neutrophils % 9 % (0-9) Lymphocytes % 5 % (24-48) Monocytes % 2 % (0-10) Platelet Estimate Adequate (ADEQUATE) Sodium Level 135 mmol/L (136-145) Potassium Level 4.4 mmol/L (3.5-5.1) Chloride Level 99 mmol/L (98-107) Carbon Dioxide Level 25 mmol/L (21-32) Anion Gap 11 (6-14) Blood Urea Nitrogen 14 mg/dL (8-26) Creatinine 0.7 mg/dL (0.7-1.3) Estimated GFR (Cockcroft-Gault) 117.5 Glucose Level 270 mg/dL (70-99) Calcium Level 8.6 mg/dL (8.5-10.1) Test 03/30/20 12:20 03/30/20 16:33 03/30/20 20:25 03/31/20 04:30 Vancomycin Level Trough 12.1 mcg/mL (10.0-20.0) Vancomycin Last Dose Date 03/30/20 Vancomycin Last Dose Time 0500 Glucose (Fingerstick) 159 mg/dL (70-99) 158 mg/dL (70-99) White Blood Count 10.0 x10^3/uL (4.0-11.0) Red Blood Count 3.97 x10^6/uL (4.30-5.70) Hemoglobin 11.8 g/dL (13.0-17.5) Hematocrit 34.3 % (39.0-53.0) Mean Corpuscular Volume 86 fL (79-100) Mean Corpuscular Hemoglobin 30 pg (25-35) Mean Corpuscular Hemoglobin Concent 34 g/dL (31-37) Red Cell Distribution Width 13.5 % (11.5-14.5) Platelet Count 273 x10^3/uL (140-400) Neutrophils (%) (Auto) 82 % (31-73) Lymphocytes (%) (Auto) 12 % (24-48) Monocytes (%) (Auto) 5 % (0-9) Eosinophils (%) (Auto) 2 % (0-3) Basophils (%) (Auto) 0 % (0-3) Neutrophils # (Auto) 8.1 x10^3/uL (1.8-7.7) Lymphocytes # (Auto) 1.2 x10^3/uL (1.0-4.8) Monocytes # (Auto) 0.5 x10^3/uL (0.0-1.1) Eosinophils # (Auto) 0.2 x10^3/uL (0.0-0.7) Basophils # (Auto) 0.0 x10^3/uL (0.0-0.2) Sodium Level 137 mmol/L (136-145) Potassium Level 4.2 mmol/L (3.5-5.1) Chloride Level 102 mmol/L (98-107) Carbon Dioxide Level 27 mmol/L (21-32) Anion Gap 8 (6-14) Blood Urea Nitrogen 11 mg/dL (8-26) Creatinine 0.8 mg/dL (0.7-1.3) Estimated GFR (Cockcroft-Gault) 100.7 Glucose Level 186 mg/dL (70-99) Calcium Level 8.3 mg/dL (8.5-10.1) Test 03/31/20 07:41 Glucose (Fingerstick) 186 mg/dL (70-99) Laboratory Tests Test 03/30/20 11:41 03/30/20 12:20 03/30/20 16:33 03/30/20 20:25 Glucose (Fingerstick) 335 mg/dL (70-99) 159 mg/dL (70-99) 158 mg/dL (70-99) Vancomycin Level Trough 12.1 mcg/mL (10.0-20.0) Vancomycin Last Dose Date 03/30/20 Vancomycin Last Dose Time 0500 Test 03/31/20 04:30 03/31/20 07:41 White Blood Count 10.0 x10^3/uL (4.0-11.0) Red Blood Count 3.97 x10^6/uL (4.30-5.70) Hemoglobin 11.8 g/dL (13.0-17.5) Hematocrit 34.3 % (39.0-53.0) Mean Corpuscular Volume 86 fL (79-100) Mean Corpuscular Hemoglobin 30 pg (25-35) Mean Corpuscular Hemoglobin Concent 34 g/dL (31-37) Red Cell Distribution Width 13.5 % (11.5-14.5) Platelet Count 273 x10^3/uL (140-400) Neutrophils (%) (Auto) 82 % (31-73) Lymphocytes (%) (Auto) 12 % (24-48) Monocytes (%) (Auto) 5 % (0-9) Eosinophils (%) (Auto) 2 % (0-3) Basophils (%) (Auto) 0 % (0-3) Neutrophils # (Auto) 8.1 x10^3/uL (1.8-7.7) Lymphocytes # (Auto) 1.2 x10^3/uL (1.0-4.8) Monocytes # (Auto) 0.5 x10^3/uL (0.0-1.1) Eosinophils # (Auto) 0.2 x10^3/uL (0.0-0.7) Basophils # (Auto) 0.0 x10^3/uL (0.0-0.2) Sodium Level 137 mmol/L (136-145) Potassium Level 4.2 mmol/L (3.5-5.1) Chloride Level 102 mmol/L (98-107) Carbon Dioxide Level 27 mmol/L (21-32) Anion Gap 8 (6-14) Blood Urea Nitrogen 11 mg/dL (8-26) Creatinine 0.8 mg/dL (0.7-1.3) Estimated GFR (Cockcroft-Gault) 100.7 Glucose Level 186 mg/dL (70-99) Calcium Level 8.3 mg/dL (8.5-10.1) Glucose (Fingerstick) 186 mg/dL (70-99) Assessment/Plan Osteomyelitis of the right fifth toe--patient's toe amputation site wound appears healthy and viable. His cellulitis has resolved. I would recommend a negative pressure KCI VAC placed tomorrow with disposition plans for antibiotic therapy per infectious disease recommendations as well as home VAC changes. All questions were answered to his satisfaction. Shayla Burns DO, SHAYLA LAUREN DO March 31, 2020 10:16
--- NOTE | 2020-03-31 10:37 | PDOC ---
PROGRESS NOTES Chief Complaint Chief Complaint impression Right lower extremity severe peripheral arterial disease with nonhealing right lateral foot wound.now with cellulitis Hypertension Hyperlipidemia Diabetes,II with cellulitis and osteomyelitis, Tobacco abuse disorder peripheral vascular disease, plan [facility] VAC placed 04/01 with disposition plans for antibiotic therapy per infectious disease d/w rn History of Present Illness History of Present Illness s/p 5th toe amputation feels well this AM blood sugar high, will add lantus and sliding scale, will adjust cont merrem Vitals Vitals Vital Signs Date Time Temp Pulse Resp B/P (MAP) Pulse Ox O2 Delivery O2 Flow Rate FiO2 03/31/20 08:33 72 130/105 03/31/20 07:15 97.8 18 96 Room Air 97.8 Physical Exam Physical Exam GENERAL: Propped up in bed, alert, appears comfortable. HEENT: Pupils equally round, reactive. Normal conjunctivae. Oropharynx pink and moist. No lesions seen. NECK: Supple. LUNGS: Clear to auscultation. HEART: S1, S2 regular. ABDOMEN: Soft, nontender with bowel sounds present. EXTREMITIES: Right lower extremity edema. Dressing dry Less erythema and warmth up to mid [place] area. Other extremities unremarkable. SKIN: Warm to touch. No signs of rash. NEUROLOGIC: Alert and answering questions appropriately. PIV General: Alert, Oriented X3, Cooperative Heart: Regular rate, Normal S1, Normal S2 Lungs: Clear Abdomen: Soft, No tenderness Extremities: No cyanosis, Other (Dressing is clean, dry, and intact.) Skin: Other (Wound bed appears healthy and the cellulitis on the dorsum of his foot has resolved. There is healthy bleeding and granulation tissue.) Labs LABS STATUS: ADM IN ORD. PHYSICIAN: IFTIKHAR FALK MD REASON: diabetic foot ulcer 646,pt went to surgery 2:00pm PROCEDURE: FOOT RIGHT 3V Three-view right foot study Clinical indications: Diabetic foot ulcer. FINDINGS: No acute fracture or dislocation is seen. There is rarefaction of the bone of the distal fourth and fifth metatarsal heads. No cortical erosion or lytic process is seen. This may be due to more focal prominent osteopenia related to hyperemia. Small plantar spur of the calcaneus is seen. No soft tissue air is seen. Dorsal soft tissue edema is seen. IMPRESSION: No acute osseous abnormality. Electronically signed by: Harpreet Paredes MD (03/29/2020 2:40 PM) [id number] DICTATED and SIGNED BY: HARPREET PAREDES MD DATE: 03/29/20 1440 Right lower extremity arterial duplex study 03/29/2020 CLINICAL HISTORY: Right foot ulcer. Recent right lower extremity arterial bypass graft placement. TECHNIQUE: Using a combination real-time ultrasound imaging and color-flow and pulse Doppler imaging techniques, duplex evaluation of the major arterial structures of the right lower extremity was performed. Multiple images were obtained. FINDINGS: Mild to moderate atheromatous/atherosclerotic plaque formation is seen scattered throughout the major arterial structures of the right lower extremity. The right common femoral and proximal right superficial femoral arteries are biphasic. The remaining visualized arterial structures are monophasic. The right superficial femoral artery is occluded in its mid/distal portion. A graft is seen extending from the proximal right superficial femoral artery to the right popliteal artery. The graft is patent with a monophasic arterial waveform. It has a peak systolic velocity of 131 cm/s, proximally and 60 cm/s distally. The right posterior tibial, peroneal and anterior tibial arteries within the right calf are patent. The right dorsalis pedis artery is unable to be visualized due to overlying bandages. No hemodynamically significant stenosis is seen by ultrasound. IMPRESSION: Mild to moderate atheromatous/atherosclerotic plaque formation is seen involving the major arterial structures of the right lower extremity. A patent bypass graft is seen extending from the right superficial femoral artery to the right popliteal artery. The mid/distal right superficial femoral artery is occluded. No additional area of occlusion is seen. No hemodynamically significant stenosis is seen by ultrasound. Electronically signed by: Cristian Kelley MD (03/29/2020 6:51 PM) [id number] DICTATED and SIGNED BY: CRISTIAN KELLEY MD DATE: 03/29/20 1851 Laboratory Tests Test 03/30/20 11:41 03/30/20 12:20 03/30/20 16:33 03/30/20 20:25 Glucose (Fingerstick) 335 mg/dL (70-99) 159 mg/dL (70-99) 158 mg/dL (70-99) Vancomycin Level Trough 12.1 mcg/mL (10.0-20.0) Vancomycin Last Dose Date 03/30/20 Vancomycin Last Dose Time 0500 Test 03/31/20 04:30 03/31/20 07:41 White Blood Count 10.0 x10^3/uL (4.0-11.0) Red Blood Count 3.97 x10^6/uL (4.30-5.70) Hemoglobin 11.8 g/dL (13.0-17.5) Hematocrit 34.3 % (39.0-53.0) Mean Corpuscular Volume 86 fL (79-100) Mean Corpuscular Hemoglobin 30 pg (25-35) Mean Corpuscular Hemoglobin Concent 34 g/dL (31-37) Red Cell Distribution Width 13.5 % (11.5-14.5) Platelet Count 273 x10^3/uL (140-400) Neutrophils (%) (Auto) 82 % (31-73) Lymphocytes (%) (Auto) 12 % (24-48) Monocytes (%) (Auto) 5 % (0-9) Eosinophils (%) (Auto) 2 % (0-3) Basophils (%) (Auto) 0 % (0-3) Neutrophils # (Auto) 8.1 x10^3/uL (1.8-7.7) Lymphocytes # (Auto) 1.2 x10^3/uL (1.0-4.8) Monocytes # (Auto) 0.5 x10^3/uL (0.0-1.1) Eosinophils # (Auto) 0.2 x10^3/uL (0.0-0.7) Basophils # (Auto) 0.0 x10^3/uL (0.0-0.2) Sodium Level 137 mmol/L (136-145) Potassium Level 4.2 mmol/L (3.5-5.1) Chloride Level 102 mmol/L (98-107) Carbon Dioxide Level 27 mmol/L (21-32) Anion Gap 8 (6-14) Blood Urea Nitrogen 11 mg/dL (8-26) Creatinine 0.8 mg/dL (0.7-1.3) Estimated GFR (Cockcroft-Gault) 100.7 Glucose Level 186 mg/dL (70-99) Calcium Level 8.3 mg/dL (8.5-10.1) Glucose (Fingerstick) 186 mg/dL (70-99) Comment Review of Relevant I have reviewed the following items viet (where applicable) has been applied. Labs Laboratory Tests Test 03/29/20 11:45 03/29/20 13:40 03/29/20 13:58 03/29/20 15:48 White Blood Count 14.3 x10^3/uL (4.0-11.0) Red Blood Count 4.37 x10^6/uL (4.30-5.70) Hemoglobin 12.7 g/dL (13.0-17.5) Hematocrit 38.0 % (39.0-53.0) Mean Corpuscular Volume 87 fL (79-100) Mean Corpuscular Hemoglobin 29 pg (25-35) Mean Corpuscular Hemoglobin Concent 34 g/dL (31-37) Red Cell Distribution Width 13.8 % (11.5-14.5) Platelet Count 301 x10^3/uL (140-400) Neutrophils (%) (Auto) 81 % (31-73) Lymphocytes (%) (Auto) 10 % (24-48) Monocytes (%) (Auto) 8 % (0-9) Eosinophils (%) (Auto) 1 % (0-3) Basophils (%) (Auto) 1 % (0-3) Neutrophils # (Auto) 11.5 x10^3/uL (1.8-7.7) Lymphocytes # (Auto) 1.4 x10^3/uL (1.0-4.8) Monocytes # (Auto) 1.1 x10^3/uL (0.0-1.1) Eosinophils # (Auto) 0.2 x10^3/uL (0.0-0.7) Basophils # (Auto) 0.1 x10^3/uL (0.0-0.2) Sodium Level 134 mmol/L (136-145) Potassium Level 3.9 mmol/L (3.5-5.1) Chloride Level 97 mmol/L (98-107) Carbon Dioxide Level 28 mmol/L (21-32) Anion Gap 9 (6-14) Blood Urea Nitrogen 11 mg/dL (8-26) Creatinine 0.9 mg/dL (0.7-1.3) Estimated GFR (Cockcroft-Gault) 87.9 BUN/Creatinine Ratio 12 (6-20) Glucose Level 227 mg/dL (70-99) Calcium Level 8.9 mg/dL (8.5-10.1) Total Bilirubin 0.6 mg/dL (0.2-1.0) Aspartate Amino Transf (AST/SGOT) 21 U/L (15-37) Alanine Aminotransferase (ALT/SGPT) 67 U/L (16-63) Alkaline Phosphatase 113 U/L (46-116) Total Protein 8.2 g/dL (6.4-8.2) Albumin 3.3 g/dL (3.4-5.0) Albumin/Globulin Ratio 0.7 (1.0-1.7) Procalcitonin 0.12 ng/mL (0.00-0.10) Urine Collection Type Unknown Urine Color Yellow Urine Clarity Clear Urine pH 5.5 (<5.0-8.0) Urine Specific [place] >=1.030 (1.000-1.030) Urine Protein Negative mg/dL (NEG-TRACE) Urine Glucose (UA) >=1000 mg/dL (NEG) Urine Ketones (Stick) Negative mg/dL (NEG) Urine Blood Negative (NEG) Urine Nitrite Negative (NEG) Urine Bilirubin Negative (NEG) Urine Urobilinogen Dipstick 0.2 mg/dL (0.2 mg/dL) Urine Leukocyte Esterase Negative (NEG) Urine RBC Occ /HPF (0-2) Urine WBC 1-4 /HPF (0-4) Urine Squamous Epithelial Cells Few /LPF Urine Bacteria 0 /HPF (0-FEW) Urine Hyaline Casts Occasional /HPF Glucose (Fingerstick) 186 mg/dL (70-99) 147 mg/dL (70-99) Test 03/29/20 16:58 03/30/20 05:12 03/30/20 07:42 03/30/20 11:41 Glucose (Fingerstick) 135 mg/dL (70-99) 246 mg/dL (70-99) 335 mg/dL (70-99) White Blood Count 13.5 x10^3/uL (4.0-11.0) Red Blood Count 3.92 x10^6/uL (4.30-5.70) Hemoglobin 11.5 g/dL (13.0-17.5) Hematocrit 34.2 % (39.0-53.0) Mean Corpuscular Volume 87 fL (79-100) Mean Corpuscular Hemoglobin 29 pg (25-35) Mean Corpuscular Hemoglobin Concent 34 g/dL (31-37) Red Cell Distribution Width 13.4 % (11.5-14.5) Platelet Count 275 x10^3/uL (140-400) Neutrophils (%) (Auto) 87 % (31-73) Lymphocytes (%) (Auto) 7 % (24-48) Monocytes (%) (Auto) 5 % (0-9) Eosinophils (%) (Auto) 0 % (0-3) Basophils (%) (Auto) 0 % (0-3) Neutrophils # (Auto) 11.8 x10^3/uL (1.8-7.7) Lymphocytes # (Auto) 0.9 x10^3/uL (1.0-4.8) Monocytes # (Auto) 0.7 x10^3/uL (0.0-1.1) Eosinophils # (Auto) 0.0 x10^3/uL (0.0-0.7) Basophils # (Auto) 0.0 x10^3/uL (0.0-0.2) Segmented Neutrophils % 84 % (35-66) Band Neutrophils % 9 % (0-9) Lymphocytes % 5 % (24-48) Monocytes % 2 % (0-10) Platelet Estimate Adequate (ADEQUATE) Sodium Level 135 mmol/L (136-145) Potassium Level 4.4 mmol/L (3.5-5.1) Chloride Level 99 mmol/L (98-107) Carbon Dioxide Level 25 mmol/L (21-32) Anion Gap 11 (6-14) Blood Urea Nitrogen 14 mg/dL (8-26) Creatinine 0.7 mg/dL (0.7-1.3) Estimated GFR (Cockcroft-Gault) 117.5 Glucose Level 270 mg/dL (70-99) Calcium Level 8.6 mg/dL (8.5-10.1) Test 03/30/20 12:20 03/30/20 16:33 03/30/20 20:25 03/31/20 04:30 Vancomycin Level Trough 12.1 mcg/mL (10.0-20.0) Vancomycin Last Dose Date 03/30/20 Vancomycin Last Dose Time 0500 Glucose (Fingerstick) 159 mg/dL (70-99) 158 mg/dL (70-99) White Blood Count 10.0 x10^3/uL (4.0-11.0) Red Blood Count 3.97 x10^6/uL (4.30-5.70) Hemoglobin 11.8 g/dL (13.0-17.5) Hematocrit 34.3 % (39.0-53.0) Mean Corpuscular Volume 86 fL (79-100) Mean Corpuscular Hemoglobin 30 pg (25-35) Mean Corpuscular Hemoglobin Concent 34 g/dL (31-37) Red Cell Distribution Width 13.5 % (11.5-14.5) Platelet Count 273 x10^3/uL (140-400) Neutrophils (%) (Auto) 82 % (31-73) Lymphocytes (%) (Auto) 12 % (24-48) Monocytes (%) (Auto) 5 % (0-9) Eosinophils (%) (Auto) 2 % (0-3) Basophils (%) (Auto) 0 % (0-3) Neutrophils # (Auto) 8.1 x10^3/uL (1.8-7.7) Lymphocytes # (Auto) 1.2 x10^3/uL (1.0-4.8) Monocytes # (Auto) 0.5 x10^3/uL (0.0-1.1) Eosinophils # (Auto) 0.2 x10^3/uL (0.0-0.7) Basophils # (Auto) 0.0 x10^3/uL (0.0-0.2) Sodium Level 137 mmol/L (136-145) Potassium Level 4.2 mmol/L (3.5-5.1) Chloride Level 102 mmol/L (98-107) Carbon Dioxide Level 27 mmol/L (21-32) Anion Gap 8 (6-14) Blood Urea Nitrogen 11 mg/dL (8-26) Creatinine 0.8 mg/dL (0.7-1.3) Estimated GFR (Cockcroft-Gault) 100.7 Glucose Level 186 mg/dL (70-99) Calcium Level 8.3 mg/dL (8.5-10.1) Test 03/31/20 07:41 Glucose (Fingerstick) 186 mg/dL (70-99) Laboratory Tests Test 03/30/20 11:41 03/30/20 12:20 03/30/20 16:33 03/30/20 20:25 Glucose (Fingerstick) 335 mg/dL (70-99) 159 mg/dL (70-99) 158 mg/dL (70-99) Vancomycin Level Trough 12.1 mcg/mL (10.0-20.0) Vancomycin Last Dose Date 03/30/20 Vancomycin Last Dose Time 0500 Test 03/31/20 04:30 03/31/20 07:41 White Blood Count 10.0 x10^3/uL (4.0-11.0) Red Blood Count 3.97 x10^6/uL (4.30-5.70) Hemoglobin 11.8 g/dL (13.0-17.5) Hematocrit 34.3 % (39.0-53.0) Mean Corpuscular Volume 86 fL (79-100) Mean Corpuscular Hemoglobin 30 pg (25-35) Mean Corpuscular Hemoglobin Concent 34 g/dL (31-37) Red Cell Distribution Width 13.5 % (11.5-14.5) Platelet Count 273 x10^3/uL (140-400) Neutrophils (%) (Auto) 82 % (31-73) Lymphocytes (%) (Auto) 12 % (24-48) Monocytes (%) (Auto) 5 % (0-9) Eosinophils (%) (Auto) 2 % (0-3) Basophils (%) (Auto) 0 % (0-3) Neutrophils # (Auto) 8.1 x10^3/uL (1.8-7.7) Lymphocytes # (Auto) 1.2 x10^3/uL (1.0-4.8) Monocytes # (Auto) 0.5 x10^3/uL (0.0-1.1) Eosinophils # (Auto) 0.2 x10^3/uL (0.0-0.7) Basophils # (Auto) 0.0 x10^3/uL (0.0-0.2) Sodium Level 137 mmol/L (136-145) Potassium Level 4.2 mmol/L (3.5-5.1) Chloride Level 102 mmol/L (98-107) Carbon Dioxide Level 27 mmol/L (21-32) Anion Gap 8 (6-14) Blood Urea Nitrogen 11 mg/dL (8-26) Creatinine 0.8 mg/dL (0.7-1.3) Estimated GFR (Cockcroft-Gault) 100.7 Glucose Level 186 mg/dL (70-99) Calcium Level 8.3 mg/dL (8.5-10.1) Glucose (Fingerstick) 186 mg/dL (70-99) Microbiology 03/29/20 Blood Culture - Preliminary, Resulted NO GROWTH AFTER 1 DAY Medications Current Medications Sodium Chloride (Normal Saline Flush) 3 ml QSHIFT PRN IV AFTER MEDS AND BLOOD DRAWS; Start 03/29/20 at 11:00 Sodium Chloride 1,000 ml @ 75 mls/hr [id number] IV Last administered on 03/31/20at 05:22; Start 03/29/20 at 10:53 Ondansetron HCl (Zofran) 4 mg PRN Q4HRS PRN IV NAUSEA/VOMITING; Start 03/29/20 at 11:00; Stop 03/30/20 at 10:58; Status DC Acetaminophen (Tylenol) 650 mg PRN Q4HRS PRN PO TEMP OVER 100.4F OR MILD PAIN; Start 03/29/20 at 11:00; Status Cancel Clonidine HCl (Catapres) 0.1 mg PRN Q6HRS PRN PO SBP>160 OR DBP>90; Start 03/29/20 at 11:00 Docusate Sodium (Colace) 100 mg PRN BID PRN PO CONSTIPATION; Start 03/29/20 at 11:00 Albuterol/ Ipratropium (Duoneb) 3 ml Q4HRS NEB ; Start 03/29/20 at 12:00; Stop 03/29/20 at 11:17; Status DC Guaifenesin (Robitussin) 200 mg PRN Q4HRS PRN PO COUGH; Start 03/29/20 at 11:00 Enoxaparin Sodium (Lovenox 40mg Syringe) 40 mg Q24H SQ Last administered on 03/30/20at 12:54; Start 03/29/20 at 11:00 Vancomycin HCl 1 gm/Dextrose 250 ml @ 250 mls/hr 1X ONCE IV ; Start 03/29/20 at 11:00; Stop 03/29/20 at 11:59; Status UNV Vancomycin HCl (Vanco Per Pharmacy) 1 each PRN DAILY PRN MC SEE COMMENTS Last administered on 03/30/20at 13:24; Start 03/29/20 at 11:00 Albuterol Sulfate (Ventolin Neb Soln) 3 mg PRN Q4HRS PRN NEB WHEEZING; Start 03/29/20 at 11:15 Vancomycin HCl 2 gm/Sodium Chloride 500 ml @ 250 mls/hr 1X ONCE IV Last administered on 03/29/20at 13:22; Start 03/29/20 at 13:00; Stop 03/29/20 at 14:59; Status DC Nicotine (Nicoderm Cq 14mg) 1 patch DAILY TD Last administered on 03/31/20at 08:34; Start 03/29/20 at 14:00 Meropenem 500 mg/ Sodium Chloride 50 ml @ 100 mls/hr Q8HRS IV Last administered on 03/31/20at 08:32; Start 03/29/20 at 14:00 Ondansetron HCl (Zofran) 4 mg PRN Q6HRS PRN IV NAUSEA/VOMITING; Start 03/29/20 at 14:00; Stop 03/29/20 at 23:00; Status DC Fentanyl Citrate (Fentanyl 2ml Vial) 25 mcg PRN Q5MIN PRN IV MILD PAIN 1-3; Start 03/29/20 at 14:00; Stop 03/29/20 at 23:00; Status DC Fentanyl Citrate (Fentanyl 2ml Vial) 50 mcg PRN Q5MIN PRN IV MODERATE TO SEVERE PAIN; Start 03/29/20 at 14:00; Stop 03/29/20 at 23:00; Status DC Morphine Sulfate (Morphine Sulfate) 1 mg PRN Q10MIN PRN IV SEVERE PAIN 7-10; Start 03/29/20 at 14:00; Stop 03/29/20 at 23:00; Status DC Ringer's Solution 1,000 ml @ 30 mls/hr Q24H IV Last administered on 03/29/20at 13:46; Start 03/29/20 at 13:46; Stop 03/30/20 at 01:45; Status DC Lidocaine HCl (Xylocaine-Mpf 1% 2ml Vial) 2 ml PRN 1X PRN ID PRIOR TO IV START; Start 03/29/20 at 14:00; Stop 03/29/20 at 23:00; Status DC Hydromorphone HCl (Dilaudid) 0.5 mg PRN Q10MIN PRN IV SEV PAIN, Second choice; Start 03/29/20 at 14:00; Stop 03/29/20 at 23:00; Status DC Prochlorperazine Edisylate (Compazine) 5 mg PACU PRN PRN IV NAUSEA, MRX1; Start 03/29/20 at 14:00; Stop 03/29/20 at 23:00; Status DC Vancomycin HCl 1.5 gm/Sodium Chloride 500 ml @ 250 mls/hr Q8H IV Last administered on 03/31/20at 05:24; Start 03/29/20 at 21:00 Vancomycin HCl (Vancomycin Trough Level) 1 each 1X ONCE MC Last administered on 03/30/20at 12:30; Start 03/30/20 at 12:30; Stop 03/30/20 at 12:31; Status DC Insulin Human Lispro (HumaLOG VIAL for OP,RR ONLY) 0-10 units PRN Q1HR PRN SQ PER PROTOCOL Last administered on 03/29/20at 14:07; Start 03/29/20 at 14:15; Stop 03/30/20 at 14:14; Status DC Propofol (Diprivan) 200 mg STK-MED ONCE IV ; Start 03/29/20 at 14:18; Stop 03/29/20 at 14:19; Status DC Lidocaine HCl (Lidocaine Pf 2% Vial) 5 ml STK-MED ONCE .ROUTE ; Start 03/29/20 at 14:18; Stop 03/29/20 at 14:19; Status DC Propofol 50 ml @ As Directed STK-MED ONCE IV ; Start 03/29/20 at 14:18; Stop 03/29/20 at 14:19; Status DC Fentanyl Citrate (Fentanyl 2ml Vial) 100 mcg STK-MED ONCE .ROUTE ; Start 03/29/20 at 14:19; Stop 03/29/20 at 14:19; Status DC Midazolam HCl (Versed) 2 mg STK-MED ONCE .ROUTE ; Start 03/29/20 at 14:19; Stop 03/29/20 at 14:19; Status DC Bacitracin 98036 unit/Sodium Chloride 500 ml @ 500 mls/hr 1X ONCE IRR Last administered on 03/29/20at 14:50; Start 03/29/20 at 14:30; Stop 03/29/20 at 14:44; Status DC Oxycodone/ Acetaminophen (Percocet 5/325) 1 tab PRN Q4HRS PRN PO MODERATE PAIN Last administered on 03/30/20at 08:54; Start 03/29/20 at 14:30 Oxycodone/ Acetaminophen (Percocet 5/325) 2 tab PRN Q4HRS PRN PO SEVERE PAIN Last administered on 03/31/20at 05:26; Start 03/29/20 at 14:30 Ondansetron HCl (Zofran) 4 mg PRN Q8HRS PRN IVP NAUSEA/VOMITING; Start 03/29/20 at 14:30 Morphine Sulfate (Morphine Sulfate) 2 mg PRN Q2HR PRN IV MODERATE TO SEVERE PAIN; Start 03/29/20 at 14:45 Lidocaine HCl (Xylocaine 1% Pf 30ml Vial) 30 ml STK-MED ONCE .ROUTE Last administered on 03/29/20at 14:50; Start 03/29/20 at 14:39; Stop 03/29/20 at 14:40; Status DC Bacitracin 64171 unit/Sodium Chloride 1,000 ml @ 1,000 mls/hr 1X ONCE IRR ; Start 03/29/20 at 15:00; Stop 03/29/20 at 15:59; Status DC Acetaminophen (Tylenol) 650 mg PRN Q6HRS PRN PO MILD PAIN 1-3; Start 03/30/20 at 09:30 Amlodipine Besylate (Norvasc) 10 mg DAILY PO Last administered on 03/31/20at 08:33; Start 03/31/20 at 09:00 Aspirin (Ecotrin) 325 mg DAILYWBKFT PO Last administered on 03/31/20at 08:33; Start 03/31/20 at 08:00 Atorvastatin Calcium (Lipitor) 40 mg QHS PO Last administered on 03/30/20at 21:29; Start 03/30/20 at 21:00 Lactobacillus Rhamnosus (Culturelle) 1 cap BID PO Last administered on 03/31/20at 08:33; Start 03/30/20 at 21:00 Metformin HCl (Glucophage) 500 mg BIDWMEALS PO Last administered on 03/31/20at 08:32; Start 03/30/20 at 17:00 Glipizide (Glucotrol Er) 10 mg DAILY08 PO Last administered on 03/31/20at 08:34; Start 03/30/20 at 10:00 Insulin Glargine (Lantus Syringe) 10 unit 1X ONCE SQ Last administered on 03/30/20at 10:38; Start 03/30/20 at 09:30; Stop 03/30/20 at 09:31; Status DC Insulin Human Lispro (HumaLOG) 0-7 UNITS TIDWMEALS SQ Last administered on 09/10at 08:55; Start 03/30/20 at 12:00 Dextrose (Dextrose 50%-Water Syringe) 12.5 gm PRN Q15MIN PRN IV SEE COMMENTS; Start 03/30/20 at 10:45 Active Scripts Active Culturelle (Lactobacillus Rhamnosus Gg) 1 Each Cap.sprink 1 Cap PO BID 30 Days Tylenol (Acetaminophen) 325 Mg Tablet 650 Mg PO PRN Q6HRS PRN 30 Days Percocet 5-325 Mg Tablet (Oxycodone/Acetaminophen) 1 Each Tablet 1 Tab PO PRN Q4HRS PRN 30 Days Aspirin Ec (Aspirin) 325 Mg Tablet.dr 325 Mg PO DAILYWBKFT 30 Days Lisinopril 10 Mg Tablet 10 Mg PO DAILY 30 Days Amlodipine Besylate 10 Mg Tablet 10 Mg PO DAILY MDD 30 30 Days Zyvox (Linezolid) 600 Mg Tablet 600 Mg PO BID 4 Days Reported Atorvastatin Calcium 40 Mg Tablet 1 Tab PO QHS Glipizide 10 Mg Tablet 10 Mg PO DAILY Metformin Hcl 500 Mg Tablet 500 Mg PO BIDWMEALS Vitals/I & O Vital Sign - Last 24 Hours 03/30/20 03/30/20 03/30/20 03/30/20 11:15 15:04 19:00 20:00 Temp 97.8 97.6 97.9 97.8 97.6 97.9 Pulse 68 72 72 Resp 18 18 18 B/P (MAP) 142/72 (95) 147/54 (85) 146/65 (92) Pulse Ox 96 96 95 O2 Delivery Room Air Room Air Room Air Room Air 03/30/20 03/31/20 03/31/20 03/31/20 23:00 03:00 06:30 07:15 Temp 98.5 98.7 97.8 98.5 98.7 97.8 Pulse 69 77 72 Resp 18 18 18 B/P (MAP) 146/69 (94) 126/75 (92) 130/105 (113) Pulse Ox 97 99 96 96 O2 Delivery Room Air Room Air Room Air Room Air 03/31/20 08:33 Pulse 72 B/P (MAP) 130/105 Intake and Output 03/30/20 03/30/20 03/31/20 15:00 23:00 07:00 Intake Total 630 ml 300 ml 150 ml Output Total 1300 ml 1500 ml 1200 ml Balance -670 ml -1200 ml -1050 ml IFTIKHAR FALK MD March 31, 2020 10:37
[2020-03-31 11:31] VITALS: BP 136/76
[2020-03-31] MEDS: ENOXAPARIN 40 MG/0.4 ML SYRINGE. SQ SCH (11:36)
[2020-03-31] MEDS: VANCOMYCIN PER PHARMACY MC PRN (15:03)
[2020-03-31 15:32] VITALS: BP 145/82
[2020-03-31 19:00] VITALS: BP 149/67
[2020-03-31] MEDS: ATORVASTATIN CALCIUM 40 MG TABLET. PO SCH (21:02)
[2020-03-31 23:00] VITALS: BP 179/79
[2020-04-01 03:01] VITALS: BP 111/69
[2020-04-01 03:07] LABS: HEMOGLOBIN A1C 7.9 % (4.8-5.6)
[2020-04-01] MEDS: MEROPENEM 500 MG in IV NORMAL SALINE 50ML 50 ML IV SCH ×3 (05:23→19:56)
[2020-04-01] MEDS: VANCOMYCIN 1.5 GM in IV NORMAL SALINE 500ML BAG 500 ML IV SCH ×3 (05:23→20:46)
[2020-04-01] MEDS: IV NORMAL SALINE 1000ML BAG 1,000 ML IV SCH ×2 (05:24→20:00)
[2020-04-01 07:00] VITALS: BP 135/63
--- NOTE | 2020-04-01 08:10 | PDOC ---
PROGRESS NOTES Chief Complaint Chief Complaint A/P: Osteomyelitis of the right fifth toe - amputation site wound appears healthy and viable. Vascular surgery recommend a negative pressure KCI VAC placed 03/31/2020 with disposition plans for antibiotic therapy per infectious disease recommendations as well as home VAC changes Right lower extremity severe peripheral arterial disease with nonhealing right lateral foot wound.now with cellulitis Hypertension Hyperlipidemia Diabetes,II with cellulitis and osteomyelitis, Tobacco abuse disorder peripheral vascular disease, History of Present Illness History of Present Illness Mr Sage is a 54 yo M w/ PMHx diabetes, peripheral vascular disease along with a nonhealing right 5th toe ulcer that has been present for about 5 months. He had been treated with antibiotics with little improvement. An MRI in December did not show any convincing evidence of osteomyelitis. He underwent a right femoropopliteal bypass and debridement of necrotic skin and subcutaneous tissue. Initially noted with 100.6, cold like symptoms and fatigue few days prior to admit, was tested for COVID, which returned negative. 03/29: s/p Right fifth toe amputation including the metatarsal head with foot washout, cultures obtained intraoperatively 03/30: blood sugar high, will add lantus and sliding scale, will adjust 03/31: Cultures pending. cont merrem, vancomycin For wound vac today. Afebrile overnight. 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 Pain well controlled. Vitals Vitals Vital Signs Date Time Temp Pulse Resp B/P (MAP) Pulse Ox O2 Delivery O2 Flow Rate FiO2 04/01/20 07:00 99.0 70 20 135/63 (87) 98 Room Air 99.0 Physical Exam Physical Exam GENERAL: Propped up in bed, alert, appears comfortable. HEENT: Pupils equally round, reactive. Normal conjunctivae. Oropharynx pink and moist. No lesions seen. NECK: Supple. LUNGS: Clear to auscultation. HEART: S1, S2 regular. ABDOMEN: Soft, nontender with bowel sounds present. EXTREMITIES: Right lower extremity edema. Dressing dry Less erythema and warmth up to mid mayberry area. Other extremities unremarkable. SKIN: Warm to touch. No signs of rash. NEUROLOGIC: Alert and answering questions appropriately. PIV General: Alert, Oriented X3, Cooperative Heart: Regular rate, Normal S1, Normal S2 Lungs: Clear Abdomen: Soft, No tenderness Extremities: No cyanosis, Other (Dressing is clean, dry, and intact.) Skin: Other (Wound bed appears healthy and the cellulitis on the dorsum of his foot has resolved. There is healthy bleeding and granulation tissue.) Labs LABS Laboratory Tests Test 03/31/20 11:07 03/31/20 16:20 03/31/20 20:33 04/01/20 07:07 Glucose (Fingerstick) 190 mg/dL (70-99) 146 mg/dL (70-99) 186 mg/dL (70-99) 186 mg/dL (70-99) Comment Review of Relevant I have reviewed the following items viet (where applicable) has been applied. Labs Laboratory Tests Test 03/30/20 11:41 03/30/20 12:20 03/30/20 16:33 03/30/20 20:25 Glucose (Fingerstick) 335 mg/dL (70-99) 159 mg/dL (70-99) 158 mg/dL (70-99) Vancomycin Level Trough 12.1 mcg/mL (10.0-20.0) Vancomycin Last Dose Date 03/30/20 Vancomycin Last Dose Time 0500 Test 03/31/20 04:30 03/31/20 07:41 03/31/20 11:07 03/31/20 16:20 White Blood Count 10.0 x10^3/uL (4.0-11.0) Red Blood Count 3.97 x10^6/uL (4.30-5.70) Hemoglobin 11.8 g/dL (13.0-17.5) Hematocrit 34.3 % (39.0-53.0) Mean Corpuscular Volume 86 fL (79-100) Mean Corpuscular Hemoglobin 30 pg (25-35) Mean Corpuscular Hemoglobin Concent 34 g/dL (31-37) Red Cell Distribution Width 13.5 % (11.5-14.5) Platelet Count 273 x10^3/uL (140-400) Neutrophils (%) (Auto) 82 % (31-73) Lymphocytes (%) (Auto) 12 % (24-48) Monocytes (%) (Auto) 5 % (0-9) Eosinophils (%) (Auto) 2 % (0-3) Basophils (%) (Auto) 0 % (0-3) Neutrophils # (Auto) 8.1 x10^3/uL (1.8-7.7) Lymphocytes # (Auto) 1.2 x10^3/uL (1.0-4.8) Monocytes # (Auto) 0.5 x10^3/uL (0.0-1.1) Eosinophils # (Auto) 0.2 x10^3/uL (0.0-0.7) Basophils # (Auto) 0.0 x10^3/uL (0.0-0.2) Sodium Level 137 mmol/L (136-145) Potassium Level 4.2 mmol/L (3.5-5.1) Chloride Level 102 mmol/L (98-107) Carbon Dioxide Level 27 mmol/L (21-32) Anion Gap 8 (6-14) Blood Urea Nitrogen 11 mg/dL (8-26) Creatinine 0.8 mg/dL (0.7-1.3) Estimated GFR (Cockcroft-Gault) 100.7 Glucose Level 186 mg/dL (70-99) Hemoglobin A1c 7.9 % (4.8-5.6) Calcium Level 8.3 mg/dL (8.5-10.1) Glucose (Fingerstick) 186 mg/dL (70-99) 190 mg/dL (70-99) 146 mg/dL (70-99) Test 03/31/20 20:33 04/01/20 07:07 Glucose (Fingerstick) 186 mg/dL (70-99) 186 mg/dL (70-99) Laboratory Tests Test 03/31/20 11:07 03/31/20 16:20 03/31/20 20:33 04/01/20 07:07 Glucose (Fingerstick) 190 mg/dL (70-99) 146 mg/dL (70-99) 186 mg/dL (70-99) 186 mg/dL (70-99) Microbiology 03/29/20 Aerobic and Anaerobic Culture, Resulted Pending 03/29/20 Anaerobic Culture Result 1 (BILL), Resulted Pending 03/29/20 Aerobic Culture, Resulted Pending 03/29/20 Aerobic Culture Result 1 (BILL), Resulted Pending 03/29/20 Gram Stain - Final, Resulted 03/29/20 Gram Stain Result 1 (BILL) - Final, Resulted 03/29/20 Gram Stain Result 2 (BILL) - Final, Resulted 03/29/20 Gram Stain Result 3 (BILL) - Final, Resulted 03/29/20 Blood Culture - Preliminary, Resulted NO GROWTH AFTER 2 DAYS Medications Current Medications Sodium Chloride (Normal Saline Flush) 3 ml QSHIFT PRN IV AFTER MEDS AND BLOOD DRAWS; Start 03/29/20 at 11:00 Sodium Chloride 1,000 ml @ 75 mls/hr [id number] IV Last administered on 03/31/20at 15:02; Start 03/29/20 at 10:53 Ondansetron HCl (Zofran) 4 mg PRN Q4HRS PRN IV NAUSEA/VOMITING; Start 03/29/20 at 11:00; Stop 03/30/20 at 10:58; Status DC Acetaminophen (Tylenol) 650 mg PRN Q4HRS PRN PO TEMP OVER 100.4F OR MILD PAIN; Start 03/29/20 at 11:00; Status Cancel Clonidine HCl (Catapres) 0.1 mg PRN Q6HRS PRN PO SBP>160 OR DBP>90 Last administered on 03/31/20at 23:01; Start 03/29/20 at 11:00 Docusate Sodium (Colace) 100 mg PRN BID PRN PO CONSTIPATION; Start 03/29/20 at 11:00 Albuterol/ Ipratropium (Duoneb) 3 ml Q4HRS NEB ; Start 03/29/20 at 12:00; Stop 03/29/20 at 11:17; Status DC Guaifenesin (Robitussin) 200 mg PRN Q4HRS PRN PO COUGH; Start 03/29/20 at 11:00 Enoxaparin Sodium (Lovenox 40mg Syringe) 40 mg Q24H SQ Last administered on 03/31/20at 11:36; Start 03/29/20 at 11:00 Vancomycin HCl 1 gm/Dextrose 250 ml @ 250 mls/hr 1X ONCE IV ; Start 03/29/20 at 11:00; Stop 03/29/20 at 11:59; Status UNV Vancomycin HCl (Vanco Per Pharmacy) 1 each PRN DAILY PRN MC SEE COMMENTS Last administered on 03/31/20at 15:03; Start 03/29/20 at 11:00 Albuterol Sulfate (Ventolin Neb Soln) 3 mg PRN Q4HRS PRN NEB WHEEZING; Start 03/29/20 at 11:15 Vancomycin HCl 2 gm/Sodium Chloride 500 ml @ 250 mls/hr 1X ONCE IV Last administered on 03/29/20at 13:22; Start 03/29/20 at 13:00; Stop 03/29/20 at 14:59; Status DC Nicotine (Nicoderm Cq 14mg) 1 patch DAILY TD Last administered on 03/31/20at 08:34; Start 03/29/20 at 14:00 Meropenem 500 mg/ Sodium Chloride 50 ml @ 100 mls/hr Q8HRS IV Last administered on 04/01/20at 05:23; Start 03/29/20 at 14:00 Ondansetron HCl (Zofran) 4 mg PRN Q6HRS PRN IV NAUSEA/VOMITING; Start 03/29/20 at 14:00; Stop 03/29/20 at 23:00; Status DC Fentanyl Citrate (Fentanyl 2ml Vial) 25 mcg PRN Q5MIN PRN IV MILD PAIN 1-3; Start 03/29/20 at 14:00; Stop 03/29/20 at 23:00; Status DC Fentanyl Citrate (Fentanyl 2ml Vial) 50 mcg PRN Q5MIN PRN IV MODERATE TO SEVERE PAIN; Start 03/29/20 at 14:00; Stop 03/29/20 at 23:00; Status DC Morphine Sulfate (Morphine Sulfate) 1 mg PRN Q10MIN PRN IV SEVERE PAIN 7-10; Start 03/29/20 at 14:00; Stop 03/29/20 at 23:00; Status DC Ringer's Solution 1,000 ml @ 30 mls/hr Q24H IV Last administered on 03/29/20at 13:46; Start 03/29/20 at 13:46; Stop 03/30/20 at 01:45; Status DC Lidocaine HCl (Xylocaine-Mpf 1% 2ml Vial) 2 ml PRN 1X PRN ID PRIOR TO IV START; Start 03/29/20 at 14:00; Stop 03/29/20 at 23:00; Status DC Hydromorphone HCl (Dilaudid) 0.5 mg PRN Q10MIN PRN IV SEV PAIN, Second choice; Start 03/29/20 at 14:00; Stop 03/29/20 at 23:00; Status DC Prochlorperazine Edisylate (Compazine) 5 mg PACU PRN PRN IV NAUSEA, MRX1; Start 03/29/20 at 14:00; Stop 03/29/20 at 23:00; Status DC Vancomycin HCl 1.5 gm/Sodium Chloride 500 ml @ 250 mls/hr Q8H IV Last administered on 04/01/20at 05:23; Start 03/29/20 at 21:00 Vancomycin HCl (Vancomycin Trough Level) 1 each 1X ONCE MC Last administered on 03/30/20at 12:30; Start 03/30/20 at 12:30; Stop 03/30/20 at 12:31; Status DC Insulin Human Lispro (HumaLOG VIAL for OP,RR ONLY) 0-10 units PRN Q1HR PRN SQ PER PROTOCOL Last administered on 03/29/20at 14:07; Start 03/29/20 at 14:15; Stop 03/30/20 at 14:14; Status DC Propofol (Diprivan) 200 mg STK-MED ONCE IV ; Start 03/29/20 at 14:18; Stop 03/29/20 at 14:19; Status DC Lidocaine HCl (Lidocaine Pf 2% Vial) 5 ml STK-MED ONCE .ROUTE ; Start 03/29/20 at 14:18; Stop 03/29/20 at 14:19; Status DC Propofol 50 ml @ As Directed STK-MED ONCE IV ; Start 03/29/20 at 14:18; Stop 03/29/20 at 14:19; Status DC Fentanyl Citrate (Fentanyl 2ml Vial) 100 mcg STK-MED ONCE .ROUTE ; Start 03/29/20 at 14:19; Stop 03/29/20 at 14:19; Status DC Midazolam HCl (Versed) 2 mg STK-MED ONCE .ROUTE ; Start 03/29/20 at 14:19; Stop 03/29/20 at 14:19; Status DC Bacitracin 32944 unit/Sodium Chloride 500 ml @ 500 mls/hr 1X ONCE IRR Last administered on 03/29/20at 14:50; Start 03/29/20 at 14:30; Stop 03/29/20 at 14:44; Status DC Oxycodone/ Acetaminophen (Percocet 5/325) 1 tab PRN Q4HRS PRN PO MODERATE PAIN Last administered on 03/30/20at 08:54; Start 03/29/20 at 14:30 Oxycodone/ Acetaminophen (Percocet 5/325) 2 tab PRN Q4HRS PRN PO SEVERE PAIN Last administered on 03/31/20at 15:01; Start 03/29/20 at 14:30 Ondansetron HCl (Zofran) 4 mg PRN Q8HRS PRN IVP NAUSEA/VOMITING; Start 03/29/20 at 14:30 Morphine Sulfate (Morphine Sulfate) 2 mg PRN Q2HR PRN IV MODERATE TO SEVERE PAIN; Start 03/29/20 at 14:45 Lidocaine HCl (Xylocaine 1% Pf 30ml Vial) 30 ml STK-MED ONCE .ROUTE Last administered on 03/29/20at 14:50; Start 03/29/20 at 14:39; Stop 03/29/20 at 14:40; Status DC Bacitracin 20403 unit/Sodium Chloride 1,000 ml @ 1,000 mls/hr 1X ONCE IRR ; Start 03/29/20 at 15:00; Stop 03/29/20 at 15:59; Status DC Acetaminophen (Tylenol) 650 mg PRN Q6HRS PRN PO MILD PAIN 1-3 Last administered on 03/31/20at 23:01; Start 03/30/20 at 09:30 Amlodipine Besylate (Norvasc) 10 mg DAILY PO Last administered on 03/31/20at 08:33; Start 03/31/20 at 09:00 Aspirin (Ecotrin) 325 mg DAILYWBKFT PO Last administered on 03/31/20at 08:33; Start 03/31/20 at 08:00 Atorvastatin Calcium (Lipitor) 40 mg QHS PO Last administered on 03/31/20at 21:02; Start 03/30/20 at 21:00 Lactobacillus Rhamnosus (Culturelle) 1 cap BID PO Last administered on 03/31/20 at 21:02; Start 03/30/20 at 21:00 Metformin HCl (Glucophage) 500 mg BIDWMEALS PO Last administered on 03/31/20at 17:14; Start 03/30/20 at 17:00 Glipizide (Glucotrol Er) 10 mg DAILY08 PO Last administered on 03/31/20at 08:34; Start 03/30/20 at 10:00 Insulin Glargine (Lantus Syringe) 10 unit 1X ONCE SQ Last administered on 03/30/20at 10:38; Start 03/30/20 at 09:30; Stop 03/30/20 at 09:31; Status DC Insulin Human Lispro (HumaLOG) 0-7 UNITS TIDWMEALS SQ Last administered on 03/31/20at 11:39; Start 03/30/20 at 12:00 Dextrose (Dextrose 50%-Water Syringe) 12.5 gm PRN Q15MIN PRN IV SEE COMMENTS; Start 03/30/20 at 10:45 Active Scripts Active Culturelle (Lactobacillus Rhamnosus Gg) 1 Each Cap.sprink 1 Cap PO BID 30 Days Tylenol (Acetaminophen) 325 Mg Tablet 650 Mg PO PRN Q6HRS PRN 30 Days Percocet 5-325 Mg Tablet (Oxycodone/Acetaminophen) 1 Each Tablet 1 Tab PO PRN Q4HRS PRN 30 Days Aspirin Ec (Aspirin) 325 Mg Tablet.dr 325 Mg PO DAILYWBKFT 30 Days Lisinopril 10 Mg Tablet 10 Mg PO DAILY 30 Days Amlodipine Besylate 10 Mg Tablet 10 Mg PO DAILY MDD 30 30 Days Zyvox (Linezolid) 600 Mg Tablet 600 Mg PO BID 4 Days Reported Atorvastatin Calcium 40 Mg Tablet 1 Tab PO QHS Glipizide 10 Mg Tablet 10 Mg PO DAILY Metformin Hcl 500 Mg Tablet 500 Mg PO BIDWMEALS Vitals/I & O Vital Sign - Last 24 Hours 03/31/20 03/31/20 03/31/20 03/31/20 08:33 11:31 15:01 15:32 Temp 97.2 98.6 97.2 98.6 Pulse 72 68 60 Resp 16 16 B/P (MAP) 130/105 136/76 (96) 145/82 (103) Pulse Ox 98 98 96 O2 Delivery Room Air Room Air Room Air 03/31/20 03/31/20 03/31/20 03/31/20 19:00 20:00 23:00 23:01 Temp 99.1 99.8 99.1 99.8 Pulse 72 80 80 Resp 20 20 B/P (MAP) 149/67 (94) 179/79 (112) 179/79 Pulse Ox 97 96 O2 Delivery Room Air Room Air Room Air 04/01/20 04/01/20 03:01 07:00 Temp 98.1 99.0 98.1 99.0 Pulse 68 70 Resp 20 20 B/P (MAP) 111/69 (83) 135/63 (87) Pulse Ox 97 98 O2 Delivery Room Air Room Air Intake and Output 03/31/20 03/31/20 04/01/20 15:00 23:00 07:00 Intake Total 650 ml 600 ml Output Total 1650 ml 2000 ml 2150 ml Balance -1000 ml -1400 ml -2150 ml JENNIFER HASKINS MD April 01, 2020 08:09
[2020-04-01] MEDS: metFORMIN 500 MG TABLET PO SCH ×2 (08:25→17:31)
[2020-04-01] MEDS: LACTOBACILLUS RHAMNOSUS GG 1 CAPSULE. PO SCH ×2 (08:25→19:55)
[2020-04-01] MEDS: ASPIRIN ENTERIC COATED 325 MG TABLET.DR. PO SCH (08:25)
[2020-04-01] MEDS: glipiZIDE ER 2.5 MG TAB.ER.24 PO SCH (08:26)
[2020-04-01] MEDS: amLODIPine BESYLATE 10 MG TABLET PO SCH (08:27)
[2020-04-01] MEDS: NICOTINE 14MG PATCH. TD SCH (08:28)
[2020-04-01] MEDS: INSULIN LISPRO 300 UNITS/3 ML VIAL. SQ SCH ×3 (08:35→17:35)
--- NOTE | 2020-04-01 08:46 | NUR ---
Wound Care Vac application has been submitted through [facility], will follow ned status. Plan to apply NPWT this afternoon, per Vascular Sx orders.
--- NOTE | 2020-04-01 09:35 | PDOC ---
PROGRESS NOTES Subjective Subjective I'm doing well. I think I am going to go home today. Objective Objective 77 year old diabetic gentleman s/p Right fifth toe amputation including the metatarsal head with foot washout, cultures obtained intraoperatively post op day 3. no significant complaints of pain, no chest pain or shortness of breath. VSS. He continues on ASA and Lovenox, along with daily statin. WBC 10, Hg 11.8. Creat 0.8 He has no particular questions or concerns today. Vital Signs Date Time Temp Pulse Resp B/P (MAP) Pulse Ox O2 Delivery O2 Flow Rate FiO2 04/01/20 08:27 70 135/63 04/01/20 07:00 99.0 20 98 Room Air 99.0 Intake and Output 04/01/20 06:59 Intake Total 1250 ml Output Total 5800 ml Balance -4550 ml Intake Oral 1250 ml Output Urine Total 5800 ml # Bowel Movements 1 Physical Exam Physical Exam GENERAL: Propped up in bed, alert, appears comfortable. HEENT: Normal conjunctivae. NECK: Normal range of motion LUNGS: no respiratory distress HEART: regular. ABDOMEN:eating and drinking without difficulty EXTREMITIES: Right lower extremity 2+ edema. Dressing dry. This was removed for a wound check. He has minimal pain except with manipulation. He has a palpa ble pedal pulse. His wound is a healthy beefy red with no surrounding redness and no purulent drainage. SKIN: Warm and pink to touch. No signs of rash. NEUROLOGIC: Alert and answering questions appropriately. Diagnosis DIAGNOSIS S/p right 5th toe open amputation, post op day 3 Assessment Assessment 77 year old diabetic gentleman s/p right 5th open toe amputation. He is healing well. He is awaiting wound vac placement and home health arrangements. Plan Plan of Care Plan: Continue daily aspirin and statin. Wound vac placement and wound care center follow up for wound management. Antibiotics per I.D. Continue good blood sugar management. Follow up with Vascular Surgery and Dr. Burns in 3-4 weeks. Comment Review of Relevant I have reviewed the following items viet (where applicable) has been applied. Labs Laboratory Tests Test 03/30/20 11:41 03/30/20 12:20 03/30/20 16:33 03/30/20 20:25 Glucose (Fingerstick) 335 mg/dL (70-99) 159 mg/dL (70-99) 158 mg/dL (70-99) Vancomycin Level Trough 12.1 mcg/mL (10.0-20.0) Vancomycin Last Dose Date 03/30/20 Vancomycin Last Dose Time 0500 Test 03/31/20 04:30 03/31/20 07:41 03/31/20 11:07 03/31/20 16:20 White Blood Count 10.0 x10^3/uL (4.0-11.0) Red Blood Count 3.97 x10^6/uL (4.30-5.70) Hemoglobin 11.8 g/dL (13.0-17.5) Hematocrit 34.3 % (39.0-53.0) Mean Corpuscular Volume 86 fL (79-100) Mean Corpuscular Hemoglobin 30 pg (25-35) Mean Corpuscular Hemoglobin Concent 34 g/dL (31-37) Red Cell Distribution Width 13.5 % (11.5-14.5) Platelet Count 273 x10^3/uL (140-400) Neutrophils (%) (Auto) 82 % (31-73) Lymphocytes (%) (Auto) 12 % (24-48) Monocytes (%) (Auto) 5 % (0-9) Eosinophils (%) (Auto) 2 % (0-3) Basophils (%) (Auto) 0 % (0-3) Neutrophils # (Auto) 8.1 x10^3/uL (1.8-7.7) Lymphocytes # (Auto) 1.2 x10^3/uL (1.0-4.8) Monocytes # (Auto) 0.5 x10^3/uL (0.0-1.1) Eosinophils # (Auto) 0.2 x10^3/uL (0.0-0.7) Basophils # (Auto) 0.0 x10^3/uL (0.0-0.2) Sodium Level 137 mmol/L (136-145) Potassium Level 4.2 mmol/L (3.5-5.1) Chloride Level 102 mmol/L (98-107) Carbon Dioxide Level 27 mmol/L (21-32) Anion Gap 8 (6-14) Blood Urea Nitrogen 11 mg/dL (8-26) Creatinine 0.8 mg/dL (0.7-1.3) Estimated GFR (Cockcroft-Gault) 100.7 Glucose Level 186 mg/dL (70-99) Hemoglobin A1c 7.9 % (4.8-5.6) Calcium Level 8.3 mg/dL (8.5-10.1) Glucose (Fingerstick) 186 mg/dL (70-99) 190 mg/dL (70-99) 146 mg/dL (70-99) Test 03/31/20 20:33 04/01/20 07:07 Glucose (Fingerstick) 186 mg/dL (70-99) 186 mg/dL (70-99) Laboratory Tests Test 03/31/20 11:07 03/31/20 16:20 03/31/20 20:33 04/01/20 07:07 Glucose (Fingerstick) 190 mg/dL (70-99) 146 mg/dL (70-99) 186 mg/dL (70-99) 186 mg/dL (70-99) Microbiology 03/29/20 Aerobic and Anaerobic Culture, Resulted Pending 03/29/20 Anaerobic Culture Result 1 (BILL), Resulted Pending 03/29/20 Aerobic Culture, Resulted Pending 03/29/20 Aerobic Culture Result 1 (BILL), Resulted Pending 03/29/20 Gram Stain - Final, Resulted 03/29/20 Gram Stain Result 1 (BLIL) - Final, Resulted 03/29/20 Gram Stain Result 2 (BILL) - Final, Resulted 03/29/20 Gram Stain Result 3 (BILL) - Final, Resulted 03/29/20 Blood Culture - Preliminary, Resulted NO GROWTH AFTER 2 DAYS Medications Current Medications Sodium Chloride (Normal Saline Flush) 3 ml QSHIFT PRN IV AFTER MEDS AND BLOOD DRAWS; Start 03/29/20 at 11:00 Sodium Chloride 1,000 ml @ 75 mls/hr [id number] IV Last administered on 03/31/20at 15:02; Start 03/29/20 at 10:53 Ondansetron HCl (Zofran) 4 mg PRN Q4HRS PRN IV NAUSEA/VOMITING; Start 03/29/20 at 11:00; Stop 03/30/20 at 10:58; Status DC Acetaminophen (Tylenol) 650 mg PRN Q4HRS PRN PO TEMP OVER 100.4F OR MILD PAIN; Start 03/29/20 at 11:00; Status Cancel Clonidine HCl (Catapres) 0.1 mg PRN Q6HRS PRN PO SBP>160 OR DBP>90 Last administered on 03/31/20at 23:01; Start 03/29/20 at 11:00 Docusate Sodium (Colace) 100 mg PRN BID PRN PO CONSTIPATION; Start 03/29/20 at 11:00 Albuterol/ Ipratropium (Duoneb) 3 ml Q4HRS NEB ; Start 03/29/20 at 12:00; Stop 03/29/20 at 11:17; Status DC Guaifenesin (Robitussin) 200 mg PRN Q4HRS PRN PO COUGH; Start 03/29/20 at 11:00 Enoxaparin Sodium (Lovenox 40mg Syringe) 40 mg Q24H SQ Last administered on 03/31/20at 11:36; Start 03/29/20 at 11:00 Vancomycin HCl 1 gm/Dextrose 250 ml @ 250 mls/hr 1X ONCE IV ; Start 03/29/20 at 11:00; Stop 03/29/20 at 11:59; Status UNV Vancomycin HCl (Vanco Per Pharmacy) 1 each PRN DAILY PRN MC SEE COMMENTS Last administered on 03/31/20at 15:03; Start 03/29/20 at 11:00 Albuterol Sulfate (Ventolin Neb Soln) 3 mg PRN Q4HRS PRN NEB WHEEZING; Start 03/29/20 at 11:15 Vancomycin HCl 2 gm/Sodium Chloride 500 ml @ 250 mls/hr 1X ONCE IV Last administered on 03/29/20at 13:22; Start 03/29/20 at 13:00; Stop 03/29/20 at 14:59; Status DC Nicotine (Nicoderm Cq 14mg) 1 patch DAILY TD Last administered on 04/01/20at 08:28; Start 03/29/20 at 14:00 Meropenem 500 mg/ Sodium Chloride 50 ml @ 100 mls/hr Q8HRS IV Last adminis tered on 04/01/20at 05:23; Start 03/29/20 at 14:00 Ondansetron HCl (Zofran) 4 mg PRN Q6HRS PRN IV NAUSEA/VOMITING; Start 03/29/20 at 14:00; Stop 03/29/20 at 23:00; Status DC Fentanyl Citrate (Fentanyl 2ml Vial) 25 mcg PRN Q5MIN PRN IV MILD PAIN 1-3; Start 03/29/20 at 14:00; Stop 03/29/20 at 23:00; Status DC Fentanyl Citrate (Fentanyl 2ml Vial) 50 mcg PRN Q5MIN PRN IV MODERATE TO SEVERE PAIN; Start 03/29/20 at 14:00; Stop 03/29/20 at 23:00; Status DC Morphine Sulfate (Morphine Sulfate) 1 mg PRN Q10MIN PRN IV SEVERE PAIN 7-10; Start 03/29/20 at 14:00; Stop 03/29/20 at 23:00; Status DC Ringer's Solution 1,000 ml @ 30 mls/hr Q24H IV Last administered on 03/29/20at 13:46; Start 03/29/20 at 13:46; Stop 03/30/20 at 01:45; Status DC Lidocaine HCl (Xylocaine-Mpf 1% 2ml Vial) 2 ml PRN 1X PRN ID PRIOR TO IV START; Start 03/29/20 at 14:00; Stop 03/29/20 at 23:00; Status DC Hydromorphone HCl (Dilaudid) 0.5 mg PRN Q10MIN PRN IV SEV PAIN, Second choice; Start 03/29/20 at 14:00; Stop 03/29/20 at 23:00; Status DC Prochlorperazine Edisylate (Compazine) 5 mg PACU PRN PRN IV NAUSEA, MRX1; Start 03/29/20 at 14:00; Stop 03/29/20 at 23:00; Status DC Vancomycin HCl 1.5 gm/Sodium Chloride 500 ml @ 250 mls/hr Q8H IV Last administered on 04/01/20at 05:23; Start 03/29/20 at 21:00 Vancomycin HCl (Vancomycin Trough Level) 1 each 1X ONCE MC Last administered on 03/30/20at 12:30; Start 03/30/20 at 12:30; Stop 03/30/20 at 12:31; Status DC Insulin Human Lispro (HumaLOG VIAL for OP,RR ONLY) 0-10 units PRN Q1HR PRN SQ PER PROTOCOL Last administered on 03/29/20at 14:07; Start 03/29/20 at 14:15; Stop 03/30/20 at 14:14; Status DC Propofol (Diprivan) 200 mg STK-MED ONCE IV ; Start 03/29/20 at 14:18; Stop 03/29/20 at 14:19; Status DC Lidocaine HCl (Lidocaine Pf 2% Vial) 5 ml STK-MED ONCE .ROUTE ; Start 03/29/20 at 14:18; Stop 03/29/20 at 14:19; Status DC Propofol 50 ml @ As Directed STK-MED ONCE IV ; Start 03/29/20 at 14:18; Stop 03/29/20 at 14:19; Status DC Fentanyl Citrate (Fentanyl 2ml Vial) 100 mcg STK-MED ONCE .ROUTE ; Start 03/29/20 at 14:19; Stop 03/29/20 at 14:19; Status DC Midazolam HCl (Versed) 2 mg STK-MED ONCE .ROUTE ; Start 03/29/20 at 14:19; Stop 03/29/20 at 14:19; Status DC Bacitracin 40403 unit/Sodium Chloride 500 ml @ 500 mls/hr 1X ONCE IRR Last administered on 03/29/20at 14:50; Start 03/29/20 at 14:30; Stop 03/29/20 at 14:44; Status DC Oxycodone/ Acetaminophen (Percocet 5/325) 1 tab PRN Q4HRS PRN PO MODERATE PAIN Last administered on 03/30/20at 08:54; Start 03/29/20 at 14:30 Oxycodone/ Acetaminophen (Percocet 5/325) 2 tab PRN Q4HRS PRN PO SEVERE PAIN Last administered on 03/31/20at 15:01; Start 03/29/20 at 14:30 Ondansetron HCl (Zofran) 4 mg PRN Q8HRS PRN IVP NAUSEA/VOMITING; Start 03/29/20 at 14:30 Morphine Sulfate (Morphine Sulfate) 2 mg PRN Q2HR PRN IV MODERATE TO SEVERE PAIN; Start 03/29/20 at 14:45 Lidocaine HCl (Xylocaine 1% Pf 30ml Vial) 30 ml STK-MED ONCE .ROUTE Last administered on 03/29/20at 14:50; Start 03/29/20 at 14:39; Stop 03/29/20 at 14:40; Status DC Bacitracin 58526 unit/Sodium Chloride 1,000 ml @ 1,000 mls/hr 1X ONCE IRR ; Start 03/29/20 at 15:00; Stop 03/29/20 at 15:59; Status DC Acetaminophen (Tylenol) 650 mg PRN Q6HRS PRN PO MILD PAIN 1-3 Last administered on 03/31/20at 23:01; Start 03/30/20 at 09:30 Amlodipine Besylate (Norvasc) 10 mg DAILY PO Last administered on 04/01/20at 08:27; Start 03/31/20 at 09:00 Aspirin (Ecotrin) 325 mg DAILYWBKFT PO Last administered on 04/01/20 08:25; Start 03/31/20 at 08:00 Atorvastatin Calcium (Lipitor) 40 mg QHS PO Last administered on 03/31/20 21:02; Start 03/30/20 at 21:00 Lactobacillus Rhamnosus (Culturelle) 1 cap BID PO Last administered on 04/01/20at 08:25; Start 03/30/20 at 21:00 Metformin HCl (Glucophage) 500 mg BIDWMEALS PO Last administered on 04/01/20at 08:25; Start 03/30/20 at 17:00 Glipizide (Glucotrol Er) 10 mg DAILY08 PO Last administered on 04/01/20 08:26; Start 03/30/20 at 10:00 Insulin Glargine (Lantus Syringe) 10 unit 1X ONCE SQ Last administered on 03/30/20at 10:38; Start 03/30/20 at 09:30; Stop 03/30/20 at 09:31; Status DC Insulin Human Lispro (HumaLOG) 0-7 UNITS TIDWMEALS SQ Last administered on 04/01/20at 08:35; Start 03/30/20 at 12:00 Dextrose (Dextrose 50%-Water Syringe) 12.5 gm PRN Q15MIN PRN IV SEE COMMENTS; Start 03/30/20 at 10:45 Active Scripts Active Culturelle (Lactobacillus Rhamnosus Gg) 1 Each Cap.sprink 1 Cap PO BID 30 Days Tylenol (Acetaminophen) 325 Mg Tablet 650 Mg PO PRN Q6HRS PRN 30 Days Percocet 5-325 Mg Tablet (Oxycodone/Acetaminophen) 1 Each Tablet 1 Tab PO PRN Q4HRS PRN 30 Days Aspirin Ec (Aspirin) 325 Mg Tablet.dr 325 Mg PO DAILYWBKFT 30 Days Lisinopril 10 Mg Tablet 10 Mg PO DAILY 30 Days Amlodipine Besylate 10 Mg Tablet 10 Mg PO DAILY MDD 30 30 Days Zyvox (Linezolid) 600 Mg Tablet 600 Mg PO BID 4 Days Reported Atorvastatin Calcium 40 Mg Tablet 1 Tab PO QHS Glipizide 10 Mg Tablet 10 Mg PO DAILY Metformin Hcl 500 Mg Tablet 500 Mg PO BIDWMEALS Vitals/I & O Vital Sign - Last 24 Hours 03/31/20 03/31/20 03/31/20 03/31/20 11:31 15:01 15:32 19:00 Temp 97.2 98.6 99.1 97.2 98.6 99.1 Pulse 68 60 72 Resp 16 16 20 B/P (MAP) 136/76 (96) 145/82 (103) 149/67 (94) Pulse Ox 98 98 96 97 O2 Delivery Room Air Room Air Room Air Room Air 03/31/20 03/31/20 03/31/20 04/01/20 20:00 23:00 23:01 03:01 Temp 99.8 98.1 99.8 98.1 Pulse 80 80 68 Resp 20 20 B/P (MAP) 179/79 (112) 179/79 111/69 (83) Pulse Ox 96 97 O2 Delivery Room Air Room Air Room Air 04/01/20 04/01/20 07:00 08:27 Temp 99.0 99.0 Pulse 70 70 Resp 20 B/P (MAP) 135/63 (87) 135/63 Pulse Ox 98 O2 Delivery Room Air Intake and Output 03/31/20 03/31/20 04/01/20 14:59 22:59 06:59 Intake Total 650 ml 600 ml Output Total 1650 ml 2000 ml 2150 ml Balance -1000 ml -1400 ml -2150 ml MELISSA HARDEN APRN April 01, 2020 09:34
--- NOTE | 2020-04-01 09:43 | PDOC ---
Infectious Disease Note Subjective Subjective feeling good ROS ROS no n/v/d/sob/pain/fever Vital Sign Vital Signs Vital Signs Date Time Temp Pulse Resp B/P (MAP) Pulse Ox O2 Delivery O2 Flow Rate FiO2 04/01/20 08:27 70 135/63 04/01/20 07:00 99.0 20 98 Room Air 99.0 Physical Exam PHYSICAL EXAM GENERAL: Propped up in bed, alert, appears comfortable. HEENT: Pupils equally round, reactive. Normal conjunctivae. Oropharynx pink and moist. No lesions seen. NECK: Supple. LUNGS: Clear to auscultation. HEART: S1, S2 regular. ABDOMEN: Soft, nontender with bowel sounds present. EXTREMITIES: Right lower extremity edema. Dressing dry Less erythema and warmth up to mid mayberry area. rt 5 the toe amp site seen, Other extremities unremarkable. SKIN: Warm to touch. No signs of rash. NEUROLOGIC: Alert and answering questions appropriately. PIV Labs Lab Laboratory Tests Test 03/31/20 11:07 03/31/20 16:20 03/31/20 20:33 04/01/20 07:07 Glucose (Fingerstick) 190 mg/dL (70-99) 146 mg/dL (70-99) 186 mg/dL (70-99) 186 mg/dL (70-99) Micro ----- ANAEROBIC-AEROBIC CULTURE PENDING ANAEROBIC RES 1 PENDING AEROBIC CULT PENDING AEROBIC RES 1 PENDING GRAM STAIN Final Final report GRAM STAIN RES 1 Final Comment Few gram positive cocci GRAM STAIN RES 2 Final Comment Rare white blood cells. Performed at: [address], [place], [place] [id number] Hoseman: SEAN Rodrigez MD, Phone: [phone] ANAEROBIC-AEROBIC CULTURE PENDING ANAEROBIC RES 1 PENDING AEROBIC CULT PENDING AEROBIC RES 1 PENDING GRAM STAIN Final Final report GRAM STAIN RES 1 Final Comment Many gram positive cocci. GRAM STAIN RES 2 Final Comment Rare gram positive rods GRAM STAIN RES 3 Final Comment Rare white blood cells. 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 intra-op cultures still pending Cellulitis of right foot Leukocytosis - improved PCN allergy w/ anaphylaxis. PAD s/p revasculization in Dec 2019 Diabetes w/ peripheral neuropathy Hypertension Tobaccoism Plan Plan of Care Vancomycin per pharmacy protocal and Meropenem Monitor renal function closely Follow-up cultures Local wound care as directed Smoking cessation Consult social service manager for long-term IV abx Will need PICC pros and cons discussed, side effects of picc and antibiotics discussed CONSTANTIN HUGHES MD April 01, 2020 09:43
[2020-04-01 11:40] VITALS: BP 138/70
[2020-04-01] MEDS: ENOXAPARIN 40 MG/0.4 ML SYRINGE. SQ SCH (12:28)
--- NOTE | 2020-04-01 12:49 | NUR ---
Wound Care Pt's home vac has been approved through [facility], but OOP expense is showing $166/month. Spoke with pt re: cost, pt is going to think about it this afternoon before committing. Will f/u this afternoon when placing hospital vac on wound.
[2020-04-01] MEDS: VANCOMYCIN PER PHARMACY MC PRN (13:10)
--- NOTE | 2020-04-01 15:07 | NUR ---
Wound Care Wound Type/Assessment: R lateral foot DFU, s/p surgical debridement and open amputation of 5th toe and metatarsal head. Wound bed is beefy red, healthy appearing, periwound red, edematous and warm. Pt also has a new dark, fluid-filled blister on his R dorsal foot. Pt stated it was there when the dressing was removed this morning. Spoke with Dr. Monroy, who stated to deroof the blister, d/t dark appearing fluid within. Blister deroofed with forceps, small amount of dark brown fluid drained, wound bed is yellowish arnold, no fluctuance noted. Treatment Recommendations/Plan: R lateral foot-NPWT at -125 mmHg continuous, ostomy ring to periwound, foam bridged away from foot to divert any pressure that tubing may cause, change per protocol. R dorsal foot-Xeroform gauze, gauze and tape, change during vac changes. Education provided: to pt re: NPWT benefits, wound off-loading, smoking cessation, for optimal healing. Pt stated he was embarrassed that he is in this predicament, and stated he should have stopped smoking and stayed off his foot. Reassured pt that his wound can heal with proper treatment and it is good that he recognizes the changes he needs to make, pt v/u. Offloading surface/device: Per Vascular conversation this morning, okay to weight-bear through the heel in proper half-shoe. Recommended Referrals/Tests: N/A Discharge Recommendations for dressings: see treatment recs/plan *Pt agreeable to d/c home with [facility] vac, aware of possible OOP expense.
--- NOTE | 2020-04-01 15:31 | NUR ---
SS following for discharge planning. SS reviewed pt chart and discussed with pt RN and wound care. Pt is from home and is currently on room air. Pt had toe amputation and cultures pending. Pt will need IV antibiotics upon discharge. Pt reported that he lives close to [facility] and would come to the hospital for outpatient IV antibiotics. Pt also to be set up with wound care outpatient. Pt needing PICC line placed. SS will continue to follow for discharge planning.
--- NOTE | 2020-04-01 15:58 | RAD ---
EXAM: PORTABLE CHEST 1V 04/01/2020 3:38 PM CLINICAL INDICATION:Check PICC placement COMPARISON:None TECHNIQUE:AP portable upright chest radiograph FINDINGS:A right PICC tip projects over the lower superior vena cava. The cardiomediastinal silhouette is normal. Lungs are well expanded. No consolidation, pleural effusion, or pneumothorax. No acute osseous abnormality. IMPRESSION:Right PICC in appropriate position with tip over the lower superior vena cava. Electronically signed by: Aleena Nieves MD (04/01/2020 3:55 PM) [id number]
[2020-04-01 15:59] VITALS: BP 136/71
--- NOTE | 2020-04-01 16:33 | NUR ---
received phone call from [facility], half-shozuleima will be brought tomorrow morning.
[2020-04-01 19:55] VITALS: BP 157/58
[2020-04-01] MEDS: ATORVASTATIN CALCIUM 40 MG TABLET. PO SCH (19:55)
[2020-04-01] MEDS ORDERED: INSULIN GLARGINE SYRINGE. SQ SCH (21:00)
[2020-04-01 23:49] VITALS: BP_SYST 140; BP_SYST 175; BP_DIAS 73; BP_DIAS 82
[2020-04-02] MEDS: IV NORMAL SALINE 1000ML BAG 1,000 ML IV SCH (03:25)
[2020-04-02 03:26] VITALS: BP 153/70
[2020-04-02] MEDS: MEROPENEM 500 MG in IV NORMAL SALINE 50ML 50 ML IV SCH (06:23)
[2020-04-02] MEDS: VANCOMYCIN 1.5 GM in IV NORMAL SALINE 500ML BAG 500 ML IV SCH (06:23)
[2020-04-02 07:00] VITALS: BP 152/70
[2020-04-02] MEDS: LACTOBACILLUS RHAMNOSUS GG 1 CAPSULE. PO SCH (08:18)
[2020-04-02] MEDS: glipiZIDE ER 2.5 MG TAB.ER.24 PO SCH (08:18)
[2020-04-02] MEDS: ASPIRIN ENTERIC COATED 325 MG TABLET.DR. PO SCH (08:18)
[2020-04-02] MEDS: amLODIPine BESYLATE 10 MG TABLET PO SCH (08:19)
[2020-04-02] MEDS: metFORMIN 500 MG TABLET PO SCH (08:19)
[2020-04-02] MEDS: NICOTINE 14MG PATCH. TD SCH (08:19)
[2020-04-02] MEDS: INSULIN LISPRO 300 UNITS/3 ML VIAL. SQ SCH ×2 (08:28→12:13)
--- NOTE | 2020-04-02 08:50 | PDOC ---
Infectious Disease Note Subjective Subjective feeling good ROS ROS no n/v/d/sob Vital Sign Vital Signs Vital Signs Date Time Temp Pulse Resp B/P (MAP) Pulse Ox O2 Delivery O2 Flow Rate FiO2 04/02/20 08:19 67 152/70 04/02/20 07:00 98.6 18 96 Room Air 98.6 Physical Exam PHYSICAL EXAM GENERAL: Propped up in bed, alert, appears comfortable. HEENT: Pupils equally round, reactive. Normal conjunctivae. Oropharynx pink and moist. No lesions seen. NECK: Supple. LUNGS: Clear to auscultation. HEART: S1, S2 regular. ABDOMEN: Soft, nontender with bowel sounds present. EXTREMITIES: Right lower extremity edema. Dressing dry Less erythema and warmth up to mid mayberry area. rt 5 the toe amp site seen, Other extremities unremarkable. SKIN: Warm to touch. No signs of rash. NEUROLOGIC: Alert and answering questions appropriately. PIV Labs Lab Laboratory Tests Test 04/01/20 11:10 04/01/20 16:52 04/01/20 19:16 04/02/20 07:12 Glucose (Fingerstick) 206 mg/dL (70-99) 151 mg/dL (70-99) 145 mg/dL (70-99) 165 mg/dL (70-99) Micro ANAEROBIC-AEROBIC CULTURE PENDING ANAEROBIC RES 1 PENDING AEROBIC CULT Preliminary Preliminary report AEROBIC RES 1 Preliminary Staphylococcus aureus 4+ AEROBIC RES 2 Preliminary Enterococcus species 4+ GRAM STAIN Final Final report GRAM STAIN RES 1 Final Comment Many gram positive cocci. GRAM STAIN RES 2 Final Comment Rare gram positive rods GRAM STAIN RES 3 Final Comment CONTINUED ON NEXT PAGE RUN DATE: 04/01/20 [facility] *LIVE* PAGE 2 RUN TIME: 6685 Specimen Inquiry SPEC: [id number] PATIENT: LEXA KENDRICK [id number] (Continued) Procedure Result GRAM STAIN RES 3 Final (continued) Rare white blood cells. Performed at: DA - [facility] [address] [facility] [address], [place], [place] [id number] Detective Captain: SEAN Rodrigez MD, Phone: [phone] Objective Assessment Diabetic ulcer with osteomyelitis right fifth toe s/p amputation, open on 03/29. intra-op cultures still pending Cellulitis of right foot Leukocytosis - improved PCN allergy w/ anaphylaxis. PAD s/p revasculization in Dec 2019 Diabetes w/ peripheral neuropathy Hypertension Tobaccoism Plan Plan of Care Vancomycin per pharmacy protocal and Meropenem Monitor renal function closely Follow-up cultures Local wound care as directed Smoking cessation Consult forensic social worker for long-term IV abx pros and cons discussed, side effects of picc and antibiotics discussed d/c soon, may have to come here for antibiotics, dapto and invanz is potential options wkly cbc, bun/cr, sed rate, cpk, f/u with us in 2 wks CONSTANTIN HUGHES MD April 02, 2020 08:49
--- NOTE | 2020-04-02 08:59 | PDOC ---
Provider Note Provider Note 77 year old diabetic gentleman s/p Right fifth toe amputation including the metatarsal head with foot washout, cultures obtained intraoperatively post op day 4. No significant complaints of pain, no chest pain or shortness of breath. VSS. He continues on ASA and Lovenox, along with daily statin. He received a right upper arm PICC line yesterday for IV antibiotics which she will be receiving on an outpatient basis. He had a wound VAC placed to his right lateral foot. Plan: May be discharged when medically stable and all of the discharge planning is in place for IV antibiotics and wound VAC changes. He is expecting a half shoe delivery as well. He may continue heel touch weightbearing for transfers and bathroom privileges. Otherwise, recommend off weightbearing as much as possible. We will follow-up in the office on an outpatient basis as scheduled. MELISSA HARDEN APRN April 02, 2020 08:59
[2020-04-02] MEDS ORDERED: OXYC1TAB15 PO (10:03)
--- NOTE | 2020-04-02 10:07 | PDOC ---
PROGRESS NOTES Chief Complaint Chief Complaint A/P: Osteomyelitis of the right fifth toe - amputation site wound appears healthy and viable. Vascular surgery recommend a negative pressure KCI VAC placed 03/31/2020 with disposition plans for antibiotic therapy per infectious disease recommendations as well as home VAC changes Right lower extremity severe peripheral arterial disease with nonhealing right lateral foot wound.now with cellulitis Hypertension Hyperlipidemia Diabetes,II with cellulitis and osteomyelitis, Tobacco abuse disorder peripheral vascular disease, History of Present Illness History of Present Illness Mr Sage is a 54 yo M w/ PMHx diabetes, peripheral vascular disease along with a nonhealing right 5th toe ulcer that has been present for about 5 months. He had been treated with antibiotics with little improvement. An MRI in December did not show any convincing evidence of osteomyelitis. He underwent a right femoropopliteal bypass and debridement of necrotic skin and subcutaneous tissue. Initially noted with 100.6, cold like symptoms and fatigue few days prior to admit, was tested for COVID, which returned negative. 03/29: s/p Right fifth toe amputation including the metatarsal head with foot washout, cultures obtained intraoperatively 03/30: blood sugar high, will add lantus and sliding scale, will adjust 03/31: Cultures pending. cont merrem, vancomycin 04/01: For wound vac today. Afebrile overnight. 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 Pain well controlled. S/p RUE PICC with good placement. Cultures show enterococcus and staph aureus, have D/W with ID physician would be appropriate to discharge on Invanz and daptomycin as he must return to the hospital for daily outpatient infusions, and the only feasible way to accomplish this would be with once daily infusions regardless of what sensitivities return. 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 Plan: May be discharged when planning is in place for IV antibiotics and wound VAC changes. Outpatient wound care. Invanz and Dapto for 14 days with f/u with ID, weekly CBC, CMP, CK, Sed Rate, CRP to ID office He may continue heel touch weightbearing for transfers and bathroom privileges. Otherwise, recommend off weightbearing as much as possible. Vitals Vitals Vital Signs Date Time Temp Pulse Resp B/P (MAP) Pulse Ox O2 Delivery O2 Flow Rate FiO2 04/02/20 08:19 67 152/70 04/02/20 07:00 98.6 18 96 Room Air 98.6 Physical Exam Physical Exam GENERAL: Propped up in bed, alert, appears comfortable. HEENT: Pupils equally round, reactive. Normal conjunctivae. Oropharynx pink and moist. No lesions seen. NECK: Supple. LUNGS: Clear to auscultation. HEART: S1, S2 regular. ABDOMEN: Soft, nontender with bowel sounds present. EXTREMITIES: Right lower extremity edema. Dressing dry Less erythema and warmth up to mid mayberry area. rt 5 the toe amp site seen, Other extremities unremarkable. SKIN: Warm to touch. No signs of rash. NEUROLOGIC: Alert and answering questions appropriately. PIV General: Alert, Oriented X3, Cooperative Heart: Regular rate, Normal S1, Normal S2 Lungs: Clear Abdomen: Soft, No tenderness Extremities: No cyanosis, Other (Dressing is clean, dry, and intact.) Skin: Other (Wound bed appears healthy and the cellulitis on the dorsum of his foot has resolved. There is healthy bleeding and granulation tissue.) Labs LABS Laboratory Tests Test 04/01/20 11:10 04/01/20 16:52 04/01/20 19:16 04/02/20 07:12 Glucose (Fingerstick) 206 mg/dL (70-99) 151 mg/dL (70-99) 145 mg/dL (70-99) 165 mg/dL (70-99) Comment Review of Relevant I have reviewed the following items viet (where applicable) has been applied. Labs Laboratory Tests Test 03/31/20 11:07 03/31/20 16:20 03/31/20 20:33 04/01/20 07:07 Glucose (Fingerstick) 190 mg/dL (70-99) 146 mg/dL (70-99) 186 mg/dL (70-99) 186 mg/dL (70-99) Test 04/01/20 11:10 04/01/20 16:52 04/01/20 19:16 04/02/20 07:12 Glucose (Fingerstick) 206 mg/dL (70-99) 151 mg/dL (70-99) 145 mg/dL (70-99) 165 mg/dL (70-99) Laboratory Tests Test 04/01/20 11:10 04/01/20 16:52 04/01/20 19:16 04/02/20 07:12 Glucose (Fingerstick) 206 mg/dL (70-99) 151 mg/dL (70-99) 145 mg/dL (70-99) 165 mg/dL (70-99) Microbiology 03/29/20 Aerobic and Anaerobic Culture, Resulted Pending 03/29/20 Anaerobic Culture Result 1 (BILL), Resulted Pending 03/29/20 Aerobic Culture - Preliminary, Resulted 03/29/20 Aerobic Culture Result 1 (BILL) - Preliminary, Resulted 03/29/20 Aerobic Culture Result 2 (BILL) - Preliminary, Resulted 03/29/20 Gram Stain - Final, Resulted 03/29/20 Gram Stain Result 1 (BILL) - Final, Resulted 03/29/20 Gram Stain Result 2 (BILL) - Final, Resulted 03/29/20 Gram Stain Result 3 (BILL) - Final, Resulted 03/29/20 Blood Culture - Preliminary, Resulted NO GROWTH AFTER 3 DAYS Medications Current Medications Sodium Chloride (Normal Saline Flush) 3 ml QSHIFT PRN IV AFTER MEDS AND BLOOD DRAWS; Start 03/29/20 at 11:00 Sodium Chloride 1,000 ml @ 75 mls/hr [id number] IV Last administered on 04/02/20at 03:25; Start 03/29/20 at 10:53 Ondansetron HCl (Zofran) 4 mg PRN Q4HRS PRN IV NAUSEA/VOMITING; Start 03/29/20 at 11:00; Stop 03/30/20 at 10:58; Status DC Acetaminophen (Tylenol) 650 mg PRN Q4HRS PRN PO TEMP OVER 100.4F OR MILD PAIN; Start 03/29/20 at 11:00; Status Cancel Clonidine HCl (Catapres) 0.1 mg PRN Q6HRS PRN PO SBP>160 OR DBP>90 Last administered on 03/31/20at 23:01; Start 03/29/20 at 11:00 Docusate Sodium (Colace) 100 mg PRN BID PRN PO CONSTIPATION; Start 03/29/20 at 11:00 Albuterol/ Ipratropium (Duoneb) 3 ml Q4HRS NEB ; Start 03/29/20 at 12:00; Stop 03/29/20 at 11:17; Status DC Guaifenesin (Robitussin) 200 mg PRN Q4HRS PRN PO COUGH; Start 03/29/20 at 11:00 Enoxaparin Sodium (Lovenox 40mg Syringe) 40 mg Q24H SQ Last administered on 04/01/20at 12:28; Start 03/29/20 at 11:00 Vancomycin HCl 1 gm/Dextrose 250 ml @ 250 mls/hr 1X ONCE IV ; Start 03/29/20 at 11:00; Stop 03/29/20 at 11:59; Status UNV Vancomycin HCl (Vanco Per Pharmacy) 1 each PRN DAILY PRN MC SEE COMMENTS Last administered on 04/01/20at 13:10; Start 03/29/20 at 11:00 Albuterol Sulfate (Ventolin Neb Soln) 3 mg PRN Q4HRS PRN NEB WHEEZING; Start 03/29/20 at 11:15 Vancomycin HCl 2 gm/Sodium Chloride 500 ml @ 250 mls/hr 1X ONCE IV Last administered on 03/29/20at 13:22; Start 03/29/20 at 13:00; Stop 03/29/20 at 14:59; Status DC Nicotine (Nicoderm Cq 14mg) 1 patch DAILY TD Last administered on 04/02/20at 08:19; Start 03/29/20 at 14:00 Meropenem 500 mg/ Sodium Chloride 50 ml @ 100 mls/hr Q8HRS IV Last administered on 04/02/20at 06:23; Start 03/29/20 at 14:00 Ondansetron HCl (Zofran) 4 mg PRN Q6HRS PRN IV NAUSEA/VOMITING; Start 03/29/20 at 14:00; Stop 03/29/20 at 23:00; Status DC Fentanyl Citrate (Fentanyl 2ml Vial) 25 mcg PRN Q5MIN PRN IV MILD PAIN 1-3; Start 03/29/20 at 14:00; Stop 03/29/20 at 23:00; Status DC Fentanyl Citrate (Fentanyl 2ml Vial) 50 mcg PRN Q5MIN PRN IV MODERATE TO SEVERE PAIN; Start 03/29/20 at 14:00; Stop 03/29/20 at 23:00; Status DC Morphine Sulfate (Morphine Sulfate) 1 mg PRN Q10MIN PRN IV SEVERE PAIN 7-10; Start 03/29/20 at 14:00; Stop 03/29/20 at 23:00; Status DC Ringer's Solution 1,000 ml @ 30 mls/hr Q24H IV Last administered on 03/29/20at 13:46; Start 03/29/20 at 13:46; Stop 03/30/20 at 01:45; Status DC Lidocaine HCl (Xylocaine-Mpf 1% 2ml Vial) 2 ml PRN 1X PRN ID PRIOR TO IV START; Start 03/29/20 at 14:00; Stop 03/29/20 at 23:00; Status DC Hydromorphone HCl (Dilaudid) 0.5 mg PRN Q10MIN PRN IV SEV PAIN, Second choice; Start 03/29/20 at 14:00; Stop 03/29/20 at 23:00; Status DC Prochlorperazine Edisylate (Compazine) 5 mg PACU PRN PRN IV NAUSEA, MRX1; Start 03/29/20 at 14:00; Stop 03/29/20 at 23:00; Status DC Vancomycin HCl 1.5 gm/Sodium Chloride 500 ml @ 250 mls/hr Q8H IV Last administered on 04/02/20at 06:23; Start 03/29/20 at 21:00 Vancomycin HCl (Vancomycin Trough Level) 1 each 1X ONCE MC Last administered on 03/30/20at 12:30; Start 03/30/20 at 12:30; Stop 03/30/20 at 12:31; Status DC Insulin Human Lispro (HumaLOG VIAL for OP,RR ONLY) 0-10 units PRN Q1HR PRN SQ PER PROTOCOL Last administered on 03/29/20at 14:07; Start 03/29/20 at 14:15; Stop 03/30/20 at 14:14; Status DC Propofol (Diprivan) 200 mg STK-MED ONCE IV ; Start 03/29/20 at 14:18; Stop 03/29/20 at 14:19; Status DC Lidocaine HCl (Lidocaine Pf 2% Vial) 5 ml STK-MED ONCE .ROUTE ; Start 03/29/20 at 14:18; Stop 03/29/20 at 14:19; Status DC Propofol 50 ml @ As Directed STK-MED ONCE IV ; Start 03/29/20 at 14:18; Stop 03/29/20 at 14:19; Status DC Fentanyl Citrate (Fentanyl 2ml Vial) 100 mcg STK-MED ONCE .ROUTE ; Start 03/29/20 at 14:19; Stop 03/29/20 at 14:19; Status DC Midazolam HCl (Versed) 2 mg STK-MED ONCE .ROUTE ; Start 03/29/20 at 14:19; Stop 03/29/20 at 14:19; Status DC Bacitracin 27262 unit/Sodium Chloride 500 ml @ 500 mls/hr 1X ONCE IRR Last administered on 03/29/20at 14:50; Start 03/29/20 at 14:30; Stop 03/29/20 at 14:44; Status DC Oxycodone/ Acetaminophen (Percocet 5/325) 1 tab PRN Q4HRS PRN PO MODERATE PAIN Last administered on 03/30/20at 08:54; Start 03/29/20 at 14:30 Oxycodone/ Acetaminophen (Percocet 5/325) 2 tab PRN Q4HRS PRN PO SEVERE PAIN Last administered on 03/31/20at 15:01; Start 03/29/20 at 14:30 Ondansetron HCl (Zofran) 4 mg PRN Q8HRS PRN IVP NAUSEA/VOMITING; Start 03/29/20 at 14:30 Morphine Sulfate (Morphine Sulfate) 2 mg PRN Q2HR PRN IV MODERATE TO SEVERE PA IN; Start 03/29/20 at 14:45 Lidocaine HCl (Xylocaine 1% Pf 30ml Vial) 30 ml STK-MED ONCE .ROUTE Last administered on 03/29/20at 14:50; Start 03/29/20 at 14:39; Stop 03/29/20 at 14:40; Status DC Bacitracin 76426 unit/Sodium Chloride 1,000 ml @ 1,000 mls/hr 1X ONCE IRR ; Start 03/29/20 at 15:00; Stop 03/29/20 at 15:59; Status DC Acetaminophen (Tylenol) 650 mg PRN Q6HRS PRN PO MILD PAIN 1-3 Last administered on 03/31/20at 23:01; Start 03/30/20 at 09:30 Amlodipine Besylate (Norvasc) 10 mg DAILY PO Last administered on 04/02/20at 08:19; Start 5/10/20 at 09:00 Aspirin (Ecotrin) 325 mg DAILYWBKFT PO Last administered on 04/02/20at 08:18; Start 03/31/20 at 08:00 Atorvastatin Calcium (Lipitor) 40 mg QHS PO Last administered on 04/01/20at 19:55; Start 03/30/20 at 21:00 Lactobacillus Rhamnosus (Culturelle) 1 cap BID PO Last administered on 04/02/20at 08:18; Start 03/30/20 at 21:00 Metformin HCl (Glucophage) 500 mg BIDWMEALS PO Last administered on 04/02/20at 08:19; Start 03/30/20 at 17:00 Glipizide (Glucotrol Er) 10 mg DAILY08 PO Last administered on 04/02/20at 08:18; Start 03/30/20 at 10:00 Insulin Glargine (Lantus Syringe) 10 unit 1X ONCE SQ Last administered on 03/30/20at 10:38; Start 03/30/20 at 09:30; Stop 03/30/20 at 09:31; Status DC Insulin Human Lispro (HumaLOG) 0-7 UNITS TIDWMEALS SQ Last administered on 04/02/20at 08:28; Start 03/30/20 at 12:00 Dextrose (Dextrose 50%-Water Syringe) 12.5 gm PRN Q15MIN PRN IV SEE COMMENTS; Start 03/30/20 at 10:45 Insulin Glargine (Lantus Syringe) 5 unit QHS SQ Last administered on 04/01/20at 20:52; Start 04/01/20 at 21:00 Active Scripts Active Culturelle (Lactobacillus Rhamnosus Gg) 1 Each Cap.sprink 1 Cap PO BID 30 Days Tylenol (Acetaminophen) 325 Mg Tablet 650 Mg PO PRN Q6HRS PRN 30 Days Aspirin Ec (Aspirin) 325 Mg Tablet.dr 325 Mg PO DAILYWBKFT 30 Days Lisinopril 10 Mg Tablet 10 Mg PO DAILY 30 Days Amlodipine Besylate 10 Mg Tablet 10 Mg PO DAILY MDD 30 30 Days Zyvox (Linezolid) 600 Mg Tablet 600 Mg PO BID 4 Days Reported Atorvastatin Calcium 40 Mg Tablet 1 Tab PO QHS Glipizide 10 Mg Tablet 10 Mg PO DAILY Metformin Hcl 500 Mg Tablet 500 Mg PO BIDWMEALS Vitals/I & O Vital Sign - Last 24 Hours 04/01/20 04/01/20 04/01/20 04/01/20 11:40 15:59 19:55 20:00 Temp 98.2 98.2 98.6 98.2 98.2 98.6 Pulse 68 72 75 Resp 20 20 20 B/P (MAP) 138/70 (92) 136/71 (92) 157/58 (91) Pulse Ox 94 99 96 O2 Delivery Room Air Room Air Room Air Room Air 04/01/20 04/02/20 04/02/20 04/02/20 23:49 03:26 07:00 08:19 Temp 97.8 97.7 98.6 97.8 97.7 98.6 Pulse 77 77 67 67 Resp 20 16 18 B/P (MAP) 175/73 (107) 153/70 (97) 152/70 (97) 152/70 Pulse Ox 97 96 96 O2 Delivery Room Air Room Air Room Air Intake and Output 04/01/20 04/01/20 04/02/20 15:00 23:00 07:00 Intake Total 480 ml 700 ml 1300 ml Output Total 400 ml 900 ml 3200 ml Balance 80 ml -200 ml -1900 ml JENNIFER HASKINS MD April 02, 2020 10:07
[2020-04-02 11:00] VITALS: BP 150/67
[2020-04-02] MEDS ORDERED: DAPT350V IV (11:47)
[2020-04-02] MEDS ORDERED: ERTA1VIA16 IJ (11:47)
--- NOTE | 2020-04-02 11:53 | PDOC3 ---
Discharge Summary Visit Information Date of Admission: March 29, 2020 Date of Discharge: April 02, 2020 Admitting Diagnosis: Diabetic foot ulcer Final Diagnosis Diabetic ulcer Brief Hospital Course Allergies Allergies Coded Allergies Type Severity Reaction Last Updated Verified Penicillins Allergy Severe Anaphylaxis 01/16/20 No Vital Signs Vital Signs Date Time Temp Pulse Resp B/P (MAP) Pulse Ox O2 Delivery O2 Flow Rate FiO2 04/02/20 08:19 67 152/70 04/02/20 08:00 Room Air 04/02/20 07:00 98.6 18 96 98.6 Lab Results Laboratory Tests Test 03/31/20 16:20 03/31/20 20:33 04/01/20 07:07 04/01/20 11:10 Glucose (Fingerstick) 146 mg/dL (70-99) 186 mg/dL (70-99) 186 mg/dL (70-99) 206 mg/dL (70-99) Test 04/01/20 16:52 04/01/20 19:16 04/02/20 07:12 04/02/20 11:10 Glucose (Fingerstick) 151 mg/dL (70-99) 145 mg/dL (70-99) 165 mg/dL (70-99) 169 mg/dL (70-99) Laboratory Tests Test 04/01/20 16:52 04/01/20 19:16 04/02/20 07:12 04/02/20 11:10 Glucose (Fingerstick) 151 mg/dL (70-99) 145 mg/dL (70-99) 165 mg/dL (70-99) 169 mg/dL (70-99) Brief Hospital Course Mr Sage is a 54 yo M w/ PMHx diabetes, peripheral vascular disease along with a nonhealing right 5th toe ulcer that has been present for about 5 months. He had been treated with antibiotics with little improvement. An MRI in December did not show any convincing evidence of osteomyelitis. He underwent a right femoropopliteal bypass and debridement of necrotic skin and subcutaneous tissue. Initially noted with 100.6, cold like symptoms and fatigue few days prior to admit, was tested for COVID, which returned negative. 03/29: s/p Right fifth toe amputation including the metatarsal head with foot washout, cultures obtained intraoperatively 03/30: blood sugar high, will add lantus and sliding scale, will adjust 03/31: Cultures pending. cont merrem, vancomycin 04/01: For wound vac today. Afebrile overnight. 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 Pain well controlled. S/p RUE PICC with good placement. Cultures show enterococcus and staph aureus, have D/W with ID physician would be appropriate to discharge on Invanz and daptomycin as he must return to the hospital for daily outpatient infusions, and the only feasible way to accomplish this would be with once daily infusions regardless of what sensitivities return. 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 Plan: May be discharged when planning is in place for IV antibiotics and wound VAC changes. Outpatient wound care. Invanz and Dapto for 14 days with f/u with ID, weekly CBC, CMP, CK, Sed Rate, CRP to ID office He may continue heel touch weightbearing for transfers and bathroom privileges. Otherwise, recommend off weightbearing as much as possible. Problem list: Osteomyelitis of the right fifth toe - amputation site wound appears healthy and viable. Vascular surgery recommend a negative pressure KCI VAC placed 03/31/2020 with disposition plans for antibiotic therapy per infectious disease recommendations as well as home VAC changes Right lower extremity severe peripheral arterial disease with nonhealing right lateral foot wound.now with cellulitis Hypertension Hyperlipidemia Diabetes,II with cellulitis and osteomyelitis, Tobacco abuse disorder peripheral vascular disease, Greater than 30 minutes spent on d/c home with outpatient services as above Discharge Information Condition at Discharge: Improved Follow Up: Weeks (1) Disposition/Orders: D/C to Home Scheduled Amlodipine Besylate (Amlodipine Besylate) 10 Mg Tablet, 10 MG PO DAILY for blood pressure MDD 30 for 30 Days, #30 Ref 2 Prescribed by: FRANSISCO SHEIKH APRN on 01/22/20 1305 Last Action: Continued on 03/30/20920 by RONALDO CARLOS Aspirin (Aspirin Ec) 325 Mg Tablet., 325 MG PO DAILYWBKFT for PAD for 30 Days, #30 Ref 2 Prescribed by: FRANSISCO SHEIKH APRN on 01/22/20 1305 Last Action: Continued on 03/30/20920 by RONALDO CARLOS Atorvastatin Calcium (Atorvastatin Calcium) 40 Mg Tablet, 1 TAB PO QHS, #90 Ref 3 (Reported) Entered as Reported by: BERT RODRIGUEZ on 08/11/17 1106 Last Action: Continued on 03/30/20920 by RONALDO CARLOS Daptomycin (Daptomycin) 350 Mg Vial, 350 MG IV DAILY for enterococcus for 14 Days, #14 Prescribed by: JENNIFER HASKINS MD on 04/02/20 1147 Ertapenem Sodium (Invanz) 1 Gm Vial, 1 GM IJ DAILY for Staph aureus for 14 Days, #14 Prescribed by: JENNIFER HASKINS MD on 04/02/20 1147 Glipizide (Glipizide) 10 Mg Tablet, 10 MG PO DAILY for DM 2, (Reported) Entered as Reported by: BERT RODRIGUEZ on 08/11/171104 Last Action: Converted on 03/30/20920 by RONALDO CARLOS Lactobacillus Rhamnosus Gg (Culturelle) 1 Each Cap.sprink, 1 CAP PO BID for antibiotic use for 30 Days, #60 Prescribed by: RFANSISCO SHEIKH APRN on 01/22/20 130 Last Action: Continued on 03/30/20920 by RONALDO CARLOS Lisinopril (Lisinopril) 10 Mg Tablet, 10 MG PO DAILY for blood pressure for 30 Days, #30 Ref 2 Prescribed by: FRANSISCO SHEIKH APRN on 01/22/201304 Last Action: HELD on 03/30/20920 by RONALDO CARLOS Metformin Hcl (Metformin Hcl) 500 Mg Tablet, 500 MG PO BIDWMEALS for ANTI- DIABETIC, Ref 0 (Reported) Entered as Reported by: Brenda Chinchilla on 02/12/17 1046 Last Action: Continued on 03/30/20920 by RONALDO CARLOS Scheduled PRN Acetaminophen (Tylenol) 325 Mg Tablet, 650 MG PO PRN Q6HRS PRN for MILD PAIN 1-3 for 30 Days, #60 Ref 1 Prescribed by: FRANSISCO SHEIKH APRN on 01/22/201304 Last Action: Continued on 03/30/20920 by RONALDO CARLOS Oxycodone/Apap 5-325 (Percocet 5-325 Mg Tablet ) 1 Each Tablet, 1 TAB PO PRN Q6HRS PRN for MODERATE PAIN for 6 Days, #15 Prescribed by: JENNIFER HASKINS MD on 04/02/20 1004 Discontinued Medications Linezolid (Zyvox) 600 Mg Tablet, 600 MG PO BID for infection for 4 Days, #8 Prescribed by: FRANSISCO SHEIKH APRN on 01/22/20 1305 Last Action: HELD on 03/30/20 0921 by JENNIFER DEE MD April 02, 2020 11:53
[2020-04-02] MEDS: ENOXAPARIN 40 MG/0.4 ML SYRINGE. SQ SCH (12:09)
--- NOTE | 2020-04-02 12:46 | NUR ---
SS following up with discharge planning. Discharge order on the chart for home. SS received scripts for IV antibiotics. SS phoned and faxed scripts and referral to [facility], [facility]; fax [phone]. Pt scheduled for IV antibiotic at 1430 on 04/03/2020. Pt instructed to arrive at 1400 on his first day to register. SS contacted wound care and pt has wound care appointment on 04/04/2020 at 1345. Pt and pt's RN notified.
--- NOTE | 2020-04-02 13:57 | NUR ---
Wound Care Exchanged hospital vac for pt's home vac at this time. Pt educated on vac troubleshooting, do's and don'ts. Pt will be seen in Outpt Dept on during IV abx infusion, then will be seen weekly on Mondays in the [facility], in Outpt. Consignment vac taken to [employer] for cleaning.
[2020-04-02 15:00] VITALS: BP 132/76
--- NOTE | 2020-04-02 15:19 | NUR ---
Discharge Note: LEXA KENDRICK [facility] Discharge instructions and discharge home medications reviewed with patient and a copy given. All questions have been answered and understanding verbalized. The following instructions and handouts were given: Take home meds as directed To come back tomorrow at out patient services at 1400 for antibiotic treatment Follow up with wound care clinic on 1344. Watch out for fever, severe weakness, increased swelling of right leg, nausea, vomiting. Follow up with PCP. Follow up with Dr. Alvarez in 2 weeks. Discontinued lines and drains: Right upper arm PICC line in place, dressing clean, dry and intact. Patient discharged to home with self care via wheelchair at 1445.
--- NOTE | 2020-04-02 16:06 | PATHOLOGY ---
[facility] Accession Number: [id number] . 01 Material submitted: . toe - RIGHT FIFTH TOE. Modifiers: right, fifth . 01 Clinician provided ICD-10: . . 01 Clinical history: . None provided . 01 Frozen section diagnosis: . . /QMS . 02 Diagnosis: Toe and separate segment of bone, right fifth toe amputation: - Acute cellulitis, focally extensive. 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 (JPM:estela; 04/02/2020) QMS 04/02/2020 1338 Local . 02 Electronically signed: . Blaine Goodwin MD, Pathologist NPI- [id number] . 01 Gross description: . The specimen is received in formalin, labeled "Nj Sage, right fifth toe" and consists of a disarticulated toe measuring 5.2 x 1.9 x 1.8 cm. The skin is pink-manning with a possible ulceration abutting the skin soft tissue margin (inked black) measuring 1.2 x 0.8 cm. The nail is present which is thickened yellow-manning. The proximal bone margin is a smooth convex articular surface. Sectioning reveals pink-manning bone cut surfaces. Additionally received is a metatarsal head measuring 1.9 x 1.4 x 1.3 cm showing a smooth cartilaginous cap. The opposite end is flat consistent with a transected margin. Sectioning reveals manning bone cut surfaces. Vascular Surgeon sections are submitted as follows: . A1: Skin soft tissue margin A2: Toe, longitudinal section proximal A3: Toe, longitudinal section distal A4: Additionally received segment of bone A2-A4 will be submitted following decalcification. (SDY; 04/01/2020) SYU/SYU 04/02/2020 1338 Local . 02 Pathologist provided ICD-10: L98.9 . 02 CPT . 775635, [id number] Specimen Comment: A courtesy copy of this report has been sent to [phone], [phone] Specimen Comment: [id number], Specimen Comment: Report sent to ,DR FALK / DR LAZAR Performed at: [address] [facility], [place] [id number] MD Jm Crowder MD Phone: [phone] Performed at: 02 [facility] [address] [place], [place] [id number] MD Blaine Goodwin MD Phone: [phone]
== END 2020-04-02 14:45 | disposition home or self-care (01) | DRG 617 ==
LOC: 6 SOUTH 10:23
PROVIDERS: ADMIT Family Medicine; ATTEND Family Medicine
PROC: 0Y6M0ZF Detachment at Right Foot, Partial 5th Ray, Open Approach (ICD-10-PCS; principal; 2020-03-29 14:30)
PROC: 02HV33Z Insertion of Infusion Device into Superior Vena Cava, Percutaneous Approach (ICD-10-PCS; 2020-04-01)
PROC: B548ZZA Ultrasonography of Superior Vena Cava, Guidance (ICD-10-PCS; 2020-04-01)
DX: E11.69 Type 2 diabetes mellitus with other specified complication (principal); L03.115 Cellulitis of right lower limb; E11.52 Type 2 diabetes mellitus with diabetic peripheral angiopathy with gangrene; M86.8X7 Other osteomyelitis, ankle and foot; I70.92 Chronic total occlusion of artery of the extremities; E11.621 Type 2 diabetes mellitus with foot ulcer; I70.235 Atherosclerosis of native arteries of right leg with ulceration of other part of foot; I10 Essential (primary) hypertension; F17.210 Nicotine dependence, cigarettes, uncomplicated; F32.9 Major depressive disorder, single episode, unspecified; B95.2 Enterococcus as the cause of diseases classified elsewhere; B95.61 Methicillin susceptible Staphylococcus aureus infection as the cause of diseases classified elsewhere; E78.5 Hyperlipidemia, unspecified; E11.42 Type 2 diabetes mellitus with diabetic polyneuropathy; E11.628 Type 2 diabetes mellitus with other skin complications; L97.519 Non-pressure chronic ulcer of other part of right foot with unspecified severity; Z82.49 Family history of ischemic heart disease and other diseases of the circulatory system; Z88.0 Allergy status to penicillin; Z83.3 Family history of diabetes mellitus; Z79.899 Other long term (current) drug therapy
CPT/HCPCS: 36415; 36569; 71045; 73630; 80048; 80053; 80202; 81001; 82962; 83036; 84145; 85007; 85025; 87040; 87071; 87075; 88305; 88311; 93923; 99406; A7015; J1650; J1815; J2185; J2250; J2704; J3010; J3370; J3490; J7030; J7040; J7120; A4461; G0378